=== PATIENT | female | born 1955 | race Caucasian/White ===

== ENCOUNTER → 2018-01-25 10:12 | Outpatient (CLI) | payer OTHER, SELFPAY ==
[2018-01-25 12:33] LABS: Add Manual Diff / Slide Review NO; Basophils Percent Auto 0.6 % (0-2); Eosinophils Percent Auto 2.3 % (2-4); Hematocrit 40.5 % (36-46); Hemoglobin 13.8 g/dL (12.0-16.0); Lymphocytes Percent Auto 34.7 % (25-40); Mean Corpuscular HGB Conc 34.1 % (30-36); Mean Corpuscular Hemoglobin 29.2 PG (26-34); Mean Corpuscular Volume 85.4 fL (80-100); Monocytes Percent Auto 8.2 % (3-14); Neutrophils Absolute Auto 2600 /uL (3000-5900); Neutrophils Percent Auto 54.2 % (50-75); Platelet Count 238 X10^3/uL (150-400); Red Blood Cell Count 4.74 X10^6/uL (4.0-5.2); Red Cell Distribution Width 13.7 % (11.6-14.8); White Blood Cell Count 4.8 X10^3/uL (4.5-11.0)
[2018-01-25 13:28] LABS: Alanine Aminotransferase 81 IU/L (9-52); Albumin 4.5 g/dL (3.5-5.0); Albumin Globulin Ratio 1.5 (1.0-2.8); Alkaline Phosphatase 72 U/L (38-126); Aspartate Aminotransferase 52 IU/L (14-36); BUN Creatinine Ratio 17.1 (6-22); Bilirubin Total 0.7 mg/dL (0.2-1.3); Blood Urea Nitrogen 12 mg/dL (7-17); Calcium 10.6 mg/dL (8.4-10.2); Carbon Dioxide 28 mmol/L (22-32); Chloride 101 mmol/L (98-107); Estimated Glomerular Filt Rate > 60.0 mL/min (>60); Globulin 3.1 g/dL (1.7-4.1); Glucose 135 mg/dL (80-110); HEMOLYSIS < 15 (0-50); Sodium 142 mmol/L (137-145); Total Protein 7.6 g/dL (6.3-8.2)
[2018-01-27 16:44] LABS: 1 25 Dihydroxy Vitamin D 52 pg/mL (18-72)
== END ==
PROVIDERS: PCP Family Medicine; Visit Provider Nurse Practitioner Gerontology
DX: Z78.0 Asymptomatic menopausal state (principal)
CPT/HCPCS: 36415; 77080; 80053; 82652; 85025

== ENCOUNTER → 2018-03-19 17:37 | Outpatient (CLI) | payer OTHER, SELFPAY ==
[2018-03-19 17:57] LABS: Add Manual Diff / Slide Review NO; Basophils Percent Auto 0.8 % (0-2); Eosinophils Percent Auto 3.1 % (2-4); Hematocrit 40.9 % (36-46); Hemoglobin 13.9 g/dL (12.0-16.0); Lymphocytes Percent Auto 25.9 % (25-40); Mean Corpuscular Hemoglobin 29.2 PG (26-34); Mean Corpuscular Volume 85.8 fL (80-100); Monocytes Percent Auto 10.9 % (3-14); Neutrophils Absolute Auto 3900 /uL (3000-5900); Neutrophils Percent Auto 59.3 % (50-75); Platelet Count 264 X10^3/uL (150-400); Red Blood Cell Count 4.77 X10^6/uL (4.0-5.2); Red Cell Distribution Width 13.9 % (11.6-14.8); White Blood Cell Count 6.6 X10^3/uL (4.5-11.0)
[2018-03-19 18:06] LABS: Alanine Aminotransferase 71 IU/L (9-52); Albumin 4.7 g/dL (3.5-5.0); Albumin Globulin Ratio 1.6 (1.0-2.8); Alkaline Phosphatase 73 U/L (38-126); Aspartate Aminotransferase 37 IU/L (14-36); BUN Creatinine Ratio 21.4 (6-22); Bilirubin Total 0.7 mg/dL (0.2-1.3); Blood Urea Nitrogen 15 mg/dL (7-17); Calcium 10.6 mg/dL (8.4-10.2); Carbon Dioxide 31 mmol/L (22-32); Chloride 100 mmol/L (98-107); Estimated Glomerular Filt Rate > 60.0 mL/min (>60); Glucose 98 mg/dL (80-110); HEMOLYSIS < 15 (0-50); Sodium 142 mmol/L (137-145); Total Protein 7.7 g/dL (6.3-8.2)
== END ==
PROVIDERS: PCP Family Medicine; Visit Provider Physician Assistant
DX: N23 Unspecified renal colic (principal)
CPT/HCPCS: 36415; 80053; 85025

== ENCOUNTER → 2018-04-23 10:07 | Outpatient (CLI) | payer OTHER, SELFPAY ==
[2018-04-23 11:22] LABS: Alanine Aminotransferase 72 IU/L (9-52); Albumin 4.7 g/dL (3.5-5.0); Albumin Globulin Ratio 1.6 (1.0-2.8); Alkaline Phosphatase 66 U/L (38-126); Aspartate Aminotransferase 45 IU/L (14-36); BUN Creatinine Ratio 18.6 (6-22); Bilirubin Total 0.7 mg/dL (0.2-1.3); Blood Urea Nitrogen 13 mg/dL (7-17); Calcium 10.4 mg/dL (8.4-10.2); Carbon Dioxide 30 mmol/L (22-32); Chloride 103 mmol/L (98-107); Cholesterol 265 mg/dL (140-199); Estimated Glomerular Filt Rate > 60.0 mL/min (>60); Globulin 2.9 g/dL (1.7-4.1); Glucose 109 mg/dL (80-110); HDL Cholesterol 56 mg/dL (40-60); HEMOLYSIS < 15 (0-50); LDL Cholesterol Calculated 175 mg/dL (<100); Potassium 4.2 mmol/L (3.4-5.1); Sodium 142 mmol/L (137-145); Total Protein 7.6 g/dL (6.3-8.2); Triglycerides 169 mg/dL (35-150)
[2018-04-23 11:23] LABS: Hematocrit 41.4 % (36-46); Hemoglobin 14.3 g/dL (12.0-16.0); Mean Corpuscular HGB Conc 34.5 % (30-36); Mean Corpuscular Hemoglobin 29.2 PG (26-34); Mean Corpuscular Volume 84.7 fL (80-100); Platelet Count 250 X10^3/uL (150-400); Red Blood Cell Count 4.89 X10^6/uL (4.0-5.2); Red Cell Distribution Width 13.9 % (11.6-14.8); White Blood Cell Count 4.6 X10^3/uL (4.5-11.0)
[2018-04-23 12:09] LABS: Free T4, Direct Thyroxine 1.83 ng/dL (0.78-2.19)
[2018-04-23 12:16] LABS: Creatinine Urine Random 80.9 mg/dL
[2018-04-23 12:21] LABS: Microalbumi Creatinin Ratio Ur 18.5 ug/mg CR (<30); Microalbumin Urine Random 1.5 mg/dL (0-1.6)
[2018-04-23 12:24] LABS: Thyroid Stimulating Hormone 0.25 uIU/mL (0.47-4.68)
== END ==
PROVIDERS: PCP Family Medicine
DX: E03.8 Other specified hypothyroidism (principal); E06.3 Autoimmune thyroiditis; E11.9 Type 2 diabetes mellitus without complications
CPT/HCPCS: 36415; 80053; 80061; 82043; 82570; 84439; 84443; 85027

== ENCOUNTER 2018-06-01 08:45 | Emergency (ER) | payer OTHER, SELFPAY ==
[2018-06-01 08:56] VITALS: BP 188/77; PULSE 90; RESP 13; TEMP 36.9; O2SAT 96
[2018-06-01 09:16] VITALS: BP 156/77; PULSE 72
[2018-06-01 09:20] LABS: Add Manual Diff / Slide Review NO; Basophils Percent Auto 0.8 % (0-2); Eosinophils Percent Auto 3.1 % (2-4); Hematocrit 40.2 % (36-46); Hemoglobin 13.9 g/dL (12.0-16.0); Lymphocytes Percent Auto 35.2 % (25-40); Mean Corpuscular HGB Conc 34.5 % (30-36); Mean Corpuscular Hemoglobin 29.4 PG (26-34); Mean Corpuscular Volume 85.3 fL (80-100); Neutrophils Absolute Auto 2500 /uL (3000-5900); Neutrophils Percent Auto 50.9 % (50-75); Platelet Count 245 X10^3/uL (150-400); Red Blood Cell Count 4.71 X10^6/uL (4.0-5.2); Red Cell Distribution Width 13.6 % (11.6-14.8); White Blood Cell Count 4.9 X10^3/uL (4.5-11.0)
[2018-06-01 09:28] LABS: Alanine Aminotransferase 74 IU/L (9-52); Albumin 4.6 g/dL (3.5-5.0); Albumin Globulin Ratio 1.7 (1.0-2.8); Alkaline Phosphatase 121 U/L (38-126); Aspartate Aminotransferase 38 IU/L (14-36); BUN Creatinine Ratio 28.3 (6-22); Bilirubin Total 0.6 mg/dL (0.2-1.3); Blood Urea Nitrogen 17 mg/dL (7-17); Calcium 9.8 mg/dL (8.4-10.2); Carbon Dioxide 24 mmol/L (22-32); Chloride 103 mmol/L (98-107); Estimated Glomerular Filt Rate > 60.0 mL/min (>60); Globulin 2.7 g/dL (1.7-4.1); Glucose 226 mg/dL (80-110); HEMOLYSIS 16 (0-50); Potassium 4.3 mmol/L (3.4-5.1); Sodium 142 mmol/L (137-145); Total Protein 7.3 g/dL (6.3-8.2)
--- NOTE | 2018-06-01 09:40 | ED.GENADULT ---
HPI - General Adult General Chief complaint: Hypertension Stated complaint: BLOOD PRESSURE HIGH Time Seen by Provider: 06/01/18 09:28 Source: patient and family (daughter) Mode of arrival: ambulatory Limitations: no limitations History of Present Illness HPI narrative: This 63-year-old female who comes in with complaint of feeling sort of dizzy and off balance occasionally. She thinks that her blood pressure is elevated this may be part of the issue. She states checked her blood pressure at home it was 190/115 with an arm cough. She states that she has also checked at several other times it has ranged from about 150 on the upper end to 90 range. Patient states she was told to start a it started in for blood pressure but she has not because she did have high blood pressure until recently although she is taking Gerardo inhibitor and hydrochlorothiazide. Patient also recently changed her medication to insulin glargine you 300 from Lantus. Patient states her physician told her that it was not controlling her sugars well. She was 240 this morning during the most recent episode which she states it is a pretty good number for her. She has not had any fevers or chills. She denied having a headache, she is not having any chest pressure or shortness of breath. No nausea or vomiting. No GI or urinary symptoms that are new. Patient also thought that perhaps she had an ear infection as her ears have felt full that she thought this might be the cause. She had 1 episode when she was speaking on the phone and she states everything went black but sounds like she did not lose consciousness or stop talking during this episode. Related Data Home Medications Medication Instructions Recorded Confirmed cholecalciferol (vitamin D3) 2,000 unit PO QDAY #0 05/06/17 06/01/18 lorazepam 0.5 mg tablet 0.5 mg PO BEDTIME PRN 12/02/17 06/01/18 metformin 1,000 mg tablet 1,000 mg PO BID 12/02/17 06/01/18 insulin aspart U-100 [Novolog 1 dose SUBCUT DIRECTED 06/01/18 06/01/18 Flexpen U-100 Insulin] insulin glargine U-300 conc 120 units SUBCUT QAM 06/01/18 06/01/18 [Toujeo Max U-300 SoloStar] levothyroxine [Synthroid] 112 mcg PO DAILY 06/01/18 06/01/18 Allergies Allergy/AdvReac Type Severity Reaction Status Date / Time promethazine [From PHENERGAN] Allergy Unknown Unverified 03/19/18 17:18 scopolamine [SCOPOLAMINE] Allergy Unknown Unverified 03/19/18 17:18 NO USE OF LEFT ARM FOR IV/BP Allergy Unknown Uncoded 03/19/18 17:18 Review of Systems Review of Systems All systems reviewed & are unremarkable except as noted in HPI and below Constitutional Denies chills, Denies headache(s), Denies lethargy, Denies malaise and Denies weakness ENT Ears, Nose, Mouth, and Throat: Denies headache(s), Denies disequilibrium and Reports other (ears feel full) Cardiovascular Denies chest pain, Denies diaphoresis, Denies syncope, Denies pedal edema, Denies irregular heart rhythm, Denies lightheadedness, Denies palpitations, Denies dyspnea, Denies orthopnea and Reports other (dizzy, everything went black) Respiratory Denies chest congestion, Denies cough and Denies dyspnea Gastrointestinal Gastrointestinal: Denies abdominal pain, Denies change in bowel habits, Denies diarrhea, Denies nausea and Denies vomiting Musculoskeletal Denies numbness Neurologic Denies syncope, Denies headache(s), Denies focal weakness, Denies numbness, Denies disequilibrium and Denies weakness Endocrine Denies palpitations [facility] Medical History Diabetes (Acute) Surgical History History of lithotripsy History of tonsillectomy History of total mastectomy Family History Father Diabetes mellitus Hypertension Stroke Mother Hypertension Stroke Social History Smoking Status: Never smoker Exam Narrative Exam Narrative: GEN: well nourished, well appearing female, alert and oriented x 3, patient appears to be in mild distress. HEENT: Atraumatic, pupils are equal round reactive to light, extraocular movements are intact, nares are clear, TMs are clear with no fluid. Throat is clear without any exudates, erythema, tonsillar enlargement or uvular deviation HEART: Regular rate and rhythm without murmur, clicks, rubs. No carotid bruits, pulses are equal in upper and lower extremities LUNGS:Lungs clear to auscultation, no wheezes, rales, crackles, chest moves symmetrically ABD:bowel sounds normal, soft, non-tender, no guarding, rebound, rigidity, no masses noted, no hepatosplenomegaly MSCL: Non-tender, no muscle atrophy, muscles strength 5/5 upper and lower extremities, full range of motion, normal gait NEURO:CN 2-12 intact, sensation normal Initial Vital Signs Initial Vital Signs: Vital Signs Temperature 98.4 F 06/01/18 08:56 Pulse Rate 90 06/01/18 08:56 Respiratory Rate 13 06/01/18 08:56 Blood Pressure 188/77 H 06/01/18 08:56 Pulse Oximetry 96 06/01/18 08:56 Course Orders Ordered: ED Orders 06/01/18 08:56 EKG-12 Lead Stat 06/01/18 09:00 CBC [Complete Blood Count AUTO DIFF] Stat Comprehensive Metabolic Panel Stat 06/01/18 09:40 XR chest 1V Stat 06/01/18 09:43 Troponin & CK Cardiac Panel Stat Vital Signs - 8 hr 06/01/18 08:56 06/01/18 09:16 06/01/18 10:51 Temperature 98.4 F Pulse Rate 90 72 84 Respiratory Rate 13 16 Blood Pressure 188/77 H Blood Pressure [Right Arm] 156/77 H 149/60 H Pulse Oximetry 96 99 06/01/18 11:19 Temperature Pulse Rate 82 Respiratory Rate 13 Blood Pressure Blood Pressure [Right Arm] 151/70 H Pulse Oximetry 96 Medical Decision Making Lab Data Result diagrams: 06/01/18 09:00 06/01/18 09:00 Lab Results 06/01/18 06/01/18 06/01/18 Range/Units 09:00 09:00 09:43 WBC 4.9 (4.5-11.0) X10^3/uL RBC 4.71 (4.0-5.2) X10^6/uL Hgb 13.9 (12.0-16.0) g/dL Hct 40.2 (36-46) % MCV 85.3 (80-100) fL MCH 29.4 (26-34) PG MCHC 34.5 (30-36) % RDW 13.6 (11.6-14.8) % Plt Count 245 (150-400) X10^3/uL Neut % (Auto) 50.9 (50-75) % Lymph % (Auto) 35.2 (25-40) % [place] % (Auto) 10.0 (3-14) % Eos % (Auto) 3.1 (2-4) % Baso % (Auto) 0.8 (0-2) % Neut # (Auto) 2500 L (6936-8306) /uL Sodium 142 (137-145) mmol/L Potassium 4.3 (3.4-5.1) mmol/L Chloride 103 (98-107) mmol/L Carbon Dioxide 24 (22-32) mmol/L BUN 17 (7-17) mg/dL Creatinine 0.60 (0.52-1.04) mg/dL Estimated GFR > 60.0 (>60) mL/min BUN/Creatinine Ratio 28.3 H (6-22) Glucose 226 H (80-110) mg/dL Calcium 9.8 (8.4-10.2) mg/dL Total Bilirubin 0.6 (0.2-1.3) mg/dL AST 38 H (14-36) IU/L ALT 74 H (9-52) IU/L Alkaline Phosphatase 121 (38-126) U/L Total Creatine Kinase 64 (30-135) U/L CK-MB (CK-2) TNP CK-MB (CK-2) Rel Index TNP Troponin I < 0.012 (0.01-0.034) ng/mL Total Protein 7.3 (6.3-8.2) g/dL Albumin 4.6 (3.5-5.0) g/dL Globulin 2.7 (1.7-4.1) g/dL Albumin/Globulin Ratio 1.7 (1.0-2.8) Urine Dip Bedside Urine Glucose 250 mg/dl Bedside Urine Bilirubin - Negative Urine Specific [place] 1.015 Bedside Urine Occult Blood - Negative Bedside Urine pH 6.0 Bedside Urine Protein - Negative Bedside Urine Urobilinogen - Negative Bedside Urine Nitrite - Negative Bedside Urine Leukocytes - Negative Esterase Point of care testing: Urine Dip Bedside Urine Glucose 250 mg/dl Bedside Urine Bilirubin - Negative Urine Specific [place] 1.015 Bedside Urine Occult Blood - Negative Bedside Urine pH 6.0 Bedside Urine Protein - Negative Bedside Urine Urobilinogen - Negative Bedside Urine Nitrite - Negative Bedside Urine Leukocytes - Negative Esterase Imaging Data Chest x-ray: Radiologist's impression: [address] [address] XRay Report Signed Patient: Lesa Hitchcock PMR#: [id number] : 4Acct:[id number] Age/Sex: 63 / FDate of Service: 06/01/18 Loc: ED Accession Number: [id number] Procedure: XR chest 1V Ordering Provider: Lexis Segura D.O. PROCEDURE: XR CHEST 1V INDICATIONS: dizzy, high blood pressure TECHNIQUE: One view of the chest was acquired. COMPARISON: None. FINDINGS: Surgical changes and devices: Clips are present on the chest wall. Lungs and pleura: No pleural effusions or pneumothorax. Lungs are clear. Mediastinum: Mediastinal contours appear normal. Heart size is normal. Bones and chest wall: No suspicious bony lesions. Overlying soft tissues appear unremarkable. IMPRESSION: No acute pulmonary process. Dictated by: Lakesha Buckley M.D. on 06/01/2018 at 10:17 Approved by: Lakesha Buckley M.D. on 06/01/2018 at 10:18 ECG Data Attestation: I personally reviewed and interpreted this ECG as follows: Prior ECG tracings: not available for review Interpretation: Sinus rhythm with a rate of 80, P are 175 QRS of 102 and QTC of 397. Q-wave in 2 3 but not noted in AVF. No ST elevation. Possible depression in 2 and 3 but also not noted in AVF. Discharge Plan Departure Patient Disposition: Home Clinical Impression: Dizziness, Hypertension Discharge Date/Time: 06/01/18 11:42 Interventions: ED Discharge Assessment Last Done: 06/01/18 11:40 Instructions: DI for High Blood Pressure Activity Restrictions/Additional Instructions: Follow-up with your primary care physician in the next 2-3 days for recheck call for an appointment. Return to the emergency department for passing out, chest pain, shortness of breath, persistent vomiting, black or bloody stools or other new or concerning symptoms. I do recommend you continue to use your insulin as recommended. I also recommend that you start your blood pressure medication as prescribed by your physician. Prescriptions: No Action cholecalciferol (vitamin D3) 400 UNIT/1 ML drops 2,000 unit PO QDAY Qty: 0 RF: 0 metformin 1,000 mg tablet 1,000 mg PO BID RF: 0 lorazepam 0.5 mg tablet 0.5 mg PO BEDTIME PRN (Reason: Anxiety) RF: 0 levothyroxine [Synthroid] 112 mcg tablet 112 mcg PO DAILY RF: 0 insulin aspart U-100 [Novolog Flexpen U-100 Insulin] 100 unit/mL insulin pen 1 dose subcut DIRECTED RF: 0 insulin glargine U-300 conc [Toujeo Max U-300 SoloStar] 300 unit/mL (3 mL) insulin pen 120 units subcut QAM RF: 0
--- NOTE | 2018-06-01 09:44 | ED_ITS ---
HPI - General Adult General Chief complaint: Hypertension Stated complaint: BLOOD PRESSURE HIGH Time Seen by Provider: 06/01/18 09:28 Source: patient and family (daughter) Mode of arrival: ambulatory Limitations: no limitations History of Present Illness HPI narrative: This 63-year-old female who comes in with complaint of feeling sort of dizzy and off balance occasionally. She thinks that her blood pressure is elevated this may be part of the issue. She states checked her blood pressure at home it was 190/115 with an arm cough. She states that she has also checked at several other times it has ranged from about 150 on the upper end to 90 range. Patient states she was told to start a it started in for blood pressure but she has not because she did have high blood pressure until recently although she is taking Gerardo inhibitor and hydrochlorothiazide. Patient also recently changed her medication to insulin glargine you 300 from Lantus. Patient states her physician told her that it was not controlling her sugars well. She was 240 this morning during the most recent episode which she states it is a pretty good number for her. She has not had any fevers or chills. She denied having a headache, she is not having any chest pressure or shortness of breath. No nausea or vomiting. No GI or urinary symptoms that are new. Patient also thought that perhaps she had an ear infection as her ears have felt full that she thought this might be the cause. She had 1 episode when she was speaking on the phone and she states everything went black but sounds like she did not lose consciousness or stop talking during this episode. Related Data Home Medications Medication Instructions Recorded Confirmed cholecalciferol (vitamin D3) 2,000 unit PO QDAY #0 05/06/17 06/01/18 lorazepam 0.5 mg tablet 0.5 mg PO BEDTIME PRN 12/02/17 06/01/18 metformin 1,000 mg tablet 1,000 mg PO BID 12/02/17 06/01/18 insulin aspart U-100 [Novolog 1 dose SUBCUT DIRECTED 06/01/18 06/01/18 Flexpen U-100 Insulin] insulin glargine U-300 conc 120 units SUBCUT QAM 06/01/18 06/01/18 [Toujeo Max U-300 SoloStar] levothyroxine [Synthroid] 112 mcg PO DAILY 06/01/18 06/01/18 Allergies Allergy/AdvReac Type Severity Reaction Status Date / Time promethazine [From PHENERGAN] Allergy Unknown Unverified 03/19/18 17:18 scopolamine [SCOPOLAMINE] Allergy Unknown Unverified 03/19/18 17:18 NO USE OF LEFT ARM FOR IV/BP Allergy Unknown Uncoded 03/19/18 17:18 Review of Systems Review of Systems All systems reviewed & are unremarkable except as noted in HPI and below Constitutional Denies chills, Denies headache(s), Denies lethargy, Denies malaise and Denies weakness ENT Ears, Nose, Mouth, and Throat: Denies headache(s), Denies disequilibrium and Reports other (ears feel full) Cardiovascular Denies chest pain, Denies diaphoresis, Denies syncope, Denies pedal edema, Denies irregular heart rhythm, Denies lightheadedness, Denies palpitations, Denies dyspnea, Denies orthopnea and Reports other (dizzy, everything went black ) Respiratory Denies chest congestion, Denies cough and Denies dyspnea Gastrointestinal Gastrointestinal: Denies abdominal pain, Denies change in bowel habits, Denies diarrhea, Denies nausea and Denies vomiting Musculoskeletal Denies numbness Neurologic Denies syncope, Denies headache(s), Denies focal weakness, Denies numbness, Denies disequilibrium and Denies weakness Endocrine Denies palpitations [facility] Medical History Diabetes (Acute) Surgical History History of lithotripsy History of tonsillectomy History of total mastectomy Family History Father Diabetes mellitus Hypertension Stroke Mother Hypertension Stroke Social History Smoking Status: Never smoker Exam Narrative Exam Narrative: GEN: well nourished, well appearing female, alert and oriented x 3, patient appears to be in mild distress. HEENT: Atraumatic, pupils are equal round reactive to light, extraocular movements are intact, nares are clear, TMs are clear with no fluid. Throat is clear without any exudates, erythema, tonsillar enlargement or uvular deviation HEART: Regular rate and rhythm without murmur, clicks, rubs. No carotid bruits , pulses are equal in upper and lower extremities LUNGS:Lungs clear to auscultation, no wheezes, rales, crackles, chest moves symmetrically ABD:bowel sounds normal, soft, non-tender, no guarding, rebound, rigidity, no masses noted, no hepatosplenomegaly MSCL: Non-tender, no muscle atrophy, muscles strength 5/5 upper and lower extremities, full range of motion, normal gait NEURO:CN 2-12 intact, sensation normal Initial Vital Signs Initial Vital Signs: Vital Signs Temperature 98.4 F 06/01/18 08:56 Pulse Rate 90 06/01/18 08:56 Respiratory Rate 13 06/01/18 08:56 Blood Pressure 188/77 H 06/01/18 08:56 Pulse Oximetry 96 06/01/18 08:56 Course Orders Ordered: ED Orders 06/01/18 08:56 EKG-12 Lead Stat 06/01/18 09:00 CBC [Complete Blood Count AUTO DIFF] Stat Comprehensive Metabolic Panel Stat 06/01/18 09:40 XR chest 1V Stat 06/01/18 09:43 Troponin & CK Cardiac Panel Stat Vital Signs - 8 hr 06/01/18 08:56 06/01/18 09:16 06/01/18 10:51 Temperature 98.4 F Pulse Rate 90 72 84 Respiratory Rate 13 16 Blood Pressure 188/77 H Blood Pressure [Right Arm] 156/77 H 149/60 H Pulse Oximetry 96 99 06/01/18 11:19 Temperature Pulse Rate 82 Respiratory Rate 13 Blood Pressure Blood Pressure [Right Arm] 151/70 H Pulse Oximetry 96 Medical Decision Making Lab Data Result diagrams: 06/01/18 09:00 06/01/18 09:00 Lab Results 06/01/18 06/01/18 06/01/18 Range/Units 09:00 09:00 09:43 WBC 4.9 (4.5-11.0) X10^3/uL RBC 4.71 (4.0-5.2) X10^6/uL Hgb 13.9 (12.0-16.0) g/dL Hct 40.2 (36-46) % MCV 85.3 (80-100) fL MCH 29.4 (26-34) PG MCHC 34.5 (30-36) % RDW 13.6 (11.6-14.8) % Plt Count 245 (150-400) X10^3/uL Neut % (Auto) 50.9 (50-75) % Lymph % (Auto) 35.2 (25-40) % [place] % (Auto) 10.0 (3-14) % Eos % (Auto) 3.1 (2-4) % Baso % (Auto) 0.8 (0-2) % Neut # (Auto) 2500 L (3007-3906) /uL Sodium 142 (137-145) mmol/L Potassium 4.3 (3.4-5.1) mmol/L Chloride 103 (98-107) mmol/L Carbon Dioxide 24 (22-32) mmol/L BUN 17 (7-17) mg/dL Creatinine 0.60 (0.52-1.04) mg/dL Estimated GFR > 60.0 (>60) mL/min BUN/Creatinine Ratio 28.3 H (6-22) Glucose 226 H (80-110) mg/dL Calcium 9.8 (8.4-10.2) mg/dL Total Bilirubin 0.6 (0.2-1.3) mg/dL AST 38 H (14-36) IU/L ALT 74 H (9-52) IU/L Alkaline Phosphatase 121 (38-126) U/L Total Creatine Kinase 64 (30-135) U/L CK-MB (CK-2) TNP CK-MB (CK-2) Rel Index TNP Troponin I < 0.012 (0.01-0.034) ng/mL Total Protein 7.3 (6.3-8.2) g/dL Albumin 4.6 (3.5-5.0) g/dL Globulin 2.7 (1.7-4.1) g/dL Albumin/Globulin Ratio 1.7 (1.0-2.8) Urine Dip Bedside Urine Glucose 250 mg/dl Bedside Urine Bilirubin - Negative Urine Specific [place] 1.015 Bedside Urine Occult Blood - Negative Bedside Urine pH 6.0 Bedside Urine Protein - Negative Bedside Urine Urobilinogen - Negative Bedside Urine Nitrite - Negative Bedside Urine Leukocytes - Negative Esterase Point of care testing: Urine Dip Bedside Urine Glucose 250 mg/dl Bedside Urine Bilirubin - Negative Urine Specific [place] 1.015 Bedside Urine Occult Blood - Negative Bedside Urine pH 6.0 Bedside Urine Protein - Negative Bedside Urine Urobilinogen - Negative Bedside Urine Nitrite - Negative Bedside Urine Leukocytes - Negative Esterase Imaging Data Chest x-ray: Radiologist's impression: [address] [address] XRay Report Signed Patient: Lesa Hitchcock PMR#: [id number] : 4Acct:[id number] Age/Sex: 63 / FDate of Service: 06/01/18 Loc: ED Accession Number: [id number] Procedure: XR chest 1V Ordering Provider: Lexis Segura D.O. PROCEDURE: XR CHEST 1V INDICATIONS: dizzy, high blood pressure TECHNIQUE: One view of the chest was acquired. COMPARISON: None. FINDINGS: Surgical changes and devices: Clips are present on the chest wall. Lungs and pleura: No pleural effusions or pneumothorax. Lungs are clear. Mediastinum: Mediastinal contours appear normal. Heart size is normal. Bones and chest wall: No suspicious bony lesions. Overlying soft tissues appear unremarkable. IMPRESSION: No acute pulmonary process. Dictated by: Lakesha Buckley M.D. on 06/01/2018 at 10:17 Approved by: Lakesha Buckley M.D. on 06/01/2018 at 10:18 ECG Data Attestation: I personally reviewed and interpreted this ECG as follows: Prior ECG tracings: not available for review Interpretation: Sinus rhythm with a rate of 80, P are 175 QRS of 102 and QTC of 397. Q-wave in 2 3 but not noted in AVF. No ST elevation. Possible depression in 2 and 3 but also not noted in AVF. Discharge Plan Departure Patient Disposition: Home Clinical Impression: Dizziness, Hypertension Discharge Date/Time: 06/01/18 11:42 Interventions: ED Discharge Assessment Last Done: 06/01/18 11:40 Instructions: DI for High Blood Pressure Activity Restrictions/Additional Instructions: Follow-up with your primary care physician in the next 2-3 days for recheck call for an appointment. Return to the emergency department for passing out, chest pain, shortness of breath, persistent vomiting, black or bloody stools or other new or concerning symptoms. I do recommend you continue to use your insulin as recommended. I also recommend that you start your blood pressure medication as prescribed by your physician. Prescriptions: No Action cholecalciferol (vitamin D3) 400 UNIT/1 ML drops 2,000 unit PO QDAY Qty: 0 RF: 0 metformin 1,000 mg tablet 1,000 mg PO BID RF: 0 lorazepam 0.5 mg tablet 0.5 mg PO BEDTIME PRN (Reason: Anxiety) RF: 0 levothyroxine [Synthroid] 112 mcg tablet 112 mcg PO DAILY RF: 0 insulin aspart U-100 [Novolog Flexpen U-100 Insulin] 100 unit/mL insulin pen 1 dose subcut DIRECTED RF: 0 insulin glargine U-300 conc [Toujeo Max U-300 SoloStar] 300 unit/mL (3 mL) insulin pen 120 units subcut QAM RF: 0
--- NOTE | 2018-06-01 09:48 | PC.NURSE ---
Daughter Kat Olivier at [phone]
[2018-06-01 09:51] LABS: Creatine Kinase 64 U/L (30-135)
[2018-06-01 10:05] LABS: Troponin I < 0.012 ng/mL (0.01-0.034)
[2018-06-01 10:51] VITALS: BP 149/60; PULSE 84; RESP 16; O2SAT 99
[2018-06-01 11:19] VITALS: BP 151/70; PULSE 82; RESP 13; O2SAT 96
== END 2018-06-01 11:42 | disposition home or self-care (01) ==
PROVIDERS: Emergency Provider Emergency Medicine; PCP Family Medicine
DX: I10 Essential (primary) hypertension (principal); R42 Dizziness and giddiness
CPT/HCPCS: 36591; 71045; 80053; 81003; 82550; 84484; 85025; 93005; 93041; 99283; 99285

== ENCOUNTER 2018-06-11 11:40 | Emergency (ER) | payer OTHER, SELFPAY ==
[2018-06-11] VITALS (7 sets, daily range): BP systolic 108–137; BP diastolic 50–71; PULSE 79–95; RESP 14–23; TEMP 36.9; O2SAT 91–100
--- NOTE | 2018-06-11 12:09 | ED.AMS ---
HPI - Altered Mental Status <CITLALI Ogden - Last Filed: 06/11/18 22:03> General Chief Complaint: Hypertension Stated Complaint: High BP and HR Time Seen by Provider: 06/11/18 12:04 Source: patient Mode of arrival: ambulatory Limitations: no limitations History of Present Illness HPI narrative: 63-year-old female with history of hypertension and is a nonsmoker here for complaint of having periods of having increased blood pressure and also feelings of increased heart rate over the past couple of weeks. She was seen for this 1 week ago with similar symptoms and had negative workup. She is currently awaiting further studies such as possible cardiac studies and also carotid Doppler. She is concerned about her thyroid levels as she has hypo thyroidism and is taking levothyroxine. She denies having any chest pain. She denies having any headache. She states she did have an episode last night where she saw darkness closing although she denies any loss of consciousness. She does state that she felt lightheaded during this. And lasted he less than a minute. She is not having any symptoms as of today. She denies any shortness of breath. No fevers no chills. Related Data Home Medications Medication Instructions Recorded Confirmed metformin 1,000 mg tablet 1,000 mg PO BID 12/02/17 06/11/18 insulin aspart U-100 [Novolog 1 dose SUBCUT DIRECTED 06/01/18 06/11/18 Flexpen U-100 Insulin] insulin glargine U-300 conc 120 units SUBCUT QAM 06/01/18 06/11/18 [Toujeo Max U-300 SoloStar] levothyroxine [Synthroid] 112 mcg PO DAILY 06/01/18 06/11/18 Allergies Allergy/AdvReac Type Severity Reaction Status Date / Time promethazine [From PHENERGAN] Allergy Unknown Unverified 03/19/18 17:18 scopolamine [SCOPOLAMINE] Allergy Unknown Unverified 03/19/18 17:18 NO USE OF LEFT ARM FOR IV/BP Allergy Unknown Uncoded 03/19/18 17:18 Review of Systems <CITLALI Ogden - Last Filed: 06/11/18 22:03> Review of Systems Elevated blood pressure and elevated heart rate. Pre syncopal episode last night and week prior Constitutional Denies chills, Denies fever(s), Denies lethargy and Denies weakness Eyes Denies change in vision, Denies eye discharge, Denies irritation and Denies loss of vision ENT Ears, Nose, Mouth, and Throat: Denies change in voice, Denies neck pain and Denies sore throat Cardiovascular Denies chest pain, Denies irregular heart rhythm, Denies lightheadedness, Denies palpitations, Denies dyspnea, Denies dyspnea on exertion and Denies orthopnea Respiratory Denies cough, Denies dyspnea, Denies dyspnea on exertion and Denies wheezing Gastrointestinal Gastrointestinal: Denies abdominal pain, Denies change in bowel habits, Denies diarrhea, Denies nausea and Denies vomiting Genitourinary Denies hematuria, Denies flank pain, Denies urinary incontinence and Denies urinary urgency Musculoskeletal Denies neck pain Integumentary/Breasts Denies pruritus, Denies erythema, Denies rash and Denies wounds Neurologic Denies confusion, Denies loss of vision and Denies weakness Psychiatric Denies anxiety, Denies confusion, Denies depression, Denies homicidal ideation and Denies suicidal ideation Endocrine Denies palpitations Hematologic/Lymphatic Denies easy bruising Allergic/Immunologic Denies wheezing Exam <CITLALI Ogden - Last Filed: 06/11/18 22:03> Initial Vital Signs Initial Vital Signs: Vital Signs Temperature 98.5 F 06/11/18 12:16 Pulse Rate 95 H 06/11/18 12:16 Respiratory Rate 14 06/11/18 12:16 Blood Pressure 137/68 06/11/18 12:16 Pulse Oximetry 100 06/11/18 12:16 Const General: cooperative and well developed Nutritional Appearance: well nourished Orientation: alert, awake, oriented x3 and not confused [facility] Mouth: oral mucosae normal and mucous membranes abnormal Eyes Conjunctivae: conjunctivae normal Sclera: sclerae normal Pupils: PERRL EOM: EOM intact bilaterally Neck Neck: normal visual inspection, trachea midline, No lymphadenopathy, No midline deformity and No JVD Lymphatic: No lymphedema Resp Effort & Inspection: normal respiratory effort, able to speak in complete sentences, no respiratory distress and no use of accessory muscles Auscultation: clear to auscultation bilaterally, no rales, no rhonchi and no wheezes Cardio Rate: regular rate Rhythm: regular rhythm Heart Sounds: no click, no gallops, no murmurs and no rubs Pulses: normal peripheral pulses GI Inspection: non-distended Palpation: soft, no hepatosplenomegaly, No guarding, No pulsatile mass and No tender Auscultation: normal bowel sounds General: No CVA tenderness Skin General: no rashes or lesions noted, No jaundice and No petechiae Neuro General: alert, oriented x3, gait normal and no focal motor deficits Speech: speech normal <Samreen Kuhn DO - Last Filed: 06/12/18 07:26> Initial Vital Signs Initial Vital Signs: Vital Signs Temperature 98.5 F 06/11/18 12:16 Pulse Rate 95 H 06/11/18 12:16 Respiratory Rate 14 06/11/18 12:16 Blood Pressure 137/68 06/11/18 12:16 Pulse Oximetry 100 06/11/18 12:16 Course <CITLALI Ogden - Last Filed: 06/11/18 22:03> Orders Ordered: ED Orders 06/11/18 12:29 CT head/brain wo con Stat XR chest 1V Stat EKG-12 Lead Stat 06/11/18 13:00 Complete Blood Count AUTO DIFF Stat Comprehensive Metabolic Panel Stat Free T4 Free Thyroxine Stat T4 Thyroxine Stat Thyroid Stimulating Hormone Stat Triiodothryronine T3 Uptake Stat Triiodothyronine T3 Free Stat Troponin & CK Cardiac Panel Stat Vital Signs - 8 hr 06/11/18 14:15 06/11/18 14:45 06/11/18 15:05 Pulse Rate 79 83 85 Respiratory Rate 15 14 23 Blood Pressure [Left Arm] 122/60 128/50 L 131/52 L Pulse Oximetry 97 98 94 <Samreen Kuhn DO - Last Filed: 06/12/18 07:26> Orders Ordered: ED Orders 06/11/18 12:29 CT head/brain wo con Stat XR chest 1V Stat EKG-12 Lead Stat 06/11/18 13:00 Complete Blood Count AUTO DIFF Stat Comprehensive Metabolic Panel Stat Free T4 Free Thyroxine Stat T4 Thyroxine Stat Thyroid Stimulating Hormone Stat Triiodothryronine T3 Uptake Stat Triiodothyronine T3 Free Stat Troponin & CK Cardiac Panel Stat Vital Signs - 8 hr 06/11/18 14:15 06/11/18 14:45 06/11/18 15:05 Pulse Rate 79 83 85 Respiratory Rate 15 14 23 Blood Pressure [Left Arm] 122/60 128/50 L 131/52 L Pulse Oximetry 97 98 94 MDM - Altered Mental Status <CITLALI Ogden - Last Filed: 06/11/18 22:03> Lab Data Result diagrams: 06/11/18 13:00 06/11/18 13:00 Lab Results 06/11/18 06/11/18 06/11/18 Range/Units 13:00 13:00 13:00 WBC 5.7 (4.5-11.0) X10^3/uL RBC 5.16 (4.0-5.2) X10^6/uL Hgb 15.1 (12.0-16.0) g/dL Hct 43.8 (36-46) % MCV 84.9 (80-100) fL MCH 29.2 (26-34) PG MCHC 34.4 (30-36) % RDW 13.5 (11.6-14.8) % Plt Count 271 (150-400) X10^3/uL Neut % (Auto) 55.0 (50-75) % Lymph % (Auto) 34.0 (25-40) % [place] % (Auto) 8.2 (3-14) % Eos % (Auto) 2.0 (2-4) % Baso % (Auto) 0.8 (0-2) % Neut # (Auto) 3100 (7722-8889) /uL Sodium 143 (137-145) mmol/L Potassium 3.9 (3.4-5.1) mmol/L Chloride 101 (98-107) mmol/L Carbon Dioxide 27 (22-32) mmol/L BUN 17 (7-17) mg/dL Creatinine 0.80 (0.52-1.04) mg/dL Estimated GFR > 60.0 (>60) mL/min BUN/Creatinine Ratio 21.3 (6-22) Glucose 117 H (80-110) mg/dL Calcium 10.7 H (8.4-10.2) mg/dL Total Bilirubin 0.6 (0.2-1.3) mg/dL AST 50 H (14-36) IU/L ALT 77 H (9-52) IU/L Alkaline Phosphatase 82 (38-126) U/L Total Creatine Kinase 52 (30-135) U/L CK-MB (CK-2) TNP CK-MB (CK-2) Rel Index TNP Troponin I < 0.012 (0.01-0.034) ng/mL Total Protein 8.3 H (6.3-8.2) g/dL Albumin 5.1 H (3.5-5.0) g/dL Globulin 3.2 (1.7-4.1) g/dL Albumin/Globulin Ratio 1.6 (1.0-2.8) TSH 0.32 L (0.47-4.68) uIU/mL Free T4 1.56 (0.78-2.19) ng/dL Thyroxine (T4) 13.40 H (5.5-11.0) ug/dL Free T3 2.80 (2.77-5.27) pg/mL T3 Uptake 31.3 (23.5-40.5) % Urine Dip Bedside Urine Glucose Negative Bedside Urine Bilirubin - Negative Bedside Urine Ketone - Negative Urine Specific Carr 1.005 Bedside Urine Occult Blood - Negative Bedside Urine pH 6.0 Bedside Urine Protein - Negative Bedside Urine Urobilinogen - Negative Bedside Urine Nitrite - Negative Bedside Urine Leukocytes - Negative Esterase Imaging Data CT scan - head: Radiologist's impression: [place] [address] CT Scan Report Signed Patient: Lesa Hitchcock PMR#: [id number] : 4Acct:[id number] Age/Sex: 63 / FDate of Service: 06/11/18 Loc: ED Accession Number: [id number] Procedure: CT head/brain wo con Ordering Provider: Zaire Lowery PROCEDURE: CT HEAD/BRAIN WO CON INDICATIONS: Elevated heart rate, elevated blood pressure, presyncope TECHNIQUE: Noncontrast 4.5 mm thick angled axial sections acquired from the foramen magnum to the vertex, with coronal and sagittal reformats. For radiation dose reduction, the following was used: automated exposure control, adjustment of mA and/or kV according to patient size. COMPARISON: None. FINDINGS: Image quality: Diagnostic. CSF spaces: Basal cisterns are patent. No extra-axial fluid collections. Ventricles are normal in size and shape. Brain: No midline shift. No intracranial masses or hemorrhage. Dang-white matter interface is normal. Skull and face: Calvarium and visualized facial bones are intact, without suspicious lesions. Sinuses: Visualized sinuses and mastoids are clear. IMPRESSION: Unremarkable head CT. No acute intracranial hemorrhage. Dictated by: Juan Antonio Muñoz M.D. on 06/11/2018 at 12:14 Approved by: Juan Antonio Muñoz M.D. on 06/11/2018 at 12:15 Chest x-ray: Radiologist's impression: [address] [address] XRay Report Signed Patient: Lesa Hitchcock PMR#: [id number] : 4Acct:[id number] Age/Sex: 63 / FDate of Service: 06/11/18 Loc: ED Accession Number: [id number] Procedure: XR chest 1V Ordering Provider: Zaire Lowery PROCEDURE: XR CHEST 1V INDICATIONS: Elevated blood pressure and heart rate TECHNIQUE: One view of the chest was acquired. COMPARISON: [facility], , XR CHEST 1V, 06/01/2018, 9:43. FINDINGS: Surgical changes and devices: Clips overlying the left axillary region are similar to the prior study. Lungs and pleura: No pleural effusions or pneumothorax. Lungs are clear. There is mild elevation of the right diaphragm, unchanged. Mediastinum: Mediastinal contours appear normal. Heart size is normal. Bones and chest wall: No suspicious bony lesions. Overlying soft tissues appear unremarkable. IMPRESSION: Stable chest. No acute cardiopulmonary process is evident. Dictated by: Juan Antonio Muñoz M.D. on 06/11/2018 at 12:41 Approved by: Juan Antonio Muñoz M.D. on 06/11/2018 at 12:42 ECG Data Interpretation: EKG shows normal sinus rhythm with no ST elevation or depression. No ectopy. Ventricular rate of 95. Pr interval 157. QRS duration of 101. QTC of 329. MDM Narrative Medical decision making narrative: Due to presyncopal episodes over the past couple of weeks head CT was obtained was negative for any acute findings. EKG shows sinus rhythm with no ST elevation or depression. No ectopy. CBC and Chem panel were obtained and shows elevated calcium of 10.7 and slightly elevated AST and ALT otherwise is unremarkable. thyroid studies show low TSH of 0.32 and elevated T4 of 13.4. Patient instructed to discuss this with her primary care provider for discussion of adjustment of her levothyroxine treatment. She is also encouraged to monitor her her blood pressure levels to ensure are not dipping to low or not spiking to high and follow up with primary care provider for evaluation of her hypertension treatment. Cardiac enzymes were obtained and were negative. Differential between blood pressure dips and spikes causing her symptoms or if over compensated hypo thyroidism may be causing her symptoms. Due to elevated calcium further thyroid/parathyroid studies may be warranted. Follow up with primary care for the next few days for re-evaluation for any worsening symptoms return to the emergency room. <Samreen Kuhn, DO - Last Filed: 06/12/18 07:26> Lab Data Attestation: I reviewed the patient's lab results. Lab Results 06/11/18 06/11/18 06/11/18 Range/Units 13:00 13:00 13:00 WBC 5.7 (4.5-11.0) X10^3/uL RBC 5.16 (4.0-5.2) X10^6/uL Hgb 15.1 (12.0-16.0) g/dL Hct 43.8 (36-46) % MCV 84.9 (80-100) fL MCH 29.2 (26-34) PG MCHC 34.4 (30-36) % RDW 13.5 (11.6-14.8) % Plt Count 271 (150-400) X10^3/uL Neut % (Auto) 55.0 (50-75) % Lymph % (Auto) 34.0 (25-40) % [place] % (Auto) 8.2 (3-14) % Eos % (Auto) 2.0 (2-4) % Baso % (Auto) 0.8 (0-2) % Neut # (Auto) 3100 (5090-7954) /uL Sodium 143 (137-145) mmol/L Potassium 3.9 (3.4-5.1) mmol/L Chloride 101 (98-107) mmol/L Carbon Dioxide 27 (22-32) mmol/L BUN 17 (7-17) mg/dL Creatinine 0.80 (0.52-1.04) mg/dL Estimated GFR > 60.0 (>60) mL/min BUN/Creatinine Ratio 21.3 (6-22) Glucose 117 H (80-110) mg/dL Calcium 10.7 H (8.4-10.2) mg/dL Total Bilirubin 0.6 (0.2-1.3) mg/dL AST 50 H (14-36) IU/L ALT 77 H (9-52) IU/L Alkaline Phosphatase 82 (38-126) U/L Total Creatine Kinase 52 (30-135) U/L CK-MB (CK-2) TNP CK-MB (CK-2) Rel Index TNP Troponin I < 0.012 (0.01-0.034) ng/mL Total Protein 8.3 H (6.3-8.2) g/dL Albumin 5.1 H (3.5-5.0) g/dL Globulin 3.2 (1.7-4.1) g/dL Albumin/Globulin Ratio 1.6 (1.0-2.8) TSH 0.32 L (0.47-4.68) uIU/mL Free T4 1.56 (0.78-2.19) ng/dL Thyroxine (T4) 13.40 H (5.5-11.0) ug/dL Free T3 2.80 (2.77-5.27) pg/mL T3 Uptake 31.3 (23.5-40.5) % Urine Dip Bedside Urine Glucose Negative Bedside Urine Bilirubin - Negative Bedside Urine Ketone - Negative Urine Specific Carr 1.005 Bedside Urine Occult Blood - Negative Bedside Urine pH 6.0 Bedside Urine Protein - Negative Bedside Urine Urobilinogen - Negative Bedside Urine Nitrite - Negative Bedside Urine Leukocytes - Negative Esterase ECG Data Attestation: I personally reviewed and interpreted this ECG as follows: Interpretation: Sinus rhythm rate [address] changes similar to previous EKG Discharge Plan Departure Patient Disposition: Home Clinical Impression: Dizziness, Hypertension Discharge Date/Time: 06/11/18 15:33 Interventions: ED Discharge Assessment Last Done: 06/11/18 15:33 Activity Restrictions/Additional Instructions: Imaging today that was head CT and chest x-ray were negative. Cardiac enzymes today were unremarkable. Laboratory results show mildly elevated calcium along with decreased TSH and elevated T4 levels indicating that an adjustment of your levothyroxine may be needed. Discussed this with her primary care provider. Elevated calcium may warrant further look at your parathyroid function and studies. Monitor your blood pressure a few times a day and record blood pressures to follow up with her primary care provider to ensure that you are not dipping into low and her blood pressure or spiking to high to help with blood pressure medication regimen. For any worsening symptoms return to the emergency room. Prescriptions: No Action metformin 1,000 mg tablet 1,000 mg PO BID RF: 0 levothyroxine [Synthroid] 112 mcg tablet 112 mcg PO DAILY RF: 0 insulin aspart U-100 [Novolog Flexpen U-100 Insulin] 100 unit/mL insulin pen 1 dose subcut DIRECTED RF: 0 insulin glargine U-300 conc [Toujeo Max U-300 SoloStar] 300 unit/mL (3 mL) insulin pen 120 units subcut QAM RF: 0 Referrals: Ricardo Dc MD [Primary Care Provider] - <Samreen uKhn DO - Last Filed: 06/12/18 07:26> Cosign ED Attending Andrea Attestation: I was immediately available in the department for consultation. Documentation has been reviewed. I agree with assessment and plan.
--- NOTE | 2018-06-11 12:29 | DI.RAD.S_ITS ---
PROCEDURE: XR CHEST 1V INDICATIONS: Elevated blood pressure and heart rate TECHNIQUE: One view of the chest was acquired. COMPARISON: [facility], , XR CHEST 1V, 06/01/2018, 9:43. FINDINGS: Surgical changes and devices: Clips overlying the left axillary region are similar to the prior study. Lungs and pleura: No pleural effusions or pneumothorax. Lungs are clear. There is mild elevation of the right diaphragm, unchanged. Mediastinum: Mediastinal contours appear normal. Heart size is normal. Bones and chest wall: No suspicious bony lesions. Overlying soft tissues appear unremarkable. IMPRESSION: Stable chest. No acute cardiopulmonary process is evident. Dictated by: Juan Antonio Muñoz M.D. on 06/11/2018 at 12:41 Approved by: Juan Antonio Muñoz M.D. on 06/11/2018 at 12:42
--- NOTE | 2018-06-11 12:29 | DI.CT.S_ITS ---
PROCEDURE: CT HEAD/BRAIN WO CON INDICATIONS: Elevated heart rate, elevated blood pressure, presyncope TECHNIQUE: Noncontrast 4.5 mm thick angled axial sections acquired from the foramen magnum to the vertex, with coronal and sagittal reformats. For radiation dose reduction, the following was used: automated exposure control, adjustment of mA and/or kV according to patient size. COMPARISON: None. FINDINGS: Image quality: Diagnostic. CSF spaces: Basal cisterns are patent. No extra-axial fluid collections. Ventricles are normal in size and shape. Brain: No midline shift. No intracranial masses or hemorrhage. Dang-white matter interface is normal. Skull and face: Calvarium and visualized facial bones are intact, without suspicious lesions. Sinuses: Visualized sinuses and mastoids are clear. IMPRESSION: Unremarkable head CT. No acute intracranial hemorrhage. Dictated by: Juan Antonio Muñoz M.D. on 06/11/2018 at 12:14 Approved by: Juan Antonio Muñoz M.D. on 06/11/2018 at 12:15
[2018-06-11 13:03] LABS: Add Manual Diff / Slide Review NO; Basophils Percent Auto 0.8 % (0-2); Hematocrit 43.8 % (36-46); Hemoglobin 15.1 g/dL (12.0-16.0); Mean Corpuscular HGB Conc 34.4 % (30-36); Mean Corpuscular Hemoglobin 29.2 PG (26-34); Mean Corpuscular Volume 84.9 fL (80-100); Monocytes Percent Auto 8.2 % (3-14); Neutrophils Absolute Auto 3100 /uL (3000-5900); Platelet Count 271 X10^3/uL (150-400); Red Blood Cell Count 5.16 X10^6/uL (4.0-5.2); Red Cell Distribution Width 13.5 % (11.6-14.8); White Blood Cell Count 5.7 X10^3/uL (4.5-11.0)
[2018-06-11 13:16] LABS: Alanine Aminotransferase 77 IU/L (9-52); Albumin 5.1 g/dL (3.5-5.0); Albumin Globulin Ratio 1.6 (1.0-2.8); Alkaline Phosphatase 82 U/L (38-126); Aspartate Aminotransferase 50 IU/L (14-36); BUN Creatinine Ratio 21.3 (6-22); Bilirubin Total 0.6 mg/dL (0.2-1.3); Blood Urea Nitrogen 17 mg/dL (7-17); Calcium 10.7 mg/dL (8.4-10.2); Carbon Dioxide 27 mmol/L (22-32); Chloride 101 mmol/L (98-107); Creatine Kinase 52 U/L (30-135); Estimated Glomerular Filt Rate > 60.0 mL/min (>60); Globulin 3.2 g/dL (1.7-4.1); Glucose 117 mg/dL (80-110); HEMOLYSIS < 15 (0-50); Potassium 3.9 mmol/L (3.4-5.1); Sodium 143 mmol/L (137-145); Total Protein 8.3 g/dL (6.3-8.2)
[2018-06-11 13:41] LABS: Free T4, Direct Thyroxine 1.56 ng/dL (0.78-2.19); Triiodothryronine T3 Uptake 31.3 % (23.5-40.5)
[2018-06-11 13:51] LABS: Troponin I < 0.012 ng/mL (0.01-0.034)
[2018-06-11 13:54] LABS: Thyroid Stimulating Hormone 0.32 uIU/mL (0.47-4.68)
--- NOTE | 2018-06-12 16:23 | PC.NURSE ---
call back, no answer
== END 2018-06-11 15:33 | disposition home or self-care (01) ==
PROVIDERS: Emergency Provider Nurse Practitioner Family; PCP Family Medicine
DX: I10 Essential (primary) hypertension (principal); R42 Dizziness and giddiness
CPT/HCPCS: 36591; 70450; 71045; 80053; 81003; 82550; 84436; 84439; 84443; 84479; 84481; 84484; 85025; 93005; 99283; 99285

== ENCOUNTER → 2018-06-18 07:03 | Outpatient (CLI) | payer OTHER, SELFPAY ==
--- NOTE | 2018-06-18 | DI.US.S_ITS ---
PROCEDURE: US CAROTID DOPPLER BI INDICATIONS: DIZZINESS TECHNIQUE: Color and pulse Doppler interrogation was performed of both carotid systems, with image documentation and velocity measurements. COMPARISON: None. FINDINGS: Stenosis calculations are based on SRU (Society of Radiologists in Ultrasound) criteria. Right side: Brachial blood pressure: 126/74 mm Hg. Common carotid artery peak systolic velocity: 100 cm/sec. Internal carotid artery peak systolic velocity: 85 cm/sec. Internal carotid artery end diastolic velocity: 22 cm/sec. External carotid artery peak systolic velocity: 83 cm/sec. ICA/CCA peak systolic ratio: 0.9. Dang scale imaging description: Minimal plaque. Percent internal carotid artery stenosis: Less than 50%. Vertebral artery: Flow direction is antegrade. Left side: Brachial blood pressure: Not obtained. Common carotid artery peak systolic velocity: 117 cm/sec. Internal carotid artery peak systolic velocity: 66 cm/sec. Internal carotid artery end diastolic velocity: 18 cm/sec. External carotid artery peak systolic velocity: 90 cm/sec. ICA/CCA peak systolic ratio: 0.6. Dang scale imaging description: Moderate scattered plaque. Percent internal carotid artery stenosis: Less than 50%. Vertebral artery: Flow direction is antegrade. IMPRESSION: Less than 50% bilateral internal carotid artery stenosis. Dictated by: Emmett Fine [facility] Interpreted: Emiliano David MD on 06/18/2018 at 7:59 Approved by: Emiliano David M.D. on 06/18/2018 at 14:24
== END ==
PROVIDERS: PCP Family Medicine
DX: I65.23 Occlusion and stenosis of bilateral carotid arteries (principal); R42 Dizziness and giddiness
CPT/HCPCS: 93880

== ENCOUNTER → 2018-07-15 10:47 | Outpatient (CLI) | payer OTHER, SELFPAY ==
--- NOTE | 2018-07-15 | DI.US.S_ITS ---
PROCEDURE: US ABDOMEN COMPLETE INDICATIONS: ELEVATED LFTS TECHNIQUE: Real-time scanning was performed of the abdominal and retroperitoneal organs, with image documentation. COMPARISON: None. FINDINGS: Liver: Liver is normal in size and homogeneous in echotexture. Gallbladder: Within normal limits. No sonographic Roche sign. Biliary ducts: Intrahepatic bile ducts are non-dilated. Extrahepatic bile duct caliber measures 7-8 mm. Normal is 6-7 mm or less in diameter, or 10 mm or less post-cholecystectomy. Pancreas: Visualized portions of the pancreas are sonographically normal. Spleen: Spleen is normal in size and homogeneous in echotexture. Kidneys: Kidneys are normal in size and echotexture. Right kidney measures 12.4 cm long; left kidney measures 12.4 cm long. No hydronephrosis or nephrolithiasis. No solid masses. 2.2 x 1.8 x 2.0 cm simple appearing right renal cyst at the upper pole Aorta: Visualized aorta is normal in caliber at less than 3 cm. Iliacs: Proximal common iliac arteries are normal in caliber at less than 2.5 cm. IVC: Intrahepatic inferior vena cava is patent. Miscellaneous: No free abdominal fluid. IMPRESSION: Right renal cyst. Normal appearance of the gallbladder. Dictated by: Emiliano David M.D. on 07/15/2018 at 14:25 Approved by: Emiliano David M.D. on 07/15/2018 at 14:34
== END ==
PROVIDERS: PCP Family Medicine; Visit Provider Family Medicine
DX: R79.89 Other specified abnormal findings of blood chemistry (principal); N28.1 Cyst of kidney, acquired
CPT/HCPCS: 76700

== ENCOUNTER → 2019-02-14 10:01 | Outpatient (CLI) | payer MEDICARE, OTHER, SELFPAY ==
--- NOTE | 2019-02-14 10:07 | DI.RAD.S_ITS ---
This blank DEXA report has been sent in error by the PACS system. The correct and complete report will be forthcoming in 1-2 days. Thank you for your patience and understanding. Dictated by: Hernandez Leblanc M.D. on 02/14/2019 at 10:53 Approved by: Hernandez Leblanc M.D. on 02/14/2019 at 10:54
== END ==
PROVIDERS: PCP Student in an Organized Health Care Education/Training Program; Visit Provider Internal Medicine Hematology & Oncology
DX: M85.852 Other specified disorders of bone density and structure, left thigh (principal); Z78.0 Asymptomatic menopausal state; E11.9 Type 2 diabetes mellitus without complications; E07.9 Disorder of thyroid, unspecified; Z85.3 Personal history of malignant neoplasm of breast
CPT/HCPCS: 77080

== ENCOUNTER → 2019-03-23 09:37 | Outpatient (CLI) | payer MEDICARE, OTHER, SELFPAY ==
--- NOTE | 2019-03-23 09:41 | DI.US.S_ITS ---
PROCEDURE: US PERIPH VENOUS LOW EXTREM RT INDICATIONS: breast CA, recent long car ride, pain and cramping, r/o dvt TECHNIQUE: Real-time imaging, as well as color and pulse Doppler interrogation, were performed of the lower extremity deep veins from the inguinal ligament to the popliteal fossa. COMPARISON: None. FINDINGS: The common femoral, femoral and popliteal veins are normally compressible, and free of intraluminal thrombus. Color and pulse Doppler demonstrate normal phasic intraluminal flow. There is normal augmentation response to distal compression maneuver. IMPRESSION: Negative for deep venous thrombosis. Dictated by: Marcelo Collins M.D. on 03/23/2019 at 9:39 Approved by: Marcelo Collins M.D. on 03/23/2019 at 9:40
== END ==
PROVIDERS: Visit Provider Physician Assistant
DX: M79.604 Pain in right leg (principal)
CPT/HCPCS: 93971

== ENCOUNTER 2019-03-23 15:29 | Emergency (ER) | payer MEDICARE, OTHER, SELFPAY ==
[2019-03-23 15:32] VITALS: BP 154/76; PULSE 91; RESP 22; TEMP 36.2; O2SAT 99
--- NOTE | 2019-03-23 16:21 | ED_ITS ---
HPI - Extremity Problem <Taryn Jones PA-C - Last Filed: 03/23/19 21:18> General Chief complaint: Extremity Problem,Nontraumatic Stated complaint: cramp in her right leg x 2 days Time Seen by Provider: 03/23/19 17:03 Source: patient Mode of arrival: ambulatory Limitations: no limitations History of Present Illness HPI Narrative: This 64-year-old female comes in due to right lower extremity pain which developed 2 days ago. She states that there was no specific trauma. She had been traveling prior but had been back for about a week. She states that she noted the back of her thigh was tender earlier in the evening, but at about 3 in the morning awoke with severe pain. This seemed to be a leg cramp initially so she tried walking but did not resolve. She has tried Aleve and ibu profen without significant relief. She states that the pain radiates all the way down her leg into the ankle. She does not feel pain in the foot however her foot feels somewhat numb and tingly at times in her toes (all of the toes). She states that pain is worse with sitting or pressure on the back, somewhat better at times with walking. Today she feels like she is having muscle spasms at time s in addition to the crampy type pain. She denies any weakness in the leg and is able to walk. She denies any changes in bowel or bladder function. She has not had any fever. She denies any rash. She has had an occasional history of intermittent back pain but not associated with leg pain. She saw primary care provider was normal. She denies any recent medication changes. She denies any other extremity or muscular type pain elsewhere. She has not had new swelling in the extremities, no other new symptoms such as chest pain or dyspnea Related Data Home Medications Medication Instructions Recorded Confirmed metformin 1,000 mg tablet 1,000 mg PO BID 12/02/17 03/25/19 insulin aspart U-100 [Novolog 1 dose SUBCUT DIRECTED 06/01/18 03/23/19 Flexpen U-100 Insulin] cholecalciferol (vitamin D3) 3,000 unit PO DAILY 01/24/19 03/23/19 [Vitamin D3] cyanocobalamin (vitamin B-12) 1,000 mcg DAILY 01/24/19 03/23/19 [Vitamin B-12] insulin glargine [Lantus U-100 40 units BID 01/24/19 03/23/19 Insulin] lisinopril-hydrochlorothiazide PO 03/04/19 03/23/19 irbesartan-hydrochlorothiazide 1 tab PO DAILY 03/23/19 03/25/19 levothyroxine [Synthroid] 100 mcg PO DAILY 03/23/19 03/25/19 Previous Rx's Medication Instructions Recorded gabapentin 600 mg PO TID #30 cap 03/23/19 ondansetron 4 mg PO Q8H #7 tab 03/23/19 oxycodone 5 mg PO Q4-6H PRN #10 tab 03/23/19 ondansetron 4 mg PO Q8H #10 tab 03/25/19 oxycodone 5 mg PO Q4-6H PRN #10 tab 03/25/19 prednisone 20 mg PO DAILY #5 tab 03/25/19 Allergies Allergy/AdvReac Type Severity Reaction Status Date / Time promethazine [From PHENERGAN] Allergy Unknown Verified 03/25/19 15:52 scopolamine [SCOPOLAMINE] Allergy Unknown Verified 03/25/19 15:52 NO USE OF LEFT ARM FOR IV/BP Allergy Unknown Uncoded 03/25/19 15:52 Review of Systems <Taryn Jones PA-C - Last Filed: 03/23/19 21:18> Review of Systems ROS Unobtainable: All systems reviewed & are unremarkable except as noted in HPI and below PFSH <Taryn Jones PA-C - Last Filed: 03/23/19 21:18> Social History Smoking Status: Never smoker Exam <GUILLE French Last Filed: 03/23/19 21:18> Narrative Exam Narrative: GENERAL APPEARANCE: Patient appears uncomfortable, pacing intermittently, in NAD PULMONARY: Lungs clear to auscultation bilaterally CV: Regular rhythm regular without murmur, normal S1 and S2, no S3 or S4 MUSCULOSKELETAL: No point tenderness over the lumbar spine or sacral spine, no SI tenderness. Full AROM of trunk aside from trunk flexion secondary to tenderness. She ambulates bearing full weight with slightly shortened gait. Lower extremity strength 5/5 bilateral hip flexors, knee extensors, foot plantar flexion. Negative modified straight leg raise NEUROLOGIC: Bilateral patellar and Achilles DTRs 2+ DERMATOLOGIC: No exanthem Initial Vital Signs Initial Vital Signs: Vital Signs Temperature 97.1 F L 03/23/19 15:32 Pulse Rate 91 H 03/23/19 15:32 Respiratory Rate 22 03/23/19 15:32 Blood Pressure 154/76 H 03/23/19 15:32 Pulse Oximetry 99 03/23/19 15:32 <Lexis Segura DO - Last Filed: 03/26/19 05:54> Initial Vital Signs Initial Vital Signs: Vital Signs Temperature 97.1 F L 03/23/19 15:32 Pulse Rate 91 H 03/23/19 15:32 Respiratory Rate 22 03/23/19 15:32 Blood Pressure 154/76 H 03/23/19 15:32 Pulse Oximetry 99 03/23/19 15:32 Course <Taryn Jones PA-C - Last Filed: 03/23/19 21:18> Course Additional Information: Patient is still having some discomfort but able to rest with improvement in pain prior to discharge. She will increase gabapentin, taken extra dose tonight to see if this helps with pain and sleep. She has taken oxycodone in the past and can take this if needed. She was given a prescription for Zofran as she can get nauseated with pain medicines. Advised she does seem to be having some muscle spasm as well. She does not have any new rash, fever, no concerning neurologic findings. She will follow up with her PCP on Thursday as planned, discussed she may need further workup and referral depending upon progress. She is agreeable with this plan and agreed to return if any acute changes or worsening symptoms in the interim Orders Ordered: Discontinued Medications Gabapentin (Neurontin) 300 mg PO NOW ONE Stop: 03/23/19 17:26 Last Admin: 03/23/19 17:31 Dose: 300 mg Documented by: ALEJA Ketorolac Tromethamine (Toradol) 30 mg IM NOW ONE Stop: 03/23/19 17:26 Last Admin: 03/23/19 17:31 Dose: 30 mg Documented by: ALEJA Ondansetron HCl (Zofran Odt) 4 mg SL NOW ONE Stop: 03/23/19 18:50 Last Admin: 03/23/19 18:59 Dose: 4 mg Documented by: ALEJA Oxycodone HCl (Percolone) 5 mg PO NOW ONE Stop: 03/23/19 18:50 Last Admin: 03/23/19 19:25 Dose: 5 mg Documented by: ALEJA Vital Signs Vital signs: Vital Signs - 8 hr 03/23/19 15:32 03/23/19 19:10 03/23/19 21:06 Temperature 97.1 F L 98.0 F Pulse Rate 91 H 75 65 Respiratory Rate 22 16 Blood Pressure 154/76 H 136/56 L Blood Pressure [Right Arm] 155/75 H Pulse Oximetry 99 98 97 <Lexis Segura DO - Last Filed: 03/26/19 05:54> Orders Ordered: Discontinued Medications Gabapentin (Neurontin) 300 mg PO NOW ONE Stop: 03/23/19 17:26 Last Admin: 03/23/19 17:31 Dose: 300 mg Documented by: ALEJA Ketorolac Tromethamine (Toradol) 30 mg IM NOW ONE Stop: 03/23/19 17:26 Last Admin: 03/23/19 17:31 Dose: 30 mg Documented by: ALEJA Ondansetron HCl (Zofran Odt) 4 mg SL NOW ONE Stop: 03/23/19 18:50 Last Admin: 03/23/19 18:59 Dose: 4 mg Documented by: ALEJA Oxycodone HCl (Percolone) 5 mg PO NOW ONE Stop: 03/23/19 18:50 Last Admin: 03/23/19 19:25 Dose: 5 mg Documented by: ALEJA Vital Signs Vital signs: Vital Signs - 8 hr 03/23/19 15:32 03/23/19 19:10 03/23/19 21:06 Temperature 97.1 F L 98.0 F Pulse Rate 91 H 75 65 Respiratory Rate 22 16 Blood Pressure 154/76 H 136/56 L Blood Pressure [Right Arm] 155/75 H Pulse Oximetry 99 98 97 MDM - Extremity (Nontraumatic) <Taryn Jones PA-C - Last Filed: 03/23/19 21:18> Imaging Data lumbar: Radiologist's impression: [address] [address] XRay Report Signed Patient: Lesa Hitchcock PMR#: [id number] : 4Acct:[id number] Age/Sex: 64 / FDate of Service: 03/23/19 Loc: ED Accession Number: [id number] Procedure: XR lumbar spine 2-3V Ordering Provider: Taryn Jones P.A-C PROCEDURE: XR LUMBAR SPINE 2-3V INDICATIONS: pain TECHNIQUE: 3 views of the lumbar spine were acquired. COMPARISON: None. FINDINGS: Bones: 5 [id number] vertebrae are present. There is grade 1 anterolisthesis of L4 on L5. Degenerative endplate changes and bilateral facet arthrosis at L4-5 and L5-S1 levels are seen. No gross acute vertebral body compression fractures. No suspicious bony lesions. Soft tissues: Overlying bowel gas pattern is normal. No suspicious soft tissue calcifications. IMPRESSION: Grade 1 anterolisthesis of L4 and L5. Degenerative disc disease and bilateral facet arthrosis at L4-5 and L5-S1 levels. No acute compression fracture. Dictated by: Luis Antonio Perkins M.D. on 03/23/2019 at 18:32 Approved by: Luis Antonio Perkins M.D. on 03/23/2019 at 18:36 Discharge Plan Departure Patient Disposition: Home Clinical Impression: Neuropathic pain of right lower extremity Discharge Date/Time: 03/23/19 21:07 Instructions: Neuropathic Pain Activity Restrictions/Additional Instructions: I agree with you that the pain in your leg is most typical of nerve pain, but I suspect you are having muscle spasms as well. It may be generated from your lower back. You do have some arthritis and likely chronic type changes on your x-ray, no acute problem such as a fracture was seen, however you may need further testing such as an MRI, if you are not improving. Since you are feeling a little bit better, please rest at home tonight. You can take the nausea medicine if needed. Use the oxycodone every 4-6 hours as needed. Take 1-2 of the gabapentin every 8 hours (you may want to take another 1 when you get home tonight to see if it helps you sleep). Continue ice and you can use any topical medicines that you would like along with anti-inflammatories such as Aleve. Please see your PCP as you have planned on Thursday. It may help to try medicine for muscle spasm if the gabapentin does not continue to help. As we talked about, you should return here if you have any acutely worsening symptoms in the interim, or new symptoms such as weakness in your leg or inability to urinate. Prescriptions: New gabapentin 300 mg capsule 600 mg PO TID Qty: 30 RF: 0 oxycodone 5 mg tablet 5 mg PO Q4-6H PRN (Reason: acute back/nerve pain) Qty: 10 RF: 0 ondansetron 4 mg tablet,disintegrating 4 mg PO Q8H Qty: 7 RF: 0 No Action metformin 1,000 mg tablet 1,000 mg PO BID RF: 0 lisinopril-hydrochlorothiazide PO RF: 0 Novolog Flexpen U-100 Insulin 100 unit/mL insulin pen 1 dose subcut DIRECTED RF: 0 Lantus U-100 Insulin 100 unit/mL Solution 40 units BID RF: 0 cyanocobalamin (vitamin B-12) [Vitamin B-12] 1,000 mcg Tablet 1,000 mcg DAILY RF: 0 cholecalciferol (vitamin D3) [Vitamin D3] 1,000 unit Tablet 3,000 unit PO DAILY RF: 0 irbesartan-hydrochlorothiazide 150-12.5 mg tablet 1 tab PO DAILY RF: 0 levothyroxine [Synthroid] 100 mcg tablet 100 mcg PO DAILY RF: 0 oxycodone 5 mg tablet 5 mg PO Q4-6H PRN (Reason: pain) Qty: 10 RF: 0 ondansetron 4 mg tablet,disintegrating 4 mg PO Q8H Qty: 10 RF: 0 prednisone 20 mg tablet 20 mg PO DAILY Qty: 5 RF: 0 Referrals: Macy Arellano PA-C [[facility]] -
--- NOTE | 2019-03-23 17:10 | DI.RAD.S_ITS ---
PROCEDURE: XR LUMBAR SPINE 2-3V INDICATIONS: pain TECHNIQUE: 3 views of the lumbar spine were acquired. COMPARISON: None. FINDINGS: Bones: 5 [id number] vertebrae are present. There is grade 1 anterolisthesis of L4 on L5. Degenerative endplate changes and bilateral facet arthrosis at L4-5 and L5-S1 levels are seen. No gross acute vertebral body compression fractures. No suspicious bony lesions. Soft tissues: Overlying bowel gas pattern is normal. No suspicious soft tissue calcifications. IMPRESSION: Grade 1 anterolisthesis of L4 and L5. Degenerative disc disease and bilateral facet arthrosis at L4-5 and L5-S1 levels. No acute compression fracture. Dictated by: Luis Antonio Perkins M.D. on 03/23/2019 at 18:32 Approved by: Luis Antonio Perkins M.D. on 03/23/2019 at 18:36
[2019-03-23] MEDS: KETOROLAC 60 MG/2 ML VIAL 30 MG IM (17:31)
[2019-03-23] MEDS: GABAPENTIN 300 MG CAPSULE PO (17:31)
[2019-03-23] MEDS: ONDANSETRON 4 MG ODT SL (18:59)
--- NOTE | 2019-03-23 19:00 | PC.NURSE ---
pt c/o right back of thigh pain. states thursday she went to bed at 0300 woke up and pain was there. denies injury. had US of extremity today that was negative for DVT.
[2019-03-23 19:10] VITALS: BP 155/75; PULSE 75; RESP 16; TEMP 36.7; O2SAT 98
[2019-03-23] MEDS: OXYCODONE IR 5 MG TABLET PO (19:25)
--- NOTE | 2019-03-23 20:15 | PC.NURSE ---
Patient with ice pack to back of right leg/thigh and low back. to Pharmacy to rock picker prescriptions. Pt to be discharged home upon his return.
[2019-03-23 21:06] VITALS: BP 136/56; PULSE 65; O2SAT 97
== END 2019-03-23 21:07 | disposition home or self-care (01) ==
PROVIDERS: Emergency Provider Internal Medicine
DX: M79.2 Neuralgia and neuritis, unspecified (principal); M79.604 Pain in right leg
CPT/HCPCS: 72100; 93971; 96372; 99283; J1885

== ENCOUNTER 2019-03-25 15:48 | Emergency (ER) | payer MEDICARE, OTHER, SELFPAY ==
[2019-03-25 15:50] VITALS: BP 137/73; PULSE 70; RESP 16; TEMP 37.1; O2SAT 98; BMI 33.6
[2019-03-25 18:52] VITALS: BP 138/59; PULSE 72; RESP 17; O2SAT 98
--- NOTE | 2019-03-25 19:38 | ED_ITS ---
HPI - Extremity Injury (Lower) <Macy LageurreCITLALI - Last Filed: 03/25/19 22:21> General Chief Complaint: Extremity Injury, Lower Stated Complaint: BACK ISSUES LEG ISSUES Time Seen by Provider: 03/25/19 18:54 Source: patient Mode of arrival: wheelchair Limitations: no limitations History of Present Illness HPI Narrative: 64-year-old female who history of diabetes, presents emergency department today complaining of right leg pain and spasms since last Thursday. She states that she was seen in the walk-in clinic on Thursday which she received an ultrasound to rule out a blood clot, and was seen in the emergency department which she received an x-ray showing degenerative changes. Patient returns as she states the pain has not gotten any better and they would like an MRI. Her states she has been taking oxycodone which has helped the pain but she has the pain and spasms continue, she often wakes during the night complaining of a 10/10 stabbing pain radiating from the back of her leg down to her calf. Pain is worse with movement and slightly better with rest. She reports associated decreased sensation in her right foot. She denies any headaches, abdominal pain, nausea, fevers, chills, chest pain, shortness of breath, saddle paresthesias, loss of bowel or bladder control. Related Data Home Medications Medication Instructions Recorded Confirmed metformin 1,000 mg tablet 1,000 mg PO BID 12/02/17 03/25/19 insulin aspart U-100 [Novolog 1 dose SUBCUT DIRECTED 06/01/18 03/23/19 Flexpen U-100 Insulin] cholecalciferol (vitamin D3) 3,000 unit PO DAILY 01/24/19 03/23/19 [Vitamin D3] cyanocobalamin (vitamin B-12) 1,000 mcg DAILY 01/24/19 03/23/19 [Vitamin B-12] insulin glargine [Lantus U-100 40 units BID 01/24/19 03/23/19 Insulin] lisinopril-hydrochlorothiazide PO 03/04/19 03/23/19 irbesartan-hydrochlorothiazide 1 tab PO DAILY 03/23/19 03/25/19 levothyroxine [Synthroid] 100 mcg PO DAILY 03/23/19 03/25/19 Previous Rx's Medication Instructions Recorded gabapentin 600 mg PO TID #30 cap 03/23/19 ondansetron 4 mg PO Q8H #7 tab 03/23/19 oxycodone 5 mg PO Q4-6H PRN #10 tab 03/23/19 ondansetron 4 mg PO Q8H #10 tab 03/25/19 oxycodone 5 mg PO Q4-6H PRN #10 tab 03/25/19 prednisone 20 mg PO DAILY #5 tab 03/25/19 Allergies Allergy/AdvReac Type Severity Reaction Status Date / Time promethazine [From PHENERGAN] Allergy Unknown Verified 03/25/19 15:52 scopolamine [SCOPOLAMINE] Allergy Unknown Verified 03/25/19 15:52 NO USE OF LEFT ARM FOR IV/BP Allergy Unknown Uncoded 03/25/19 15:52 Review of Systems <CITLALI Mcmahan - Last Filed: 03/25/19 22:21> Review of Systems Narrative: REVIEW OF SYSTEMS: GENERAL: Denies fever or chills. HENT: No head trauma. EYES: No double vision or vision loss. CARDIOVASCULAR: No chest pain or syncope. RESPIRATORY: No shortness of breath or cough. GASTROINTESTINAL: No nausea, vomiting, diarrhea, or constipation. GENITOURINARY: No flank pain or dysuria. MUSCULOSKELETAL: Complains of Right leg and back pain, see HPI. INTEGUMENTARY: No rash, lesions, or pruritus. NEURO: Reports decreased sensation on the top of her foot, see HPI. PSYCH: No behavior or mood changes. PFSH <CITLALI Mcmahan - Last Filed: 03/25/19 22:21> Medical History Diabetes (Acute) HTN (hypertension) (Acute) Hypothyroidism (Acute) Renal colic on left side (Acute) Ureterolithiasis (Acute) Surgical History History of lithotripsy History of tonsillectomy History of total mastectomy Family History Father Diabetes mellitus Hypertension Stroke Mother Hypertension Stroke Social History Smoking Status: Never smoker Family History Father Diabetes mellitus Hypertension Stroke Mother Hypertension Stroke Social History Smoking Status: Never smoker Exam <CITLALI Mcmahan - Last Filed: 03/25/19 22:21> Initial Vital Signs Initial Vital Signs: Vital Signs Temperature 98.8 F 03/25/19 15:50 Pulse Rate 70 03/25/19 15:50 Respiratory Rate 16 03/25/19 15:50 Blood Pressure 137/73 03/25/19 15:50 Pulse Oximetry 98 03/25/19 15:50 PHYSICAL EXAMINATION: GENERAL: Well groomed, alert, and cooperative. Answers questions promptly and appropriately. Vital signs noted. HENT: Normocephalic, atraumatic. EYES: Symmetrical, sclera white, no periorbital swelling. CARDIOVASCULAR: S1 and S2 sounds normal. Regular rate and rhythm, no murmurs, clicks, or bruits. No pedal edema. RESPIRATORY: Normal respiratory rate, trachea midline, airway patent. No stridor, nasal flaring, or accessory muscle use. Lungs are clear in all garibay. MUSCULOSKELETAL: Straight leg test her right leg produced pain in her back. No swelling or ecchymosis to her right leg, no pain with palpation of the calf, no red indurated areas, no ecchymosis. 5/5 strength to lower extremities bilaterally. Decreased light touch sensation noted to top of right foot (patient states this has started when the pain has started but has not worsened). Pain was replicated by patient rolling onto her side. Equal tone and mass bilaterally. No spinal tenderness with deep palpation, no redness or ecchymosis on her spine. Patient refused to ambulate on her leg due to pain. EXTREMITIES: CMS intact. No pedal edema. SKIN: Warm, dry, soft, appropriate color for ethnicity. No lesions, rashes, or wounds. NEURO: Alert and Oriented X 3. PSYCH: Appropriate affect and mood. <Lexis Segura DO - Last Filed: 03/26/19 05:57> Initial Vital Signs Initial Vital Signs: Vital Signs Temperature 98.8 F 03/25/19 15:50 Pulse Rate 70 03/25/19 15:50 Respiratory Rate 16 03/25/19 15:50 Blood Pressure 137/73 03/25/19 15:50 Pulse Oximetry 98 03/25/19 15:50 Course <CITLALI Mcmahan - Last Filed: 03/25/19 22:21> Course Course Narrative: I had an extensive conversation with patient and her that MRIs cannot be ordered from the emergency department. The was frustrated as he was under the impression that this could be ordered here. Patient and has been wearing cream it then additional x-ray or CT would not be of use in the diagnosis. We discussed alternative options and she wished to give Valium and prednisone a try. Patient verbalized that she will call her doctor's office on Thursday for an immediate appointment. Orders Ordered: Discontinued Medications Diazepam (Valium) 5 mg IM NOW ONE Stop: 03/25/19 19:53 Last Admin: 03/25/19 20:14 Dose: 5 mg Documented by: KIT Prednisone (Deltasone) 20 mg PO NOW ONE Stop: 03/25/19 19:53 Last Admin: 03/25/19 20:14 Dose: 20 mg Documented by: KIT Reevaluation(s) Reevaluation #1: Patient states she was feeling little better after the administration of Valium. Consultations Consultation #1: Patient was staffed with Dr. Segura. Vital Signs Vital signs: Vital Signs - 8 hr 03/25/19 15:50 03/25/19 18:52 03/25/19 20:43 Temperature 98.8 F Pulse Rate 70 72 64 Respiratory Rate 16 17 18 Blood Pressure 137/73 128/68 Blood Pressure [Right Arm] 138/59 L Pulse Oximetry 98 98 95 <Lexis Segura DO - Last Filed: 03/26/19 05:57> Orders Ordered: Discontinued Medications Diazepam (Valium) 5 mg IM NOW ONE Stop: 03/25/19 19:53 Last Admin: 03/25/19 20:14 Dose: 5 mg Documented by: KIT Prednisone (Deltasone) 20 mg PO NOW ONE Stop: 03/25/19 19:53 Last Admin: 03/25/19 20:14 Dose: 20 mg Documented by: KIT Vital Signs Vital signs: Vital Signs - 8 hr 03/25/19 15:50 03/25/19 18:52 03/25/19 20:43 Temperature 98.8 F Pulse Rate 70 72 64 Respiratory Rate 16 17 18 Blood Pressure 137/73 128/68 Blood Pressure [Right Arm] 138/59 L Pulse Oximetry 98 98 95 [facility] - Extremity Injury (Lower) <CITLALI Mcmahan - Last Filed: 03/25/19 22:21> Medical Records Attestation: I reviewed the patient's medical records. Lab Data Attestation: I reviewed the patient's lab results. MDM Narrative Medical decision making narrative: Differential includes most likely sciatica (degenerative changes found on lumbar x-ray from 03/23/19, positive straight leg test, description of nerve pain, and replication of pain with movement). Less likely to DVT (negative ultrasound report on 03/24/19, no redness or induration and calf area, no tenderness with palpation of calf), less likely cauda equina (no saddle paresthesias, loss of bowel or bladder control, no weakness in her lower extremities), less likely spinal abscess or other infection (does not use IV drugs, no recent spinal injections, afebrile, no confusion or altered mental status, no recent illness). Patient was encouraged to follow up with her primary care provider for further testing if needed, she was instructed that MRI testing was not done in the emergency department. Strict return precautions discussed and follow-up instructions given. Discharge Plan Departure Patient Disposition: Home Clinical Impression: Acute leg pain Qualifiers: Laterality: right Qualified Code(s): M79.604 - Pain in right leg Back pain Qualifiers: Back pain location: low back pain Chronicity: acute Back pain laterality: right Sciatica presence: with sciatica Sciatica laterality: sciatica of right side Qualified Code(s): M54.41 - Lumbago with sciatica, right side Discharge Date/Time: 03/25/19 20:45 Instructions: DI for Sciatica, DI for Leg Pain Activity Restrictions/Additional Instructions: Thank you for entrusting me with your care today. As discussed, an MRI needs to be ordered from an outpatient provider and cannot be ordered from the emergency department, I recommend calling your clinic to see when the next available appointment is with the next available provider. I have prescribed you a course of prednisone to help decrease inflammation that may be causing your symptoms, please monitor blood sugars closely as this can elevate them. Additionally, I have refilled your pain and nausea medication. Please follow up with her primary care provider as soon as possible. Return to the emergency department if he develop loss of bowel or bladder control, numbness or tingling in her pelvic area, chest pain, shortness of breath, or syncope. Prescriptions: New oxycodone 5 mg tablet 5 mg PO Q4-6H PRN (Reason: pain) Qty: 10 RF: 0 ondansetron 4 mg tablet,disintegrating 4 mg PO Q8H Qty: 10 RF: 0 prednisone 20 mg tablet 20 mg PO DAILY Qty: 5 RF: 0 No Action metformin 1,000 mg tablet 1,000 mg PO BID RF: 0 lisinopril-hydrochlorothiazide PO RF: 0 Novolog Flexpen U-100 Insulin 100 unit/mL insulin pen 1 dose subcut DIRECTED RF: 0 Lantus U-100 Insulin 100 unit/mL Solution 40 units BID RF: 0 cyanocobalamin (vitamin B-12) [Vitamin B-12] 1,000 mcg Tablet 1,000 mcg DAILY RF: 0 cholecalciferol (vitamin D3) [Vitamin D3] 1,000 unit Tablet 3,000 unit PO DAILY RF: 0 irbesartan-hydrochlorothiazide 150-12.5 mg tablet 1 tab PO DAILY RF: 0 levothyroxine [Synthroid] 100 mcg tablet 100 mcg PO DAILY RF: 0 gabapentin 300 mg capsule 600 mg PO TID Qty: 30 RF: 0 oxycodone 5 mg tablet 5 mg PO Q4-6H PRN (Reason: acute back/nerve pain) Qty: 10 RF: 0 ondansetron 4 mg tablet,disintegrating 4 mg PO Q8H Qty: 7 RF: 0
[2019-03-25] MEDS: predniSONE 20 MG TABLET PO (20:14)
[2019-03-25] MEDS: diazePAM 10 MG/2 ML SYRINGE 5 MG IM (20:14)
[2019-03-25 20:43] VITALS: BP 128/68; PULSE 64; RESP 18; O2SAT 95
== END 2019-03-25 20:45 | disposition home or self-care (01) ==
PROVIDERS: Emergency Provider Nurse Practitioner
DX: M79.604 Pain in right leg (principal); M54.41 Lumbago with sciatica, right side
CPT/HCPCS: 96372; 99282; 99283; J3360

== ENCOUNTER → 2019-04-01 06:23 | Outpatient (CLI) | payer MEDICARE, OTHER, SELFPAY ==
--- NOTE | 2019-04-01 | DI.MRI.S_ITS ---
PROCEDURE: MR LUMBAR SPINE WO CON INDICATIONS: Leg/back pain TECHNIQUE: Noncontrast sagittal T1 spin echo and T2 fast echo, sagittal STIR, axial T1 and T2 fast spin echo through the lumbar spine. In cases with scoliosis, additional coronal T2 fast spin echo may be performed. COMPARISON: [facility], CR, XR LUMBAR SPINE 2-3V, 03/23/2019, 17:59. FINDINGS: Image quality: Excellent. Alignment and Curvature: There is trace retrolisthesis of L3 on L4, grade 1 anterolisthesis of L4 on L5. Bone Marrow: Marrow is of normal overall signal. No acute vertebral body compression fractures. Spinal Cord: Conus medullaris terminates at the L1-L2 level. Visualized cord demonstrates normal signal and size. Paraspinous Soft Tissues: No paravertebral masses. Increased T2 signal is present within the right kidney consistent with cyst. Discs: Moderate desiccation is present L4-5, L5-S1, minimal throughout the remainder of the lumbar spine. L1-L2: No disc bulge, spinal stenosis or foraminal narrowing. L2-L3: Normal disc bulge without spinal stenosis or foraminal narrowing. Mild facet and ligamentum flavum hypertrophy are present. There is a 2 mm left facet joints is noted along the posterior aspect of the facet. L3-L4: Mild disc bulge with minimal canal narrowing. Minimal bilateral foraminal narrowing with facet and ligamentum flavum hypertrophy. L4-L5: Mild disc bulge with moderate spinal stenosis. Minimal bilateral foraminal narrowing with facet and ligamentum flavum hypertrophy. L5-S1: Mild disc bulge including a right foraminal component. There is compromise of the right lateral recess. There is appearance of punctate protrusion/extrusion in this region. Minimal to mild bilateral foraminal narrowing with facet and ligamentum flavum hypertrophy. IMPRESSION: 1. Early multilevel degenerative changes. 2. Stenosis is most prominent at L4-5 secondary to disc bulge as well as anterolisthesis and facet/ligamenta flavum arthropathy. 3. Disc bulge with right foraminal component and likely superimposed small protrusion/extrusion causing compromise of right lateral recess is present at L5-S1. Dictated by: Lakesha Buckley M.D. on 04/01/2019 at 8:38 Approved by: Lakesah Buckley M.D. on 04/01/2019 at 8:47
== END ==
PROVIDERS: Visit Provider Family Medicine
DX: M47.26 Other spondylosis with radiculopathy, lumbar region (principal); M51.17 Intervertebral disc disorders with radiculopathy, lumbosacral region; M48.061 Spinal stenosis, lumbar region without neurogenic claudication
CPT/HCPCS: 72148

== ENCOUNTER 2019-05-11 15:43 | Observation (INO) | payer MEDICARE, OTHER, SELFPAY ==
[2019-05-11] VITALS (8 sets, daily range): BP systolic 122–150; BP diastolic 60–77; PULSE 67–81; RESP 12–21; TEMP 36.3; O2SAT 97–100; BMI 31.1
--- NOTE | 2019-05-11 15:54 | PC.NURSE ---
Patient has been on her back for about 8 weeks secondary to bulging discs Has been on a pain regimen of oxycodone, zofran and gabapentin for pain. Suppose to have a consult with back specialist. Received two steroid shots last week. Patient states she skipped her noon dose secondary to feeling ok and was on the phone laying on a heating pad. Patient reports it was feeling rather hot so she went to remove the heating pad when she started to experience a sudden sent of spinning. Friend coached patient through symptoms . States she stared at one spot on ceiling and didn't move eyes or head and it seemed to ease up. Worse with movement.
[2019-05-11 16:22] LABS: Add Manual Diff / Slide Review NO; Basophils Absolute Auto 0 /uL (0-100); Basophils Percent Auto 0.5 % (0-2); Eosinophils Absolute Auto 100 /uL (0-450); Eosinophils Percent Auto 1.9 % (2-4); Hematocrit 37.7 % (36-46); Hemoglobin 12.7 g/dL (12.0-16.0); Lymphocytes Absolute Auto 2500 /uL (1100-4500); Lymphocytes Percent Auto 36.8 % (25-40); Mean Corpuscular HGB Conc 33.7 % (30-36); Mean Corpuscular Hemoglobin 29.3 PG (26-34); Monocytes Absolute Auto 400 /uL (0-900); Monocytes Percent Auto 5.7 % (3-14); Neutrophils Absolute Auto 3700 /uL (1500-7000); Neutrophils Percent Auto 55.1 % (50-75); Platelet Count 335 X10^3/uL (150-400); Red Blood Cell Count 4.33 X10^6/uL (4.0-5.2); Red Cell Distribution Width 13.9 % (11.6-14.8); White Blood Cell Count 6.8 X10^3/uL (4.5-11.0)
[2019-05-11 16:28] LABS: Alanine Aminotransferase 30 IU/L (9-52); Albumin 4.7 g/dL (3.5-5.0); Albumin Globulin Ratio 1.6 (1.0-2.8); Alkaline Phosphatase 67 U/L (38-126); Aspartate Aminotransferase 42 IU/L (14-36); BUN Creatinine Ratio 22.2 (6-22); Bilirubin Total 0.6 mg/dL (0.2-1.3); Blood Urea Nitrogen 20 mg/dL (7-17); Calcium 10.6 mg/dL (8.4-10.2); Carbon Dioxide 27 mmol/L (22-32); Chloride 102 mmol/L (98-107); Estimated Glomerular Filt Rate > 60.0 mL/min (>60); Globulin 2.9 g/dL (1.7-4.1); Glucose 126 mg/dL (80-110); HEMOLYSIS 18 (0-50); Sodium 139 mmol/L (137-145); Total Protein 7.6 g/dL (6.3-8.2)
[2019-05-11 16:40] LABS: Troponin I < 0.012 ng/mL (0.01-0.034)
[2019-05-11] MEDS: OXYCODONE/ACETAMINOPHEN 5/325 TABLET 1 TAB PO ×2 (17:03→21:21)
[2019-05-11] MEDS: GABAPENTIN 300 MG CAPSULE 900 MG PO (17:03)
[2019-05-11] MEDS: SODIUM CHLORIDE 0.9% 500 ML 1000 ML IV (17:03)
[2019-05-11] MEDS: MECLIZINE HCL 12.5 MG TABLET 25 MG PO ×2 (18:52→20:07)
[2019-05-11 19:37] LABS: Bacteria Urine Many (>30); Culture Indicated Urine Specimen Cultured; RBC Urine 0-1/HPF (0-5/HPF); Squamous Epithelial Cell Urine 0-1 /HPF (0-5/HPF); WBC Urine 5-10/HPF (0-5/HPF)
--- NOTE | 2019-05-11 20:03 | DI.CT.S_ITS ---
PROCEDURE: CT HEAD/BRAIN WO CON INDICATIONS: dizziness w/o history of vertigo TECHNIQUE: Noncontrast 4.5 mm thick angled axial sections acquired from the foramen magnum to the vertex, with coronal and sagittal reformats. For radiation dose reduction, the following was used: automated exposure control, adjustment of mA and/or kV according to patient size. COMPARISON: [facility], CT, CT HEAD/BRAIN WO CON, 06/11/2018, 12:50. FINDINGS: Image quality: Excellent. CSF spaces: Basal cisterns are patent. No extra-axial fluid collections. The ventricles are symmetric in size and shape. Brain: No intracranial bleeds or masses. There is cerebral volume loss for age, with resultant ventricular and sulcal prominence. There are periventricular and deep white matter chronic small vessel ischemic changes. There is intracranial internal carotid artery atherosclerosis. Skull and face: Calvarium and visualized facial bones appear intact, without suspicious lesions. Sinuses: Visualized sinuses and mastoids are clear. IMPRESSION: No CT evidence of acute intracranial pathology. No significant changes from previous study. Dictated by: Luis Antonio Perkins M.D. on 05/11/2019 at 20:44 Approved by: Luis Antonio Perkins M.D. on 05/11/2019 at 20:45
--- NOTE | 2019-05-11 20:19 | ED_ITS ---
HPI - Dizziness <CITLALI Sauceda - Last Filed: 05/11/19 22:47> General Chief Complaint: Dizziness Stated Complaint: Dizziness Time Seen by Provider: 05/11/19 15:48 Source: EMS Mode of arrival: EMS Limitations: no limitations History of Present Illness HPI Narrative: This is a 64-year-old female, nonsmoker, who presents with EMS and with chief complain of dizziness and spinning sensation. Patient reports she was talking on the phone and glancing out the window and suddenly having severe spinning sensation with nausea prior coming into ED. Patient does not have history of vertigo, ear pain, URI symptoms or congestion. Patient takes several medications including oxycodone, gabapentin, Zofran for acute back pain. According to her , the back pain has been improving after two injection of steroids. She denies headache, vision change, weakness to extremities, sensation problems, speech difficulty, dysphagia. Patient reports dizziness worsens with movements of her head and eyes. Related Data Home Medications Medication Instructions Recorded Confirmed metformin 1,000 mg tablet 1,000 mg PO BID 12/02/17 05/11/19 insulin aspart U-100 [Novolog 2 - 10 unit SUBCUT TID 06/01/18 05/11/19 Flexpen U-100 Insulin] cyanocobalamin (vitamin B-12) 1,000 mcg PO DAILY 01/24/19 05/11/19 [Vitamin B-12] insulin glargine [Lantus U-100 40 units SUBCUT BID 01/24/19 05/11/19 Insulin] irbesartan-hydrochlorothiazide 1 tab PO DAILY 03/23/19 05/11/19 levothyroxine [Synthroid] 100 mcg PO DAILY 03/23/19 05/11/19 cholecalciferol (vitamin D3) 4,000 unit PO DAILY 05/11/19 05/11/19 [Vitamin D3] cyclobenzaprine 5 mg PO TID PRN 05/11/19 05/11/19 gabapentin 900 mg PO TID 05/11/19 05/11/19 hydrocodone-acetaminophen 1 tab PO DIRECTED 05/11/19 05/11/19 ondansetron 4 mg PO Q4H PRN 05/11/19 05/11/19 oxycodone-acetaminophen 1 tab PO Q4-6H PRN 05/11/19 05/11/19 vitamin B complex 1 tab PO DAILY 05/11/19 05/11/19 Allergies Allergy/AdvReac Type Severity Reaction Status Date / Time fluoxetine Allergy Severe UNKNOWN Verified 05/11/19 17:21 lovastatin Allergy Severe UNKNOWN Verified 05/11/19 17:21 pravastatin Allergy Severe UNKNOWN Verified 05/11/19 17:21 empagliflozin Allergy Intermediate UNKNOWN Verified 05/11/19 17:21 [From Jardiance] insulin glargine Allergy Intermediate UNKNOWN Verified 05/11/19 17:21 [From Soliqua 100/33] lixisenatide Allergy Intermediate UNKNOWN Verified 05/11/19 17:21 [From Soliqua 100/33] morphine Allergy Unknown Verified 05/11/19 17:18 promethazine [From PHENERGAN] Allergy Unknown Verified 05/11/19 15:54 scopolamine [SCOPOLAMINE] Allergy Unknown Verified 05/11/19 15:54 TUJEO Allergy Severe UNKNOWN Uncoded 05/11/19 17:21 NO USE OF LEFT ARM FOR IV/BP Allergy Unknown Uncoded 05/11/19 15:54 Review of Systems <CITLALI Sauceda - Last Filed: 05/11/19 22:47> Review of Systems Narrative: General: Denies fever, chills, fatigue, malaise, sweats. HEENT: Denies sinus pain, ear pain, sore throat, difficulty swallowing. Respiratory: Denies dyspnea, cough, wheezing, hemoptysis, sputum. Cardiovascular: Denies chest pain, palpitations, orthopnea, edema. Gastrointestinal: Reports nausea. Denies vomiting, abdominal pain, diarrhea, constipation, melena. : Denies dysuria, frequency, incontinence, hematuria, urinary retention. Musculoskeletal: Denies weakness, joint pain or bony pain. Reports back pain. Skin: Denies rash, skin lesions, or other. Neurologic: Reports dizziness and spinning sensation. Denies weakness, headache, numbness, change in speech, confusion, seizures, incoordination. Psychiatric: No concerning psychosocial issues. 12-point review of systems is negative except for those stated above. Patient History <CITLALI Sauceda - Last Filed: 05/11/19 22:47> Medical History (Updated 05/11/19 @ 23:50 by CITLALI Thurman) Diabetes (Acute) History of chemotherapy (Acute) History of malignant neoplasm of breast (Inactive 12/13/15) HTN (hypertension) (Acute) Hypothyroidism (Acute) Lumbar back pain with radiculopathy affecting right lower extremity (Acute) Renal colic on left side (Acute) Ureterolithiasis (Acute) Surgical History History of lithotripsy History of tonsillectomy History of total mastectomy Family History (Updated 05/11/19 @ 23:52 by CITLALI Thurman) Father Diabetes mellitus Hypertension Stroke Mother Hypertension Stroke Brother No problems noted. Sister Stroke Myocardial infarction Daughter Cancer Social History household members: spouse Smoking Status: Never smoker Family History (Updated 05/11/19 @ 23:52 by CITLALI Thurman) Father Diabetes mellitus Hypertension Stroke Mother Hypertension Stroke Brother No problems noted. Sister Stroke Myocardial infarction Daughter Cancer Social History household members: spouse Smoking Status: Never smoker Substance Use Type: does not use Exam <CITLALI Sauceda - Last Filed: 05/11/19 22:47> Narrative Exam Narrative: GEN: Alert, oriented x 3, well appearing and nourished, and in no acute distress. Head: Normal cephalic, atraumatic. No scalp or temporal tenderness, palpable mass or rash. EYES: Pupils are equal, round, and reactive to light and accommodation. Extraocular muscles are intact bilaterally with nystagmus. There is no subconjunctival hemorrhage, exudate and sclera non-icteric. ENT: Bilateral auditory canals and tympanic membranes clear. Hearing grossly intact. Nose without bleeding, purulent discharge, septal hematoma or deviation. Turbinate without erythema or swelling. Facial sinuses nontender to palpate. Mucous membrane moist, no mucosal lesion. Throat without erythema, tonsillar hypertrophy or exudate. Uvula in midline, airway patent. Neck: Trachea in midline. No JVD, non-tender without lymphadenopathy. No masses or thyroid megaly. Supple, non-tender and no meningeal signs. CARDIAC: Normal regular rate and rhythm without murmurs, gallops, or rubs. No chest wall tenderness. No peripheral edema, cyanosis or pallor. Capillary refill is less than 2 seconds. No carotid bruits. RESPIRATORY: Lungs are cleat to auscultate bilaterally. No cough, wheezes, rales, or rhonchi. No stridor, respiratory distress, increase work of breathing, or accessary muscle used. ABD: Abdomen soft, nontender and non-distended. No guarding or rebound tenderness to palpate. Bowel sounds are normal in all 4 quadrants. There is no palpable masses or organomegaly. EXT: Full painless ROM of upper extremities with no loss of sensation, strength, effusion or edema. SKIN: Warm, dry, normal color for patient. No erythema, lesions or rash. NEUROLOGICAL: Alert and oriented to place, time and person. No facial droops, dysphasia. CN II-XII intact. Strength and sensation symmetric and intact throughout. PSYCHIATRIC: Good judgement and reason, without hallucinations, abnormal affect or abnormal behaviors during the examination. Initial Vital Signs Initial Vital Signs: Vital Signs Temperature 97.4 F L 05/11/19 15:29 Pulse Rate 74 05/11/19 15:29 Respiratory Rate 16 05/11/19 15:29 Blood Pressure 149/62 H 05/11/19 15:29 Pulse Oximetry 100 05/11/19 15:29 Back/Spine/Pelvis Thoracic/Lumbar Spine: thoraco-lumbar ROM limited (due to pain) and straight leg raise positive (on L leg which caused pain in R leg crossing back) <Elsa Jaime MD - Last Filed: 05/12/19 07:54> Initial Vital Signs Initial Vital Signs: Vital Signs Temperature 97.4 F L 05/11/19 15:29 Pulse Rate 74 05/11/19 15:29 Respiratory Rate 16 05/11/19 15:29 Blood Pressure 149/62 H 05/11/19 15:29 Pulse Oximetry 100 05/11/19 15:29 Scores <CITLALI Sauceda - Last Filed: 05/11/19 22:47> GCS Mary coma scale eye opening: Spontaneous Mary coma scale verbal response: Orientated Mary coma scale motor response: Obey commands Mary coma scale total score: 15 NIH Stroke Scale Level of Conciousness: Alert, keenly responsive Ask month/age: Answers both questions correctly. Open/close eyes, close hand: Performs both tasks correctly Best gaze horizontal: Normal Visual garibay: No visual loss Facial palsy: Normal symetrical movement Left arm drift: No drift for full 10 sec Right arm drift: No drift for full 10 sec Left leg drift: Some effort against gravity, cannot maintain, drifts down to bed (due to pain in R leg but not due to weaknkess) Right leg drift: No drift for full 10 sec Limb ataxia: Absent Sensory on face/arms/legs: Normal, no sensory loss Best language: No aphasia, normal Dysarthria: Normal Extinction or inattention: No abnormality Course <Eloy ShipleyCITLALI Hutchinson - Last Filed: 05/11/19 22:47> Orders Ordered: Acetaminophen (Tylenol) 650 mg PO Q6HR PRN PRN Reason: As Needed for Fever/Mild Pain Al Hydrox/Mg Hydrox/Simethicone (Maalox Plus) 30 ml PO Q6HR PRN PRN Reason: Dyspepsia Bisacodyl (Dulcolax) 10 mg UT DAILY PRN PRN Reason: Constipation Calcium Carbonate (Tums) 1,000 mg PO Q4HR PRN PRN Reason: Dyspepsia Dextrose (D50w) 25 gm IV PRN PRN; Protocol PRN Reason: Hypoglycemia Enoxaparin Sodium (Lovenox) 40 mg SUBCUT DAILY [facility] Gabapentin (Neurontin) 900 mg PO Q8H [facility] Last Admin: 05/12/19 01:07 Dose: 900 mg Documented by: PADMA Hydrochlorothiazide (Hydrochlorothiazide) 12.5 mg PO DAILY [facility] Sodium Chloride (Normal Saline 0.9%) 1,000 mls @ 75 mls/hr IV CONT [facility] Last Admin: 05/12/19 00:30 Dose: 75 mls/hr Documented by: JOSH Insulin Aspart (Novolog Flexpen) 0 unit SUBCUT ACHS [facility]; Protocol Insulin Glargine (Lantus Solostar (Pen)) 40 unit SUBCUT BID [facility] Irbesartan (Avapro) 150 mg PO DAILY [facility] Levothyroxine Sodium (Synthroid) 100 mcg PO QACBREAK [facility] Last Admin: 05/12/19 05:34 Dose: 100 mcg Documented by: PADMA Lorazepam (Ativan) 1 mg PO PREOP PRN PRN Reason: Anxiety Meclizine HCl (Antivert) 25 mg PO TID PRN PRN Reason: Vertigo Last Admin: 05/12/19 05:17 Dose: 25 mg Documented by: PADMA Ondansetron HCl (Zofran) 4 mg IV Q4HR [facility] Last Admin: 05/12/19 05:07 Dose: 4 mg Documented by: Admin: 05/12/19 00:23 Dose: 4 mg Documented by: JOSH Oxycodone HCl (Percolone) 5 mg PO Q4HR [facility] Last Admin: 05/12/19 05:07 Dose: 5 mg Documented by: Admin: 05/12/19 00:23 Dose: 5 mg Documented by: JOSH Sennosides (Senna) 17.2 mg PO BEDTIME [facility] Discontinued Medications Gabapentin (Neurontin) 900 mg PO NOW ONE Stop: 05/11/19 16:50 Last Admin: 05/11/19 17:03 Dose: 900 mg Documented by: ESPERANZA Gabapentin (Neurontin) 900 mg PO TID [facility] Sodium Chloride (Normal Saline 0.9%) 500 mls @ 1,000 mls/hr IV BOLUS ONE Stop: 05/11/19 17:20 Last Infusion: 05/11/19 18:14 Dose: 0 mls/hr Documented by: Admin: 05/11/19 17:03 Dose: 1,000 mls/hr Documented by: ESPERANZA Meclizine HCl (Antivert) 25 mg PO NOW ONE Stop: 05/11/19 18:29 Last Admin: 05/11/19 18:52 Dose: 25 mg Documented by: ESPERANZA Meclizine HCl (Antivert) 25 mg PO NOW ONE Stop: 05/11/19 20:04 Last Admin: 05/11/19 20:07 Dose: 25 mg Documented by: SUSANA Ondansetron HCl (Zofran) 4 mg IV NOW ONE Stop: 05/11/19 21:17 Last Admin: 05/11/19 21:21 Dose: 4 mg Documented by: SUSANA Oxycodone/Acetaminophen (Percocet 5/325) 1 tab PO NOW ONE Stop: 05/11/19 16:50 Last Admin: 05/11/19 17:03 Dose: 1 tab Documented by: ESPERANZA Oxycodone/Acetaminophen (Percocet 5/325) 1 tab PO NOW ONE Stop: 05/11/19 21:17 Last Admin: 05/11/19 21:21 Dose: 1 tab Documented by: SUSANA Vital Signs Vital signs: Vital Signs - 8 hr 05/11/19 15:29 05/11/19 16:34 05/11/19 18:00 Temperature 97.4 F L Pulse Rate 74 81 77 Respiratory Rate 16 21 12 Blood Pressure 149/62 H Blood Pressure [Right Arm] 140/60 132/66 Pulse Oximetry 100 99 97 05/11/19 19:00 05/11/19 20:05 05/11/19 21:07 Temperature Pulse Rate 70 70 68 Respiratory Rate 17 14 16 Blood Pressure Blood Pressure [Right Arm] 139/77 136/61 122/61 Pulse Oximetry 100 98 97 <Elsa Jaime MD - Last Filed: 05/12/19 07:54> Orders Ordered: Acetaminophen (Tylenol) 650 mg PO Q6HR PRN PRN Reason: As Needed for Fever/Mild Pain Al Hydrox/Mg Hydrox/Simethicone (Maalox Plus) 30 ml PO Q6HR PRN PRN Reason: Dyspepsia Bisacodyl (Dulcolax) 10 mg UT DAILY PRN PRN Reason: Constipation Calcium Carbonate (Tums) 1,000 mg PO Q4HR PRN PRN Reason: Dyspepsia Dextrose (D50w) 25 gm IV PRN PRN; Protocol PRN Reason: Hypoglycemia Enoxaparin Sodium (Lovenox) 40 mg SUBCUT DAILY [facility] Gabapentin (Neurontin) 900 mg PO Q8H [facility] Last Admin: 05/12/19 01:07 Dose: 900 mg Documented by: PADMA Hydrochlorothiazide (Hydrochlorothiazide) 12.5 mg PO DAILY [facility] Sodium Chloride (Normal Saline 0.9%) 1,000 mls @ 75 mls/hr IV CONT [facility] Last Admin: 05/12/19 00:30 Dose: 75 mls/hr Documented by: JOSH Insulin Aspart (Novolog Flexpen) 0 unit SUBCUT ACHS [facility]; Protocol Insulin Glargine (Lantus Solostar (Pen)) 40 unit SUBCUT BID [facility] Irbesartan (Avapro) 150 mg PO DAILY [facility] Levothyroxine Sodium (Synthroid) 100 mcg PO QACBREAK [facility] Last Admin: 05/12/19 05:34 Dose: 100 mcg Documented by: PADMA Lorazepam (Ativan) 1 mg PO PREOP PRN PRN Reason: Anxiety Meclizine HCl (Antivert) 25 mg PO TID PRN PRN Reason: Vertigo Last Admin: 05/12/19 05:17 Dose: 25 mg Documented by: PADMA Ondansetron HCl (Zofran) 4 mg IV Q4HR [facility] Last Admin: 05/12/19 05:07 Dose: 4 mg Documented by: Admin: 05/12/19 00:23 Dose: 4 mg Documented by: JOSH Oxycodone HCl (Percolone) 5 mg PO Q4HR [facility] Last Admin: 05/12/19 05:07 Dose: 5 mg Documented by: Admin: 05/12/19 00:23 Dose: 5 mg Documented by: JOSH Sennosides (Senna) 17.2 mg PO BEDTIME [facility] Discontinued Medications Gabapentin (Neurontin) 900 mg PO NOW ONE Stop: 05/11/19 16:50 Last Admin: 05/11/19 17:03 Dose: 900 mg Documented by: ESPERANZA Gabapentin (Neurontin) 900 mg PO TID [facility] Sodium Chloride (Normal Saline 0.9%) 500 mls @ 1,000 mls/hr IV BOLUS ONE Stop: 05/11/19 17:20 Last Infusion: 05/11/19 18:14 Dose: 0 mls/hr Documented by: Admin: 05/11/19 17:03 Dose: 1,000 mls/hr Documented by: ESPERANZA Meclizine HCl (Antivert) 25 mg PO NOW ONE Stop: 05/11/19 18:29 Last Admin: 05/11/19 18:52 Dose: 25 mg Documented by: ESPERANZA Meclizine HCl (Antivert) 25 mg PO NOW ONE Stop: 05/11/19 20:04 Last Admin: 05/11/19 20:07 Dose: 25 mg Documented by: SUSANA Ondansetron HCl (Zofran) 4 mg IV NOW ONE Stop: 05/11/19 21:17 Last Admin: 05/11/19 21:21 Dose: 4 mg Documented by: SUSANA Oxycodone/Acetaminophen (Percocet 5/325) 1 tab PO NOW ONE Stop: 05/11/19 16:50 Last Admin: 05/11/19 17:03 Dose: 1 tab Documented by: ESPERANZA Oxycodone/Acetaminophen (Percocet 5/325) 1 tab PO NOW ONE Stop: 05/11/19 21:17 Last Admin: 05/11/19 21:21 Dose: 1 tab Documented by: SUSANA Vital Signs Vital signs: Vital Signs - 8 hr 05/11/19 15:29 05/11/19 16:34 05/11/19 18:00 Temperature 97.4 F L Pulse Rate 74 81 77 Respiratory Rate 16 21 12 Blood Pressure 149/62 H Blood Pressure [Right Arm] 140/60 132/66 Pulse Oximetry 100 99 97 05/11/19 19:00 05/11/19 20:05 05/11/19 21:07 Temperature Pulse Rate 70 70 68 Respiratory Rate 17 14 16 Blood Pressure Blood Pressure [Right Arm] 139/77 136/61 122/61 Pulse Oximetry 100 98 97 MDM - Dizziness <CITLALI Sauceda - Last Filed: 05/11/19 22:47> Differential Diagnosis Differential diagnosis: Likely adverse reaction to drug, benign paroxysmal positional vertigo, orthostatic hypotension, cerebrovascular accident and other (cerebellum vascular accident) Medical Records Attestation: I reviewed the patient's medical records. Lab Data Attestation: I reviewed the patient's lab results. Result diagrams: 05/11/19 15:45 05/12/19 06:00 Labs: Lab Results 05/11/19 05/11/19 05/11/19 Range/Units 15:45 15:45 19:00 WBC 6.8 (4.5-11.0) X10^3/uL RBC 4.33 (4.0-5.2) X10^6/uL Hgb 12.7 (12.0-16.0) g/dL Hct 37.7 (36-46) % MCV 87.0 (80-100) fL MCH 29.3 (26-34) PG MCHC 33.7 (30-36) % RDW 13.9 (11.6-14.8) % Plt Count 335 (150-400) X10^3/uL Neut % (Auto) 55.1 (50-75) % Lymph % (Auto) 36.8 (25-40) % [place] % (Auto) 5.7 (3-14) % Eos % (Auto) 1.9 L (2-4) % Baso % (Auto) 0.5 (0-2) % Neut # (Auto) 3700 (7318-7489) /uL Lymph # (Auto) 2500 (4281-1951) /uL [place] # (Auto) 400 (0-900) /uL Eos # (Auto) 100 (0-450) /uL Baso # (Auto) 0 (0-100) /uL Sodium 139 (137-145) mmol/L Potassium 4.0 (3.4-5.1) mmol/L Chloride 102 (98-107) mmol/L Carbon Dioxide 27 (22-32) mmol/L BUN 20 H (7-17) mg/dL Creatinine 0.90 (0.52-1.04) mg/dL Estimated GFR > 60.0 (>60) mL/min BUN/Creatinine Ratio 22.2 H (6-22) Glucose 126 H (80-110) mg/dL Calcium 10.6 H (8.4-10.2) mg/dL Total Bilirubin 0.6 (0.2-1.3) mg/dL AST 42 H (14-36) IU/L ALT 30 (9-52) IU/L Alkaline Phosphatase 67 (38-126) U/L Troponin I < 0.012 (0.01-0.034) ng/mL Total Protein 7.6 (6.3-8.2) g/dL Albumin 4.7 (3.5-5.0) g/dL Globulin 2.9 (1.7-4.1) g/dL Albumin/Globulin Ratio 1.6 (1.0-2.8) Urine RBC 0-1/hpf (0-5/HPF) Urine WBC 5-10/hpf H (0-5/HPF) Ur Squamous Epith Cells 0-1 /hpf (0-5/HPF) Urine Bacteria Many (>30) H (None) Ur Culture Indicated? Specimen cultured Urine Dip Bedside Urine Glucose Negative Bedside Urine Bilirubin - Negative Bedside Urine Ketone - Negative Urine Specific Palm 1.010 Bedside Urine Occult Blood - Negative Bedside Urine pH 6.0 Bedside Urine Protein - Negative Bedside Urine Urobilinogen - Negative Bedside Urine Nitrite - Negative Bedside Urine Leukocytes ++ [address] scan - head: Radiologist's impression: [address] [address] [address] Scan Report Signed Patient: Lesa Hitchcock PMR#: [id number] : 4Acct:[id number] Age/Sex: 64 / FDate of Service: 05/11/19 Loc: ED Accession Number: [id number] Procedure: CT head/brain wo con Ordering Provider: Eloy Amaya PROCEDURE: CT HEAD/BRAIN WO CON INDICATIONS: dizziness w/o history of vertigo TECHNIQUE: Noncontrast 4.5 mm thick angled axial sections acquired from the foramen magnum to the vertex, with coronal and sagittal reformats. For radiation dose reduction, the following was used: automated exposure control, adjustment of mA and/or kV according to patient size. COMPARISON: [facility], CT, CT HEAD/BRAIN WO CON, 06/11/2018, 12:50. FINDINGS: Image quality: Excellent. CSF spaces: Basal cisterns are patent. No extra-axial fluid collections. The ventricles are symmetric in size and shape. Brain: No intracranial bleeds or masses. There is cerebral volume loss for age, with resultant ventricular and sulcal prominence. There are periventricular and deep white matter chronic small vessel ischemic changes. There is intracranial internal carotid artery atherosclerosis. Skull and face: Calvarium and visualized facial bones appear intact, without suspicious lesions. Sinuses: Visualized sinuses and mastoids are clear. IMPRESSION: No CT evidence of acute intracranial pathology. No significant changes from previous study. Dictated by: Luis Antonio Perkins M.D. on 05/11/2019 at 20:44 Approved by: Luis Antonio Perkins M.D. on 05/11/2019 at 20:45 ECG Data Attestation: I personally reviewed and interpreted this ECG as follows: Prior ECG tracings: available for review Interpretation: SR rate at 73. Nonspecific T wave abnormalty as seen in previous EKG last year. QT/QTc 357/[address] elevation MDM Narrative Medical decision making narrative: This is a 64-year-old female who was brought in by EMS from home with acute onset of dizziness and spinning sensation which is worse with movements of her head or eyes and nausea before arriving to ED. Patient is current knee being treated for severe back pain due to spinal stenosis, disc bulges in L4 through S1. Patient currently takes oxycodone q.4 hours and gabapentin 900 mg 3 times a day. Patient was prescribed with a new muscle relaxant yesterday which she had not started at this time. Patient does not exhibit any other neurological deficit per exam. EKG was normal sinus rhythm with nonspecific T-wave abnormal T which was seen in previous EKGs. Patient reports has been hydrating well due to her kidney stone history. Patient is concerned of her liver and kidney functions due to she takes multiple medications for pain. Patient was offered Valium or meclizine but declined due to patient does not Wanna be groggy and bad motion sickness even after taking Dramamine in the past. Due to patient's back pain, patient had difficult time sitting up on her own or turn to her sides or lifting her legs during exam. CBC, CMP were unremarkable and troponin was negative. UA was obtained showed leukocytes without nitrites and this is being cultured at this time. Patient was re-evaluated several times and patient decided to take meclizine for her symptoms. When patient was re-evaluated, the dizziness has not completely resolved. Patient agrees to take another dose of meclizine and head CT was ordered. Head CT did not show acute findings such as bleeds or masses but chronic small-vessel ischemic changes and intracranial internal carotid artery arthrosclerosis and there was no significant changes from previous study in May 2018. Carotid Doppler study was done in May 2018 any showed last than 50% bilateral internal carotid artery stenosis. Patient did not tolerated getting up and out of bed with 2 person's assistants with increasing dizziness and nystagmus. The patient may need further imaging test such as MRI/MRA. Hospitalist IONA Ng was consulted and he kindly accepted the patient care. <Elsa Jaime MD - Last Filed: 05/12/19 07:54> Lab Data Labs: Lab Results 05/11/19 05/11/19 05/11/19 Range/Units 15:45 15:45 19:00 WBC 6.8 (4.5-11.0) X10^3/uL RBC 4.33 (4.0-5.2) X10^6/uL Hgb 12.7 (12.0-16.0) g/dL Hct 37.7 (36-46) % MCV 87.0 (80-100) fL MCH 29.3 (26-34) PG MCHC 33.7 (30-36) % RDW 13.9 (11.6-14.8) % Plt Count 335 (150-400) X10^3/uL Neut % (Auto) 55.1 (50-75) % Lymph % (Auto) 36.8 (25-40) % [place] % (Auto) 5.7 (3-14) % Eos % (Auto) 1.9 L (2-4) % Baso % (Auto) 0.5 (0-2) % Neut # (Auto) 3700 (3243-4440) /uL Lymph # (Auto) 2500 (9242-0590) /uL [place] # (Auto) 400 (0-900) /uL Eos # (Auto) 100 (0-450) /uL Baso # (Auto) 0 (0-100) /uL Sodium 139 (137-145) mmol/L Potassium 4.0 (3.4-5.1) mmol/L Chloride 102 (98-107) mmol/L Carbon Dioxide 27 (22-32) mmol/L BUN 20 H (7-17) mg/dL Creatinine 0.90 (0.52-1.04) mg/dL Estimated GFR > 60.0 (>60) mL/min BUN/Creatinine Ratio 22.2 H (6-22) Glucose 126 H (80-110) mg/dL Calcium 10.6 H (8.4-10.2) mg/dL Total Bilirubin 0.6 (0.2-1.3) mg/dL AST 42 H (14-36) IU/L ALT 30 (9-52) IU/L Alkaline Phosphatase 67 (38-126) U/L Troponin I < 0.012 (0.01-0.034) ng/mL Total Protein 7.6 (6.3-8.2) g/dL Albumin 4.7 (3.5-5.0) g/dL Globulin 2.9 (1.7-4.1) g/dL Albumin/Globulin Ratio 1.6 (1.0-2.8) Urine RBC 0-1/hpf (0-5/HPF) Urine WBC 5-10/hpf H (0-5/HPF) Ur Squamous Epith Cells 0-1 /hpf (0-5/HPF) Urine Bacteria Many (>30) H (None) Ur Culture Indicated? Specimen cultured Urine Dip Bedside Urine Glucose Negative Bedside Urine Bilirubin - Negative Bedside Urine Ketone - Negative Urine Specific Palm 1.010 Bedside Urine Occult Blood - Negative Bedside Urine pH 6.0 Bedside Urine Protein - Negative Bedside Urine Urobilinogen - Negative Bedside Urine Nitrite - Negative Bedside Urine Leukocytes ++ 125 Esterase Discharge Plan Departure Patient Disposition: Admitted As Inpatient Clinical Impression: Dizziness Discharge Date/Time: 05/12/19 00:08 Admit Date/Time: 05/11/19 22:31 Admit Provider: Damir Ng
[2019-05-11] MEDS: ONDANSETRON 4 MG/2 ML INJ IV (21:21)
--- NOTE | 2019-05-11 22:10 | PC.NURSE ---
PT failed attempted to transfer out of bed with RN at side, stating she felt dizzy and unsteady. Provider aware.
--- NOTE | 2019-05-11 22:44 | P.HP_ITS ---
History of Present Illness History of Present Illness Date Patient Seen: 05/11/19 Time Patient Seen: 23:11 Chief complaint: Dizziness Narrative: Ms. Lesa Hitchcock is a 64-year-old female patient with a history significant for hypertension, diabetes, hypothyroidism, breast cancer having undergone chemotherapy and chronic back pain with right leg radiculopathy who presents today for sudden onset of vertigo. The patient states her symptoms began acutely approximately 3:00 this afternoon while she was on the phone to a friend. She reports complaints of the room spinning which is exacerbated with either turning her head or moving her eyes. She complains of an associated headache and nausea with the vertigo but has not had vomiting. She has a strong family history 3 immediate family members having had strokes. She reports no visual changes or diplopia. She denies complaints of fevers or chills and has no complaints neck pain, nasal congestion or sore throat. She denies complaints of chest pain or palpitations, shortness of breath cough or wheezing. She has no abdominal pain. She is on chronic oxycodone for her back pain and manages constipation with Senokot and stool softeners as needed. Upon arrival in the ER the patient is afebrile with a temperature 97.4?, heart rate of 74, blood pressure 149/62, respirations 16 saturating 100% on room air. The patient underwent CT of the head which found no acute intracranial processes. On laboratory analysis the patient has a white count of 6.8, hemoglobin of 12.7, hematocrit of 37.7 and platelets 335. Her electrolytes are within normal range she has a BUN of 20 and the creatinine of 0.9. Her nonfasting glucose is 126. She has a calcium slightly elevated at 10.6 with normal bilirubin 0.6 elevated AST of 42 normal ALT at 30 and alkaline phosphatase 67. Her troponin is negative at less than 0.012. In the ER the patient is given 2 doses of meclizine with slight improvement in symptoms however the patient is unable to sit up or ambulate without profound vertigo. Patient History Medical History (Updated 05/11/19 @ 23:50 by CITLALI Thurman) Diabetes (Acute) History of chemotherapy (Acute) History of malignant neoplasm of breast (Inactive 12/13/15) HTN (hypertension) (Acute) Hypothyroidism (Acute) Lumbar back pain with radiculopathy affecting right lower extremity (Acute) Renal colic on left side (Acute) Ureterolithiasis (Acute) Surgical History History of lithotripsy History of tonsillectomy History of total mastectomy Family History (Updated 05/11/19 @ 23:52 by CITLALI Thurman) Father Diabetes mellitus Hypertension Stroke Mother Hypertension Stroke Brother No problems noted. Sister Stroke Myocardial infarction Daughter Cancer Social History Smoking Status: Never smoker Family & Social History Family History (Updated 05/11/19 @ 23:52 by CITLALI Thurman) Father Diabetes mellitus Hypertension Stroke Mother Hypertension Stroke Brother No problems noted. Sister Stroke Myocardial infarction Daughter Cancer Safety & Behavioral: Feels Safe in Current Yes Environment Been Physically Hurt or No Threatened By a Person Tobacco & Substance use: Smoking Status Never smoker Substance Use Type does not use Comment: The patient is and lives in a single family home with her . She has a very strong history of stroke within her family as well as hypertension and diabetes. Her sister and daughter both have breast cancer. Smoking: Patient denies use of tobacco products. Alcohol: Occasional alcohol varying between once per week and once per month. Substance use: The patient tried CBD 3 weeks ago but has not continued. Advanced directives: The patient has a living dressed but unknown if she has advanced directives. The the patient states her wish to be FULL CODE. She designates her to be surrogate decision maker. Meds Home Medications and Allergies Home Medications Medication Instructions Recorded Confirmed Type metformin 1,000 mg tablet 1,000 mg PO BID 12/02/17 05/11/19 History insulin aspart U-100 [Novolog 2 - 10 unit SUBCUT TID 06/01/18 05/11/19 History Flexpen U-100 Insulin] cyanocobalamin (vitamin B-12) 1,000 mcg PO DAILY 01/24/19 05/11/19 History [Vitamin B-12] insulin glargine [Lantus U-100 40 units SUBCUT BID 01/24/19 05/11/19 History Insulin] irbesartan-hydrochlorothiazide 1 tab PO DAILY 03/23/19 05/11/19 History levothyroxine [Synthroid] 100 mcg PO DAILY 03/23/19 05/11/19 History cholecalciferol (vitamin D3) 4,000 unit PO DAILY 05/11/19 05/11/19 History [Vitamin D3] cyclobenzaprine 5 mg PO TID PRN 05/11/19 05/11/19 History gabapentin 900 mg PO TID 05/11/19 05/11/19 History hydrocodone-acetaminophen 1 tab PO DIRECTED 05/11/19 05/11/19 History ondansetron 4 mg PO Q4H PRN 05/11/19 05/11/19 History oxycodone-acetaminophen 1 tab PO Q4-6H PRN 05/11/19 05/11/19 History vitamin B complex 1 tab PO DAILY 05/11/19 05/11/19 History Allergies Allergy/AdvReac Type Severity Reaction Status Date / Time fluoxetine Allergy Severe UNKNOWN Verified 05/11/19 17:21 lovastatin Allergy Severe UNKNOWN Verified 05/11/19 17:21 pravastatin Allergy Severe UNKNOWN Verified 05/11/19 17:21 empagliflozin Allergy Intermediate UNKNOWN Verified 05/11/19 17:21 [From Jardiance] insulin glargine Allergy Intermediate UNKNOWN Verified 05/11/19 17:21 [From Soliqua 100/33] lixisenatide Allergy Intermediate UNKNOWN Verified 05/11/19 17:21 [From Soliqua 100/33] morphine Allergy Unknown Verified 05/11/19 17:18 promethazine [From PHENERGAN] Allergy Unknown Verified 05/11/19 15:54 scopolamine [SCOPOLAMINE] Allergy Unknown Verified 05/11/19 15:54 TUJEO Allergy Severe UNKNOWN Uncoded 05/11/19 17:21 NO USE OF LEFT ARM FOR IV/BP Allergy Unknown Uncoded 05/11/19 15:54 Review of Systems Review of Systems ROS Unobtainable: All systems reviewed & are unremarkable except as noted in HPI and below Exam Vital Signs (past 8 hours): - 05/11/19 15:29 05/11/19 16:34 05/11/19 18:00 Temperature 97.4 F L Pulse Rate 74 81 77 Respiratory Rate 16 21 12 Blood Pressure 149/62 H Blood Pressure [Right Arm] 140/60 132/66 Pulse Oximetry 100 99 97 05/11/19 19:00 05/11/19 20:05 05/11/19 21:07 Temperature Pulse Rate 70 70 68 Respiratory Rate 17 14 16 Blood Pressure Blood Pressure [Right Arm] 139/77 136/61 122/61 Pulse Oximetry 100 98 97 05/11/19 22:30 Temperature Pulse Rate 67 Respiratory Rate 16 Blood Pressure Blood Pressure [Right Arm] 131/73 Pulse Oximetry 98 Oxygen Delivery Method Room Air Narrative Exam Narrative: GENERAL APPEARANCE: well developed, overweight, mildly ill- appearing in no acute distress. HEENT: Normocephalic, PERRLA, conjunctiva clear, EOMs intact without nystagmus, exam elicits vertigo, no sinus tenderness to percussion, no rhinorrhea, mucous membranes are moist and pink without lesions or exudate. NECK/THYROID: neck supple, no JVD, no carotid bruit, no thyromegaly, trachea midline. LYMPH NODES: no cervical or supraclavicular lymphadenopathy. SKIN: warm and dry, no suspicious lesions, no rashes. HEART: regular rate and rhythm, S1-S2, 1/6 systolic murmur left midsternal border, no rubs or gallops, brisk capillary refill, no edema LUNGS: clear to auscultation bilaterally, no coarseness crackles or wheezing, no cough present CHEST: Symmetrical movement, no accessory muscle use, no pain to AP and lateral compression. ABDOMEN: Soft, round, no distention, no abdominal tenderness, no organomegaly, no flank tenderness, active bowel tones. BACK: Lumbar spine pain on palpation, back pain with straight leg raise EXTREMITIES: moves all extremities, strength is 5/5 and symmetrical, limited by back pain and right leg radiculopathy, no deformities or joint effusions. NEUROLOGIC: AAO x4, cranial nerves II-XII grossly intact, paresthesias right lower leg to the level of the knee, hearing grossly normal to speech. PSYCH: alert, labile mood, tearful at times, cognitive function intact Objective Labs Result Diagrams: 05/11/19 15:45 05/11/19 15:45 Labs: Laboratory Results - last 24 hr 05/11/19 05/11/19 05/11/19 15:45 15:45 19:00 WBC 6.8 RBC 4.33 Hgb 12.7 Hct 37.7 MCV 87.0 MCH 29.3 MCHC 33.7 RDW 13.9 Plt Count 335 Neut % (Auto) 55.1 Lymph % (Auto) 36.8 [place] % (Auto) 5.7 Eos % (Auto) 1.9 L Baso % (Auto) 0.5 Neut # (Auto) 3700 Lymph # (Auto) 2500 [place] # (Auto) 400 Eos # (Auto) 100 Baso # (Auto) 0 Sodium 139 Potassium 4.0 Chloride 102 Carbon Dioxide 27 BUN 20 H Creatinine 0.90 Estimated GFR > 60.0 BUN/Creatinine Ratio 22.2 H Glucose 126 H Calcium 10.6 H Total Bilirubin 0.6 AST 42 H ALT 30 Alkaline Phosphatase 67 Troponin I < 0.012 Total Protein 7.6 Albumin 4.7 Globulin 2.9 Albumin/Globulin Ratio 1.6 Urine RBC 0-1/hpf Urine WBC 5-10/hpf H Ur Squamous Epith Cells 0-1 /hpf Urine Bacteria Many (>30) H Ur Culture Indicated? Specimen cultured Assessment & Plan Assessment & Plan narrative: This 64-year-old female who presents the ER with complaints of sudden onset of vertigo that persists. The patient has a history of hypertension diabetes and hyperlipidemia and has a strong family history of hypertension stroke and diabetes. She also has a history of breast cancer having undergone chemotherapy. 1. Acute vertigo, present on admission, active -vertigo exacerbated by head and eye movement, no prior history of similar symptoms. -differential diagnosis includes: -benign positional vertigo- no prior history of PSYCHIATRIC CLINICAL NURSE SPECIALIST disease or ear pathology -physical therapy to consult evaluate, consideration for Lovely maneuver. -labyrinthitis-no recent history of URI or ear pain -no indications of infection, viral or bacterial. -patient has received 2 doses of meclizine with modest improvement in symptoms. -cerebellar CVA-strong family history of stroke, symptoms sudden in onset. -will obtain MR stroke. -new murmur on exam, will obtain echocardiogram 2. Diabetes type 2, insulin-dependent, present on admission, active -blood sugar on arrival is 126. No evidence of retinopathy or nephropathy. -will continue patient's home regimen of Lantus 40 units twice daily -fingerstick blood sugars AC and HS. -correctional insulin medium dose range. -will check a hemoglobin A1c. 3. Lumbar back pain, chronic, present on admission, active -CT 04/01/2019: Stenosis is most prominent at L4-5 secondary to disc bulge as well as anterolisthesis and facet/ligamenta flavum arthropathy; Disc bulge with right foraminal component and likely superimposed small protrusion/extrusion causing compromise of right lateral recess is present at L5-S1. -physical therapy to consult, evaluate treat. 4. Chronic pain, chronic opiate use, present on admission, active -patient takes gabapentin 900 mg 3 times daily -takes oxycodone 11/26/2024 every 4 hours in conjunction with Zofran 4 mg due to nausea from the medication. -patient appears adequately controlled on current dosing will continue present regimen. 5. Essential hypertension, chronic, present on admission, active -patient with elevated blood pressure 150/71 at time of exam the patient is in the ER in moderate discomfort from back pain. -continue patient's home regimen of irbesartan/hydrochlorothiazide 150/12.5 daily -will track blood pressures. 6. Acquired hypothyroidism, chronic, stable -will continue current home regimen of levothyroxine 100 mcg daily. -will check TSH. 7. Breast cancer, resolved. -patient with recent follow-up appointment with Oncology with notation of no recurrence. DVT prophylaxis: Bilateral lower extremity SCDs, Lovenox 40 mg subcutaneously daily The patient is admitted to the hospital due to the severity of her symptoms and risk for adverse events and complications. Patient is admitted as observation with expected length of stay to be less than 2 midnights. Scores GCS [place] coma scale eye opening: Spontaneous [place] coma scale verbal response: Orientated Mary coma scale motor response: Obey commands Mary coma scale total score: 15 NIHSS Level of Conciousness: Alert, keenly responsive Ask month/age: Answers both questions correctly. Open/close eyes, close hand: Performs both tasks correctly Best gaze horizontal: Normal Visual garibay: No visual loss Facial palsy: Normal symetrical movement Left arm drift: No drift for full 10 sec Right arm drift: No drift for full 10 sec Left leg drift: No drift for full 5 sec Right leg drift: Drifts down, not to bed (Limited due to back pain) Limb ataxia: Absent Sensory on face/arms/legs: Normal, no sensory loss (No new sensory loss, right lower leg paresthesia pre-existing) Best language: No aphasia, normal Dysarthria: Normal Extinction or inattention: No abnormality Total NIH Stroke scale score: 1
--- NOTE | 2019-05-11 23:36 | DI.MRI.S_ITS ---
PROCEDURE: MR STROKE Pre- and post-contrast brain MRI, non-contrast brain MR angiogram, pre- and postcontrast neck MR angiogram INDICATIONS: SCHAFER with acute vertigo TECHNIQUE: Brain: Noncontrast axial T1 spin echo, axial T2 fast spin echo, sagittal and axial FLAIR, coronal T2 fast spin echo, axial gradient echo, axial diffusion and ADC through the brain. After the administration of contrast, axial 3D VIBE of the cranial vasculature and brain. Brain MRA: Non-contrast 3-D time of flight MR angiogram, with multiple skhzrst-hshodvydq-dncsejghdo (MIP) reformats performed. Neck MRA: Axial and sagittal TruFISP through the neck. Coronal dynamic MR angiogram during administration of contrast in the arterial and venous phases, with 3-dimenstional tsmcleq-dciybfwhx-wntcahlsgg (MIP) reformats constructed from subtraction images. COMPARISON: [facility], CT, CT HEAD/BRAIN WO CON, 05/11/2019, 20:26. FINDINGS: Image quality: Excellent. BRAIN: CSF spaces: Ventricles are normal in size and shape. Basal cisterns are patent. No extra-axial fluid collections. Brain: No intracranial bleeds or mass effects. Dang-white matter interface is normal. Diffusion weighted images show no acute ischemic insults. Brainstem appears normal. Normal intravascular flow voids are present. No abnormal intracranial enhancement. Skull and face: Calvarial marrow signal is normal. Orbits appear normal. Sinuses: Sinuses and mastoids are clear. BRAIN MR ANGIOGRAM: Anterior circulation: Intracranial internal carotid arteries are normal in size and enhancement. The flow within the paired anterior cerebral arteries is normal and symmetric. The flow within the middle cerebral arteries is normal and symmetric. The anterior communicating artery is seen. No stenoses, occlusions, or aneurysms. Posterior circulation: The visualized portions of the vertebral arteries demonstrate normal caliber, and join to form a normal appearing basilar artery. The flow within the posterior cerebral arteries is normal and symmetric. No stenoses, occlusions, or aneurysms. NECK MR ANGIOGRAM: Carotids: Great vessels demonstrate a conventional anatomy as they arise from the aortic arch. The origins of the common carotid arteries appear patent. The calibers and courses of both common carotid arteries are normal. There is roughly 50% origin stenosis of the left internal carotid artery, which is otherwise patent. Right internal carotid artery is patent. Posterior circulation: The origins of the vertebral arteries appear patent. More superior portions of both vertebral arteries demonstrate normal course and caliber, and join to form a normal appearing basilar artery. Miscellaneous: Subclavian arteries appear patent. Pre-contrast images through the neck show no soft tissue abnormalities. IMPRESSION: BRAIN MRI: 1. No acute process. No recent infarct. BRAIN MR ANGIOGRAM: Negative cerebral MR angiography. NECK MR ANGIOGRAM: 1. No right internal carotid artery stenosis. 2. Roughly 50% origin stenosis of the left internal carotid artery. 3. Patent bilateral vertebral arteries. Dictated by: Marek Rm M.D. on 05/12/2019 at 11:40 Approved by: Marek Rm M.D. on 05/12/2019 at 11:44
--- NOTE | 2019-05-11 23:37 | DI.ECHO.S_ITS ---
[facility]---------+ [facility] +---------+ : : [address] : : : : [id number] : : : : Phone: [phone] Echocardiogram Report + + :Name: OLIVER BURTON Study Date: 05/12/2019 Height: 62 in : :[facility] Weight: 191 lb : : Gender: Female BSA: 1.9 m2 : :: 1955 Age: 64 yrs BP: 131/67 mmHg: :Reason For Study: TIA : : Performed By: Madison Sapp : :Referring: AMADA PETIT : + + Interpretation Summary The patient was in normal sinus rhythm during the exam. The left ventricle is normal in size. There is no thrombus. The ejection fraction is estimated to be 60-65%. The right ventricle is grossly normal size. The right ventricular systolic function is normal. No significant valvular pathology seen. Injection of contrast with valsalva documented an interatrial shunt. Consider SARIKA to rule out PFO/ASD. Procedure: A two-dimensional transthoracic echocardiogram with color flow and Doppler was performed. The study quality was technically adequate. There is no prior echocardiogram noted for this patient. The patient was in normal sinus rhythm during the exam. Left Ventricle: The left ventricle is normal in size. There is normal left ventricular wall thickness. There is no thrombus. The ejection fraction is estimated to be 60-65%. There are no focal wall motion abnormalities. MV E/A: 0.78 Med Peak E' Abdirizak: 5.3 cm/sec E/E' med: 16.8. Right Ventricle: The right ventricle is grossly normal size. The right ventricular systolic function is normal. Atria: The left atrial size is normal. Right atrial size is normal. Injection of contrast with valsalva documented an interatrial shunt. Mitral Valve: The mitral valve is normal in structure and function. There is trace mitral regurgitation. Aortic Valve: The aortic valve opens well. The aortic valve is trileaflet. No aortic regurgitation is present. Tricuspid Valve: The tricuspid valve is normal in structure and function. There is trace tricuspid regurgitation. The right ventricular systolic pressure is estimated to be at least 30 mmHg based on an estimated right atrial pressure of 3 mm Hg. Pulmonic Valve: The pulmonic valve is not well seen, but is grossly normal. There is no pulmonic valvular regurgitation. Great Vessels: The aortic root is normal size. The dimensions of the ascending aorta are normal. The aortic arch is normal in size. The IVC is of normal diameter and collapses greater than 50% with a sniff. This suggests a low right atrial pressure of 3 mm Hg. Pericardium/ Pleura There is no pericardial effusion. There is no pleural effusion. MMode/2D Measurements & Calculations LVIDd: 4.3 cm Ao root diam: 3.1 cm LVIDs: 2.5 cm Aortic Jxn: 2.5 cm FS: 40.9 % asc Aorta Diam: 3.1 cm IVSd: 1.0 cm Ao Arch Diam (Prox Trans): 3.2 cm LVPWd: 1.0 cm LV zee. diameter/BSA (cm/m^2): 2.3 LV sys. diameter/BSA (cm/m^2): 1.3 LA dimension: 3.3 cm RA long axis: 4.4 cm LA A2 area: 18.8 cm2 RA area: 12.1 cm2 LA A4 area: 17.4 cm2 RA vol: 28.3 ml LA length (vol): 5.1 cm RA : 15.1 ml/m2 LA vol: 55.1 ml IVC diam: 1.6 cm LA vol index: 29.4 ml/m2 Doppler Measurements & Calculations Ao V2 max: 178.0 cm/sec MV E max abdirizak: 88.3 cm/sec Ao V2 mean: 106.9 cm/sec MV A max abdirizak: 112.9 cm/sec Ao max P.7 mmHg MV E/A: 0.78 Ao mean P.5 mmHg Med Peak E' Abdirizak: 5.3 cm/sec Ao V2 VTI: 36.2 cm E/E' med: 16.8 Lat Peak E' Abdirizak: 6.3 cm/sec E/E' lat: 14.0 E/e' average: 15.4 MV dec time: 0.29 sec MV P1/2t: 88.4 msec TR max abdirizak: 260.4 cm/sec MV P1/2t max abdirizak: 89.5 cm/sec TR max P.1 mmHg MVA(P1/2t): 2.5 cm2 PA V2 max: 111.2 cm/sec PA V2 mean: 63.5 cm/sec PA mean P.1 mmHg PA Accel Time: 0.08 sec Reading Physician:04:04 PM
[2019-05-12] VITALS (12 sets, daily range): BP systolic 126–139; BP diastolic 58–67; PULSE 60–73; RESP 14–18; TEMP 36.2–36.7; O2SAT 95–99; BMI 31.1
[2019-05-12] MEDS: ONDANSETRON 4 MG/2 ML INJ IV ×6 (00:23→20:43)
[2019-05-12] MEDS: OXYCODONE IR 5 MG TABLET PO ×6 (00:23→20:51)
[2019-05-12] MEDS: SODIUM CHLORIDE 0.9% 1,000 ML 75 ML IV ×2 (00:30→16:25)
[2019-05-12] MEDS: GABAPENTIN 300 MG CAPSULE 900 MG PO ×3 (01:07→17:11)
--- NOTE | 2019-05-12 02:45 | PC.NURSE ---
Addendum entered by Gladys Arthur R.N. 05/12/19 05:37: Awakened for scheduled meds and patient states pain in right leg currently 5/10. When initially moving head denied dizziness but then shortly after rescinded that stating she is still dizzy so medicated with Meclizine. Placed on bedpan and able to void 375cc cloudy yellow urine. Can move self in bed but not wanting to lie on sides because of dizziness. Original Note: Patient admitted to room 202 per stretcher from ER. Is alert and oriented. Breath sounds CTA with RA sat of 99%. HRR with telemetry reading of SR w/1st degree AVB. Complains of dizziness with any head movement but denies nausea. BT present and abdomen is soft. States she has been unable to tolerate getting up so has been using bedpan to void while in ER; denies dysuria, frequency or urgency. Back pain x 11 weeks and reports she has a bulged disk with radiation of pain down right leg and numbness in right foot which has been progressively getting worse. Medicated for chronic pain with scheduled Oxycodone + Gabapentin as well as Zofran which she takes at home with pain meds. SCD's applied. Fall risk score is high and bed alarm activated.
[2019-05-12] MEDS: MECLIZINE HCL 12.5 MG TABLET 25 MG PO ×2 (05:17→18:15)
[2019-05-12] MEDS: LEVOTHYROXINE 100 MCG TABLET PO (05:34)
[2019-05-12 06:26] LABS: BUN Creatinine Ratio 24.3 (6-22); Blood Urea Nitrogen 17 mg/dL (7-17); Calcium 10.1 mg/dL (8.4-10.2); Carbon Dioxide 27 mmol/L (22-32); Chloride 107 mmol/L (98-107); Estimated Glomerular Filt Rate > 60.0 mL/min (>60); Glucose 139 mg/dL (80-110); HEMOLYSIS < 15 (0-50); Potassium 3.7 mmol/L (3.4-5.1); Sodium 140 mmol/L (137-145)
[2019-05-12 06:37] LABS: Cholesterol 213 mg/dL (140-199); HDL Cholesterol 48 mg/dL (40-60); LDL Cholesterol Calculated 129 mg/dL (<100); Triglycerides 179 mg/dL (35-150)
[2019-05-12] MEDS: ENOXAPARIN 40 MG/0.4 ML SYRINGE SUBCUT (09:04)
[2019-05-12] MEDS: hydroCHLOROthiazide 12.5 MG CAPSULE PO (09:04)
[2019-05-12] MEDS: IRBESARTAN 150 MG TABLET PO (09:04)
[2019-05-12] MEDS: INSULIN GLARGINE 100 UNIT/ML 3ML PEN 40 UNIT SUBCUT ×2 (09:05→20:48)
[2019-05-12] MEDS: LORazepam 1 MG TABLET PO (09:47)
--- NOTE | 2019-05-12 11:27 | PT.IIE ---
Surgical History (Last Reviewed 05/11/19 @ 20:23 by CITLALI Sauceda) History of lithotripsy History of tonsillectomy History of total mastectomy Medical History (Last Updated 05/11/19 @ 23:50 by CITLALI Thurman) Diabetes (Acute) History of chemotherapy (Acute) History of malignant neoplasm of breast (Inactive 12/13/15) HTN (hypertension) (Acute) Hypothyroidism (Acute) Lumbar back pain with radiculopathy affecting right lower extremity (Acute) Renal colic on left side (Acute) Ureterolithiasis (Acute) Physical Therapy Inpatient Evaluation/Re-Eval M1 PT/OT-IP Prior Functional Status Start: 05/12/19 08:10 Freq: NEEDED Status: Active Protocol: Document 05/12/19 09:40 HH (Rec: 05/12/19 11:27 [email or web address]) Medical Review Prior Functional Status Medical History Reviewed Yes Communication Able to make needs. no deficits noted Mobility and Gait Pt has chronic back pain and has difficulty bending down, twisting and transfers but able to do them by herself. Her back pain has gotten worse for the past 3 months who has worsening R leg pain and foot numbness. Pt uses [facility] for home and community mobility. Activities of Daily Living and IADL's independent for ADLs, assistance for IADLs from who does house cleaning, laundry and cooking. Social History Household Members spouse Living Arrangements House Number of Stairs To Enter/Railing? 2 EMILY with L rail Home Environment Standard Height Toilet,Walk in Shower Home Equipment Straight Cane,Shower Seat with Backrest Employment Status Retired Additional Social History Comment Pt lives with her in [place]. All children live in [place]. M2 PT-IP Current Condition Start: 05/12/19 08:10 Freq: NEEDED Status: Active Protocol: Document 05/12/19 09:40 HH (Rec: 05/12/19 11:27 [email or web address]) Physical Therapy Current Condition Current Condition Evaluation Date 05/12/19 Treatment Diagnosis Dizziness, possible BPPV, chronic LBP Onset Date 05/11/19 Weight Bearing Status Weight Bearing Status Full Weight Bearing M3 PT-IP Subjective Start: 05/12/19 08:10 Freq: NEEDED Status: Active Protocol: Document 05/12/19 09:40 HH (Rec: 05/12/19 11:27 [id number] Subjective Physical Therapy Visit Type Type Initial Evaluation Visit Start Time 09:40 Visit Stop Time 10:20 Total Visit Minutes 40 Notes Per RN, pt is going to have MRI later this am. She also stated pt cannot tolerate any positional changes due to severe dizziness with head turns. Co-tx with SPT Satya Number of NITROCELLULOSE OPERATOR Visits 0 Physical Therapy Visit Comments Patient Comments I dont think i could get up cause any movements make my dizziness worse but i am willing to try. Patient Goals To find out what is causing her dizziness. Therapy Pain Assessment Pain When Pain Assessed At Rest Pain Present Pain Present Pain Reported Location LBP Intensity 6 Scale Used Numeric (1 - 10) Description Aching,Sharp right leg Intensity 6 Scale Used Numeric (1 - 10) Description Aching,Chronic,Sharp M4 PT-IP Mobility and Gait Start: 05/12/19 08:10 Freq: NEEDED Status: Active Protocol: Document 05/12/19 09:40 (Rec: 05/12/19 11:27 [id number]) PT-Bed Mobility Assessment Rolling Type of Rolling Bilateral Supine to Sit Supine to Sit Head of Bed Elevated Sit to Supine Sit to Supine Head of Bed Elevated PT-Transfer Assessment Comments Mobility Comments Pt in bed upon assessment and stated attempted to sit up at EOB last nigth but it was unsuccessful due to severe dizziness, but agreed to attempt again with PT since she wanted to void. Attempted to place pt into reclined seated position but pt cont to complain spinning sensation even though with the use of gaze stabilization on fixated object. Pt did not want to attempt any head turns or supine to sit activities. Pt then requested to use bed wang to void and she was able to perform mini bridge. Pt stated she felt better after voiding and willing to attempt bed mobility again. However, it was still unsuccessful due to increased dizziness. Pt overall appears very anxious for any movements and discussed with RN to use slider for transfers at this point. Gait Assessment Comments Gait Comments unable to assess Stair Climbing Assessment Comments Stair Climbing Comments unable to assess PT-Balance Assessment Comments Other Balance Tests/Deviations/Treatment unable to assess : M5 PT-IP Objective Assessments Start: 05/12/19 08:10 Freq: NEEDED Status: Active Protocol: Document 05/12/19 09:40 (Rec: 05/12/19 11:27 [id number]) Orientation Orientation/Cognition Level of Alertness Alert Orientation Name,Age,Birthday,Month,Date, Year,Day of Week,Place, Situation Language Function Ability No Deficits Noted Safety Awareness Understands Safety Issues Memory Description No Deficits Noted Gross Range of Motion Upper Extremity ROM Assessment Within Functional Limits Lower Extremity ROM Assessment Within Functional Limits Strength Upper Extremity Strength Assessment Within Functional Limits Lower Extremity Strength Assessment Within Functional Limits M6 PT-IP Treatment Start: 05/12/19 08:10 Freq: NEEDED Status: Active Protocol: Document 05/12/19 09:40 HH (Rec: 05/12/19 11:27 [id number]) Physical Therapy Treatment Education Education Provided Safety Other Treatments Other Treatment Performed unable to attempt elbetr hallpike assessment M7 PT-IP Assessment and Plan Start: 05/12/19 08:10 Freq: NEEDED Status: Active Protocol: Document 05/12/19 09:40 HH (Rec: 05/12/19 11:27 [id number]) PT Summary Assessment and Plan Potential Rehabilitation Potential Good Status of Condition at Evaluation Evolving Summary Impairments Pain,ROM,Strength,Balance, Sensation,Bed Mobility, Transfers,Gait,Activity Tolerance Assessment Summary Pt is mod complexity due to her severe dizziness with any positional changes, along with her worsening LBP. It was unsuccessful to perform any bed mobility upon assessment. Attempted to place her into reclined seated position but pt is still unable to tolerate . Pt is extremely sensitive to any trunk/ head movements at this point and recommended to use slider for any transfers/ imaging. Will cont to monitor pt's symptoms and tolerance and possibly attempt elbert hallpike assessment for possible BPPV treatment. Will cont to update pt's DC planning depends on pt's progress. Goals Bed Mobility Goal Contact Guard Assistance Transfer Goal Contact Guard Assistance,Cane, Front Wheeled Walker Gait Goal Contact Guard Assistance,Cane, Front Wheel Walker Gait Distance 50 Other Goals 2 EMILY with L rail Frequency of Treatment Frequency Of Treatment Once a Day Treatment Plan Physical Therapy Treatment Plan Bed Mobility Training,Transfer Training,Gait Training, Therapeutic Exercise,Balance Retraining,Post Op Education, Discharge Planning,Hot or Cold Pack,Neuromuscular Re-ed Other Recommendations and Next Treatment assess pt's symptoms Focus elbert hallpike assessment if possible Recommendations To Nursing Amount of Assist Needed Total Assistance Discharge Recommendations PT Discharge Recommendations SNF Rehab Other Discharge Recommendations Pt might need vestibular therapy Will cont to update pt's DC planning depends on pt's progress.
[2019-05-12] MEDS: INSULIN ASPART 100 UNIT/ML INSULN PEN SUBCUT ×2 (12:32→17:13)
[2019-05-12 15:51] LABS: Hemoglobin A1C% w Est Avg Glu 8.2 % (4.0-6.0)
--- NOTE | 2019-05-12 15:54 | CM.DPNOTE ---
Brief Assessment Note Patient is a 64 year old female who was admitted on 05/11/19 for Dizziness. Pt has MCR and PRE DIM for insurance and her PCP is not listed. EMR was reviewed. Per MD, pt with vertigo symptoms, hx of cancer, and rule out CVA vs vertigo. MRI scheduled for today. Per PT, due to pt's inability to ambulate safely with vertigo symptoms recommending SNF pending pt's progress. SW attempted to meet bedside with pt but she was sleeping so soundly in bed that SW could not wake her up to complete bedside assessment. Due to triage needs, SW will attempt again in the morning. ARSEN Bridges
--- NOTE | 2019-05-12 16:39 | PT.IPTN ---
Physical Therapy Treatment Note M2 PT-IP Current Condition Start: 05/12/19 08:10 Freq: NEEDED Status: Active Protocol: Document 05/12/19 09:40 HH (Rec: 05/12/19 11:27 HH [id number]) Physical Therapy Current Condition Current Condition Evaluation Date 05/12/19 Treatment Diagnosis Dizziness, possible BPPV, chronic LBP Onset Date 05/11/19 Weight Bearing Status Weight Bearing Status Full Weight Bearing M3 PT-IP Subjective Start: 05/12/19 08:10 Freq: NEEDED Status: Active Protocol: Document 05/12/19 15:30 MB (Rec: 05/12/19 16:39 MB [id number]) Subjective Physical Therapy Visit Type Type Treatment Note Visit Start Time 15:30 Visit Stop Time 16:15 Total Visit Minutes 45 Notes PT arrives to further assess mobility and try to assess for BPPV. Pt can only tolerate B log rolling to check for horizontal BPPV. No dizziness or nystagmus. Once EOB, she feels she is going side to side and feels weak. She cannot tolerate further testing, she has negative orthostatics. BP in right proximal UE above IV (d/t pt cannot have BP taken in left UE): supine 127/76; sitting 147/124; supine 138/68. Her HR stays in the 70s. She has right LE pain when PT lifts foot to don IVC booties. Not rated and stops when PT lowers leg. Number of BOAT CAPTAIN Visits 0 Physical Therapy Visit Comments Patient Comments Pt states she is afraid of moving and that she feels weak Therapy Pain Assessment Pain When Pain Assessed After Treatment Pain Present Pain Present Pain Reported M4 PT-IP Mobility and Gait Start: 05/12/19 08:10 Freq: NEEDED Status: Active Protocol: Document 05/12/19 15:30 MB (Rec: 05/12/19 16:39 MB [id number]) PT-Bed Mobility Assessment Rolling Type of Rolling Log Rolling Level of Assist Minimal Assistance,1 Person Assistance Supine to Sit Supine to Sit Standby Assistance,1 Person Assistance Sit to Supine Sit to Supine Standby Assistance,1 Person Assistance Scooting Scooting to Edge of Bed Standby Assistance Scooting Up and Down in Bed Standby Assistance PT-Transfer Assessment Comments Mobility Comments Sitting EOB, pt can scoot up to HOB to the right with encouragement and use of right hand. Increased time PT-Balance Assessment Sitting Balance and Reactions Static Sitting Balance Ability Fair Dynamic Sitting Balance Ability Fair Comments Other Balance Tests/Deviations/Treatment Pt reports dizziness and : weakness EOB and so superv to CGA. She does not lose balance and does remain upright sitting. M5 PT-IP Objective Assessments Start: 05/12/19 08:10 Freq: NEEDED Status: Active Protocol: Document 05/12/19 09:40 HH (Rec: 05/12/19 11:27 [id number]) Orientation Orientation/Cognition Level of Alertness Alert Orientation Name,Age,Birthday,Month,Date, Year,Day of Week,Place, Situation Language Function Ability No Deficits Noted Safety Awareness Understands Safety Issues Memory Description No Deficits Noted Gross Range of Motion Upper Extremity ROM Assessment Within Functional Limits Lower Extremity ROM Assessment Within Functional Limits Strength Upper Extremity Strength Assessment Within Functional Limits Lower Extremity Strength Assessment Within Functional Limits M6 PT-IP Treatment Start: 05/12/19 08:10 Freq: NEEDED Status: Active Protocol: Document 05/12/19 15:30 MB (Rec: 05/12/19 16:22 MB [id number]) Physical Therapy Treatment Education Brace Education Patient Other Treatments Other Treatment Performed Educated pt on log roll, benefits of getting up to help BM, strength, role of vestibular PT, BPPV assessment , pt is agreeable to try M7 PT-IP Assessment and Plan Start: 05/12/19 08:10 Freq: NEEDED Status: Active Protocol: Document 05/12/19 15:30 MB (Rec: 05/12/19 16:39 MB [id number]) PT Summary Assessment and Plan Potential Rehabilitation Potential Fair Summary Impairments Pain,Strength,Balance,Bed Mobility,Transfers,Gait, Activity Tolerance Assessment Summary Once EOB, she feels she is going side to side and feels weak. She cannot tolerate further testing, she has negative orthostatics. BP in right proximal UE above IV (d/ t pt cannot have BP taken in left UE): supine 127/76; sitting 147/124; supine 138/68 . Her HR stays in the 70s. She has right LE pain when PT lifts foot to don IVC booties. Not rated and stops when PT lowers leg. Recommend further mobility with PT before more vestibular attempts d/t she will need to be able to stand and lie back into Jaxon-Hallpike for BPPV testing. Frequency of Treatment Frequency Of Treatment Once a Day Treatment Plan Physical Therapy Treatment Plan Bed Mobility Training,Transfer Training,Gait Training, Therapeutic Exercise,Balance Retraining,Post Op Education, Discharge Planning,Hot or Cold Pack,Neuromuscular Re-ed Other Recommendations and Next Treatment assess pt's symptoms Focus jaxon hallpike assessment if possible Discharge Recommendations PT Discharge Recommendations SNF Rehab Other Discharge Recommendations Pt might need vestibular therapy Will cont to update pt's DC planning depends on pt's progress.
--- NOTE | 2019-05-12 17:06 | PM.PN.1 ---
Subjective Subjective Date Patient Seen: 05/12/19 Interval history: The patient is a 64-year-old female who was admitted to the hospital for abrupt onset of vertigo. Patient does have a history of type 2 diabetes hypertension and hypothyroidism. She reports sudden onset of dizziness. Since admission she notes that with turning her head or rolling over in bed she continues to be vertiginous. She has had some associated nausea with it but no vomiting. In addition the patient complains of pain in her back as she has herniated disc in the lumbar spine area. She is not sure whether the meclizine has been helpful. Exam Vital Signs (past 8 hours): - 05/12/19 11:48 05/12/19 15:30 Temperature 97.8 F 97.1 F L Pulse Rate 66 73 Respiratory Rate 14 18 Blood Pressure 131/67 139/67 Pulse Oximetry 95 97 Oxygen Delivery Method Room Air Oxygen Flow Rate 0 Narrative Exam Narrative: Ill-appearing female lying in bed Lungs: Clear to auscultation Cardiac exam: Regular rate and rhythm normal S1-S2 with a 2/6 systolic ejection murmur Abdomen: Soft nontender nondistended Extremities: No edema Neuro exam: Minimal nystagmus horizontally with extraocular movement, no facial asymmetry cranial nerves are intact strength is symmetric and equal bilateral sensation is grossly intact Objective Labs Result Diagrams: 05/11/19 15:45 05/12/19 06:00 Labs: Laboratory Results - last 24 hr 05/11/19 05/11/19 05/12/19 15:45 19:00 06:00 Sodium Potassium Chloride Carbon Dioxide BUN Creatinine Estimated GFR BUN/Creatinine Ratio Glucose Hemoglobin A1c 8.2 H Calcium Triglycerides 179 H Cholesterol 213 H LDL Cholesterol, Calc 129 H HDL Cholesterol 48 Urine RBC 0-1/hpf Urine WBC 5-10/hpf H Ur Squamous Epith Cells 0-1 /hpf Urine Bacteria Many (>30) H Ur Culture Indicated? Specimen cultured 05/12/19 06:00 Sodium 140 Potassium 3.7 Chloride 107 Carbon Dioxide 27 BUN 17 Creatinine 0.70 Estimated GFR > 60.0 BUN/Creatinine Ratio 24.3 H Glucose 139 H Hemoglobin A1c Calcium 10.1 Triglycerides Cholesterol LDL Cholesterol, Calc HDL Cholesterol Urine RBC Urine WBC Ur Squamous Epith Cells Urine Bacteria Ur Culture Indicated? Assessment & Plan Assessment & Plan narrative: Impression 1. Vertigo, suspect benign positional vertigo. Patient had an MRI today which showed no evidence of acute CVA. She continues to report vertigo which is positional. She has been using the meclizine intermittently with minimal effect. Physical therapy consultation is pending. Patient will have Lovely maneuver tomorrow. Will schedule meclizine 4 times daily. Will also write for as needed Ativan to help with dizziness. 2. Back pain, chronic will continue her usual home medication 3. Type 2 diabetes, continue her current regimen of basal bolus insulin 3. Hypothyroidism, continue thyroxine Patient to continue IVF and discharge home when vertigo improved. Quality VTE Deep Vein Thrombosis/Pulmonary Embolism Present on Admission: No
[2019-05-12] MEDS: SENNOSIDES 8.6 MG TABLET 17.2 MG PO (20:51)
--- NOTE | 2019-05-12 22:41 | PC.NURSE ---
pt denied any dizziness when laying down in bed. pt ambulated to the [facility], she denied dizziness at that time. pt reports that she feels very weak but not dizzy. pt voiding without difficulty. pt ate 50% of her dinner. call light in reach. bed alarm active.
[2019-05-13 01:00] VITALS: BP 120/65; PULSE 68; RESP 18; TEMP 36.6; O2SAT 96; O2SAT 97
[2019-05-13] MEDS: ONDANSETRON 4 MG/2 ML INJ IV ×4 (01:00→12:30)
[2019-05-13] MEDS: GABAPENTIN 300 MG CAPSULE 900 MG PO ×2 (01:00→09:24)
[2019-05-13] MEDS: MECLIZINE HCL 12.5 MG TABLET 25 MG PO ×3 (01:00→12:32)
[2019-05-13] MEDS: OXYCODONE IR 5 MG TABLET PO ×4 (01:00→12:32)
--- NOTE | 2019-05-13 01:38 | PC.NURSE ---
Addendum entered by Gladys Arthur R.N. 05/13/19 06:49: When up to bathroom earlier experienced some dizziness upon getting back into bed but currently denies any further dizziness. Addendum entered by Gladys Arthur R.N. 05/13/19 05:40: Slept at intervals. Up to bathroom earlier with walker and 2 assist but did well and now able to get out of bed with walker and 1 assist. Denies any further dizziness. Pain this morning is 4/10; medicated with scheduled Oxycodone. Original Note: 0050 Alert and oriented. Denies any sx of vertigo tonight. Breath sounds diminished but CTA with RA sat of 96%. HRR. Denies nausea. BT present and abdomen is soft. Urinating in BSC and denies dysuria, frequency or urgency; urine specimen is growing gm - bacilli. Able to turn self in bed and is up to BSC with walker and 1 assist; reports lower extremity weakness. Does have back problems which causes pain in right leg with progressive numbness in right foot; medicated with scheduled Oxycodone + Gabapentin and being medicated with Zofran. States pain is 6/10 and describes as cramping and sharp; able to tolerate 5/10 pain per patient. SCD's applied for DVT prevention. Fall risk score is high and bed alarm is activated.
[2019-05-13 05:00] VITALS: BP 128/68; PULSE 61; RESP 18; TEMP 36.6; O2SAT 97
[2019-05-13] MEDS: LEVOTHYROXINE 100 MCG TABLET PO (05:34)
[2019-05-13] MEDS: SODIUM CHLORIDE 0.9% 1,000 ML 75 ML IV (05:38)
[2019-05-13 08:15] VITALS: O2SAT 98
[2019-05-13 08:20] VITALS: BP 131/74; PULSE 57; RESP 16; TEMP 36.1; O2SAT 100
--- NOTE | 2019-05-13 08:48 | CM.DANOTE ---
Patient is a 64 year old female who was admitted on 05/11/19 for Dizziness. Per MD, pt making some progress but currently OBS Status and PT recommending SNF due to pt's vertigo type symptoms and inability to stand or mobilize independently. SW met bedside with pt and explained role and updated whiteboard and she confirms she lives at home with spouse and is independent with ADL's at baseline. Spouse works but is able to assist at d/c and they have local supportive friends. Pt states she feels somewhat better and does not feel SNF is needed but agreeable to HH. SW discussed HH services and frequency and pt agreeable and verbally given HH Choice List due to her dizziness and inability to read right now. Pt has no HH preference and SW requested CC Kelly to fax new referral to [facility] based on Vendor Calendar. Plan: SW to follow for likely pt d/c home with supportive spouse and follow for [facility] review of pt to confirm they can accept. ARSEN Bridges Discharge Planning/Care Management Advanced directive, confirm from FAMILY Start: 05/12/19 00:43 Freq: 1300 Status: Active Protocol: Document 05/12/19 00:35 [facility] (Rec: 05/12/19 01:00 [facility] [id number]) Advance Directive, confirm on record Time 00:35 Person contacted spouse, Juan Daniel Santo received No CM Discharge Assessment Start: 05/13/19 08:37 Freq: Status: Active Protocol: Document 05/13/19 08:38 BF (Rec: 05/13/19 08:48 BF [id number]) Discharge Planning Assessment Assigned Repack Room Worker ARSEN Ramirez DPOA/Assigned Designee Name jamaica Barahona Advance Directives? Yes History Provided By Patient,Medical Record Has Patient been admitted in last 30 No days? Prior Living Arrangements House Household Members spouse Type of transporation used prior to Drives own vehicle admit Independent with ADL's Yes Is patient alert and oriented? Yes Caregiver for Another No Discharge Plan Home with Home Health Community Services Physical Therapy Transportation Arrangement Spouse can likely provide transport home Referrals Initiated Home Health If patient plan is home with home health Yes : Has signed face to face form been completed? Medicare Choice List Provided Yes SNF/HH Preference none, reviewed Vendor Calendar Whiteboard Updated in Patient Room with Yes name and ext. # of Repack Room Worker Review Status In Process Please Provide Date Initial DC 05/13/19 Assessment Was Performed Next Review Type Continued Stay Review
[2019-05-13] MEDS: INSULIN GLARGINE 100 UNIT/ML 3ML PEN 40 UNIT SUBCUT (09:20)
[2019-05-13] MEDS: IRBESARTAN 150 MG TABLET PO (09:21)
[2019-05-13] MEDS: INSULIN ASPART 100 UNIT/ML INSULN PEN SUBCUT ×2 (09:21→12:30)
[2019-05-13] MEDS: ENOXAPARIN 40 MG/0.4 ML SYRINGE SUBCUT (09:24)
[2019-05-13] MEDS: FOSFOMYCIN 3 GM PACKET PO (10:29)
--- NOTE | 2019-05-13 11:30 | PT.IPTN ---
Physical Therapy Treatment Note M2 PT-IP Current Condition Start: 05/12/19 08:10 Freq: NEEDED Status: Active Protocol: Document 05/12/19 09:40 HH (Rec: 05/12/19 11:27 HH [id number]) Physical Therapy Current Condition Current Condition Evaluation Date 05/12/19 Treatment Diagnosis Dizziness, possible BPPV, chronic LBP Onset Date 05/11/19 Weight Bearing Status Weight Bearing Status Full Weight Bearing M3 PT-IP Subjective Start: 05/12/19 08:10 Freq: NEEDED Status: Active Protocol: Document 05/13/19 11:30 GGD (Rec: 05/13/19 14:55 GGD [email or web address]) Subjective Physical Therapy Visit Type Type Treatment Note Visit Start Time 11:00 Visit Stop Time 11:30 Total Visit Minutes 30 Physical Therapy Visit Comments Patient Comments Pt states she needs to use the bathroom. Therapy Pain Assessment Pain When Pain Assessed During Mobility Pain Present Pain Present Pain Reported M4 PT-IP Mobility and Gait Start: 05/12/19 08:10 Freq: NEEDED Status: Active Protocol: Document 05/13/19 11:30 GGD (Rec: 05/13/19 14:55 GGD [id number]) PT-Bed Mobility Assessment Rolling Type of Rolling Log Rolling Level of Assist Standby Assistance Sit to Supine Sit to Supine Standby Assistance PT-Transfer Assessment Sit to and From Stand Sit to and from Stand Standby Assistance,Contact Guard Assistance,Use of Upper Extremities Equipment Transfer Assistive Device Gait Belt,Front Wheeled Walker Orthotic/Prosthetic Devices or Brace: No Transfers Transfer Destination Bed,Toilet Transfer Ability Level of Assist Standby Assistance,Use of Upper Extremities Gait Assessment Gait Gait Assistance Required: Standby Assistance,1 Person Assist Distance (Feet) 50 Able to Maintain Weight Bearing Status Yes During Gait Assistive Devices Assistive Device Gait Belt,Front Wheeled Walker Orthotic/Prosthetic Devices or Brace: No Gait Deviations General Gait Pattern Decreased Stride Length, Decreased Feet Clearance Factors Limiting Gait Function Factors Limiting Gait Function Pain,Poor Balance M5 PT-IP Objective Assessments Start: 05/12/19 08:10 Freq: NEEDED Status: Active Protocol: Document 05/12/19 09:40 HH (Rec: 05/12/19 11:27 HH [id number]) Orientation Orientation/Cognition Level of Alertness Alert Orientation Name,Age,Birthday,Month,Date, Year,Day of Week,Place, Situation Language Function Ability No Deficits Noted Safety Awareness Understands Safety Issues Memory Description No Deficits Noted Gross Range of Motion Upper Extremity ROM Assessment Within Functional Limits Lower Extremity ROM Assessment Within Functional Limits Strength Upper Extremity Strength Assessment Within Functional Limits Lower Extremity Strength Assessment Within Functional Limits M6 PT-IP Treatment Start: 05/12/19 08:10 Freq: NEEDED Status: Active Protocol: Document 05/12/19 15:30 MB (Rec: 05/12/19 16:22 MB [id number]) Physical Therapy Treatment Education Brace Education Patient Other Treatments Other Treatment Performed Educated pt on log roll, benefits of getting up to help BM, strength, role of vestibular PT, BPPV assessment , pt is agreeable to try M7 PT-IP Assessment and Plan Start: 05/12/19 08:10 Freq: NEEDED Status: Active Protocol: Document 05/13/19 11:30 GGD (Rec: 05/13/19 14:55 GGD [id number]) PT Summary Assessment and Plan Summary Assessment Summary Pt able to progress gait distance and bed mobility. She was safe with gait with FWW. Pt had no dizziness with bed mobility. She did have dizziness in sitting with looking down and to the left. Frequency of Treatment Frequency Of Treatment Twice a Day Treatment Plan Physical Therapy Treatment Plan Bed Mobility Training,Transfer Training,Gait Training, Therapeutic Exercise,Balance Retraining,Post Op Education, Discharge Planning,Hot or Cold Pack,Neuromuscular Re-ed Other Recommendations and Next Treatment assess pt's symptoms Focus elbert hallpike assessment if possible Discharge Recommendations PT Discharge Recommendations Home with / Assist, Outpatient PT
--- NOTE | 2019-05-13 11:39 | PM.PN.1 ---
Subjective Subjective Date Patient Seen: 05/13/19 Time Patient Seen: 11:39 Exam Vital Signs (past 8 hours): - 05/13/19 05:00 05/13/19 08:20 Temperature 97.8 F 97.0 F L Pulse Rate 61 57 L Respiratory Rate 18 16 Blood Pressure 128/68 131/74 Pulse Oximetry 97 100 Oxygen Delivery Method Room Air Oxygen Flow Rate 0 Objective Labs Result Diagrams: 05/11/19 15:45 05/12/19 06:00 Labs: Laboratory Results - last 24 hr 05/11/19 15:45 Hemoglobin A1c 8.2 H Quality VTE Deep Vein Thrombosis/Pulmonary Embolism Present on Admission: No
[2019-05-13 11:45] VITALS: BP 141/80; PULSE 70; RESP 16; TEMP 36.2; O2SAT 98
--- NOTE | 2019-05-13 12:48 | PM.DS.1 ---
History of Present Illness History of Present Illness Date Patient Seen: 05/13/19 Time Patient Seen: 12:51 Chief complaint: Dizziness Narrative: Ms. eLsa Hitchcock is a 64-year-old female patient with a history significant for hypertension, diabetes, hypothyroidism, breast cancer having undergone chemotherapy and chronic back pain with right leg radiculopathy who presents today for sudden onset of vertigo. The patient states her symptoms began acutely approximately 3:00 this afternoon while she was on the phone to a friend. She reports complaints of the room spinning which is exacerbated with either turning her head or moving her eyes. She complains of an associated headache and nausea with the vertigo but has not had vomiting. She has a strong family history 3 immediate family members having had strokes. She reports no visual changes or diplopia. She denies complaints of fevers or chills and has no complaints neck pain, nasal congestion or sore throat. She denies complaints of chest pain or palpitations, shortness of breath cough or wheezing. She has no abdominal pain. She is on chronic oxycodone for her back pain and manages constipation with Senokot and stool softeners as needed. Upon arrival in the ER the patient is afebrile with a temperature 97.4?, heart rate of 74, blood pressure 149/62, respirations 16 saturating 100% on room air. The patient underwent CT of the head which found no acute intracranial processes. On laboratory analysis the patient has a white count of 6.8, hemoglobin of 12.7, hematocrit of 37.7 and platelets 335. Her electrolytes are within normal range she has a BUN of 20 and the creatinine of 0.9. Her nonfasting glucose is 126. She has a calcium slightly elevated at 10.6 with normal bilirubin 0.6 elevated AST of 42 normal ALT at 30 and alkaline phosphatase 67. Her troponin is negative at less than 0.012. In the ER the patient is given 2 doses of meclizine with slight improvement in symptoms however the patient is unable to sit up or ambulate without profound vertigo. Discharge Providers Provider Date of admission: 05/11/19 22:31 Discharge Date: 05/13/19 Consults: 05/11/19 23:33 Consult to Discharge Planning Routine Comment: Consult to Physical Therapy Evaluate & Treat Comment: Vertigo, lumbar back pain w/rt leg radiulopathy Physician Instructions: Evaluate and Treat 05/12/19 14:35 Consult to Physical Therapy Evaluate & Treat Comment: norman maneuver Physician Instructions: Evaluate and Treat 05/13/19 12:45 Consult to Physical Therapy Evaluate & Treat Comment: FWW For home use. Physician Instructions: Evaluate and Treat Discharge provider: Fahad Murillo MD Summary Hospital Course Discharge Diagnosis: 1. Vertigo, suspect benign positional vertigo. 2. Back pain, chronic 3. Type 2 diabetes 3. Hypothyroidism 4. E.coli UTI/Bacteriuria Hospital Course: 1. Vertigo, suspect benign positional vertigo. Patient had an MRI which showed no evidence of acute CVA. With a combination of rest, routine meclizine and daily physical therapy her vertigo has now stabilized/resolved. She is able to walk with a walker and will be transitioning to outpatient physical therapy, continuing on meclizine and discharging home today. This morning she was vertiginous when sitting back in bed after going to the bathroom but this afternoon with PT she did very well. 2. Back pain, chronic will continue her usual home medication 3. Type 2 diabetes, continue her current regimen of basal bolus insulin 3. Hypothyroidism, continue thyroxine 4. E.coli UTI/Bacteriuria -she has had no direct UTI symptoms, making this most likely an asymptomatic bacteriuria but because of the coincidence of onset vertigo, to settle that connection issue for sure, we will dose her with 1 dose of fosfomycin. Status at Discharge Cognitive/behavioral status at discharge: at baseline, oriented Functional status at discharge: uses cane/walker Overall status at discharge: patient is progressing back to baseline Time Spent with Patient Time spent: Less than 30 minutes Exam Vital Signs (past 8 hours): - 05/13/19 05:00 05/13/19 08:20 05/13/19 11:45 Temperature 97.8 F 97.0 F L 97.2 F L Pulse Rate 61 57 L 70 Respiratory Rate 18 16 16 Blood Pressure 128/68 131/74 141/80 H Pulse Oximetry 97 100 98 Oxygen Delivery Method Room Air Oxygen Flow Rate 0 Narrative Exam Narrative: Alert and oriented x3. Quite anxious, about doing physical therapy today and possibly going home but reassurable. She says she feels fine while lying flat. Heart is regular rate and rhythm without murmur. Lungs are clear to auscultation bilaterally. Extremities have no ankle edema. Objective Labs Result Diagrams: 05/11/19 15:45 05/12/19 06:00 Labs: Laboratory Results - last 24 hr 05/11/19 15:45 Hemoglobin A1c 8.2 H Discharge Plan Discharge Plan Patient Disposition: Home Discharge comment: Follow up with Dr. Fuentes in one week. Referral to outpatient PT-[facility]. Order for walker to use at home. Discharge Med Rec/Prescriptions Prescriptions: New meclizine 12.5 mg Tablet 25 mg PO Q6HR Qty: 28 RF: 0 Continued metformin 1,000 mg tablet 1,000 mg PO BID RF: 0 insulin aspart U-100 100 unit/mL insulin pen 2 - 10 unit subcut TID RF: 0 Lantus U-100 Insulin 100 unit/mL Solution 40 units subcut BID RF: 0 cyanocobalamin (vitamin B-12) [Vitamin B-12] 1,000 mcg Tablet 1,000 mcg PO DAILY RF: 0 irbesartan-hydrochlorothiazide 150-12.5 mg tablet 1 tab PO DAILY RF: 0 levothyroxine [Synthroid] 100 mcg tablet 100 mcg PO DAILY RF: 0 oxycodone-acetaminophen 5-325 mg tablet 1 tab PO Q4-6H PRN (Reason: PAIN) RF: 0 cyclobenzaprine 5 mg Tablet 5 mg PO TID PRN (Reason: Muscle Spasm) RF: 0 ondansetron 4 mg tablet,disintegrating 4 mg PO Q4H PRN (Reason: Nausea) RF: 0 hydrocodone-acetaminophen 5-325 mg Tablet 1 tab PO DIRECTED RF: 0 vitamin B complex Tablet 1 tab PO DAILY RF: 0 cholecalciferol (vitamin D3) [Vitamin D3] 2,000 unit Capsule 4,000 unit PO DAILY RF: 0 gabapentin 300 mg capsule 900 mg PO TID RF: 0 Provider Discharge Instructions Other treatments: Referral to outpatient PT at [facility]. Discharge Data Attending Provider: Damir Ng Admit Date/Time: 05/11/19 22:31 Quality VTE Deep Vein Thrombosis/Pulmonary Embolism Present on Admission: No
--- NOTE | 2019-05-13 15:55 | PT.IPTN ---
Physical Therapy Treatment Note M2 PT-IP Current Condition Start: 05/12/19 08:10 Freq: NEEDED Status: Active Protocol: Document 05/12/19 09:40 HH (Rec: 05/12/19 11:27 HH [id number]) Physical Therapy Current Condition Current Condition Evaluation Date 05/12/19 Treatment Diagnosis Dizziness, possible BPPV, chronic LBP Onset Date 05/11/19 Weight Bearing Status Weight Bearing Status Full Weight Bearing M3 PT-IP Subjective Start: 05/12/19 08:10 Freq: NEEDED Status: Active Protocol: Document 05/13/19 11:50 MB (Rec: 05/13/19 15:55 MB [id number]) Subjective Physical Therapy Visit Type Type Treatment Note Visit Start Time 11:50 Visit Stop Time 12:35 Total Visit Minutes 45 Notes PT arrives to check and treat BPPV Number of LEVER MILLER Visits 1 Physical Therapy Visit Comments Patient Comments Pt is agreeable to assessment and treatment of dizziness. She states that she feels weak . Therapy Pain Assessment Pain When Pain Assessed During Mobility Pain Present Pain Present Pain Reported Location right leg Pain Behaviors Guarding Pain Management Techniques Distraction M4 PT-IP Mobility and Gait Start: 05/12/19 08:10 Freq: NEEDED Status: Active Protocol: Document 05/13/19 11:50 MB (Rec: 05/13/19 15:55 MB [id number]) PT-Bed Mobility Assessment Rolling Type of Rolling Log Rolling Level of Assist Standby Assistance Supine to Sit Supine to Sit Standby Assistance,1 Person Assistance Scooting Scooting to Edge of Bed Standby Assistance Scooting Up and Down in Bed Standby Assistance PT-Transfer Assessment Sit to and From Stand Sit to and from Stand Standby Assistance,Contact Guard Assistance,1 Person Assistance,Use of Upper Extremities Equipment Transfer Assistive Device Gait Belt,Front Wheeled Walker Transfers Transfer Destination Bed,Chair Transfer Ability Level of Assist Standby Assistance,Use of Upper Extremities Comments Mobility Comments Pt states that she is weak. Requires cues to push up from the bed and to reach back for it and the chair when moving stand to sit. Cues to look and turn head where she is going as she guards d/t fear of dizziness. Gait Assessment Gait Gait Assistance Required: Standby Assistance,1 Person Assist Distance (Feet) 10 Assistive Devices Assistive Device Gait Belt,Front Wheeled Walker Factors Limiting Gait Function Factors Limiting Gait Function Pain,Poor Balance Comments Gait Comments 10'x3 around bed after canalith repositioning treatment PT-Balance Assessment Sitting Balance and Reactions Static Sitting Balance Ability Fair Dynamic Sitting Balance Ability Fair Standing Balance and Reactions Static Standing Balance Ability Fair Dynamic Standing Balance Ability Fair Device Used RW M5 PT-IP Objective Assessments Start: 05/12/19 08:10 Freq: NEEDED Status: Active Protocol: Document 05/12/19 09:40 HH (Rec: 05/12/19 11:27 HH [id number]) Orientation Orientation/Cognition Level of Alertness Alert Orientation Name,Age,Birthday,Month,Date, Year,Day of Week,Place, Situation Language Function Ability No Deficits Noted Safety Awareness Understands Safety Issues Memory Description No Deficits Noted Gross Range of Motion Upper Extremity ROM Assessment Within Functional Limits Lower Extremity ROM Assessment Within Functional Limits Strength Upper Extremity Strength Assessment Within Functional Limits Lower Extremity Strength Assessment Within Functional Limits M6 PT-IP Treatment Start: 05/12/19 08:10 Freq: NEEDED Status: Active Protocol: Document 05/13/19 11:50 MB (Rec: 05/13/19 15:55 MB [id number]) Physical Therapy Treatment Other Treatments Other Treatment Performed Assessment of BPPV and found to have left posterior canalithiasis, treated and cleared after three treatments . M7 PT-IP Assessment and Plan Start: 05/12/19 08:10 Freq: NEEDED Status: Active Protocol: Document 05/13/19 11:50 MB (Rec: 05/13/19 15:55 MB [id number]) PT Summary Assessment and Plan Potential Rehabilitation Potential Good Summary Impairments Pain,Strength,Balance,Bed Mobility,Transfers,Gait, Activity Tolerance Assessment Summary Pt and PT with poor coordination of chin tuck to shoulder with roll when treating BPPV first two times. Good treatment third try when pt is able to remain passive. She is nauseated after treatment, nsg arrives to give medication. Nsg nearby and providing support and medication. Pt left in chair with nsg nearby, instructions to sit up as long as she can and only up with asst. Recommend 24 hour superv, RW, vestibular PT at d/c. Ed pt to perform eye movement and cervical rotation and easy nods yes and no. Frequency of Treatment Frequency Of Treatment Twice a Day Treatment Plan Physical Therapy Treatment Plan Bed Mobility Training,Transfer Training,Gait Training, Therapeutic Exercise,Balance Retraining,Post Op Education, Discharge Planning,Hot or Cold Pack,Neuromuscular Re-ed Discharge Recommendations PT Discharge Recommendations Home with 24/ Assist, Outpatient PT Equipment Needed for Home Before RW Discharge
--- NOTE | 2019-05-13 16:42 | PC.NURSE ---
discharge instruction provided to patient. Pt dc at 1608 and escorted by TELESCOPE OPERATOR. IV dc'd.
== END 2019-05-13 16:08 | disposition home or self-care (01) ==
LOC: ED 16:14 → AC 22:33
PROVIDERS: Admitting Provider Nurse Practitioner Adult Health; Emergency Provider Nurse Practitioner Family; Visit Provider Nurse Practitioner Adult Health
DX: R42 Dizziness and giddiness (principal); M54.9 Dorsalgia, unspecified; E11.9 Type 2 diabetes mellitus without complications; E03.9 Hypothyroidism, unspecified; R82.71 Bacteriuria; Z79.4 Long term (current) use of insulin
CPT/HCPCS: 36415; 70450; 70548; 70553; 80048; 80053; 80061; 81003; 81015; 82962; 83036; 84484; 85025; 87077; 87086; 87186; 93005; 93306; 96361; 96372; 96374; 96376; 97116; 97162; 97530; 99283; 99285; G0378; A9579; J1650; J2405

== ENCOUNTER 2019-05-18 09:45 | Outpatient (RCR) | payer MEDICARE, OTHER, SELFPAY ==
[2019-05-12 00:35] VITALS: BMI 31.1
--- NOTE | 2019-05-16 11:02 | PT.OIE ---
Current Diagnoses Benign paroxysmal vertigo, unspecified ear (05/16/19) Benign paroxysmal vertigo, left ear (05/16/19) Dizziness and giddiness (05/16/19) Past Medical History (Last Updated 05/11/19 @ 23:50 by CITLALI Thurman) Diabetes (Acute) History of chemotherapy (Acute) History of malignant neoplasm of breast (Inactive 12/13/15) HTN (hypertension) (Acute) Hypothyroidism (Acute) Lumbar back pain with radiculopathy affecting right lower extremity (Acute) Renal colic on left side (Acute) Ureterolithiasis (Acute) Past Surgical History (Last Reviewed 05/11/19 @ 20:23 by CITLALI Sauceda) History of lithotripsy History of tonsillectomy History of total mastectomy Visit Care Team Role Provider Type Josephine Montoya MD Primary Care Provider Physician Specialty: Family Practice Address: [address] [place] [address], [id number] Email: [email or web address] Lance Murillo MD Attending Provider Physician Specialty: Medical Address: [address] [place] [address], [id number] Email: [email or web address] Physical Therapy Initial Evaluation PT-OP-A Visit Information Start: 05/16/19 10:43 Freq: Status: Active Protocol: Document 05/16/19 09:45 DCW (Rec: 05/16/19 11:02 DCW [id number]) Out-Patient Physical Therapy Visit Information Visit Information Visit Type Initial Evaluation Visit Start Time 09:45 Visit Stop Time 10:40 Total Visit Minutes 55 Visit Number 1 Number of RN ADMISSIONS Visits 0 Evaluation Information Evaluation Date 05/16/19 PT-OP-B Current Condition Start: 05/16/19 10:43 Freq: Status: Active Protocol: Document 05/16/19 09:45 DCW (Rec: 05/16/19 11:02 DCW [id number]) Current Condition History of Current Condition Onset Date 05/11/19 Current Complaints Position-dependent vertigo History of Current Condition Pt is a 64 year old female complaining of a five day history of motion-induced vertigo. Pt reports episodes last 10-15 seconds. Symptoms are provoked by laying down, rolling to her left side, looking up, or looking down. Additionally, pt reports a generalized sensation of near- constant imbalance since her symptoms began five days ago. Pt denies recent hearing changes, tinnitus, diplopia, dysarthria, discoordination, or decreased mentation/ consciousness. Pt reports symptoms are not waxing/waning in nature. Pt denies hx of hyperlipidemia, arrhythmia, head trauma, seizure, migraines, CVA, anxiety/panic disorders, depression, or excessive smoking or drinking. Pt's history is complicated by HTN, DM II, multiple disc bulges in her neck and back, and a large amount of medications, including Gabapentin, Oxycodine, and Meclizine. Prior Treatments and Tests MRI and CT scans when pt was in the hospital 05/11/29-05/13, all negative Pt was also seen by PT who specializes in vestibular rehab as an inpatient, who noted pt had signs and symptoms consistent with left posterior canal BPPV Treatment Goals Patient/Caregiver Goals Eliminate positional vertigo Prior Functional Status Baseline Function- Other Pt walks with a SPC due to back and sciatic nerve issues Current Functional Impairments (Reported) Functional Limitations- Other Pt moves very cautiously and walks en bloc, with minimal head or neck movement to guard against dizziness Personal Factors Other Personal Factors That May Effect Pt's history is complicated by Therapy/Recovery HTN, DM II, multiple disc bulges in her neck and back, and a large amount of medications, including Gabapentin, Oxycodine, and Meclizine. PT-OP-C Subjective Start: 05/16/19 10:43 Freq: Status: Active Protocol: Document 05/16/19 09:45 DCW (Rec: 05/16/19 11:02 DCW [id number]) Patient Questionnaires ABC- Activity Specific Balance Confidence Scale ABC Score 45% ABC Functional Impairment 40 to <60% Impaired (Score 41- 60) Dizziness Handicap Inventory DHI Score 64% DHI Functional Impairment 60 to 79% Impaired (Score 60- 79) PT-OP-O Vestibular Start: 05/16/19 10:43 Freq: Status: Active Protocol: Document 05/16/19 09:45 DCW (Rec: 05/16/19 11:02 DCW [id number]) Vestibular Assessment Screening Tests Vestibular Artery Screen Negative Auditory Tests Laird Test Negative Rinne Test Negative Air Conduction Results Equal Visual Testing Smooth Pursuits Horizontal WNL Smooth Pursuits Vertical WNL Saccades Horizontal WNL Saccades Vertical WNL Gaze Evoked Nystagmus With Fixation Negative Gaze Evoked Nystagmus Without Fixation Negative Heave Test Positive Bilateral Thrust Head Positive Bilateral Positional Testing Clarion-Hallpike Positive Left,Upbeating,< 60 Seconds Comments Vestibular Comments During left Jaxon-Hallpike test, pt complained of vertigo and demonstrated up-beating, torsional nystagmus lasting approximately 10 seconds, consistent with diagnosis of left-sided posterior canal BPPV, canalithiasis-type. PT-OP-Q Treatments Start: 05/16/19 10:43 Freq: Status: Active Protocol: Document 05/16/19 09:45 DC (Rec: 05/16/19 11:02 [facility] [id number]) Canalithic Repositioning BPPV Treatment Lovely Affected Canal(s) Left posterior Reps x2 PT-OP-T Assessment and Plan Start: 05/16/19 10:43 Freq: Status: Active Protocol: Document 05/16/19 09:45 DCW (Rec: 05/16/19 11:02 [facility] [id number]) Physical Therapy Assessment Rehab Potential Rehabilitation Potential Good Evaluation Complexity Number of Personal Factors/Comorbidities 3 or More Number of Body Systems Impaired 3 Clinical Presentation at Evaluation Unstable Impairments Impairments Balance,Vestibular Other Concerns Barriers to Rehabilitation Pt's history is complicated by HTN, DM II, multiple disc bulges in her neck and back, and a large amount of medications, including Gabapentin, Oxycodine, and Meclizine. Goals Two Impairment Pt scores a 64% disability on the Dizziness Handicap Inventory Short Term Goal (STG) Pt to score <30% on the DHI One Impairment Pt reports vertigo with bed mobility Short Term Goal (STG) Pt to be able to enter and exit bed with no complaints of vertigo STG Duration 05/30/19 Assessment Summary Assessment During left Jaxon-Hallpike test, pt complained of vertigo and demonstrated up-beating, torsional nystagmus lasting approximately 10 seconds, consistent with diagnosis of left-sided posterior canal BPPV, canalithiasis-type. Pt was treated with a left-sided Lovely maneuver. Pt complained of symptoms in the first and third position, which is normally indicative of a successful treatment. Further positional testing was still positive, however substantially less severe. A second Lovely maneuver was then performed. Pt was educated on BPPV, expectations for treatment, possible recurrence (BPPV has a ~50% recurrence rate in the five years following treatment), and post -Lovely restrictions. Pt to return within one week for a follow-up appointment, and intermittently afterward as indicated for treatment of BPPV. Physical Therapy Plan Frequency and Duration Frequency of Treatment 2x/Week Duration of Treatment 6 weeks Plan of Care Start Date 05/16/19 Plan of Care End Date 06/27/19 Therapeutic Interventions Therapeutic Interventions Balance Training,Canalithic Repositioning,Vestibular Rehabilitation Next Visit Focus/Plan Next Note Type Treatment Note Next Visit Plan Positional testing, CRM as indicated
--- NOTE | 2019-05-18 10:26 | PT.OTN ---
Current Diagnoses Benign paroxysmal vertigo, unspecified ear (05/18/19) Benign paroxysmal vertigo, left ear (05/18/19) Dizziness and giddiness (05/18/19) Physical Therapy Treatment Note PT-OP-A Visit Information Start: 05/16/19 10:43 Freq: Status: Active Protocol: Document 05/18/19 09:50 DCW (Rec: 05/18/19 10:26 DCW [id number]) Out-Patient Physical Therapy Visit Information Visit Information Visit Type Treatment Note Visit Start Time 09:50 Visit Stop Time 10:15 Total Visit Minutes 25 Visit Number 2 Number of UTILITIES GROUND WORKER Visits 0 Evaluation Information Evaluation Date 05/16/19 PT-OP-B Current Condition Start: 05/16/19 10:43 Freq: Status: Active Protocol: Document 05/16/19 09:45 DCW (Rec: 05/16/19 11:02 DCW [id number]) Current Condition History of Current Condition Onset Date 05/11/19 Current Complaints Position-dependent vertigo History of Current Condition Pt is a 64 year old female complaining of a five day history of motion-induced vertigo. Pt reports episodes last 10-15 seconds. Symptoms are provoked by laying down, rolling to her left side, looking up, or looking down. Additionally, pt reports a generalized sensation of near- constant imbalance since her symptoms began five days ago. Pt denies recent hearing changes, tinnitus, diplopia, dysarthria, discoordination, or decreased mentation/ consciousness. Pt reports symptoms are not waxing/waning in nature. Pt denies hx of hyperlipidemia, arrhythmia, head trauma, seizure, migraines, CVA, anxiety/panic disorders, depression, or excessive smoking or drinking. Pt's history is complicated by HTN, DM II, multiple disc bulges in her neck and back, and a large amount of medications, including Gabapentin, Oxycodine, and Meclizine. Prior Treatments and Tests MRI and CT scans when pt was in the hospital 05/11/29-05/13, all negative Pt was also seen by PT who specializes in vestibular rehab as an inpatient, who noted pt had signs and symptoms consistent with left posterior canal BPPV Treatment Goals Patient/Caregiver Goals Eliminate positional vertigo Prior Functional Status Baseline Function- Other Pt walks with a SPC due to back and sciatic nerve issues Current Functional Impairments (Reported) Functional Limitations- Other Pt moves very cautiously and walks en bloc, with minimal head or neck movement to guard against dizziness Personal Factors Other Personal Factors That May Effect Pt's history is complicated by Therapy/Recovery HTN, DM II, multiple disc bulges in her neck and back, and a large amount of medications, including Gabapentin, Oxycodine, and Meclizine. PT-OP-C Subjective Start: 05/16/19 10:43 Freq: Status: Active Protocol: Document 05/18/19 09:50 DCW (Rec: 05/18/19 10:26 DCW [id number]) OP-PT Subjective Patient Comments Patient Comments Pt reports that she hasn't been as dizzy. She was even able to sleep on my side last night. PT-OP-O Vestibular Start: 05/16/19 10:43 Freq: Status: Active Protocol: Document 05/18/19 09:50 DCW (Rec: 05/18/19 10:26 DCW [id number]) Vestibular Assessment Positional Testing Jaxon-Hallpike Negative Left,Negative Right PT-OP-Q Treatments Start: 05/16/19 10:43 Freq: Status: Active Protocol: Document 05/18/19 09:50 DCW (Rec: 05/18/19 10:26 DCW [id number]) Canalithic Repositioning BPPV Treatment Lovely Affected Canal(s) Left posterior Reps x1 PT-OP-T Assessment and Plan Start: 05/16/19 10:43 Freq: Status: Active Protocol: Document 05/18/19 09:50 DCW (Rec: 05/18/19 10:26 DCW [id number]) Physical Therapy Assessment Impairments Impairments Balance,Vestibular Other Concerns Barriers to Rehabilitation Pt's history is complicated by HTN, DM II, multiple disc bulges in her neck and back, and a large amount of medications, including Gabapentin, Oxycodine, and Meclizine. Goals Two Impairment Pt scores a 64% disability on the Dizziness Handicap Inventory Short Term Goal (STG) Pt to score <30% on the DHI One Impairment Pt reports vertigo with bed mobility Short Term Goal (STG) Pt to be able to enter and exit bed with no complaints of vertigo STG Duration Met Assessment Summary Assessment Positional testing negative today. Pt had no further signs or symptoms of active BPPV. Pt remaining symptoms of imbalance and drowsiness are potentially side-effects of the large number of prescription medications she is on, but are unlikely caused by her inner ear. Pt would like her chart to be left open for one month, just in case something else comes up. If pt does not schedule a follow- up, her chart will be discharged at that time. Physical Therapy Plan Frequency and Duration Frequency of Treatment 2x/Week Duration of Treatment 6 weeks Plan of Care Start Date 05/16/19 Plan of Care End Date 06/27/19 Therapeutic Interventions Therapeutic Interventions Balance Training,Canalithic Repositioning,Vestibular Rehabilitation Next Visit Focus/Plan Next Note Type Treatment Note Next Visit Plan Positional testing, CRM as indicated
--- NOTE | 2019-06-08 14:20 | PT.OPDS ---
Current Diagnoses Benign paroxysmal vertigo, unspecified ear (05/18/19) Benign paroxysmal vertigo, left ear (05/18/19) Visit Care Team Role Provider Type Josephine Montoya MD Primary Care Provider Physician Specialty: Family Practice Address: [address] [place] [address], [address], [place], [address] Email: [email or web address] Lance Murillo MD Attending Provider Physician Specialty: Medical Address: [address] [place] [address], [phone] Email: [email or web address] Visit Number Visit Number 2 Discharge Summary PT-OP-B Current Condition Start: 05/16/19 10:43 Freq: Status: Active Protocol: Document 05/16/19 09:45 DCW (Rec: 05/16/19 11:02 DCW [id number]) Current Condition History of Current Condition Onset Date 05/11/19 Current Complaints Position-dependent vertigo History of Current Condition Pt is a 64 year old female complaining of a five day history of motion-induced vertigo. Pt reports episodes last 10-15 seconds. Symptoms are provoked by laying down, rolling to her left side, looking up, or looking down. Additionally, pt reports a generalized sensation of near- constant imbalance since her symptoms began five days ago. Pt denies recent hearing changes, tinnitus, diplopia, dysarthria, discoordination, or decreased mentation/ consciousness. Pt reports symptoms are not waxing/waning in nature. Pt denies hx of hyperlipidemia, arrhythmia, head trauma, seizure, migraines, CVA, anxiety/panic disorders, depression, or excessive smoking or drinking. Pt's history is complicated by HTN, DM II, multiple disc bulges in her neck and back, and a large amount of medications, including Gabapentin, Oxycodine, and Meclizine. Prior Treatments and Tests MRI and CT scans when pt was in the hospital 05/11/29-05/13, all negative Pt was also seen by PT who specializes in vestibular rehab as an inpatient, who noted pt had signs and symptoms consistent with left posterior canal BPPV Treatment Goals Patient/Caregiver Goals Eliminate positional vertigo Prior Functional Status Baseline Function- Other Pt walks with a SPC due to back and sciatic nerve issues Current Functional Impairments (Reported) Functional Limitations- Other Pt moves very cautiously and walks en bloc, with minimal head or neck movement to guard against dizziness Personal Factors Other Personal Factors That May Effect Pt's history is complicated by Therapy/Recovery HTN, DM II, multiple disc bulges in her neck and back, and a large amount of medications, including Gabapentin, Oxycodine, and Meclizine. PT-OP-C Subjective Start: 05/16/19 10:43 Freq: Status: Active Protocol: Document 05/18/19 09:50 DCW (Rec: 05/18/19 10:26 DCW [id number]) OP-PT Subjective Patient Comments Patient Comments Pt reports that she hasn't been as dizzy. She was even able to sleep on my side last night. PT-OP-O Vestibular Start: 05/16/19 10:43 Freq: Status: Active Protocol: Document 05/18/19 09:50 DCW (Rec: 05/18/19 10:26 DCW [id number]) Vestibular Assessment Positional Testing [place] Negative Left,Negative Right PT-OP-T Assessment and Plan Start: 05/16/19 10:43 Freq: Status: Active Protocol: Document 06/08/19 14:18 DCW (Rec: 06/08/19 14:19 DCW [id number]) Physical Therapy Assessment Goals One Impairment Pt reports vertigo with bed mobility Short Term Goal (STG) Pt to be able to enter and exit bed with no complaints of vertigo STG Duration Met Assessment Summary Assessment Vestibular testing previously negative. Pt being evaluated at this clinic for an unrelated issue. Vestibular chart will be discharged at this time. Physical Therapy Plan Discharge Physical Therapy Discharge Reasons Goals Met Next Visit Focus/Plan Next Note Type Discharge Summary
== END 2019-06-08 09:36 ==
LOC: PHYS 09:45
PROVIDERS: PCP Student in an Organized Health Care Education/Training Program; Visit Provider Family Medicine
DX: H81.10 Benign paroxysmal vertigo, unspecified ear (principal); H81.12 Benign paroxysmal vertigo, left ear
CPT/HCPCS: 95992; 97162; 97535

== ENCOUNTER 2019-07-23 22:48 | Emergency (ER) | payer MEDICARE, OTHER, SELFPAY ==
[2019-05-12 00:35] VITALS: BMI 31.1
--- NOTE | 2019-07-23 22:55 | DI.RAD.S_ITS ---
PROCEDURE: XR CHEST 1V INDICATIONS: chest pain TECHNIQUE: One view of the chest was acquired. COMPARISON: [facility], CR, XR CHEST 1V, 06/01/2018, 9:43. [facility], CR, XR CHEST 1V, 06/11/2018, 13:01. FINDINGS: Surgical changes and devices: Left axillary clips are seen. Lungs and pleura: On this semiupright portable chest examination, no large pneumothorax or large pleural effusions are seen. No focal infiltrates are seen. Mediastinum: Mediastinal contours appear normal. Heart size is normal. Bones and chest wall: No suspicious bony lesions. Age-appropriate bony degenerative changes are seen. Overlying soft tissues appear unremarkable. IMPRESSION: Portable chest within normal limits. Dictated by: Marcelo Collins M.D. on 07/24/2019 at 7:10 Approved by: Marcelo Collins M.D. on 07/24/2019 at 7:11
[2019-07-23 22:57] VITALS: BP 193/78; PULSE 93; RESP 18; TEMP 36.6; O2SAT 100; BMI 32.8
--- NOTE | 2019-07-23 23:00 | ED_ITS ---
HPI - Chest Pain General Chief Complaint: Chest Pain Stated Complaint: chest pain Time Seen by Provider: 07/23/19 22:50 Source: patient and family Mode of arrival: Ambulatory Limitations: no limitations History of Present Illness HPI narrative: 64-year-old female nonsmoker with history of hypothyroidism, hypertension (currently untreated) and history of breast cancer presents with her and a chief complaint of multiple episodes of chest pressure and various other symptoms over the course of the day. The patient went to bed last night in her normal state of health and woke up this morning feeling fine but with any exertion she developed anterior chest pressure which radiated to either right shoulder or her neck. Earlier in the day she found that resting seemed to help things out and additional exertion would bring her symptoms back. As the day has worn on she has had episodes of shortness of breath, dizziness as well as unexplained diaphoresis. She came to see us this evening because she started developing that chest pressure while at rest. She denies recent travel or injury. She denies any history of cardiac disease and has never had any provocative testing. MD complaint: chest pain Onset (ago): hour(s) Duration: progressively worsening Onset: during rest and during exertion Pain location: substernal, left chest and right chest Severity: moderate Severity scale (1-10): 8 Quality: tightness, aching and heaviness Pain radiation: RUE and neck Relieving factors: rest Exacerbating factors: exertion Associated symptoms: nausea and diaphoresis Treatments prior to arrival chest pain: none Related Data On Oral Contraceptives: No Home Medications Medication Instructions Recorded Confirmed metformin 1,000 mg tablet 1,000 mg PO BID 12/02/17 05/11/19 insulin aspart U-100 2 - 10 unit SUBCUT TID 06/01/18 05/11/19 Lantus U-100 Insulin 40 units SUBCUT BID 01/24/19 05/11/19 cyanocobalamin (vitamin B-12) 1,000 mcg PO DAILY 01/24/19 05/11/19 [Vitamin B-12] irbesartan-hydrochlorothiazide 1 tab PO DAILY 03/23/19 05/11/19 levothyroxine [Synthroid] 100 mcg PO DAILY 03/23/19 05/11/19 cholecalciferol (vitamin D3) 4,000 unit PO DAILY 05/11/19 05/11/19 [Vitamin D3] cyclobenzaprine 5 mg PO TID PRN 05/11/19 05/11/19 gabapentin 900 mg PO TID 05/11/19 05/11/19 hydrocodone-acetaminophen 1 tab PO DIRECTED 05/11/19 05/11/19 ondansetron 4 mg PO Q4H PRN 05/11/19 05/11/19 oxycodone-acetaminophen 1 tab PO Q4-6H PRN 05/11/19 05/11/19 vitamin B complex 1 tab PO DAILY 05/11/19 05/11/19 Previous Rx's Medication Instructions Recorded meclizine 25 mg PO Q6HR #28 tab 05/13/19 Allergies Allergy/AdvReac Type Severity Reaction Status Date / Time fluoxetine Allergy Severe UNKNOWN Verified 07/23/19 23:01 lovastatin Allergy Severe UNKNOWN Verified 07/23/19 23:01 pravastatin Allergy Severe UNKNOWN Verified 07/23/19 23:01 empagliflozin Allergy Intermediate UNKNOWN Verified 07/23/19 23:01 [From Jardiance] insulin glargine Allergy Intermediate UNKNOWN Verified 07/23/19 23:01 [From Soliqua 100/33] lixisenatide Allergy Intermediate UNKNOWN Verified 07/23/19 23:01 [From Soliqua 100/33] morphine Allergy Unknown Verified 07/23/19 23:01 promethazine [From PHENERGAN] Allergy Unknown Verified 07/23/19 23:01 scopolamine [SCOPOLAMINE] Allergy Unknown Verified 07/23/19 23:01 TUJEO Allergy Severe UNKNOWN Uncoded 07/23/19 23:01 NO USE OF LEFT ARM FOR IV/BP Allergy Unknown Uncoded 07/23/19 23:01 Review of Systems Constitutional Constitutional: Denies chills, Denies fatigue, Denies fever(s), Denies frequent falls, Denies lethargy and Denies weakness Eyes Eyes: Denies change in vision, Denies eye discharge, Denies irritation and Denies loss of vision ENT Ears, Nose, Mouth, and Throat: Denies change in voice, Denies dizziness, Denies neck pain, Denies sore throat and Denies throat swelling Cardiovascular Cardiovascular: Reports chest pain, Denies irregular heart rhythm, Reports lightheadedness, Denies palpitations, Denies dyspnea, Denies dyspnea on exertion and Denies orthopnea Respiratory Respiratory: Denies cough, Denies dyspnea, Denies dyspnea on exertion and Denies wheezing Gastrointestinal Gastrointestinal: Denies abdominal pain, Denies change in bowel habits, Denies diarrhea, Denies nausea and Denies vomiting Genitourinary Genitourinary: Denies hematuria, Denies flank pain, Denies urinary incontinence and Denies urinary urgency Musculoskeletal Musculoskeletal: Denies back pain, Denies muscle weakness, Denies neck pain, Denies numbness and Denies tingling Integumentary/Breasts Skin/Breast: Denies pruritus, Denies erythema, Denies rash and Denies wounds Neurologic Neurologic: Denies behavioral changes, Denies confusion, Denies dizziness, Denies frequent falls, Denies loss of vision, Denies numbness, Denies tingling and Denies weakness Psychiatric Psychiatric: Denies anxiety, Denies behavioral changes, Denies confusion, Denies depression, Denies homicidal ideation and Denies suicidal ideation Endocrine Endocrine: Denies fatigue, Denies flushing and Denies palpitations Hematologic/Lymphatic Hematologic/Lymphatic: Denies easy bruising Allergic/Immunologic Allergic/Immunologic: Denies urticaria, Denies throat swelling and Denies wheezing Patient History Medical History Diabetes (Acute) History of chemotherapy (Acute) History of malignant neoplasm of breast (Chronic 12/13/15) HTN (hypertension) (Acute) Hypothyroidism (Acute) Lumbar back pain with radiculopathy affecting right lower extremity (Acute) Renal colic on left side (Acute) Ureterolithiasis (Acute) Surgical History History of lithotripsy History of tonsillectomy History of total mastectomy Family History Father Diabetes mellitus Hypertension Stroke Mother Hypertension Stroke Brother No problems noted. Sister Stroke Myocardial infarction Daughter Cancer Social History household members: spouse Smoking Status: Never smoker Smoking Status: Never smoker alcohol intake frequency: holidays/special occasions only Substance Use Type: does not use Exam Narrative Exam Narrative: GENERAL: [64] year old patient appears stated age. Well- nourished, well-developed patient, in mild distress. HEAD: Atraumatic. Normocephalic. EYES: Pupils equal round and reactive. Extraocular motions intact. No scleral icterus. No injection or drainage. ENT: Nose without bleeding, purulent drainage. Throat without erythema, tonsillar hypertrophy or exudate. Airway patent. NECK: Trachea midline. Non tender CARDIOVASCULAR: Regular rate and rhythm without murmurs, gallops, or rubs. RESPIRATORY: Clear to auscultation. Breath sounds equal bilaterally. No wheezes, rales, or rhonchi. GASTROINTESTINAL: Abdomen soft, non-tender, nondistended. EXTREMITIES: No edema or joint tenderness. BACK: Nontender without deformity or crepitance. No flank tenderness. NEURO: AOx3. SKIN: No rash or erythema of visible areas Initial Vital Signs Initial Vital Signs: Vital Signs Temperature 97.9 F 07/23/19 22:57 Pulse Rate 93 H 07/23/19 22:57 Respiratory Rate 18 07/23/19 22:57 Blood Pressure 193/78 H 07/23/19 22:57 Pulse Oximetry 100 07/23/19 22:57 Course Orders Ordered: ED Orders 07/23/19 22:55 XR chest 1V Stat EKG-12 Lead Routine 07/23/19 23:00 B Type Natriuretic Peptide Stat Complete Blood Count AUTO DIFF Stat Comprehensive Metabolic Panel Stat D Dimer Stat Lipase Stat Troponin & CK Cardiac Panel Stat 07/23/19 23:23 EKG-12 Lead Stat Sodium Chloride (Normal Saline 0.9%) 1,000 mls @ 150 mls/hr IV CONT RENETTA Last Admin: 07/23/19 23:05 Dose: 150 mls/hr Documented by: ROSANNA Discontinued Medications Aspirin (Aspirin Chew) 324 mg PO NOW ONE Stop: 07/23/19 22:56 Last Admin: 07/23/19 23:05 Dose: 324 mg Documented by: ROSANNA Metoprolol Tartrate (Lopressor) 50 mg PO NOW ONE Stop: 07/23/19 23:59 Last Admin: 07/24/19 00:05 Dose: 50 mg Documented by: TIMOTHY Nitroglycerin (Nitrostat) 0.4 mg SL [id number] PRN PRN Reason: Chest Pain Last Admin: 07/23/19 23:41 Dose: 0.4 mg Documented by: Admin: 07/23/19 23:36 Dose: 0.4 mg Documented by: Admin: 07/23/19 23:31 Dose: 0.4 mg Documented by: TIMOTHY Reevaluation(s) Reevaluation #1: Patient essentially pain free once we got her checked in in labs drawn and then started developing chest pressure again while at rest, it elevated to about a 7 or 8/10. Repeat EKG obtained Reevaluation #2: Patient responds well to nitro and after 3rd nitro her pain is essentially gone. Consultations Consultation #1: [id number] call to hospitalist. given history, risk factors, and lack of access to stress test he must refuse admission. Family prefers [facility]'s [phone] call to [facility]'s [address] [place] hospitalist paged and happy to accept. Time: 23:56 Vital Signs Vital signs: Vital Signs - 8 hr 07/23/19 22:57 07/23/19 23:31 07/23/19 23:36 Temperature 97.9 F Pulse Rate 93 H 88 95 H Respiratory Rate 18 Blood Pressure 193/78 H 194/67 H 163/86 H Blood Pressure [Right Arm] Pulse Oximetry 100 07/23/19 23:41 07/23/19 23:44 Temperature Pulse Rate 98 H 89 Respiratory Rate Blood Pressure 154/61 H Blood Pressure [Right Arm] 158/50 H Pulse Oximetry MDM - Chest Pain Lab Data Result diagrams: 07/23/19 23:00 07/23/19 23:00 Labs: Lab Results 07/23/19 07/23/19 07/23/19 Range/Units 23:00 23:00 23:00 WBC 6.8 (4.5-11.0) X10^3/uL RBC 4.38 (4.0-5.2) X10^6/uL Hgb 12.9 (12.0-16.0) g/dL Hct 37.6 (36-46) % MCV 85.8 (80-100) fL MCH 29.6 (26-34) PG MCHC 34.5 (30-36) % RDW 14.1 (11.6-14.8) % Plt Count 299 (150-400) X10^3/uL Neut % (Auto) 45.1 L (50-75) % Lymph % (Auto) 44.0 H (25-40) % [place] % (Auto) 7.6 (3-14) % Eos % (Auto) 2.6 (2-4) % Baso % (Auto) 0.7 (0-2) % Neut # (Auto) 3100 (9450-2965) /uL Lymph # (Auto) 3000 (1407-3062) /uL [place] # (Auto) 500 (0-900) /uL Eos # (Auto) 200 (0-450) /uL Baso # (Auto) 0 (0-100) /uL D-Dimer < 200 (<230) ng/mL Sodium 139 (137-145) mmol/L Potassium 3.5 (3.4-5.1) mmol/L Chloride 102 (98-107) mmol/L Carbon Dioxide 26 (22-32) mmol/L BUN 16 (7-17) mg/dL Creatinine 0.70 (0.52-1.04) mg/dL Estimated GFR > 60.0 (>60) mL/min BUN/Creatinine Ratio 22.9 H (6-22) Glucose 128 H (80-110) mg/dL Calcium 10.4 H (8.4-10.2) mg/dL Total Bilirubin 0.5 (0.2-1.3) mg/dL AST 28 (14-36) IU/L ALT 31 (<35) IU/L Alkaline Phosphatase 87 (38-126) U/L Total Creatine Kinase 56 (30-135) U/L CK-MB (CK-2) TNP CK-MB (CK-2) Rel Index TNP Troponin I < 0.012 (0.01-0.034) ng/mL B-Natriuretic Peptide < 100 (<100) Total Protein 7.6 (6.3-8.2) g/dL Albumin 4.7 (3.5-5.0) g/dL Globulin 2.9 (1.7-4.1) g/dL Albumin/Globulin Ratio 1.6 (1.0-2.8) Lipase 157 (23-300) U/L ECG Data Attestation: I personally reviewed and interpreted this ECG as follows: Interpretation: Normal sinus rhythm with rate of 85. New Q-wave and lead 3 when compared to old EKGs. No ST segmental elevation or T-wave inversion. [address] depression in V4 and V5. NM 170, QRS 101, QT 340 EKG #2: EKG is normal sinus rhythm rate [83 ] and free of any signs of ischemia or ectopy. No ST segmental elevation or depression. No T wave inversions. Resolution of ST segmental depressions and Q-wave. MDM Narrative Medical decision making narrative: 64-year-old female with multiple risk factors and story concerning for ischemic heart disease. Subtle changes on initial EKG had normalized after metoprolol, aspirin and nitro. Patient initial troponin normal and pain free. Patient will likely require provocative testing and possibly heart catheterization and will therefore need transfer. Patient and family are aware of and in full agreement of the plan. They've had their questions answered to their apparent satisfaction Critical Care Time Critical Care Time Critical Care Time: Yes Total Critical Care Time: 30 Attestation: The high probability of a clinically significant, sudden or life threatening deterioration of the [CV] system(s) required my full and direct attention, intervention and personal management. The aggregate critical care time was [30] minutes. This time is in addition to time spent performing reported procedures but includes the following: [x] Data Review and interpretation [x] Patient assessment and monitoring of vital signs [x] Documentation [x] Medication orders and management Discharge Plan Departure Prescriptions: No Action metformin 1,000 mg tablet 1,000 mg PO BID RF: 0 insulin aspart U-100 100 unit/mL insulin pen 2 - 10 unit subcut TID RF: 0 Lantus U-100 Insulin 100 unit/mL Solution 40 units subcut BID RF: 0 cyanocobalamin (vitamin B-12) [Vitamin B-12] 1,000 mcg Tablet 1,000 mcg PO DAILY RF: 0 irbesartan-hydrochlorothiazide 150-12.5 mg tablet 1 tab PO DAILY RF: 0 levothyroxine [Synthroid] 100 mcg tablet 100 mcg PO DAILY RF: 0 oxycodone-acetaminophen 5-325 mg tablet 1 tab PO Q4-6H PRN (Reason: PAIN) RF: 0 cyclobenzaprine 5 mg Tablet 5 mg PO TID PRN (Reason: Muscle Spasm) RF: 0 ondansetron 4 mg tablet,disintegrating 4 mg PO Q4H PRN (Reason: Nausea) RF: 0 hydrocodone-acetaminophen 5-325 mg Tablet 1 tab PO DIRECTED RF: 0 vitamin B complex Tablet 1 tab PO DAILY RF: 0 cholecalciferol (vitamin D3) [Vitamin D3] 2,000 unit Capsule 4,000 unit PO DAILY RF: 0 gabapentin 300 mg capsule 900 mg PO TID RF: 0 meclizine 12.5 mg Tablet 25 mg PO Q6HR Qty: 28 RF: 0
[2019-07-23] MEDS: ASPIRIN 81 MG CHEW TAB 324 MG PO (23:05)
[2019-07-23] MEDS: SODIUM CHLORIDE 0.9% 1,000 ML 150 ML IV (23:05)
[2019-07-23 23:13] LABS: Add Manual Diff / Slide Review NO; Basophils Absolute Auto 0 /uL (0-100); Basophils Percent Auto 0.7 % (0-2); Eosinophils Absolute Auto 200 /uL (0-450); Eosinophils Percent Auto 2.6 % (2-4); Hematocrit 37.6 % (36-46); Hemoglobin 12.9 g/dL (12.0-16.0); Lymphocytes Absolute Auto 3000 /uL (1100-4500); Mean Corpuscular HGB Conc 34.5 % (30-36); Mean Corpuscular Hemoglobin 29.6 PG (26-34); Mean Corpuscular Volume 85.8 fL (80-100); Monocytes Absolute Auto 500 /uL (0-900); Monocytes Percent Auto 7.6 % (3-14); Neutrophils Absolute Auto 3100 /uL (1500-7000); Neutrophils Percent Auto 45.1 % (50-75); Platelet Count 299 X10^3/uL (150-400); Red Blood Cell Count 4.38 X10^6/uL (4.0-5.2); Red Cell Distribution Width 14.1 % (11.6-14.8); White Blood Cell Count 6.8 X10^3/uL (4.5-11.0)
[2019-07-23 23:16] LABS: Alanine Aminotransferase 31 IU/L (<35); Albumin 4.7 g/dL (3.5-5.0); Albumin Globulin Ratio 1.6 (1.0-2.8); Alkaline Phosphatase 87 U/L (38-126); Aspartate Aminotransferase 28 IU/L (14-36); BUN Creatinine Ratio 22.9 (6-22); Bilirubin Total 0.5 mg/dL (0.2-1.3); Blood Urea Nitrogen 16 mg/dL (7-17); Calcium 10.4 mg/dL (8.4-10.2); Carbon Dioxide 26 mmol/L (22-32); Chloride 102 mmol/L (98-107); Creatine Kinase 56 U/L (30-135); Estimated Glomerular Filt Rate > 60.0 mL/min (>60); Globulin 2.9 g/dL (1.7-4.1); Glucose 128 mg/dL (80-110); HEMOLYSIS < 15 (0-50); Lipase 157 U/L (23-300); Potassium 3.5 mmol/L (3.4-5.1); Sodium 139 mmol/L (137-145); Total Protein 7.6 g/dL (6.3-8.2)
[2019-07-23 23:17] LABS: D Dimer < 200 ng/mL (<230)
[2019-07-23 23:23] LABS: B Type Natriuretic Peptide < 100 (<100)
[2019-07-23 23:28] LABS: Troponin I < 0.012 ng/mL (0.01-0.034)
[2019-07-23 23:31] VITALS: BP 194/67; PULSE 88
[2019-07-23] MEDS: NITROGLYCERIN 0.4 MG SL TAB SL ×3 (23:31→23:41)
[2019-07-23 23:36] VITALS: BP 163/86; PULSE 95
[2019-07-23 23:41] VITALS: BP 154/61; PULSE 98
[2019-07-23 23:44] VITALS: BP 158/50; PULSE 89
--- NOTE | 2019-07-23 23:47 | PC.NURSE ---
post third nitro, pt reports 2/10 chest pain. Provider notified and at bedside.
[2019-07-24] MEDS: METOPROLOL IR 25 MG TABLET 50 MG PO (00:05)
[2019-07-24 01:05] VITALS: BP 138/65; PULSE 61; RESP 17; O2SAT 98
--- NOTE | 2019-07-24 01:05 | PC.NURSE ---
patient ambulated self to restroom. Upon return patient stated I can really feel that pressure is gone.
[2019-07-24 01:48] LABS: Troponin I < 0.012 ng/mL (0.01-0.034)
[2019-07-24 02:14] VITALS: BP 119/61; PULSE 66; RESP 16; O2SAT 99
--- NOTE | 2019-07-24 02:17 | PC.NURSE ---
Normal saline to continue in transport
== END 2019-07-24 02:16 | disposition short-term general hospital (02) ==
PROVIDERS: Emergency Provider Emergency Medicine; PCP Student in an Organized Health Care Education/Training Program
DX: I20.9 Angina pectoris, unspecified (principal); I10 Essential (primary) hypertension; R42 Dizziness and giddiness; R06.02 Shortness of breath; R61 Generalized hyperhidrosis
CPT/HCPCS: 36415; 71045; 80053; 82550; 83690; 83880; 84484; 85025; 85379; 93005; 96360; 96361; 99284; 99291

== ENCOUNTER → 2019-11-21 13:19 | Outpatient (CLI) | payer MEDICARE, OTHER, SELFPAY ==
[2019-05-12 00:35] VITALS: BMI 31.1
--- NOTE | 2019-11-21 | DI.CT.S_ITS ---
PROCEDURE: CT ABDOMEN PELVIS WO CON INDICATIONS: Urinary tract infection, site not specified TECHNIQUE: Noncontrast 5 mm thick sections acquired from the diaphragms to the symphysis. 5 mm coronal and sagittal reformats were then performed. For radiation dose reduction, the following was used: automated exposure control, adjustment of mA and/or kV according to patient size. COMPARISON: [facility], CT, KIDNEY/ URETER/BLADDER, 06/16/2015, 8:19. FINDINGS: Image quality: Excellent. ABDOMEN: Lung bases: Lung bases are clear. Heart size is normal. Solid organs: Liver is normal in size. Gallbladder contracted otherwise unremarkable. Pancreas is normal in contours. Spleen is normal in size. No adrenal nodules. Bilateral nephrolithiasis measuring up to 3 mm on the left and up to 5 mm on the right. No evidence of hydronephrosis. No perinephric stranding. Ureters appear nondilated. Presumed right renal cysts although indeterminate in the absence of IV contrast although this appears grossly unchanged since prior study. There is ill-defined focus of slightly increased attenuation involving the left renal cortex image 33/4 which is indeterminate. This could be further assessed with ultrasound as clinically warranted to exclude solid mass Peritoneum and bowel: Unenhanced bowel loops demonstrate normal wall thickness and caliber. Normal appendix. No free fluid or air. Nodes and vessels: No retroperitoneal or mesenteric adenopathy by size criteria. Aorta and inferior vena cava are normal in caliber. Tiny fat containing umbilical hernia. PELVIS: Genitourinary: Bladder wall thickness is normal. Miscellaneous: No inguinal hernias or adenopathy. Bones: No suspicious bony lesions. No vertebral body compression fractures. IMPRESSION: Bilateral nephrolithiasis measuring up to 5 mm on the right and up to 3 mm on left. No evidence of urinary obstruction Right renal cyst. Normal appendix Additional chronic and incidental findings as above. Dictated by: Emiliano David M.D. on 11/21/2019 at 15:18 Approved by: Emiliano David M.D. on 11/21/2019 at 15:25
== END ==
PROVIDERS: PCP Student in an Organized Health Care Education/Training Program; Referring Provider Family Medicine; Visit Provider Family Medicine
DX: N39.0 Urinary tract infection, site not specified (principal); R10.9 Unspecified abdominal pain; N20.0 Calculus of kidney; N28.1 Cyst of kidney, acquired
CPT/HCPCS: 74176

== ENCOUNTER → 2019-11-29 11:23 | Outpatient (CLI) | payer MEDICARE, OTHER, SELFPAY ==
[2019-05-12 00:35] VITALS: BMI 31.1
--- NOTE | 2019-11-29 | DI.US.S_ITS ---
PROCEDURE: US RENAL COMPLETE INDICATIONS: RIGHT FLANK PAIN, UTI TECHNIQUE: Real-time scanning was performed of the kidneys and bladder, with image documentation. COMPARISON: [facility], US, US ABDOMEN COMPLETE, 07/15/2018, 11:03. [facility], CT, CT ABDOMEN PELVIS WO CON, 11/21/2019, 13:41. FINDINGS: Kidneys: Kidneys are normal in size. Right kidney measures 11.6 cm long; left kidney measures 11.5 cm long. Right renal cortical thickness is 1.6 cm; left renal cortical thickness is 1.4 cm. Renal cortical echotexture is normal. There are bilateral renal calculi. A 3.8 mm calculus is noted in the right kidney. A 4.8 mm calculus is noted in the left kidney. No hydronephrosis. There is a 2.5 x 2.3 x 2.2 cm simple cyst in the superior pole the right kidney. No suspicious solid mass lesions. Bladder: Pre-void bladder volume is 97 mL. Post-void residual is 7 mL. Pre-void images demonstrate no intraluminal masses or stones. On pre-void images, both ureteral jets are noted with color Doppler interrogation. (Of note, ureteral jets may not be detectable in up to 25% of cases due to insufficient differences in specific gravity between ureteral and bladder urine). Miscellaneous: No free pelvic fluid. IMPRESSION: 1. Nephrolithiasis bilaterally. No hydronephrosis. 2. A 2.5 x 2.3 x 2.2 cm simple cyst in the superior pole of the right kidney. Dictated by: Michael Sifuentes M.D. on 11/29/2019 at 14:45 Approved by: Michael Sifuentes M.D. on 11/29/2019 at 14:55
--- NOTE | 2019-11-29 | DI.RAD.S_ITS ---
PROCEDURE: XR ABDOMEN 1V INDICATIONS: RIGHT FLANK PAIN, UTI TECHNIQUE: One view of the abdomen acquired. COMPARISON: [facility], CT, CT ABDOMEN PELVIS WO CON, 11/21/2019, 13:41. [facility], CR, ABDOMEN 1 VIEW, 04/30/2017, 15:00. FINDINGS: Surgical changes and devices: None. Bowel: Bowel gas pattern is nonobstructive. Mild gastric distention of stomach. The gastric wall appears thickened. There is a large amount of stool in colon. Soft tissues: Small renal calculi are present bilaterally. Visualized solid organ contours appear normal in size. Bones: No suspicious bony lesions. IMPRESSION: 1. Small bilateral renal calculi. 2. Mildly distended stomach with gastric wall thickening. If clinically indicated, upper GI series may be obtained. Dictated by: Michael Sifuentes M.D. on 11/29/2019 at 14:41 Approved by: Michael Sifuentes M.D. on 11/29/2019 at 14:45
== END ==
PROVIDERS: PCP Student in an Organized Health Care Education/Training Program; Referring Provider Urology; Visit Provider Urology
DX: N20.0 Calculus of kidney (principal); N28.1 Cyst of kidney, acquired; K31.89 Other diseases of stomach and duodenum; N39.0 Urinary tract infection, site not specified; R10.9 Unspecified abdominal pain
CPT/HCPCS: 74018; 76770

== ENCOUNTER → 2019-12-12 08:20 | Outpatient (CLI) | payer MEDICARE, OTHER, SELFPAY ==
[2019-05-12 00:35] VITALS: BMI 31.1
[2019-12-12 09:25] LABS: Add Manual Diff / Slide Review NO; Basophils Absolute Auto 100 /uL (0-100); Basophils Percent Auto 1.3 % (0-2); Eosinophils Absolute Auto 0 /uL (0-450); Eosinophils Percent Auto 0.4 % (2-4); Hemoglobin 12.1 g/dL (12.0-16.0); Lymphocytes Absolute Auto 2000 /uL (1100-4500); Lymphocytes Percent Auto 42.9 % (25-40); Mean Corpuscular HGB Conc 34.6 % (30-36); Mean Corpuscular Volume 86.8 fL (80-100); Monocytes Absolute Auto 500 /uL (0-900); Monocytes Percent Auto 9.8 % (3-14); Neutrophils Absolute Auto 2100 /uL (1500-7000); Neutrophils Percent Auto 45.6 % (50-75); Platelet Count 313 X10^3/uL (150-400); Red Blood Cell Count 4.03 X10^6/uL (4.0-5.2); Red Cell Distribution Width 14.2 % (11.6-14.8); White Blood Cell Count 4.7 X10^3/uL (4.5-11.0)
[2019-12-12 09:47] LABS: Alanine Aminotransferase 26 IU/L (<35); Albumin 4.5 g/dL (3.5-5.0); Albumin Globulin Ratio 1.4 (1.0-2.8); Alkaline Phosphatase 117 U/L (38-126); Aspartate Aminotransferase 23 IU/L (14-36); BUN Creatinine Ratio 21.1 (6-22); Bilirubin Total 0.5 mg/dL (0.2-1.3); Blood Urea Nitrogen 16 mg/dL (7-17); Carbon Dioxide 26 mmol/L (22-32); Chloride 102 mmol/L (98-107); Estimated Glomerular Filt Rate > 60.0 mL/min (>60); Globulin 3.3 g/dL (1.7-4.1); Glucose 246 mg/dL (80-110); HEMOLYSIS < 15 (0-50); Potassium 4.5 mmol/L (3.4-5.1); Sodium 138 mmol/L (137-145); Total Protein 7.8 g/dL (6.3-8.2)
== END ==
PROVIDERS: PCP Student in an Organized Health Care Education/Training Program; Referring Provider Internal Medicine Hematology & Oncology; Visit Provider Internal Medicine Hematology & Oncology
DX: Z85.3 Personal history of malignant neoplasm of breast (principal)
CPT/HCPCS: 36415; 80053; 85025

== ENCOUNTER 2020-03-05 13:45 | Outpatient (RCR) | payer MEDICARE, OTHER, SELFPAY ==
[2019-05-12 00:35] VITALS: BMI 31.1
--- NOTE | 2019-06-08 17:30 | PT.OIE ---
Current Diagnoses Radiculopathy, lumbar region (06/08/19) Lumbago with sciatica, right side (06/08/19) Muscle weakness (generalized) (06/08/19) Pain in right leg (06/08/19) Past Medical History (Last Updated 05/11/19 @ 23:50 by CITLALI Thurman) Diabetes (Acute) History of chemotherapy (Acute) History of malignant neoplasm of breast (Inactive 12/13/15) HTN (hypertension) (Acute) Hypothyroidism (Acute) Lumbar back pain with radiculopathy affecting right lower extremity (Acute) Renal colic on left side (Acute) Ureterolithiasis (Acute) Past Surgical History (Last Reviewed 05/11/19 @ 20:23 by CITLALI Sauceda) History of lithotripsy History of tonsillectomy History of total mastectomy Visit Care Team Role Provider Type Josephine Montoya MD Attending Provider Physician Primary Care Provider Specialty: [facility] Address: [address] [place] [address], [facility] Email: [email or web address] Physical Therapy Initial Evaluation PT-OP-A Visit Information Start: 06/08/19 17:47 Freq: Status: Active Protocol: Document 06/08/19 16:45 DCW (Rec: 06/08/19 17:58 DCW [id number]) Out-Patient Physical Therapy Visit Information Visit Information Visit Type Initial Evaluation Visit Start Time 16:45 Visit Stop Time 17:35 Total Visit Minutes 50 Visit Number 1 Number of MACHINIST INSTRUCTOR Visits 0 Evaluation Information Evaluation Date 06/08/19 PT-OP-B Current Condition Start: 06/08/19 17:47 Freq: Status: Active Protocol: Document 06/08/19 16:45 DCW (Rec: 06/08/19 17:58 DCW [id number]) Current Condition History of Current Condition Onset Date Three months Current Complaints Lumbar pain with right radicular symptoms History of Current Condition Pt is a 64 year old female presenting to skilled therapy with a three month history of low back pain with associated right leg pain and numbness. Pt reports that she woke up at 3 am in extreme pain three months ago, with no instigating event. Pt notes she spent the next two days just walking around my house, because I couldn't sit. Pt reports she eventually had an MRI, which noted two disc bulges. Pt experiences pain down her posterior right leg, around her lateral malleoli, and into her lateral dorsal foot. Pt has attempted acupuncture, massage, and a chiropractor with minimal relief, and has also had three cortisone injections, which have helped some. Pt also takes Gabapentin and Advil, which seem to help control the pain some. Pt struggles walking more than half a block , and has increased pain with sitting for any length of time , or bending over to pick something up or put shoes on. Prior Treatments and Tests Lumbar MRI: IMPRESSION: 1. Early multilevel degenerative changes. 2. Stenosis is most prominent at L4-5 secondary to disc bulge as well as anterolisthesis and facet/ ligamenta flavum arthropathy. 3. Disc bulge with right foraminal component and likely superimposed small protrusion/extrusion causing compromise of right lateral recess is present at L5-S1. Per: Lakesha Buckley M.D. on 12/2018 Treatment Goals Patient/Caregiver Goals Decrease pain, avoid surgery, and obtain a good guide for aquatic activities. Prior Functional Status Baseline Function- Gait Walked independently community distances Current Functional Impairments (Reported) Functional Limitations- ADL's Pain with picking anything up off the floor or bending over to don shoes. Functional Limitations- Mobility/Gait Limited to ambulating less than 1/2 block due to pain PT-OP-C Subjective Start: 06/08/19 17:47 Freq: Status: Active Protocol: Document 06/08/19 16:45 DCW (Rec: 06/09/19 15:46 DCW [id number]) OP-PT Subjective Patient Comments Patient Comments Pt notes some improvement with her recent use of Gabapentin and Advil, as well as her injections. Patient Reported Progress Improving Patient Questionnaires Oswestry Low Back Index Oswestry Score 36% Oswestry Impairment 20 to 39% Impaired (Score 20- 39) PT-OP-F Manual Assessment Start: 06/08/19 17:47 Freq: Status: Active Protocol: Document 06/08/19 16:45 DCW (Rec: 06/09/19 15:46 DCW [id number]) Manual Assessments Soft Tissue Assessment Soft Tissue Mobility Assessment Lumbar paraspinals: Moderate tone and tenderness to palpation 2/4 - pain with wincing Right Piriformis: Severe tone and tenderness to palpation 3/ 4 - wincing and withdraw PT-OP-K Range of Motion Start: 06/08/19 17:47 Freq: Status: Active Protocol: Document 06/08/19 16:45 DCW (Rec: 06/09/19 15:46 DCW [id number]) Lumbar Spine Range of Motion Lumbar Spine Active Degrees Testing Position Standing Flexion 23 Extension 18 Lateral Flexion Left 52 Lateral Flexion Right 53 ROM Limitations Bony Restriction,Muscle Tone, Pain Comments Lateral flexion measured in cm , distance from finger tips to floor PT-OP-L Special Tests Start: 06/08/19 17:47 Freq: Status: Active Protocol: Document 06/08/19 16:45 DCW (Rec: 06/09/19 15:46 DCW [id number]) Special Tests Lumbar Spine Special Tests Prone Knee Flexion Test Results Hip flexor tightness HARRIETT Test Results Negative Straight Leg Raise Test Results HS tightness Comments 35? R, 50? L Standing Flexion Test Results R LE pain Slump Test Results B HS tightness Compression Test Results Positive R radicular PT-OP-M Strength Start: 06/08/19 17:47 Freq: Status: Active Protocol: Document 06/08/19 16:45 DCW (Rec: 06/09/19 15:46 DCW [id number]) Trunk Strength Trunk Manual Muscle Testing Core Stabilization Pt demonstrates difficulty with TrA contraction, -3/5 Hip Strength Hip Manual Muscle Testing Right Flexion (L2) 5 Normal Abduction 4 Good Adduction 4- Good- External Rotation 4- Good- Internal Rotation 4 Good Left Flexion (L2) 5 Normal Abduction 4 Good Adduction 4- Good- External Rotation 4+ Good+ Internal Rotation 4+ Good+ Knee Strength Knee Manual Muscle Testing Right Flexion (S2) 4+ Good+ Extension (L3) 4 Good Left Flexion (S2) 4+ Good+ Extension (L3) 4+ Good+ PT-OP-Q Treatments Start: 06/08/19 17:47 Freq: Status: Active Protocol: Document 06/08/19 16:45 DCW (Rec: 06/09/19 15:46 DCW [id number]) Therapeutic Exercises Supine Exercises 1 Supine Exercise Name Piriformis stretch Side right PT-OP-T Assessment and Plan Start: 11/13/19 17:47 Freq: Status: Active Protocol: Document 06/08/19 16:45 DCW (Rec: 06/09/19 15:46 DCW [id number]) Physical Therapy Assessment Rehab Potential Rehabilitation Potential Good Evaluation Complexity Number of Personal Factors/Comorbidities 3 or More Number of Body Systems Impaired 3 Clinical Presentation at Evaluation Evolving Impairments Impairments Functional Activities, Functional Mobility,Pain, Posture,ROM,Strength,Tone Goals Four Impairment Pt unable to bend forward without radicular symptoms Manager Underwriting Goal (LTG) Pt to improve her lumbar flexion in order for her to bend over and don her sneakers without increased pain. LTG Duration 08/09/19 Three Impairment Pt unable to sit for more than 5 minutes without increased pain Short Term Goal (STG) Pt to tolerate sitting for 30 minutes without an increase in back pain STG Duration 07/09/19 [facility] Goal (LTG) Pt to tolerate sitting 60 minutes without increase back pain, to enable her to drive to [place]. LTG Duration 08/09/19 Two Impairment Pt's walking is limited to 1/2 block Manager Underwriting Goal (LTG) Pt to return to walking 1+ miles in the community to return to her hobby of walking down to and around [place]. LTG Duration 08/09/19 One Impairment Pt does not have an appropriate home aquatic exercise program Short Term Goal (STG) Pt to be independent and compliant with an appropriate aquatic HEP STG Duration 07/09/19 Assessment Summary Assessment Pt presents with sings and symptoms consistent with her referring diagnosis. Pt is experiencing low back, posterior hip, and right LE radiculapothy, likely secondary to her multiple bulging discs. Pt's pain pattern is consistent with a L5/S1 nerve root impingement. Additionally, pt presents with secondary effects of hypertonic lumbar paraspinals and right piriformis, likely due to protective spasming. Pt will likely benefit from skilled therapy, mainly pool- focused. Pt should improve with decreased tone, improved mobility, lumbar traction, and strengthening. Physical Therapy Plan Frequency and Duration Frequency of Treatment 2x/Week Duration of Treatment 10 weeks Plan of Care Start Date 06/08/19 Plan of Care End Date 08/17/19 Therapeutic Interventions Therapeutic Interventions Aquatic Therapy,Home Exercise Program,Joint Mobilizations, Manual Therapy,Patient/ Caregiver Education,Self-Care/ Home Management,Soft Tissue Mobilization,Therapeutic Activities,Therapeutic Exercises Modalities Cold Pack/Ice Massage,Electric Stimulation,Hot Packs, Traction- Mechanical, Ultrasound Next Visit Focus/Plan Next Note Type Treatment Note Next Visit Plan Aquatic therapy to decrease lumbar tone, decompress spine, and improve pt strength and mobility.
--- NOTE | 2019-06-09 15:46 | PT.OIE ---
Current Diagnoses Radiculopathy, lumbar region (06/08/19) Lumbago with sciatica, right side (06/08/19) Muscle weakness (generalized) (06/08/19) Pain in right leg (06/08/19) Past Medical History (Last Updated 05/11/19 @ 23:50 by CITLALI Thurman) Diabetes (Acute) History of chemotherapy (Acute) History of malignant neoplasm of breast (Inactive 12/13/15) HTN (hypertension) (Acute) Hypothyroidism (Acute) Lumbar back pain with radiculopathy affecting right lower extremity (Acute) Renal colic on left side (Acute) Ureterolithiasis (Acute) Past Surgical History (Last Reviewed 05/11/19 @ 20:23 by CITLALI Sauceda) History of lithotripsy History of tonsillectomy History of total mastectomy Visit Care Team Role Provider Type Josephine Montoya MD Attending Provider Physician Primary Care Provider Specialty: [facility] Address: [address] [place] [address], [facility] Email: [email or web address] Physical Therapy Initial Evaluation PT-OP-A Visit Information Start: 06/08/19 17:47 Freq: Status: Active Protocol: Document 06/08/19 16:45 DCW (Rec: 06/08/19 17:58 DCW [id number]) Out-Patient Physical Therapy Visit Information Visit Information Visit Type Initial Evaluation Visit Start Time 16:45 Visit Stop Time 17:35 Total Visit Minutes 50 Visit Number 1 Number of AIR COMMODORE Visits 0 Evaluation Information Evaluation Date 06/08/19 PT-OP-B Current Condition Start: 06/08/19 17:47 Freq: Status: Active Protocol: Document 06/08/19 16:45 DCW (Rec: 06/08/19 17:58 DCW [id number]) Current Condition History of Current Condition Onset Date Three months Current Complaints Lumbar pain with right radicular symptoms History of Current Condition Pt is a 64 year old female presenting to skilled therapy with a three month history of low back pain with associated right leg pain and numbness. Pt reports that she woke up at 3 am in extreme pain three months ago, with no instigating event. Pt notes she spent the next two days just walking around my house, because I couldn't sit. Pt reports she eventually had an MRI, which noted two disc bulges. Pt experiences pain down her posterior right leg, around her lateral malleoli, and into her lateral dorsal foot. Pt has attempted acupuncture, massage, and a chiropractor with minimal relief, and has also had three cortisone injections, which have helped some. Pt also takes Gabapentin and Advil, which seem to help control the pain some. Pt struggles walking more than half a block , and has increased pain with sitting for any length of time , or bending over to pick something up or put shoes on. Prior Treatments and Tests Lumbar MRI: IMPRESSION: 1. Early multilevel degenerative changes. 2. Stenosis is most prominent at L4-5 secondary to disc bulge as well as anterolisthesis and facet/ ligamenta flavum arthropathy. 3. Disc bulge with right foraminal component and likely superimposed small protrusion/extrusion causing compromise of right lateral recess is present at L5-S1. Per: Lakesha Buckley M.D. on 12/2018 Treatment Goals Patient/Caregiver Goals Decrease pain, avoid surgery, and obtain a good guide for aquatic activities. Prior Functional Status Baseline Function- Gait Walked independently community distances Current Functional Impairments (Reported) Functional Limitations- ADL's Pain with picking anything up off the floor or bending over to don shoes. Functional Limitations- Mobility/Gait Limited to ambulating less than 1/2 block due to pain PT-OP-C Subjective Start: 06/08/19 17:47 Freq: Status: Active Protocol: Document 06/08/19 16:45 DCW (Rec: 06/09/19 15:46 DCW [id number]) OP-PT Subjective Patient Comments Patient Comments Pt notes some improvement with her recent use of Gabapentin and Advil, as well as her injections. Patient Reported Progress Improving Patient Questionnaires Oswestry Low Back Index Oswestry Score 36% Oswestry Impairment 20 to 39% Impaired (Score 20- 39) PT-OP-F Manual Assessment Start: 06/08/19 17:47 Freq: Status: Active Protocol: Document 06/08/19 16:45 DCW (Rec: 06/09/19 15:46 DCW [id number]) Manual Assessments Soft Tissue Assessment Soft Tissue Mobility Assessment Lumbar paraspinals: Moderate tone and tenderness to palpation 2/4 - pain with wincing Right Piriformis: Severe tone and tenderness to palpation 3/ 4 - wincing and withdraw PT-OP-K Range of Motion Start: 06/08/19 17:47 Freq: Status: Active Protocol: Document 06/08/19 16:45 DCW (Rec: 06/09/19 15:46 DCW [id number]) Lumbar Spine Range of Motion Lumbar Spine Active Degrees Testing Position Standing Flexion 23 Extension 18 Lateral Flexion Left 52 Lateral Flexion Right 53 ROM Limitations Bony Restriction,Muscle Tone, Pain Comments Lateral flexion measured in cm , distance from finger tips to floor PT-OP-L Special Tests Start: 06/08/19 17:47 Freq: Status: Active Protocol: Document 06/08/19 16:45 DCW (Rec: 06/09/19 15:46 DCW [id number]) Special Tests Lumbar Spine Special Tests Prone Knee Flexion Test Results Hip flexor tightness HARRIETT Test Results Negative Straight Leg Raise Test Results HS tightness Comments 35? R, 50? L Standing Flexion Test Results R LE pain Slump Test Results B HS tightness Compression Test Results Positive R radicular PT-OP-M Strength Start: 06/08/19 17:47 Freq: Status: Active Protocol: Document 06/08/19 16:45 DCW (Rec: 06/09/19 15:46 DCW [id number]) Trunk Strength Trunk Manual Muscle Testing Core Stabilization Pt demonstrates difficulty with TrA contraction, -3/5 Hip Strength Hip Manual Muscle Testing Right Flexion (L2) 5 Normal Abduction 4 Good Adduction 4- Good- External Rotation 4- Good- Internal Rotation 4 Good Left Flexion (L2) 5 Normal Abduction 4 Good Adduction 4- Good- External Rotation 4+ Good+ Internal Rotation 4+ Good+ Knee Strength Knee Manual Muscle Testing Right Flexion (S2) 4+ Good+ Extension (L3) 4 Good Left Flexion (S2) 4+ Good+ Extension (L3) 4+ Good+ PT-OP-Q Treatments Start: 06/08/19 17:47 Freq: Status: Active Protocol: Document 06/08/19 16:45 DCW (Rec: 06/09/19 15:46 DCW [id number]) Therapeutic Exercises Supine Exercises 1 Supine Exercise Name Piriformis stretch Side right PT-OP-T Assessment and Plan Start: 11/13/19 17:47 Freq: Status: Active Protocol: Document 06/08/19 16:45 DCW (Rec: 06/09/19 15:46 DCW [id number]) Physical Therapy Assessment Rehab Potential Rehabilitation Potential Good Evaluation Complexity Number of Personal Factors/Comorbidities 3 or More Number of Body Systems Impaired 3 Clinical Presentation at Evaluation Evolving Impairments Impairments Functional Activities, Functional Mobility,Pain, Posture,ROM,Strength,Tone Goals Four Impairment Pt unable to bend forward without radicular symptoms Nail Making Machine Setter Goal (LTG) Pt to improve her lumbar flexion in order for her to bend over and don her sneakers without increased pain. LTG Duration 08/09/19 Three Impairment Pt unable to sit for more than 5 minutes without increased pain Short Term Goal (STG) Pt to tolerate sitting for 30 minutes without an increase in back pain STG Duration 07/09/19 Alf Goal (LTG) Pt to tolerate sitting 60 minutes without increase back pain, to enable her to drive to [place]. LTG Duration 08/09/19 Two Impairment Pt's walking is limited to 1/2 block Nail Making Machine Setter Goal (LTG) Pt to return to walking 1+ miles in the community to return to her hobby of walking down to and around [employer]. LTG Duration 08/09/19 One Impairment Pt does not have an appropriate home aquatic exercise program Short Term Goal (STG) Pt to be independent and compliant with an appropriate aquatic HEP STG Duration 07/09/19 Assessment Summary Assessment Pt presents with sings and symptoms consistent with her referring diagnosis. Pt is experiencing low back, posterior hip, and right LE radiculapothy, likely secondary to her multiple bulging discs. Pt's pain pattern is consistent with a L5/S1 nerve root impingement. Additionally, pt presents with secondary effects of hypertonic lumbar paraspinals and right piriformis, likely due to protective spasming. Pt will likely benefit from skilled therapy, mainly pool- focused. Pt should improve with decreased tone, improved mobility, lumbar traction, and strengthening. Physical Therapy Plan Frequency and Duration Frequency of Treatment 2x/Week Duration of Treatment 10 weeks Plan of Care Start Date 06/08/19 Plan of Care End Date 08/17/19 Therapeutic Interventions Therapeutic Interventions Aquatic Therapy,Home Exercise Program,Joint Mobilizations, Manual Therapy,Patient/ Caregiver Education,Self-Care/ Home Management,Soft Tissue Mobilization,Therapeutic Activities,Therapeutic Exercises Modalities Cold Pack/Ice Massage,Electric Stimulation,Hot Packs, Traction- Mechanical, Ultrasound Next Visit Focus/Plan Next Note Type Treatment Note Next Visit Plan Aquatic therapy to decrease lumbar tone, decompress spine, and improve pt strength and mobility.
--- NOTE | 2019-06-09 15:49 | PT.OPPOC ---
Current Diagnoses Radiculopathy, lumbar region (06/08/19) Lumbago with sciatica, right side (06/08/19) Muscle weakness (generalized) (06/08/19) Pain in right leg (06/08/19) Visit Care Team Role Provider Type Josephine Montoya MD Attending Provider Physician Primary Care Provider Specialty: [facility] Practice Address: [address] [place] [address], [id number] Email: [email or web address] Plan Of Care PT-OP-T Assessment and Plan Start: 06/08/19 17:47 Freq: Status: Active Protocol: Document 06/08/19 16:45 DCW (Rec: 06/09/19 15:46 DCW [id number]) Physical Therapy Assessment Rehab Potential Rehabilitation Potential Good Evaluation Complexity Number of Personal Factors/Comorbidities 3 or More Number of Body Systems Impaired 3 Clinical Presentation at Evaluation Evolving Impairments Impairments Functional Activities, Functional Mobility,Pain, Posture,ROM,Strength,Tone Goals Four Impairment Pt unable to bend forward without radicular symptoms Jail Goal (LTG) Pt to improve her lumbar flexion in order for her to bend over and don her sneakers without increased pain. LTG Duration 08/09/19 Three Impairment Pt unable to sit for more than 5 minutes without increased pain Short Term Goal (STG) Pt to tolerate sitting for 30 minutes without an increase in back pain STG Duration 07/09/19 Jail Goal (LTG) Pt to tolerate sitting 60 minutes without increase back pain, to enable her to drive to [place]. LTG Duration 08/09/19 Two Impairment Pt's walking is limited to 1/2 block Jail Goal (LTG) Pt to return to walking 1+ miles in the community to return to her hobby of walking down to and around [employer]. LTG Duration 08/09/19 One Impairment Pt does not have an appropriate home aquatic exercise program Short Term Goal (STG) Pt to be independent and compliant with an appropriate aquatic HEP STG Duration 07/09/19 Assessment Summary Assessment Pt presents with sings and symptoms consistent with her referring diagnosis. Pt is experiencing low back, posterior hip, and right LE radiculapothy, likely secondary to her multiple bulging discs. Pt's pain pattern is consistent with a L5/S1 nerve root impingement. Additionally, pt presents with secondary effects of hypertonic lumbar paraspinals and right piriformis, likely due to protective spasming. Pt will likely benefit from skilled therapy, mainly pool- focused. Pt should improve with decreased tone, improved mobility, lumbar traction, and strengthening. Physical Therapy Plan Frequency and Duration Frequency of Treatment 2x/Week Duration of Treatment 10 weeks Plan of Care Start Date 06/08/19 Plan of Care End Date 08/17/19 Therapeutic Interventions Therapeutic Interventions Aquatic Therapy,Home Exercise Program,Joint Mobilizations, Manual Therapy,Patient/ Caregiver Education,Self-Care/ Home Management,Soft Tissue Mobilization,Therapeutic Activities,Therapeutic Exercises Modalities Cold Pack/Ice Massage,Electric Stimulation,Hot Packs, Traction- Mechanical, Ultrasound Next Visit Focus/Plan Next Note Type Treatment Note Next Visit Plan Aquatic therapy to decrease lumbar tone, decompress spine, and improve pt strength and mobility. Plan of Care Dates Plan of Care Start Date 06/08/19 Plan of Care End Date 08/17/19
--- NOTE | 2019-06-10 17:05 | PT.OTN ---
Current Diagnoses Radiculopathy, lumbar region (06/10/19) Lumbago with sciatica, right side (06/10/19) Muscle weakness (generalized) (06/10/19) Pain in right leg (06/10/19) Physical Therapy Treatment Note PT-OP-A Visit Information Start: 06/08/19 17:47 Freq: Status: Active Protocol: Document 06/10/19 12:30 LJ (Rec: 06/10/19 17:05 LJ [id number]) Out-Patient Physical Therapy Visit Information Visit Information Visit Type Aquatic Treatment Note Visit Start Time 12:30 Visit Stop Time 13:15 Total Visit Minutes 45 Visit Number 2 Number of HEEL SANDER RUBBER Visits 1 PT-OP-B Current Condition Start: 06/08/19 17:47 Freq: Status: Active Protocol: Document 06/08/19 16:45 DCW (Rec: 06/08/19 17:58 DCW [id number]) Current Condition History of Current Condition Onset Date Three months Current Complaints Lumbar pain with right radicular symptoms History of Current Condition Pt is a 64 year old female presenting to skilled therapy with a three month history of low back pain with associated right leg pain and numbness. Pt reports that she woke up at 3 am in extreme pain three months ago, with no instigating event. Pt notes she spent the next two days just walking around my house, because I couldn't sit. Pt reports she eventually had an MRI, which noted two disc bulges. Pt experiences pain down her posterior right leg, around her lateral malleoli, and into her lateral dorsal foot. Pt has attempted acupuncture, massage, and a chiropractor with minimal relief, and has also had three cortisone injections, which have helped some. Pt also takes Gabapentin and Advil, which seem to help control the pain some. Pt struggles walking more than half a block , and has increased pain with sitting for any length of time , or bending over to pick something up or put shoes on. Prior Treatments and Tests Lumbar MRI: IMPRESSION: 1. Early multilevel degenerative changes. 2. Stenosis is most prominent at L4-5 secondary to disc bulge as well as anterolisthesis and facet/ ligamenta flavum arthropathy. 3. Disc bulge with right foraminal component and likely superimposed small protrusion/extrusion causing compromise of right lateral recess is present at L5-S1. Per: Lakesha Buckley, M.D. on 12/2018 Treatment Goals Patient/Caregiver Goals Decrease pain, avoid surgery, and obtain a good guide for aquatic activities. Prior Functional Status Baseline Function- Gait Walked independently community distances Current Functional Impairments (Reported) Functional Limitations- ADL's Pain with picking anything up off the floor or bending over to don shoes. Functional Limitations- Mobility/Gait Limited to ambulating less than 1/2 block due to pain PT-OP-C Subjective Start: 06/08/19 17:47 Freq: Status: Active Protocol: Document 06/10/19 12:30 LJ (Rec: 06/10/19 17:05 LJ [id number]) OP-PT Subjective Patient Comments Patient Comments Pt loves the water and is very happy to be in aquatic therapy PT-OP-F Manual Assessment Start: 06/08/19 17:47 Freq: Status: Active Protocol: Document 06/08/19 16:45 DCW (Rec: 06/09/19 15:46 DCW [id number]) Manual Assessments Soft Tissue Assessment Soft Tissue Mobility Assessment Lumbar paraspinals: Moderate tone and tenderness to palpation 2/4 - pain with wincing Right Piriformis: Severe tone and tenderness to palpation 3/ 4 - wincing and withdraw PT-OP-K Range of Motion Start: 06/08/19 17:47 Freq: Status: Active Protocol: Document 06/08/19 16:45 DCW (Rec: 06/09/19 15:46 DCW [id number]) Lumbar Spine Range of Motion Lumbar Spine Active Degrees Testing Position Standing Flexion 23 Extension 18 Lateral Flexion Left 52 Lateral Flexion Right 53 ROM Limitations Bony Restriction,Muscle Tone, Pain Comments Lateral flexion measured in cm , distance from finger tips to floor PT-OP-L Special Tests Start: 06/08/19 17:47 Freq: Status: Active Protocol: Document 06/08/19 16:45 DCW (Rec: 06/09/19 15:46 DCW [id number]) Special Tests Lumbar Spine Special Tests Prone Knee Flexion Test Results Hip flexor tightness HARRIETT Test Results Negative Straight Leg Raise Test Results HS tightness Comments 35? R, 50? L Standing Flexion Test Results R LE pain Slump Test Results B HS tightness Compression Test Results Positive R radicular PT-OP-M Strength Start: 06/08/19 17:47 Freq: Status: Active Protocol: Document 06/08/19 16:45 DCW (Rec: 06/09/19 15:46 DCW [id number]) Trunk Strength Trunk Manual Muscle Testing Core Stabilization Pt demonstrates difficulty with TrA contraction, -3/5 Hip Strength Hip Manual Muscle Testing Right Flexion (L2) 5 Normal Abduction 4 Good Adduction 4- Good- External Rotation 4- Good- Internal Rotation 4 Good Left Flexion (L2) 5 Normal Abduction 4 Good Adduction 4- Good- External Rotation 4+ Good+ Internal Rotation 4+ Good+ Knee Strength Knee Manual Muscle Testing Right Flexion (S2) 4+ Good+ Extension (L3) 4 Good Left Flexion (S2) 4+ Good+ Extension (L3) 4+ Good+ PT-OP-Q Treatments Start: 06/08/19 17:47 Freq: Status: Active Protocol: Document 06/08/19 16:45 DCW (Rec: 06/09/19 15:46 DCW [id number]) Therapeutic Exercises Supine Exercises 1 Supine Exercise Name Piriformis stretch Side right PT-OP-S Aquatic Treatment Start: 06/08/19 17:48 Freq: Status: Active Protocol: Document 06/10/19 12:30 LJ (Rec: 06/10/19 17:05 LJ [id number]) Aquatics Treatment Pool Entry/Exit Pool Entry/Exit Method Stairs Assistance Standby Assistance,Verbal Cues Comments slow and guarded Water Walking Sideways Water Level Chest Level Level of Assistance Standby Assistance,Verbal Cues Comments right leading painful, left leading painfree Backwards Water Level Chest Level Level of Assistance Standby Assistance,Verbal Cues Comments small steps Forwards Water Level Chest Level Level of Assistance Standby Assistance,Verbal Cues Comments pt guarded Lower Extremity Exercises Hiip CCW, CW Details hh on wall Body Position Standing Water Level Chest Level Reps/Duration 10x Comments small ROM and gentle Lower Extremity Stretches piriformis Details back against wall Body Position Standing Water Level Neck Level Reps/Duration 2x45 Comments pressure on/pressure off Moro Activities Moro Activities Bicycle,[place] Equipment lg belt Duration 10 min Comments pt with guarded movements PT-OP-T Assessment and Plan Start: 06/08/19 17:47 Freq: Status: Active Protocol: Document 06/10/19 12:30 LJ (Rec: 06/10/19 17:05 LJ [id number]) Physical Therapy Assessment Rehab Potential Rehabilitation Potential Good Evaluation Complexity Number of Personal Factors/Comorbidities 3 or More Number of Body Systems Impaired 3 Clinical Presentation at Evaluation Evolving Impairments Impairments Functional Activities, Functional Mobility,Pain, Posture,ROM,Strength,Tone Goals Four Impairment Pt unable to bend forward without radicular symptoms Skilled Nursing Goal (LTG) Pt to improve her lumbar flexion in order for her to bend over and don her sneakers without increased pain. LTG Duration 08/09/19 Three Impairment Pt unable to sit for more than 5 minutes without increased pain Short Term Goal (STG) Pt to tolerate sitting for 30 minutes without an increase in back pain STG Duration 07/09/19 Skilled Nursing Goal (LTG) Pt to tolerate sitting 60 minutes without increase back pain, to enable her to drive to [place]. LTG Duration 08/09/19 Two Impairment Pt's walking is limited to 1/2 block Gas Stove Servicer Helper Goal (LTG) Pt to return to walking 1+ miles in the community to return to her hobby of walking down to and around [employer]. LTG Duration 08/09/19 One Impairment Pt does not have an appropriate home aquatic exercise program Short Term Goal (STG) Pt to be independent and compliant with an appropriate aquatic HEP STG Duration 07/09/19 Assessment Summary Assessment Pt entered pool with very guarded and slow gait. Step to gait pattern on stairs entering and exiting pool. She required many cues to relax her shoulders. Reported increease in pain with right LE leading side stepping so the exercise was abandoned. Slow and gentle movements and gait necessary to maintain painfree. Physical Therapy Plan Frequency and Duration Frequency of Treatment 2x/Week Duration of Treatment 10 weeks Plan of Care Start Date 06/08/19 Plan of Care End Date 08/17/19 Therapeutic Interventions Therapeutic Interventions Aquatic Therapy,Home Exercise Program,Joint Mobilizations, Manual Therapy,Patient/ Caregiver Education,Self-Care/ Home Management,Soft Tissue Mobilization,Therapeutic Activities,Therapeutic Exercises Modalities Cold Pack/Ice Massage,Electric Stimulation,Hot Packs, Traction- Mechanical, Ultrasound Next Visit Focus/Plan Next Note Type Treatment Note Next Visit Plan Continue walking in pool and trial traction and Bad Ragaz to decrease lumbar tone. Increase intensity very slowly as pt tolerates.
--- NOTE | 2019-06-15 16:10 | PT.OTN ---
Current Diagnoses Radiculopathy, lumbar region (06/15/19) Lumbago with sciatica, right side (06/15/19) Muscle weakness (generalized) (06/15/19) Pain in right leg (06/15/19) Physical Therapy Treatment Note PT-OP-A Visit Information Start: 06/08/19 17:47 Freq: Status: Active Protocol: Document 06/15/19 16:02 SAK (Rec: 06/15/19 16:10 SAK [id number]) Out-Patient Physical Therapy Visit Information Visit Information Visit Type Aquatic Treatment Note Visit Start Time 11:38 Visit Stop Time 12:30 Total Visit Minutes 4,552 Visit Number 3 Number of COMPUTING MACHINE OPERATOR Visits 0 PT-OP-B Current Condition Start: 06/08/19 17:47 Freq: Status: Active Protocol: Document 06/08/19 16:45 DCW (Rec: 06/08/19 17:58 DCW [id number]) Current Condition History of Current Condition Onset Date Three months Current Complaints Lumbar pain with right radicular symptoms History of Current Condition Pt is a 64 year old female presenting to skilled therapy with a three month history of low back pain with associated right leg pain and numbness. Pt reports that she woke up at 3 am in extreme pain three months ago, with no instigating event. Pt notes she spent the next two days just walking around my house, because I couldn't sit. Pt reports she eventually had an MRI, which noted two disc bulges. Pt experiences pain down her posterior right leg, around her lateral malleoli, and into her lateral dorsal foot. Pt has attempted acupuncture, massage, and a chiropractor with minimal relief, and has also had three cortisone injections, which have helped some. Pt also takes Gabapentin and Advil, which seem to help control the pain some. Pt struggles walking more than half a block , and has increased pain with sitting for any length of time , or bending over to pick something up or put shoes on. Prior Treatments and Tests Lumbar MRI: IMPRESSION: 1. Early multilevel degenerative changes. 2. Stenosis is most prominent at L4-5 secondary to disc bulge as well as anterolisthesis and facet/ ligamenta flavum arthropathy. 3. Disc bulge with right foraminal component and likely superimposed small protrusion/extrusion causing compromise of right lateral recess is present at L5-S1. Per: Lakesha Buckley M.D. on 12/2018 Treatment Goals Patient/Caregiver Goals Decrease pain, avoid surgery, and obtain a good guide for aquatic activities. Prior Functional Status Baseline Function- Gait Walked independently community distances Current Functional Impairments (Reported) Functional Limitations- ADL's Pain with picking anything up off the floor or bending over to don shoes. Functional Limitations- Mobility/Gait Limited to ambulating less than 1/2 block due to pain PT-OP-C Subjective Start: 06/08/19 17:47 Freq: Status: Active Protocol: Document 06/15/19 16:02 SAK (Rec: 06/15/19 16:10 SAK [id number]) OP-PT Subjective Patient Comments Patient Comments Reports she liked her aquatic therapy session. C/o increased LE pain today with no known reason, though is trying to decrease medication use. Pain 10 PT-OP-F Manual Assessment Start: 06/08/19 17:47 Freq: Status: Active Protocol: Document 06/08/19 16:45 DCW (Rec: 06/09/19 15:46 DCW [id number]) Manual Assessments Soft Tissue Assessment Soft Tissue Mobility Assessment Lumbar paraspinals: Moderate tone and tenderness to palpation 2/4 - pain with wincing Right Piriformis: Severe tone and tenderness to palpation 3/ 4 - wincing and withdraw PT-OP-K Range of Motion Start: 06/08/19 17:47 Freq: Status: Active Protocol: Document 06/08/19 16:45 DCW (Rec: 06/09/19 15:46 DCW [id number]) Lumbar Spine Range of Motion Lumbar Spine Active Degrees Testing Position Standing Flexion 23 Extension 18 Lateral Flexion Left 52 Lateral Flexion Right 53 ROM Limitations Bony Restriction,Muscle Tone, Pain Comments Lateral flexion measured in cm , distance from finger tips to floor PT-OP-L Special Tests Start: 06/08/19 17:47 Freq: Status: Active Protocol: Document 06/08/19 16:45 DCW (Rec: 06/09/19 15:46 DCW [id number]) Special Tests Lumbar Spine Special Tests Prone Knee Flexion Test Results Hip flexor tightness HARRIETT Test Results Negative Straight Leg Raise Test Results HS tightness Comments 35? R, 50? L Standing Flexion Test Results R LE pain Slump Test Results B HS tightness Compression Test Results Positive R radicular PT-OP-M Strength Start: 06/08/19 17:47 Freq: Status: Active Protocol: Document 06/08/19 16:45 DCW (Rec: 06/09/19 15:46 DCW [id number]) Trunk Strength Trunk Manual Muscle Testing Core Stabilization Pt demonstrates difficulty with TrA contraction, -3/5 Hip Strength Hip Manual Muscle Testing Right Flexion (L2) 5 Normal Abduction 4 Good Adduction 4- Good- External Rotation 4- Good- Internal Rotation 4 Good Left Flexion (L2) 5 Normal Abduction 4 Good Adduction 4- Good- External Rotation 4+ Good+ Internal Rotation 4+ Good+ Knee Strength Knee Manual Muscle Testing Right Flexion (S2) 4+ Good+ Extension (L3) 4 Good Left Flexion (S2) 4+ Good+ Extension (L3) 4+ Good+ PT-OP-Q Treatments Start: 06/08/19 17:47 Freq: Status: Active Protocol: Document 06/08/19 16:45 DCW (Rec: 06/09/19 15:46 DCW [id number]) Therapeutic Exercises Supine Exercises 1 Supine Exercise Name Piriformis stretch Side right PT-OP-S Aquatic Treatment Start: 06/08/19 17:48 Freq: Status: Active Protocol: Document 06/15/19 16:02 SAK (Rec: 06/15/19 16:10 SAK [id number]) Aquatics Treatment Pool Entry/Exit Pool Entry/Exit Method Stairs Assistance Standby Assistance,Verbal Cues Comments slow and guarded Water Walking Forwards Water Level Chest Level Level of Assistance Standby Assistance,Verbal Cues Comments chest level to waist level Lower Extremity Exercises Hiip CCW, CW Details hh on wall Body Position Standing Water Level Chest Level Reps/Duration 10x Comments small ROM and gentle Spinal Exercises Deep water DLS Body Position Standing Water Level [place] Equipment medium barbells, flotation belt L Reps/Duration 6 min deep water hang Details edge of pool Body Position Standing Water Level [place] Equipment flotation belt L Reps/Duration 2 min [place] Activities [place] Activities Bicycle Other Activities Deep water traction 3# jovana with [place] float x 10 min Equipment lg belt, tether for 2 min Duration 12 min Comments Trial running motion but patient c/o some discomfort PT-OP-T Assessment and Plan Start: 06/08/19 17:47 Freq: Status: Active Protocol: Document 06/15/19 16:02 NELSY (Rec: 06/15/19 16:10 [facility] [id number]) Physical Therapy Assessment Impairments Impairments Functional Activities, Functional Mobility,Pain, Posture,ROM,Strength,Tone Goals Four Impairment Pt unable to bend forward without radicular symptoms Skilled Nursing Goal (LTG) Pt to improve her lumbar flexion in order for her to bend over and don her sneakers without increased pain. LTG Duration 08/09/19 Three Impairment Pt unable to sit for more than 5 minutes without increased pain Short Term Goal (STG) Pt to tolerate sitting for 30 minutes without an increase in back pain STG Duration 07/09/19 Skilled Nursing Goal (LTG) Pt to tolerate sitting 60 minutes without increase back pain, to enable her to drive to [place]. LTG Duration 08/09/19 Two Impairment Pt's walking is limited to 1/2 block Quantitative Developer Goal (LTG) Pt to return to walking 1+ miles in the community to return to her hobby of walking down to and around [employer]. LTG Duration 08/09/19 One Impairment Pt does not have an appropriate home aquatic exercise program Short Term Goal (STG) Pt to be independent and compliant with an appropriate aquatic HEP STG Duration 07/09/19 Assessment Summary Assessment After deep water bicycle and DLS, patient reported return of pain when went to shallow end. Deep water traction performed at that time, and following the traction patient reported no pain after returning to shallow end or when exiting pool. Physical Therapy Plan Frequency and Duration Frequency of Treatment 2x/Week Duration of Treatment 10 weeks Plan of Care Start Date 06/08/19 Plan of Care End Date 08/17/19 Therapeutic Interventions Therapeutic Interventions Aquatic Therapy,Home Exercise Program,Joint Mobilizations, Manual Therapy,Patient/ Caregiver Education,Self-Care/ Home Management,Soft Tissue Mobilization,Therapeutic Activities,Therapeutic Exercises Modalities Cold Pack/Ice Massage,Electric Stimulation,Hot Packs, Traction- Mechanical, Ultrasound Next Visit Focus/Plan Next Note Type Treatment Note Next Visit Plan Evaluate response to today's treatment. Consider addition of manual treatments to include Bad Ragaz depending on status. Increase intensity of deep water bicycle as tolerated.
--- NOTE | 2019-06-17 16:11 | PT.OTN ---
Current Diagnoses Radiculopathy, lumbar region (06/17/19) Lumbago with sciatica, right side (06/17/19) Muscle weakness (generalized) (06/17/19) Pain in right leg (06/17/19) Physical Therapy Treatment Note PT-OP-A Visit Information Start: 06/08/19 17:47 Freq: Status: Active Protocol: Document 06/17/19 11:45 LJ (Rec: 06/17/19 16:10 LJ [id number]) Out-Patient Physical Therapy Visit Information Visit Information Visit Type Aquatic Treatment Note Visit Start Time 11:45 Visit Stop Time 12:30 Total Visit Minutes 45 Visit Number 4 Number of EXPENSE CLERK Visits 1 PT-OP-B Current Condition Start: 06/08/19 17:47 Freq: Status: Active Protocol: Document 06/08/19 16:45 DCW (Rec: 06/08/19 17:58 DCW [id number]) Current Condition History of Current Condition Onset Date Three months Current Complaints Lumbar pain with right radicular symptoms History of Current Condition Pt is a 64 year old female presenting to skilled therapy with a three month history of low back pain with associated right leg pain and numbness. Pt reports that she woke up at 3 am in extreme pain three months ago, with no instigating event. Pt notes she spent the next two days just walking around my house, because I couldn't sit. Pt reports she eventually had an MRI, which noted two disc bulges. Pt experiences pain down her posterior right leg, around her lateral malleoli, and into her lateral dorsal foot. Pt has attempted acupuncture, massage, and a chiropractor with minimal relief, and has also had three cortisone injections, which have helped some. Pt also takes Gabapentin and Advil, which seem to help control the pain some. Pt struggles walking more than half a block , and has increased pain with sitting for any length of time , or bending over to pick something up or put shoes on. Prior Treatments and Tests Lumbar MRI: IMPRESSION: 1. Early multilevel degenerative changes. 2. Stenosis is most prominent at L4-5 secondary to disc bulge as well as anterolisthesis and facet/ ligamenta flavum arthropathy. 3. Disc bulge with right foraminal component and likely superimposed small protrusion/extrusion causing compromise of right lateral recess is present at L5-S1. Per: Lakesha Bucklye M.D. on 12/2018 Treatment Goals Patient/Caregiver Goals Decrease pain, avoid surgery, and obtain a good guide for aquatic activities. Prior Functional Status Baseline Function- Gait Walked independently community distances Current Functional Impairments (Reported) Functional Limitations- ADL's Pain with picking anything up off the floor or bending over to don shoes. Functional Limitations- Mobility/Gait Limited to ambulating less than 1/2 block due to pain PT-OP-C Subjective Start: 06/08/19 17:47 Freq: Status: Active Protocol: Document 06/17/19 11:45 LJ (Rec: 06/17/19 16:10 LJ [id number]) OP-PT Subjective Patient Comments Patient Comments Pt reports she is glad to be in the water today. Has increased pain in LE for several days. PT-OP-F Manual Assessment Start: 06/08/19 17:47 Freq: Status: Active Protocol: Document 06/08/19 16:45 DCW (Rec: 06/09/19 15:46 DCW [id number]) Manual Assessments Soft Tissue Assessment Soft Tissue Mobility Assessment Lumbar paraspinals: Moderate tone and tenderness to palpation 2/4 - pain with wincing Right Piriformis: Severe tone and tenderness to palpation 3/ 4 - wincing and withdraw PT-OP-K Range of Motion Start: 06/08/19 17:47 Freq: Status: Active Protocol: Document 06/08/19 16:45 DCW (Rec: 06/09/19 15:46 DCW [id number]) Lumbar Spine Range of Motion Lumbar Spine Active Degrees Testing Position Standing Flexion 23 Extension 18 Lateral Flexion Left 52 Lateral Flexion Right 53 ROM Limitations Bony Restriction,Muscle Tone, Pain Comments Lateral flexion measured in cm , distance from finger tips to floor PT-OP-L Special Tests Start: 06/08/19 17:47 Freq: Status: Active Protocol: Document 06/08/19 16:45 DCW (Rec: 06/09/19 15:46 DCW [id number]) Special Tests Lumbar Spine Special Tests Prone Knee Flexion Test Results Hip flexor tightness HARRIETT Test Results Negative Straight Leg Raise Test Results HS tightness Comments 35? R, 50? L Standing Flexion Test Results R LE pain Slump Test Results B HS tightness Compression Test Results Positive R radicular PT-OP-M Strength Start: 06/08/19 17:47 Freq: Status: Active Protocol: Document 06/08/19 16:45 DCW (Rec: 06/09/19 15:46 DCW [id number]) Trunk Strength Trunk Manual Muscle Testing Core Stabilization Pt demonstrates difficulty with TrA contraction, -3/5 Hip Strength Hip Manual Muscle Testing Right Flexion (L2) 5 Normal Abduction 4 Good Adduction 4- Good- External Rotation 4- Good- Internal Rotation 4 Good Left Flexion (L2) 5 Normal Abduction 4 Good Adduction 4- Good- External Rotation 4+ Good+ Internal Rotation 4+ Good+ Knee Strength Knee Manual Muscle Testing Right Flexion (S2) 4+ Good+ Extension (L3) 4 Good Left Flexion (S2) 4+ Good+ Extension (L3) 4+ Good+ PT-OP-Q Treatments Start: 06/08/19 17:47 Freq: Status: Active Protocol: Document 06/08/19 16:45 DCW (Rec: 06/09/19 15:46 DCW [id number]) Therapeutic Exercises Supine Exercises 1 Supine Exercise Name Piriformis stretch Side right PT-OP-S Aquatic Treatment Start: 06/08/19 17:48 Freq: Status: Active Protocol: Document 06/17/19 11:45 MILLY (Rec: 06/17/19 16:10 MILLY [id number]) Aquatics Treatment Pool Entry/Exit Pool Entry/Exit Method Stairs Assistance Standby Assistance,Verbal Cues Comments slow and guarded Water Walking Sideways Water Level Chest Level Level of Assistance Standby Assistance,Verbal Cues Backwards Water Level Chest Level Level of Assistance Standby Assistance,Verbal Cues Comments small steps Forwards Water Level Chest Level Level of Assistance Standby Assistance,Verbal Cues Comments recriprocal UE/LE difficulty Lower Extremity Exercises Hiip CCW, CW Details hh on wall Body Position Standing Water Level Chest Level Reps/Duration 10x Comments small ROM and gentle [place] Activities [place] Activities Bicycle Other Activities Deep water traction 3# jovana with [place] float x 10 min Equipment lg belt, tether for 2 min Duration 16 min PT-OP-T Assessment and Plan Start: 06/08/19 17:47 Freq: Status: Active Protocol: Document 06/17/19 11:45 MILLY (Rec: 06/17/19 16:10 MILLY [id number]) Physical Therapy Assessment Rehab Potential Rehabilitation Potential Good Impairments Impairments Functional Activities, Functional Mobility,Pain, Posture,ROM,Strength,Tone Goals Four Impairment Pt unable to bend forward without radicular symptoms Retirement Goal (LTG) Pt to improve her lumbar flexion in order for her to bend over and don her sneakers without increased pain. LTG Duration 08/09/19 Three Impairment Pt unable to sit for more than 5 minutes without increased pain Short Term Goal (STG) Pt to tolerate sitting for 30 minutes without an increase in back pain STG Duration 07/09/19 Retirement Goal (LTG) Pt to tolerate sitting 60 minutes without increase back pain, to enable her to drive to [place]. LTG Duration 08/09/19 Two Impairment Pt's walking is limited to 1/2 block Retirement Goal (LTG) Pt to return to walking 1+ miles in the community to return to her hobby of walking down to and around [place]. LTG Duration 08/09/19 One Impairment Pt does not have an appropriate home aquatic exercise program Short Term Goal (STG) Pt to be independent and compliant with an appropriate aquatic HEP STG Duration 07/09/19 Assessment Summary Assessment Pt kept exercise to gentle motion this session. Shows improved coordination when cued. Pt had no report of pain in either shallow or deep water. Physical Therapy Plan Frequency and Duration Frequency of Treatment 2x/Week Duration of Treatment 10 weeks Plan of Care Start Date 06/08/19 Plan of Care End Date 08/17/19 Therapeutic Interventions Therapeutic Interventions Aquatic Therapy,Home Exercise Program,Joint Mobilizations, Manual Therapy,Patient/ Caregiver Education,Self-Care/ Home Management,Soft Tissue Mobilization,Therapeutic Activities,Therapeutic Exercises Modalities Cold Pack/Ice Massage,Electric Stimulation,Hot Packs, Traction- Mechanical, Ultrasound Next Visit Focus/Plan Next Note Type Treatment Note Next Visit Plan If pt without increased pain, increase intensity slowly and add core stabilization exercises as tolerated.
--- NOTE | 2019-06-20 14:02 | PT.OTN ---
Current Diagnoses Radiculopathy, lumbar region (06/17/19) Lumbago with sciatica, right side (06/17/19) Muscle weakness (generalized) (06/17/19) Pain in right leg (06/17/19) Physical Therapy Treatment Note PT-OP-A Visit Information Start: 06/08/19 17:47 Freq: Status: Active Protocol: Document 06/20/19 13:54 SAK (Rec: 06/20/19 14:02 SAK [id number]) Out-Patient Physical Therapy Visit Information Visit Information Visit Type Aquatic Treatment Note Visit Start Time 11:45 Visit Stop Time 12:32 Total Visit Minutes 45 Visit Number 5 Number of DEALER ACCOUNT MANAGER Visits 0 PT-OP-B Current Condition Start: 06/08/19 17:47 Freq: Status: Active Protocol: Document 06/08/19 16:45 DCW (Rec: 06/08/19 17:58 DCW [id number]) Current Condition History of Current Condition Onset Date Three months Current Complaints Lumbar pain with right radicular symptoms History of Current Condition Pt is a 64 year old female presenting to skilled therapy with a three month history of low back pain with associated right leg pain and numbness. Pt reports that she woke up at 3 am in extreme pain three months ago, with no instigating event. Pt notes she spent the next two days just walking around my house, because I couldn't sit. Pt reports she eventually had an MRI, which noted two disc bulges. Pt experiences pain down her posterior right leg, around her lateral malleoli, and into her lateral dorsal foot. Pt has attempted acupuncture, massage, and a chiropractor with minimal relief, and has also had three cortisone injections, which have helped some. Pt also takes Gabapentin and Advil, which seem to help control the pain some. Pt struggles walking more than half a block , and has increased pain with sitting for any length of time , or bending over to pick something up or put shoes on. Prior Treatments and Tests Lumbar MRI: IMPRESSION: 1. Early multilevel degenerative changes. 2. Stenosis is most prominent at L4-5 secondary to disc bulge as well as anterolisthesis and facet/ ligamenta flavum arthropathy. 3. Disc bulge with right foraminal component and likely superimposed small protrusion/extrusion causing compromise of right lateral recess is present at L5-S1. Per: Lakesha Buckley, M.D. on 12/2018 Treatment Goals Patient/Caregiver Goals Decrease pain, avoid surgery, and obtain a good guide for aquatic activities. Prior Functional Status Baseline Function- Gait Walked independently community distances Current Functional Impairments (Reported) Functional Limitations- ADL's Pain with picking anything up off the floor or bending over to don shoes. Functional Limitations- Mobility/Gait Limited to ambulating less than 1/2 block due to pain PT-OP-C Subjective Start: 06/08/19 17:47 Freq: Status: Active Protocol: Document 06/20/19 13:54 SAK (Rec: 06/20/19 14:02 SAK [id number]) OP-PT Subjective Patient Comments Patient Comments Patient reports worst pain when she lays down, better when standing, walking. No pain when in the water; after aquatic PT sessions pain is decreased, reports gradual increase back to baseline 4-5/ 10 by bedtime. PT-OP-F Manual Assessment Start: 06/08/19 17:47 Freq: Status: Active Protocol: Document 06/08/19 16:45 DCW (Rec: 06/09/19 15:46 DCW [id number]) Manual Assessments Soft Tissue Assessment Soft Tissue Mobility Assessment Lumbar paraspinals: Moderate tone and tenderness to palpation 2/4 - pain with wincing Right Piriformis: Severe tone and tenderness to palpation 3/ 4 - wincing and withdraw PT-OP-K Range of Motion Start: 06/08/19 17:47 Freq: Status: Active Protocol: Document 06/08/19 16:45 DCW (Rec: 06/09/19 15:46 DCW [id number]) Lumbar Spine Range of Motion Lumbar Spine Active Degrees Testing Position Standing Flexion 23 Extension 18 Lateral Flexion Left 52 Lateral Flexion Right 53 ROM Limitations Bony Restriction,Muscle Tone, Pain Comments Lateral flexion measured in cm , distance from finger tips to floor PT-OP-L Special Tests Start: 06/08/19 17:47 Freq: Status: Active Protocol: Document 06/08/19 16:45 DCW (Rec: 06/09/19 15:46 DCW [id number]) Special Tests Lumbar Spine Special Tests Prone Knee Flexion Test Results Hip flexor tightness HARRIETT Test Results Negative Straight Leg Raise Test Results HS tightness Comments 35? R, 50? L Standing Flexion Test Results R LE pain Slump Test Results B HS tightness Compression Test Results Positive R radicular PT-OP-M Strength Start: 06/08/19 17:47 Freq: Status: Active Protocol: Document 06/08/19 16:45 DCW (Rec: 06/09/19 15:46 DCW [id number]) Trunk Strength Trunk Manual Muscle Testing Core Stabilization Pt demonstrates difficulty with TrA contraction, -3/5 Hip Strength Hip Manual Muscle Testing Right Flexion (L2) 5 Normal Abduction 4 Good Adduction 4- Good- External Rotation 4- Good- Internal Rotation 4 Good Left Flexion (L2) 5 Normal Abduction 4 Good Adduction 4- Good- External Rotation 4+ Good+ Internal Rotation 4+ Good+ Knee Strength Knee Manual Muscle Testing Right Flexion (S2) 4+ Good+ Extension (L3) 4 Good Left Flexion (S2) 4+ Good+ Extension (L3) 4+ Good+ PT-OP-Q Treatments Start: 06/08/19 17:47 Freq: Status: Active Protocol: Document 06/08/19 16:45 DCW (Rec: 06/09/19 15:46 DCW [id number]) Therapeutic Exercises Supine Exercises 1 Supine Exercise Name Piriformis stretch Side right PT-OP-S Aquatic Treatment Start: 06/08/19 17:48 Freq: Status: Active Protocol: Document 06/20/19 13:54 SAK (Rec: 06/20/19 14:02 SAK [id number]) Aquatics Treatment Pool Entry/Exit Pool Entry/Exit Method Stairs Assistance Standby Assistance,Verbal Cues Comments slow and guarded Water Walking Lunge Walk Level of Assistance Standby Assistance,Verbal Cues Sideways Water Level Chest Level Level of Assistance Standby Assistance,Verbal Cues Backwards Water Level Chest Level Level of Assistance Standby Assistance,Verbal Cues Comments small steps Forwards Water Level Chest Level Level of Assistance Standby Assistance,Verbal Cues Comments recriprocal UE/LE difficulty Lower Extremity Exercises Hiip CCW, CW Details hh on wall Body Position Standing Water Level Chest Level Reps/Duration 10x Comments small ROM and gentle Lower Extremity Stretches HC Comments jovana at pool wall HS Equipment Small Noodle Spinal Exercises Deep water DLS Body Position Standing Water Level [place] Equipment medium barbells, flotation belt L Reps/Duration 6 min [place] Activities [place] Activities Bicycle,Bicycle Backwards Other Activities Deep water traction 5# jovana with [place] float x 10 min Equipment lg belt, Duration 15 min PT-OP-T Assessment and Plan Start: 06/08/19 17:47 Freq: Status: Active Protocol: Document 06/20/19 13:54 [facility] (Rec: 06/20/19 14:02 [facility] [id number]) Physical Therapy Assessment Rehab Potential Rehabilitation Potential Good Impairments Impairments Functional Activities, Functional Mobility,Pain, Posture,ROM,Strength,Tone Goals Four Impairment Pt unable to bend forward without radicular symptoms Gravity Prospecting Observer Goal (LTG) Pt to improve her lumbar flexion in order for her to bend over and don her sneakers without increased pain. LTG Duration 08/09/19 Three Impairment Pt unable to sit for more than 5 minutes without increased pain Short Term Goal (STG) Pt to tolerate sitting for 30 minutes without an increase in back pain STG Duration 07/09/19 Gravity Prospecting Observer Goal (LTG) Pt to tolerate sitting 60 minutes without increase back pain, to enable her to drive to [place]. LTG Duration 08/09/19 Two Impairment Pt's walking is limited to 1/2 block Gravity Prospecting Observer Goal (LTG) Pt to return to walking 1+ miles in the community to return to her hobby of walking down to and around [employer]. LTG Duration 08/09/19 One Impairment Pt does not have an appropriate home aquatic exercise program Short Term Goal (STG) Pt to be independent and compliant with an appropriate aquatic HEP STG Duration 07/09/19 Assessment Summary Assessment Able to increase pace mildly with deep water walking, good response to aquatic therapy with decrease in pain. Physical Therapy Plan Frequency and Duration Frequency of Treatment 2x/Week Duration of Treatment 10 weeks Plan of Care Start Date 06/08/19 Plan of Care End Date 08/17/19 Therapeutic Interventions Therapeutic Interventions Aquatic Therapy,Home Exercise Program,Joint Mobilizations, Manual Therapy,Patient/ Caregiver Education,Self-Care/ Home Management,Soft Tissue Mobilization,Therapeutic Activities,Therapeutic Exercises Modalities Cold Pack/Ice Massage,Electric Stimulation,Hot Packs, Traction- Mechanical, Ultrasound Next Visit Focus/Plan Next Note Type Treatment Note Next Visit Plan Continue to progress as tolerated with aquatic ex, add intervals.
--- NOTE | 2019-06-22 15:31 | PT.OTN ---
Current Diagnoses Radiculopathy, lumbar region (06/22/19) Lumbago with sciatica, right side (06/22/19) Muscle weakness (generalized) (06/22/19) Pain in right leg (06/22/19) Physical Therapy Treatment Note PT-OP-A Visit Information Start: 06/08/19 17:47 Freq: Status: Active Protocol: Document 06/22/19 15:24 SAK (Rec: 06/22/19 15:31 SAK [id number]) Out-Patient Physical Therapy Visit Information Visit Information Visit Type Aquatic Treatment Note Visit Start Time 11:00 Visit Stop Time 11:55 Total Visit Minutes 55 Visit Number 6 Number of SUPERVISOR TELEPHONE CLERKS Visits 0 PT-OP-B Current Condition Start: 06/08/19 17:47 Freq: Status: Active Protocol: Document 06/08/19 16:45 DCW (Rec: 06/08/19 17:58 DCW [id number]) Current Condition History of Current Condition Onset Date Three months Current Complaints Lumbar pain with right radicular symptoms History of Current Condition Pt is a 64 year old female presenting to skilled therapy with a three month history of low back pain with associated right leg pain and numbness. Pt reports that she woke up at 3 am in extreme pain three months ago, with no instigating event. Pt notes she spent the next two days just walking around my house, because I couldn't sit. Pt reports she eventually had an MRI, which noted two disc bulges. Pt experiences pain down her posterior right leg, around her lateral malleoli, and into her lateral dorsal foot. Pt has attempted acupuncture, massage, and a chiropractor with minimal relief, and has also had three cortisone injections, which have helped some. Pt also takes Gabapentin and Advil, which seem to help control the pain some. Pt struggles walking more than half a block , and has increased pain with sitting for any length of time , or bending over to pick something up or put shoes on. Prior Treatments and Tests Lumbar MRI: IMPRESSION: 1. Early multilevel degenerative changes. 2. Stenosis is most prominent at L4-5 secondary to disc bulge as well as anterolisthesis and facet/ ligamenta flavum arthropathy. 3. Disc bulge with right foraminal component and likely superimposed small protrusion/extrusion causing compromise of right lateral recess is present at L5-S1. Per: Lakesha Buckley, M.D. on 12/2018 Treatment Goals Patient/Caregiver Goals Decrease pain, avoid surgery, and obtain a good guide for aquatic activities. Prior Functional Status Baseline Function- Gait Walked independently community distances Current Functional Impairments (Reported) Functional Limitations- ADL's Pain with picking anything up off the floor or bending over to don shoes. Functional Limitations- Mobility/Gait Limited to ambulating less than 1/2 block due to pain PT-OP-C Subjective Start: 06/08/19 17:47 Freq: Status: Active Protocol: Document 06/22/19 15:24 SAK (Rec: 06/22/19 15:31 SAK [id number]) OP-PT Subjective Patient Comments Patient Comments No change after last session. Increased pain today due to not taking any Gabapentin. Is going to try taking Melatonin tonight for sleep due to continued difficulty PT-OP-F Manual Assessment Start: 06/08/19 17:47 Freq: Status: Active Protocol: Document 06/08/19 16:45 DCW (Rec: 06/09/19 15:46 DCW [id number]) Manual Assessments Soft Tissue Assessment Soft Tissue Mobility Assessment Lumbar paraspinals: Moderate tone and tenderness to palpation 2/4 - pain with wincing Right Piriformis: Severe tone and tenderness to palpation 3/ 4 - wincing and withdraw PT-OP-K Range of Motion Start: 06/08/19 17:47 Freq: Status: Active Protocol: Document 06/08/19 16:45 DCW (Rec: 06/09/19 15:46 DCW [id number]) Lumbar Spine Range of Motion Lumbar Spine Active Degrees Testing Position Standing Flexion 23 Extension 18 Lateral Flexion Left 52 Lateral Flexion Right 53 ROM Limitations Bony Restriction,Muscle Tone, Pain Comments Lateral flexion measured in cm , distance from finger tips to floor PT-OP-L Special Tests Start: 06/08/19 17:47 Freq: Status: Active Protocol: Document 06/08/19 16:45 DCW (Rec: 06/09/19 15:46 DCW [id number]) Special Tests Lumbar Spine Special Tests Prone Knee Flexion Test Results Hip flexor tightness HARRIETT Test Results Negative Straight Leg Raise Test Results HS tightness Comments 35? R, 50? L Standing Flexion Test Results R LE pain Slump Test Results B HS tightness Compression Test Results Positive R radicular PT-OP-M Strength Start: 06/08/19 17:47 Freq: Status: Active Protocol: Document 06/08/19 16:45 DCW (Rec: 06/09/19 15:46 DCW [id number]) Trunk Strength Trunk Manual Muscle Testing Core Stabilization Pt demonstrates difficulty with TrA contraction, -3/5 Hip Strength Hip Manual Muscle Testing Right Flexion (L2) 5 Normal Abduction 4 Good Adduction 4- Good- External Rotation 4- Good- Internal Rotation 4 Good Left Flexion (L2) 5 Normal Abduction 4 Good Adduction 4- Good- External Rotation 4+ Good+ Internal Rotation 4+ Good+ Knee Strength Knee Manual Muscle Testing Right Flexion (S2) 4+ Good+ Extension (L3) 4 Good Left Flexion (S2) 4+ Good+ Extension (L3) 4+ Good+ PT-OP-Q Treatments Start: 06/08/19 17:47 Freq: Status: Active Protocol: Document 06/08/19 16:45 DCW (Rec: 06/09/19 15:46 DCW [id number]) Therapeutic Exercises Supine Exercises 1 Supine Exercise Name Piriformis stretch Side right PT-OP-S Aquatic Treatment Start: 06/08/19 17:48 Freq: Status: Active Protocol: Document 06/22/19 15:24 SAK (Rec: 06/22/19 15:31 SAK [id number]) Aquatics Treatment Pool Entry/Exit Pool Entry/Exit Method Stairs Assistance Standby Assistance,Verbal Cues Comments slow and guarded Water Walking Lunge Walk Level of Assistance Standby Assistance,Verbal Cues Sideways Water Level Chest Level Level of Assistance Standby Assistance,Verbal Cues Backwards Water Level Chest Level Level of Assistance Standby Assistance,Verbal Cues Comments small steps Forwards Water Level Chest Level Level of Assistance Standby Assistance,Verbal Cues Comments recriprocal UE/LE difficulty Lower Extremity Exercises nerve flossing HS Body Position Standing Water Level Chest Level Reps/Duration 1 min Comments gentle Hiip CCW, CW Details hh on wall Body Position Standing Water Level Chest Level Reps/Duration 15x Comments small ROM and gentle Lower Extremity Stretches HC Comments jovana at pool wall HS Equipment small ankle floats Comments (pain with small noodle) Spinal Exercises Deep water DLS Body Position Standing Water Level [place] Equipment medium barbells, flotation belt L Reps/Duration 6 min [place] Activities [place] Activities Bicycle,Bicycle Backwards Other Activities Deep water traction 7# jovana with [place] float x 10 min Equipment lg belt, Duration 15 min Comments backwards bicycle painful into LE today PT-OP-T Assessment and Plan Start: 06/08/19 17:47 Freq: Status: Active Protocol: Document 06/22/19 15:24 [facility] (Rec: 06/22/19 15:31 [facility] [id number]) Physical Therapy Assessment Goals Four Impairment Pt unable to bend forward without radicular symptoms Pulverizer Goal (LTG) Pt to improve her lumbar flexion in order for her to bend over and don her sneakers without increased pain. LTG Duration 08/09/19 Three Impairment Pt unable to sit for more than 5 minutes without increased pain Short Term Goal (STG) Pt to tolerate sitting for 30 minutes without an increase in back pain STG Duration 07/09/19 [facility] Goal (LTG) Pt to tolerate sitting 60 minutes without increase back pain, to enable her to drive to [place]. LTG Duration 08/09/19 Two Impairment Pt's walking is limited to 1/2 block [facility] Goal (LTG) Pt to return to walking 1+ miles in the community to return to her hobby of walking down to and around [employer] LTG Duration 08/09/19 One Impairment Pt does not have an appropriate home aquatic exercise program Short Term Goal (STG) Pt to be independent and compliant with an appropriate aquatic HEP STG Duration 07/09/19 Physical Therapy Plan Frequency and Duration Frequency of Treatment 2x/Week Duration of Treatment 10 weeks Plan of Care Start Date 06/08/19 Plan of Care End Date 08/17/19 Therapeutic Interventions Therapeutic Interventions Aquatic Therapy,Home Exercise Program,Joint Mobilizations, Manual Therapy,Patient/ Caregiver Education,Self-Care/ Home Management,Soft Tissue Mobilization,Therapeutic Activities,Therapeutic Exercises Modalities Cold Pack/Ice Massage,Electric Stimulation,Hot Packs, Traction- Mechanical, Ultrasound Next Visit Focus/Plan Next Note Type Treatment Note Next Visit Plan Evaluate response to increase in weight for traction. Consisder manual aquatic therapy treatments. Also feel patient needs to schedule at least a couple land-based PT sessions to establish home program. She continues to see accupuncturist and chiropractor.
--- NOTE | 2019-06-27 15:43 | PT.OTN ---
Current Diagnoses Radiculopathy, lumbar region (06/27/19) Lumbago with sciatica, right side (06/27/19) Muscle weakness (generalized) (06/27/19) Pain in right leg (06/27/19) Physical Therapy Treatment Note PT-OP-A Visit Information Start: 06/08/19 17:47 Freq: Status: Active Protocol: Document 06/27/19 15:38 SAK (Rec: 06/27/19 15:43 SAK [id number]) Out-Patient Physical Therapy Visit Information Visit Information Visit Type Aquatic Treatment Note Visit Start Time 11:00 Visit Stop Time 11:55 Total Visit Minutes 45 Visit Number 7 Number of SCHOOL RESOURCE OFFICER Visits 0 PT-OP-B Current Condition Start: 06/08/19 17:47 Freq: Status: Active Protocol: Document 06/08/19 16:45 DCW (Rec: 06/08/19 17:58 DCW [id number]) Current Condition History of Current Condition Onset Date Three months Current Complaints Lumbar pain with right radicular symptoms History of Current Condition Pt is a 64 year old female presenting to skilled therapy with a three month history of low back pain with associated right leg pain and numbness. Pt reports that she woke up at 3 am in extreme pain three months ago, with no instigating event. Pt notes she spent the next two days just walking around my house, because I couldn't sit. Pt reports she eventually had an MRI, which noted two disc bulges. Pt experiences pain down her posterior right leg, around her lateral malleoli, and into her lateral dorsal foot. Pt has attempted acupuncture, massage, and a chiropractor with minimal relief, and has also had three cortisone injections, which have helped some. Pt also takes Gabapentin and Advil, which seem to help control the pain some. Pt struggles walking more than half a block , and has increased pain with sitting for any length of time , or bending over to pick something up or put shoes on. Prior Treatments and Tests Lumbar MRI: IMPRESSION: 1. Early multilevel degenerative changes. 2. Stenosis is most prominent at L4-5 secondary to disc bulge as well as anterolisthesis and facet/ ligamenta flavum arthropathy. 3. Disc bulge with right foraminal component and likely superimposed small protrusion/extrusion causing compromise of right lateral recess is present at L5-S1. Per: Lakesha Buckley, M.D. on 12/2018 Treatment Goals Patient/Caregiver Goals Decrease pain, avoid surgery, and obtain a good guide for aquatic activities. Prior Functional Status Baseline Function- Gait Walked independently community distances Current Functional Impairments (Reported) Functional Limitations- ADL's Pain with picking anything up off the floor or bending over to don shoes. Functional Limitations- Mobility/Gait Limited to ambulating less than 1/2 block due to pain PT-OP-C Subjective Start: 06/08/19 17:47 Freq: Status: Active Protocol: Document 06/27/19 15:38 SAK (Rec: 06/27/19 15:43 SAK [id number]) OP-PT Subjective Patient Comments Patient Comments Reports she feels she has been better the past few days, feels therapy helpful with less pain including less radicular symptoms. Also reports her blood sugars and blood pressure are decreasing. PT-OP-F Manual Assessment Start: 06/08/19 17:47 Freq: Status: Active Protocol: Document 06/08/19 16:45 DCW (Rec: 06/09/19 15:46 DCW [id number]) Manual Assessments Soft Tissue Assessment Soft Tissue Mobility Assessment Lumbar paraspinals: Moderate tone and tenderness to palpation 2/4 - pain with wincing Right Piriformis: Severe tone and tenderness to palpation 3/ 4 - wincing and withdraw PT-OP-K Range of Motion Start: 06/08/19 17:47 Freq: Status: Active Protocol: Document 06/08/19 16:45 DCW (Rec: 06/09/19 15:46 DCW [id number]) Lumbar Spine Range of Motion Lumbar Spine Active Degrees Testing Position Standing Flexion 23 Extension 18 Lateral Flexion Left 52 Lateral Flexion Right 53 ROM Limitations Bony Restriction,Muscle Tone, Pain Comments Lateral flexion measured in cm , distance from finger tips to floor PT-OP-L Special Tests Start: 06/08/19 17:47 Freq: Status: Active Protocol: Document 06/08/19 16:45 DCW (Rec: 06/09/19 15:46 DCW [id number]) Special Tests Lumbar Spine Special Tests Prone Knee Flexion Test Results Hip flexor tightness HARRIETT Test Results Negative Straight Leg Raise Test Results HS tightness Comments 35? R, 50? L Standing Flexion Test Results R LE pain Slump Test Results B HS tightness Compression Test Results Positive R radicular PT-OP-M Strength Start: 06/08/19 17:47 Freq: Status: Active Protocol: Document 06/08/19 16:45 DCW (Rec: 06/09/19 15:46 DCW [id number]) Trunk Strength Trunk Manual Muscle Testing Core Stabilization Pt demonstrates difficulty with TrA contraction, -3/5 Hip Strength Hip Manual Muscle Testing Right Flexion (L2) 5 Normal Abduction 4 Good Adduction 4- Good- External Rotation 4- Good- Internal Rotation 4 Good Left Flexion (L2) 5 Normal Abduction 4 Good Adduction 4- Good- External Rotation 4+ Good+ Internal Rotation 4+ Good+ Knee Strength Knee Manual Muscle Testing Right Flexion (S2) 4+ Good+ Extension (L3) 4 Good Left Flexion (S2) 4+ Good+ Extension (L3) 4+ Good+ PT-OP-Q Treatments Start: 06/08/19 17:47 Freq: Status: Active Protocol: Document 06/08/19 16:45 DCW (Rec: 06/09/19 15:46 DCW [id number]) Therapeutic Exercises Supine Exercises 1 Supine Exercise Name Piriformis stretch Side right PT-OP-S Aquatic Treatment Start: 06/08/19 17:48 Freq: Status: Active Protocol: Document 06/27/19 15:38 SAK (Rec: 06/27/19 15:43 SAK [id number]) Aquatics Treatment Pool Entry/Exit Pool Entry/Exit Method Stairs Assistance Standby Assistance,Verbal Cues Comments slow and guarded Water Walking Lunge Walk Level of Assistance Standby Assistance,Verbal Cues Sideways Water Level Chest Level Level of Assistance Standby Assistance,Verbal Cues Backwards Water Level Chest Level Level of Assistance Standby Assistance,Verbal Cues Comments small steps Forwards Water Level Chest Level Level of Assistance Standby Assistance,Verbal Cues Lower Extremity Exercises nerve flossing HS Body Position Standing Water Level Chest Level Reps/Duration 1 min Comments gentle Hiip CCW, CW Details hh on wall Body Position Standing Water Level Chest Level Reps/Duration 15x Comments small ROM and gentle Lower Extremity Stretches HC Comments jovana at pool wall HS Equipment small ankle floats Upper Extremity Stretches UE pull downs Details forward jovana, side jovana and unil Equipment med barbells Reps/Duration 10x2 [place] Activities [place] Activities Bicycle Other Activities Deep water traction 7# jovana with [place] float x 10 min Equipment lg belt, Duration 15 min PT-OP-T Assessment and Plan Start: 06/08/19 17:47 Freq: Status: Active Protocol: Document 06/27/19 15:38 [facility] (Rec: 06/27/19 15:43 [facility] [id number]) Physical Therapy Assessment Goals Four Impairment Pt unable to bend forward without radicular symptoms Community Chest Officer Goal (LTG) Pt to improve her lumbar flexion in order for her to bend over and don her sneakers without increased pain. LTG Duration 08/09/19 Three Impairment Pt unable to sit for more than 5 minutes without increased pain Short Term Goal (STG) Pt to tolerate sitting for 30 minutes without an increase in back pain STG Duration 07/09/19 Nursing Home Goal (LTG) Pt to tolerate sitting 60 minutes without increase back pain, to enable her to drive to [place]. LTG Duration 08/09/19 Two Impairment Pt's walking is limited to 1/2 block Community Chest Officer Goal (LTG) Pt to return to walking 1+ miles in the community to return to her hobby of walking down to and around [employer]. LTG Duration 08/09/19 One Impairment Pt does not have an appropriate home aquatic exercise program Short Term Goal (STG) Pt to be independent and compliant with an appropriate aquatic HEP STG Duration 07/09/19 Progress Towards Goals Progress Towards Goals Progressing Toward Goals Assessment Summary Assessment Patient reported decrease in pain, pleased with therapy. Open to land-based PT. Physical Therapy Plan Frequency and Duration Frequency of Treatment 2x/Week Duration of Treatment 10 weeks Plan of Care Start Date 06/08/19 Plan of Care End Date 08/17/19 Therapeutic Interventions Therapeutic Interventions Aquatic Therapy,Home Exercise Program,Joint Mobilizations, Manual Therapy,Patient/ Caregiver Education,Self-Care/ Home Management,Soft Tissue Mobilization,Therapeutic Activities,Therapeutic Exercises Modalities Cold Pack/Ice Massage,Electric Stimulation,Hot Packs, Traction- Mechanical, Ultrasound Next Visit Focus/Plan Next Note Type Treatment Note Next Visit Plan Continue to progress as tolerated with aquatic therapy , transition to land-based PT as tolerated . Trial use of bands for core strengthening.
--- NOTE | 2019-07-01 15:30 | PT.OTN ---
Current Diagnoses Radiculopathy, lumbar region (07/01/19) Lumbago with sciatica, right side (07/01/19) Muscle weakness (generalized) (07/01/19) Pain in right leg (07/01/19) Physical Therapy Treatment Note PT-OP-A Visit Information Start: 06/08/19 17:47 Freq: Status: Active Protocol: Document 07/01/19 11:45 LJ (Rec: 07/01/19 15:29 LJ [id number]) Out-Patient Physical Therapy Visit Information Visit Information Visit Type Aquatic Treatment Note Visit Start Time 11:45 Visit Stop Time 12:30 Total Visit Minutes 45 Visit Number 8 Number of TIRE CENTER SUPERVISOR Visits 1 PT-OP-B Current Condition Start: 06/08/19 17:47 Freq: Status: Active Protocol: Document 06/08/19 16:45 DCW (Rec: 06/08/19 17:58 DCW [id number]) Current Condition History of Current Condition Onset Date Three months Current Complaints Lumbar pain with right radicular symptoms History of Current Condition Pt is a 64 year old female presenting to skilled therapy with a three month history of low back pain with associated right leg pain and numbness. Pt reports that she woke up at 3 am in extreme pain three months ago, with no instigating event. Pt notes she spent the next two days just walking around my house, because I couldn't sit. Pt reports she eventually had an MRI, which noted two disc bulges. Pt experiences pain down her posterior right leg, around her lateral malleoli, and into her lateral dorsal foot. Pt has attempted acupuncture, massage, and a chiropractor with minimal relief, and has also had three cortisone injections, which have helped some. Pt also takes Gabapentin and Advil, which seem to help control the pain some. Pt struggles walking more than half a block , and has increased pain with sitting for any length of time , or bending over to pick something up or put shoes on. Prior Treatments and Tests Lumbar MRI: IMPRESSION: 1. Early multilevel degenerative changes. 2. Stenosis is most prominent at L4-5 secondary to disc bulge as well as anterolisthesis and facet/ ligamenta flavum arthropathy. 3. Disc bulge with right foraminal component and likely superimposed small protrusion/extrusion causing compromise of right lateral recess is present at L5-S1. Per: Lakesha Buckley, M.D. on 12/2018 Treatment Goals Patient/Caregiver Goals Decrease pain, avoid surgery, and obtain a good guide for aquatic activities. Prior Functional Status Baseline Function- Gait Walked independently community distances Current Functional Impairments (Reported) Functional Limitations- ADL's Pain with picking anything up off the floor or bending over to don shoes. Functional Limitations- Mobility/Gait Limited to ambulating less than 1/2 block due to pain PT-OP-C Subjective Start: 06/08/19 17:47 Freq: Status: Active Protocol: Document 07/01/19 11:45 LJ (Rec: 07/01/19 15:29 LJ [id number]) OP-PT Subjective Patient Comments Patient Comments Pt states she is feeling stronger and has greater tolerance for activity. PT-OP-F Manual Assessment Start: 06/08/19 17:47 Freq: Status: Active Protocol: Document 06/08/19 16:45 DCW (Rec: 06/09/19 15:46 DCW [id number]) Manual Assessments Soft Tissue Assessment Soft Tissue Mobility Assessment Lumbar paraspinals: Moderate tone and tenderness to palpation 2/4 - pain with wincing Right Piriformis: Severe tone and tenderness to palpation 3/ 4 - wincing and withdraw PT-OP-K Range of Motion Start: 06/08/19 17:47 Freq: Status: Active Protocol: Document 06/08/19 16:45 DCW (Rec: 06/09/19 15:46 DCW [id number]) Lumbar Spine Range of Motion Lumbar Spine Active Degrees Testing Position Standing Flexion 23 Extension 18 Lateral Flexion Left 52 Lateral Flexion Right 53 ROM Limitations Bony Restriction,Muscle Tone, Pain Comments Lateral flexion measured in cm , distance from finger tips to floor PT-OP-L Special Tests Start: 06/08/19 17:47 Freq: Status: Active Protocol: Document 06/08/19 16:45 DCW (Rec: 06/09/19 15:46 DCW [id number]) Special Tests Lumbar Spine Special Tests Prone Knee Flexion Test Results Hip flexor tightness HARRIETT Test Results Negative Straight Leg Raise Test Results HS tightness Comments 35? R, 50? L Standing Flexion Test Results R LE pain Slump Test Results B HS tightness Compression Test Results Positive R radicular PT-OP-M Strength Start: 06/08/19 17:47 Freq: Status: Active Protocol: Document 06/08/19 16:45 DCW (Rec: 06/09/19 15:46 DCW [id number]) Trunk Strength Trunk Manual Muscle Testing Core Stabilization Pt demonstrates difficulty with TrA contraction, -3/5 Hip Strength Hip Manual Muscle Testing Right Flexion (L2) 5 Normal Abduction 4 Good Adduction 4- Good- External Rotation 4- Good- Internal Rotation 4 Good Left Flexion (L2) 5 Normal Abduction 4 Good Adduction 4- Good- External Rotation 4+ Good+ Internal Rotation 4+ Good+ Knee Strength Knee Manual Muscle Testing Right Flexion (S2) 4+ Good+ Extension (L3) 4 Good Left Flexion (S2) 4+ Good+ Extension (L3) 4+ Good+ PT-OP-Q Treatments Start: 06/08/19 17:47 Freq: Status: Active Protocol: Document 06/08/19 16:45 DCW (Rec: 06/09/19 15:46 DCW [id number]) Therapeutic Exercises Supine Exercises 1 Supine Exercise Name Piriformis stretch Side right PT-OP-S Aquatic Treatment Start: 06/08/19 17:48 Freq: Status: Active Protocol: Document 07/01/19 11:45 LJ (Rec: 07/01/19 15:29 LJ [id number]) Aquatics Treatment Pool Entry/Exit Pool Entry/Exit Method Stairs Assistance Standby Assistance,Verbal Cues Water Walking Sideways Water Level Chest Level Level of Assistance Standby Assistance,Verbal Cues Backwards Water Level Chest Level Level of Assistance Standby Assistance,Verbal Cues Comments small steps Forwards Water Level Chest Level Level of Assistance Standby Assistance,Verbal Cues Comments tactile cueing Lower Extremity Exercises nerve flossing HS Body Position Standing Water Level Chest Level Reps/Duration 1 min Comments gentle Hiip CCW, CW Details hh on wall Body Position Standing Water Level Chest Level Reps/Duration 15x Comments small ROM and gentle Lower Extremity Stretches HC Comments jovana at pool wall HS Equipment small ankle floats Spinal Exercises Deep water DLS Body Position Standing Water Level [place] Equipment medium barbells, flotation belt L Reps/Duration 6 min [place] Activities [place] Activities Bicycle,Cross [place],Running Other Activities pendulums lateral pull downs sm BBs Deep water traction 7# jovana with [place] float x 10 min Equipment lg belt, sm BBs Duration 15 min PT-OP-T Assessment and Plan Start: 06/08/19 17:47 Freq: Status: Active Protocol: Document 07/01/19 11:45 LJ (Rec: 07/01/19 15:29 LJ [id number]) Physical Therapy Assessment Goals Four Impairment Pt unable to bend forward without radicular symptoms Fdc Goal (LTG) Pt to improve her lumbar flexion in order for her to bend over and don her sneakers without increased pain. LTG Duration 08/09/19 Three Impairment Pt unable to sit for more than 5 minutes without increased pain Short Term Goal (STG) Pt to tolerate sitting for 30 minutes without an increase in back pain STG Duration 07/09/19 Fdc Goal (LTG) Pt to tolerate sitting 60 minutes without increase back pain, to enable her to drive to [place]. LTG Duration 08/09/19 Two Impairment Pt's walking is limited to 1/2 block Activities Director Goal (LTG) Pt to return to walking 1+ miles in the community to return to her hobby of walking down to and around [place]. LTG Duration 08/09/19 One Impairment Pt does not have an appropriate home aquatic exercise program Short Term Goal (STG) Pt to be independent and compliant with an appropriate aquatic HEP STG Duration 07/09/19 Progress Towards Goals Progress Towards Goals Progressing Toward Goals Assessment Summary Assessment Pt responded well to postural corection with gait in pool. Increased intensity in deep water w/o increase in pain or symptoms Physical Therapy Plan Frequency and Duration Frequency of Treatment 2x/Week Duration of Treatment 10 weeks Plan of Care Start Date 06/08/19 Plan of Care End Date 08/17/19 Therapeutic Interventions Therapeutic Interventions Aquatic Therapy,Home Exercise Program,Joint Mobilizations, Manual Therapy,Patient/ Caregiver Education,Self-Care/ Home Management,Soft Tissue Mobilization,Therapeutic Activities,Therapeutic Exercises Modalities Cold Pack/Ice Massage,Electric Stimulation,Hot Packs, Traction- Mechanical, Ultrasound Next Visit Focus/Plan Next Note Type Treatment Note Next Visit Plan Continue to progress as tolerated with aquatic therapy , transition to land-based PT as tolerated . Trial use of bands for core strengthening.
--- NOTE | 2019-07-06 16:28 | PT.OTN ---
Current Diagnoses Radiculopathy, lumbar region (07/06/19) Lumbago with sciatica, right side (07/06/19) Muscle weakness (generalized) (07/06/19) Pain in right leg (07/06/19) Physical Therapy Treatment Note PT-OP-A Visit Information Start: 06/08/19 17:47 Freq: Status: Active Protocol: Document 07/06/19 16:21 SAK (Rec: 07/06/19 16:28 SAK [id number]) Out-Patient Physical Therapy Visit Information Visit Information Visit Type Aquatic Treatment Note Visit Start Time 11:45 Visit Stop Time 12:30 Total Visit Minutes 45 Visit Number 9 Number of WHOLESALE ACCOUNT MANAGER Visits 0 PT-OP-B Current Condition Start: 06/08/19 17:47 Freq: Status: Active Protocol: Document 06/08/19 16:45 DCW (Rec: 06/08/19 17:58 DCW [id number]) Current Condition History of Current Condition Onset Date Three months Current Complaints Lumbar pain with right radicular symptoms History of Current Condition Pt is a 64 year old female presenting to skilled therapy with a three month history of low back pain with associated right leg pain and numbness. Pt reports that she woke up at 3 am in extreme pain three months ago, with no instigating event. Pt notes she spent the next two days just walking around my house, because I couldn't sit. Pt reports she eventually had an MRI, which noted two disc bulges. Pt experiences pain down her posterior right leg, around her lateral malleoli, and into her lateral dorsal foot. Pt has attempted acupuncture, massage, and a chiropractor with minimal relief, and has also had three cortisone injections, which have helped some. Pt also takes Gabapentin and Advil, which seem to help control the pain some. Pt struggles walking more than half a block , and has increased pain with sitting for any length of time , or bending over to pick something up or put shoes on. Prior Treatments and Tests Lumbar MRI: IMPRESSION: 1. Early multilevel degenerative changes. 2. Stenosis is most prominent at L4-5 secondary to disc bulge as well as anterolisthesis and facet/ ligamenta flavum arthropathy. 3. Disc bulge with right foraminal component and likely superimposed small protrusion/extrusion causing compromise of right lateral recess is present at L5-S1. Per: Lakesha Buckley, M.D. on 12/2018 Treatment Goals Patient/Caregiver Goals Decrease pain, avoid surgery, and obtain a good guide for aquatic activities. Prior Functional Status Baseline Function- Gait Walked independently community distances Current Functional Impairments (Reported) Functional Limitations- ADL's Pain with picking anything up off the floor or bending over to don shoes. Functional Limitations- Mobility/Gait Limited to ambulating less than 1/2 block due to pain PT-OP-C Subjective Start: 06/08/19 17:47 Freq: Status: Active Protocol: Document 07/06/19 16:21 SAK (Rec: 07/06/19 16:28 SAK [id number]) OP-PT Subjective Patient Comments Patient Comments Reports only using Ibuprofen now, less burning of LE's at night. Still not tolerating sitting very much. PT-OP-F Manual Assessment Start: 06/08/19 17:47 Freq: Status: Active Protocol: Document 06/08/19 16:45 DCW (Rec: 06/09/19 15:46 DCW [id number]) Manual Assessments Soft Tissue Assessment Soft Tissue Mobility Assessment Lumbar paraspinals: Moderate tone and tenderness to palpation 2/4 - pain with wincing Right Piriformis: Severe tone and tenderness to palpation 3/ 4 - wincing and withdraw PT-OP-K Range of Motion Start: 06/08/19 17:47 Freq: Status: Active Protocol: Document 06/08/19 16:45 DCW (Rec: 06/09/19 15:46 DCW [id number]) Lumbar Spine Range of Motion Lumbar Spine Active Degrees Testing Position Standing Flexion 23 Extension 18 Lateral Flexion Left 52 Lateral Flexion Right 53 ROM Limitations Bony Restriction,Muscle Tone, Pain Comments Lateral flexion measured in cm , distance from finger tips to floor PT-OP-L Special Tests Start: 06/08/19 17:47 Freq: Status: Active Protocol: Document 06/08/19 16:45 DCW (Rec: 06/09/19 15:46 DCW [id number]) Special Tests Lumbar Spine Special Tests Prone Knee Flexion Test Results Hip flexor tightness HARRIETT Test Results Negative Straight Leg Raise Test Results HS tightness Comments 35? R, 50? L Standing Flexion Test Results R LE pain Slump Test Results B HS tightness Compression Test Results Positive R radicular PT-OP-M Strength Start: 06/08/19 17:47 Freq: Status: Active Protocol: Document 06/08/19 16:45 DCW (Rec: 06/09/19 15:46 DCW [id number]) Trunk Strength Trunk Manual Muscle Testing Core Stabilization Pt demonstrates difficulty with TrA contraction, -3/5 Hip Strength Hip Manual Muscle Testing Right Flexion (L2) 5 Normal Abduction 4 Good Adduction 4- Good- External Rotation 4- Good- Internal Rotation 4 Good Left Flexion (L2) 5 Normal Abduction 4 Good Adduction 4- Good- External Rotation 4+ Good+ Internal Rotation 4+ Good+ Knee Strength Knee Manual Muscle Testing Right Flexion (S2) 4+ Good+ Extension (L3) 4 Good Left Flexion (S2) 4+ Good+ Extension (L3) 4+ Good+ PT-OP-Q Treatments Start: 06/08/19 17:47 Freq: Status: Active Protocol: Document 06/08/19 16:45 DCW (Rec: 06/09/19 15:46 DCW [id number]) Therapeutic Exercises Supine Exercises 1 Supine Exercise Name Piriformis stretch Side right PT-OP-S Aquatic Treatment Start: 06/08/19 17:48 Freq: Status: Active Protocol: Document 07/06/19 16:21 SAK (Rec: 07/06/19 16:28 SAK [id number]) Aquatics Treatment Pool Entry/Exit Pool Entry/Exit Method Stairs Assistance Standby Assistance,Verbal Cues Water Walking Forwards Water Level Chest Level Level of Assistance Standby Assistance,Verbal Cues Comments tactile cueing Lower Extremity Stretches HC Comments jovana at pool wall HS Equipment small ankle floats Spinal Exercises Deep water DLS Body Position Standing Water Level [place] Equipment medium barbells, flotation belt L Reps/Duration 6 min [place] Activities [place] Activities Bicycle,Cross [place],Running Other Activities pendulums lateral pull downs sm BBs Deep water traction 7# jovana with [place] float x 10 min Equipment lg belt, sm BBs Duration 30 min PT-OP-T Assessment and Plan Start: 06/08/19 17:47 Freq: Status: Active Protocol: Document 07/06/19 16:21 SAK (Rec: 07/06/19 16:28 SAK [id number]) Physical Therapy Assessment Goals Four Impairment Pt unable to bend forward without radicular symptoms [place] [employer] Goal (LTG) Pt to improve her lumbar flexion in order for her to bend over and don her sneakers without increased pain. LTG Duration 08/09/19 Three Impairment Pt unable to sit for more than 5 minutes without increased pain Short Term Goal (STG) Pt to tolerate sitting for 30 minutes without an increase in back pain STG Duration 07/09/19 Half-Way Goal (LTG) Pt to tolerate sitting 60 minutes without increase back pain, to enable her to drive to [place]. LTG Duration 08/09/19 Two Impairment Pt's walking is limited to 1/2 block Half-Way Goal (LTG) Pt to return to walking 1+ miles in the community to return to her hobby of walking down to and around [place]. LTG Duration 08/09/19 One Impairment Pt does not have an appropriate home aquatic exercise program Short Term Goal (STG) Pt to be independent and compliant with an appropriate aquatic HEP STG Duration 07/09/19 Progress Towards Goals Progress Towards Goals Progressing Toward Goals Assessment Summary Assessment Pt responded well to postural corection with gait in pool. Increased intensity in deep water w/o increase in pain or symptoms Physical Therapy Plan Frequency and Duration Frequency of Treatment 2x/Week Duration of Treatment 10 weeks Plan of Care Start Date 06/08/19 Plan of Care End Date 08/17/19 Therapeutic Interventions Therapeutic Interventions Aquatic Therapy,Home Exercise Program,Joint Mobilizations, Manual Therapy,Patient/ Caregiver Education,Self-Care/ Home Management,Soft Tissue Mobilization,Therapeutic Activities,Therapeutic Exercises Modalities Cold Pack/Ice Massage,Electric Stimulation,Hot Packs, Traction- Mechanical, Ultrasound Next Visit Focus/Plan Next Note Type Treatment Note Next Visit Plan Discussed POC for 1x/wk aquatic, 1x/wk land-based PT; will schedule.
--- NOTE | 2019-07-13 15:13 | PT.OTN ---
Current Diagnoses Radiculopathy, lumbar region (07/13/19) Lumbago with sciatica, right side (07/13/19) Muscle weakness (generalized) (07/13/19) Pain in right leg (07/13/19) Physical Therapy Treatment Note PT-OP-A Visit Information Start: 06/08/19 17:47 Freq: Status: Active Protocol: Document 07/13/19 11:45 LJ (Rec: 07/13/19 15:12 LJ [email or web address]) Out-Patient Physical Therapy Visit Information Visit Information Visit Type Aquatic Treatment Note Visit Start Time 11:45 Visit Stop Time 12:30 Total Visit Minutes 45 Visit Number 11 Number of TACK PICKER Visits 1 PT-OP-B Current Condition Start: 06/08/19 17:47 Freq: Status: Active Protocol: Document 06/08/19 16:45 DCW (Rec: 06/08/19 17:58 DCW [id number]) Current Condition History of Current Condition Onset Date Three months Current Complaints Lumbar pain with right radicular symptoms History of Current Condition Pt is a 64 year old female presenting to skilled therapy with a three month history of low back pain with associated right leg pain and numbness. Pt reports that she woke up at 3 am in extreme pain three months ago, with no instigating event. Pt notes she spent the next two days just walking around my house, because I couldn't sit. Pt reports she eventually had an MRI, which noted two disc bulges. Pt experiences pain down her posterior right leg, around her lateral malleoli, and into her lateral dorsal foot. Pt has attempted acupuncture, massage, and a chiropractor with minimal relief, and has also had three cortisone injections, which have helped some. Pt also takes Gabapentin and Advil, which seem to help control the pain some. Pt struggles walking more than half a block , and has increased pain with sitting for any length of time , or bending over to pick something up or put shoes on. Prior Treatments and Tests Lumbar MRI: IMPRESSION: 1. Early multilevel degenerative changes. 2. Stenosis is most prominent at L4-5 secondary to disc bulge as well as anterolisthesis and facet/ ligamenta flavum arthropathy. 3. Disc bulge with right foraminal component and likely superimposed small protrusion/extrusion causing compromise of right lateral recess is present at L5-S1. Per: Lakesha Buckley M.D. on 12/2018 Treatment Goals Patient/Caregiver Goals Decrease pain, avoid surgery, and obtain a good guide for aquatic activities. Prior Functional Status Baseline Function- Gait Walked independently community distances Current Functional Impairments (Reported) Functional Limitations- ADL's Pain with picking anything up off the floor or bending over to don shoes. Functional Limitations- Mobility/Gait Limited to ambulating less than 1/2 block due to pain PT-OP-C Subjective Start: 06/08/19 17:47 Freq: Status: Active Protocol: Document 07/13/19 11:45 LJ (Rec: 07/13/19 15:12 LJ [email or web address]) OP-PT Subjective Patient Comments Patient Comments Pt reports still having pain but she modifies her activity and is able to tolerate it. States she is feeling better than before therapy PT-OP-F Manual Assessment Start: 06/08/19 17:47 Freq: Status: Active Protocol: Document 06/08/19 16:45 DCW (Rec: 06/09/19 15:46 DCW [id number]) Manual Assessments Soft Tissue Assessment Soft Tissue Mobility Assessment Lumbar paraspinals: Moderate tone and tenderness to palpation 2/4 - pain with wincing Right Piriformis: Severe tone and tenderness to palpation 3/ 4 - wincing and withdraw PT-OP-K Range of Motion Start: 06/08/19 17:47 Freq: Status: Active Protocol: Document 06/08/19 16:45 DCW (Rec: 06/09/19 15:46 DCW [id number]) Lumbar Spine Range of Motion Lumbar Spine Active Degrees Testing Position Standing Flexion 23 Extension 18 Lateral Flexion Left 52 Lateral Flexion Right 53 ROM Limitations Bony Restriction,Muscle Tone, Pain Comments Lateral flexion measured in cm , distance from finger tips to floor PT-OP-L Special Tests Start: 06/08/19 17:47 Freq: Status: Active Protocol: Document 06/08/19 16:45 DCW (Rec: 06/09/19 15:46 DCW [id number]) Special Tests Lumbar Spine Special Tests Prone Knee Flexion Test Results Hip flexor tightness HARRIETT Test Results Negative Straight Leg Raise Test Results HS tightness Comments 35? R, 50? L Standing Flexion Test Results R LE pain Slump Test Results B HS tightness Compression Test Results Positive R radicular PT-OP-M Strength Start: 06/08/19 17:47 Freq: Status: Active Protocol: Document 06/08/19 16:45 DCW (Rec: 06/09/19 15:46 DCW [id number]) Trunk Strength Trunk Manual Muscle Testing Core Stabilization Pt demonstrates difficulty with TrA contraction, -3/5 Hip Strength Hip Manual Muscle Testing Right Flexion (L2) 5 Normal Abduction 4 Good Adduction 4- Good- External Rotation 4- Good- Internal Rotation 4 Good Left Flexion (L2) 5 Normal Abduction 4 Good Adduction 4- Good- External Rotation 4+ Good+ Internal Rotation 4+ Good+ Knee Strength Knee Manual Muscle Testing Right Flexion (S2) 4+ Good+ Extension (L3) 4 Good Left Flexion (S2) 4+ Good+ Extension (L3) 4+ Good+ PT-OP-Q Treatments Start: 06/08/19 17:47 Freq: Status: Active Protocol: Document 06/08/19 16:45 DCW (Rec: 06/09/19 15:46 DCW [id number]) Therapeutic Exercises Supine Exercises 1 Supine Exercise Name Piriformis stretch Side right PT-OP-S Aquatic Treatment Start: 06/08/19 17:48 Freq: Status: Active Protocol: Document 07/13/19 11:45 MILLY (Rec: 07/13/19 15:12 [email or web address] [email or web address]) Aquatics Treatment Pool Entry/Exit Pool Entry/Exit Method Stairs Assistance Independent Water Walking Forwards Water Level Chest Level Level of Assistance Standby Assistance,Verbal Cues Comments tactile cueing Spinal Exercises Deep water DLS Body Position Standing Water Level Pablo Equipment medium barbells, flotation belt L Comments throughout session in deep Pablo Activities Pablo Activities Bicycle,Cross Country,Running Other Activities pendulums lateral pull downs sm BBs plank with sm BBs Deep water traction 7# jovana with takotna float x 10 min Equipment lg belt, sm BBs Duration 36 min PT-OP-T Assessment and Plan Start: 06/08/19 17:47 Freq: Status: Active Protocol: Document 07/13/19 11:45 MILLY (Rec: 07/13/19 15:12 LJ [email or web address]) Physical Therapy Assessment Goals Four Impairment Pt unable to bend forward without radicular symptoms [facility] Goal (LTG) Pt to improve her lumbar flexion in order for her to bend over and don her sneakers without increased pain. LTG Duration 08/09/19 Three Impairment Pt unable to sit for more than 5 minutes without increased pain Short Term Goal (STG) Pt to tolerate sitting for 30 minutes without an increase in back pain STG Duration 07/09/19 [facility] Goal (LTG) Pt to tolerate sitting 60 minutes without increase back pain, to enable her to drive to [place]. LTG Duration 08/09/19 Two Impairment Pt's walking is limited to 1/2 block [facility] Goal (LTG) Pt to return to walking 1+ miles in the community to return to her hobby of walking down to and around [employer]. LTG Duration 08/09/19 One Impairment Pt does not have an appropriate home aquatic exercise program Short Term Goal (STG) Pt to be independent and compliant with an appropriate aquatic HEP STG Duration 07/09/19 Progress Towards Goals Progress Towards Goals Progressing Toward Goals Assessment Summary Assessment Good tolerance to deep water exercises. Spinal stabilization exercise in plank position was challenging for pt. Cueing for muscle activation Physical Therapy Plan Frequency and Duration Frequency of Treatment 2x/Week Duration of Treatment 10 weeks Plan of Care Start Date 06/08/19 Plan of Care End Date 08/17/19 Therapeutic Interventions Therapeutic Interventions Aquatic Therapy,Home Exercise Program,Joint Mobilizations, Manual Therapy,Patient/ Caregiver Education,Self-Care/ Home Management,Soft Tissue Mobilization,Therapeutic Activities,Therapeutic Exercises Modalities Cold Pack/Ice Massage,Electric Stimulation,Hot Packs, Traction- Mechanical, Ultrasound Next Visit Focus/Plan Next Note Type Treatment Note Next Visit Plan Continue PT per POC with combination land and aquatic- based PT.
--- NOTE | 2019-08-16 16:24 | PT.OTN ---
Current Diagnoses Radiculopathy, lumbar region (08/16/19) Lumbago with sciatica, right side (08/16/19) Muscle weakness (generalized) (08/16/19) Pain in right leg (08/16/19) Physical Therapy Treatment Note PT-OP-A Visit Information Start: 06/08/19 17:47 Freq: Status: Active Protocol: Document 08/16/19 09:14 SAK (Rec: 08/16/19 09:44 SAK [id number]) Out-Patient Physical Therapy Visit Information Visit Information Visit Type Treatment Note Visit Start Time 09:05 Visit Stop Time 09:45 Total Visit Minutes 40 Visit Number 12 Number of POLICE CADET Visits 0 PT-OP-B Current Condition Start: 06/08/19 17:47 Freq: Status: Active Protocol: Document 06/08/19 16:45 DCW (Rec: 06/08/19 17:58 DCW [id number]) Current Condition History of Current Condition Onset Date Three months Current Complaints Lumbar pain with right radicular symptoms History of Current Condition Pt is a 64 year old female presenting to skilled therapy with a three month history of low back pain with associated right leg pain and numbness. Pt reports that she woke up at 3 am in extreme pain three months ago, with no instigating event. Pt notes she spent the next two days just walking around my house, because I couldn't sit. Pt reports she eventually had an MRI, which noted two disc bulges. Pt experiences pain down her posterior right leg, around her lateral malleoli, and into her lateral dorsal foot. Pt has attempted acupuncture, massage, and a chiropractor with minimal relief, and has also had three cortisone injections, which have helped some. Pt also takes Gabapentin and Advil, which seem to help control the pain some. Pt struggles walking more than half a block , and has increased pain with sitting for any length of time , or bending over to pick something up or put shoes on. Prior Treatments and Tests Lumbar MRI: IMPRESSION: 1. Early multilevel degenerative changes. 2. Stenosis is most prominent at L4-5 secondary to disc bulge as well as anterolisthesis and facet/ ligamenta flavum arthropathy. 3. Disc bulge with right foraminal component and likely superimposed small protrusion/extrusion causing compromise of right lateral recess is present at L5-S1. Per: Lakesha Buckley M.D. on 12/2018 Treatment Goals Patient/Caregiver Goals Decrease pain, avoid surgery, and obtain a good guide for aquatic activities. Prior Functional Status Baseline Function- Gait Walked independently community distances Current Functional Impairments (Reported) Functional Limitations- ADL's Pain with picking anything up off the floor or bending over to don shoes. Functional Limitations- Mobility/Gait Limited to ambulating less than 1/2 block due to pain PT-OP-C Subjective Start: 06/08/19 17:47 Freq: Status: Active Protocol: Document 08/16/19 09:14 [facility] (Rec: 08/16/19 09:44 [facility] [id number]) OP-PT Subjective Patient Comments Patient Comments Reports she had been doing better, but recent increase in pain possibily due to wearing different shoes and not exercising as much. States she stayed at a place with a pool while on vacation and was in it most every day plus did a lot of walking. Has been home a couple weeks, but hasn' t been as compliant. Pain mostly central low back today. PT-OP-F Manual Assessment Start: 06/08/19 17:47 Freq: Status: Active Protocol: Document 06/08/19 16:45 DCW (Rec: 06/09/19 15:46 DCW [id number]) Manual Assessments Soft Tissue Assessment Soft Tissue Mobility Assessment Lumbar paraspinals: Moderate tone and tenderness to palpation 2/4 - pain with wincing Right Piriformis: Severe tone and tenderness to palpation 3/ 4 - wincing and withdraw PT-OP-K Range of Motion Start: 06/08/19 17:47 Freq: Status: Active Protocol: Document 08/16/19 09:14 [facility] (Rec: 08/16/19 09:44 [facility] [id number]) Lumbar Spine Range of Motion Lumbar Spine Active Degrees Testing Position Standing Flexion 35 Extension 15 Lateral Flexion Left 50 Lateral Flexion Right 50 ROM Limitations Bony Restriction,Muscle Tone, Pain Comments Lateral flexion measured in cm , distance from finger tips to floor PT-OP-L Special Tests Start: 06/08/19 17:47 Freq: Status: Active Protocol: Document 06/08/19 16:45 DCW (Rec: 06/09/19 15:46 DCW [id number]) Special Tests Lumbar Spine Special Tests Prone Knee Flexion Test Results Hip flexor tightness HARRIETT Test Results Negative Straight Leg Raise Test Results HS tightness Comments 35? R, 50? L Standing Flexion Test Results R LE pain Slump Test Results B HS tightness Compression Test Results Positive R radicular PT-OP-M Strength Start: 06/08/19 17:47 Freq: Status: Active Protocol: Document 06/08/19 16:45 DCW (Rec: 06/09/19 15:46 DCW [id number]) Trunk Strength Trunk Manual Muscle Testing Core Stabilization Pt demonstrates difficulty with TrA contraction, -3/5 Hip Strength Hip Manual Muscle Testing Right Flexion (L2) 5 Normal Abduction 4 Good Adduction 4- Good- External Rotation 4- Good- Internal Rotation 4 Good Left Flexion (L2) 5 Normal Abduction 4 Good Adduction 4- Good- External Rotation 4+ Good+ Internal Rotation 4+ Good+ Knee Strength Knee Manual Muscle Testing Right Flexion (S2) 4+ Good+ Extension (L3) 4 Good Left Flexion (S2) 4+ Good+ Extension (L3) 4+ Good+ PT-OP-Q Treatments Start: 06/08/19 17:47 Freq: Status: Active Protocol: Document 08/16/19 09:14 SAK (Rec: 08/16/19 09:44 SAK [id number]) Cardio Equipment Recumbent Stepper (Sci-Fit) Duration (Minutes) 5 Resistance 1 Seat Position 10 Therapeutic Exercises Supine Exercises TrA with hip ab/ER Resistance L2 TB Reps/Minutes 10x TrA with ball squeeze Reps/Minutes 10x SKTC Reps/Minutes 2x 30 hamstring stretch Reps/Minutes 2x 30 1 Supine Exercise Name Piriformis stretch Reps/Minutes 2x 30 Standing Exercises HC stretch Reps/Minutes 2x Manual Therapy Treatment Manual Traction Lumbar Details strap Body Position Hooklying Reps/Duration 10 min Comments 30 hold, 10 sec release PT-OP-S Aquatic Treatment Start: 06/08/19 17:48 Freq: Status: Active Protocol: Document 07/13/19 11:45 MILLY (Rec: 07/13/19 15:12 LJ [id number]) Aquatics Treatment Pool Entry/Exit Pool Entry/Exit Method Stairs Assistance Independent Water Walking Forwards Water Level Chest Level Level of Assistance Standby Assistance,Verbal Cues Comments tactile cueing Spinal Exercises Deep water DLS Body Position Standing Water Level [place] Equipment medium barbells, flotation belt L Comments throughout session in deep [place] Activities [place] Activities Bicycle,Cross Country,Running Other Activities pendulums lateral pull downs sm BBs plank with sm BBs Deep water traction 7# jovana with [place] float x 10 min Equipment lg belt, sm BBs Duration 36 min PT-OP-T Assessment and Plan Start: 06/08/19 17:47 Freq: Status: Active Protocol: Document 08/16/19 09:14 [facility] (Rec: 08/16/19 09:44 [facility] [id number]) Physical Therapy Assessment Goals Four Impairment Pt unable to bend forward without radicular symptoms Heating Worker Goal (LTG) Pt to improve her lumbar flexion in order for her to bend over and don her sneakers without increased pain. 08/16/19: goal progress LTG Duration 09/27/19 Three Impairment Pt unable to sit for more than 5 minutes without increased pain Short Term Goal (STG) Pt to tolerate sitting for 30 minutes without an increase in back pain STG Duration goal met Heating Worker Goal (LTG) Pt to tolerate sitting 60 minutes without increase back pain, to enable her to drive to [place] 08/16/19: goal progress LTG Duration 09/27/19 Two Impairment Pt's walking is limited to 1/2 block Mcc Goal (LTG) Pt to return to walking 1+ miles in the community to return to her hobby of walking down to and around [place]. 08/16/19: goal progress LTG Duration 09/27/19 One Impairment Pt does not have an appropriate home aquatic exercise program Short Term Goal (STG) Pt to be independent and compliant with an appropriate aquatic HEP 08/16/19: good goal progress Mcc Goal (LTG) Independent and compliant with land-based HEP 08/15/19: some goal progress LTG Duration 09/27/19 Progress Towards Goals Progress Towards Goals Progressing Toward Goals Assessment Summary Assessment Patient had been making good progress toward goals especially with recent ability to be in a pool daily, she noted an increased ability to walk. Increase in pain the past couple days likely due to footwear as well as decreased activity level and no aquatic exercise. She has the potential to progress with both her therapeutic aquatic exercises and land-based exercise program for long-term fitness and pain management. Recommend further PT. Physical Therapy Plan Frequency and Duration Frequency of Treatment 2x/Week Duration of Treatment 6 wks Plan of Care Start Date 08/16/19 Plan of Care End Date 09/27/19 Therapeutic Interventions Therapeutic Interventions Aquatic Therapy,Home Exercise Program,Joint Mobilizations, Manual Therapy,Patient/ Caregiver Education,Self-Care/ Home Management,Soft Tissue Mobilization,Therapeutic Activities,Therapeutic Exercises Modalities Cold Pack/Ice Massage,Electric Stimulation,Hot Packs, Traction- Mechanical, Ultrasound Next Visit Focus/Plan Next Note Type Treatment Note Next Visit Plan Continue PT per POC with combination land and aquatic- based PT.
--- NOTE | 2019-08-16 16:24 | PT.OPPOC ---
Physical, Occupational & Speech Therapy At [facility] Current Diagnoses Radiculopathy, lumbar region (08/16/19) Lumbago with sciatica, right side (08/16/19) Muscle weakness (generalized) (08/16/19) Pain in right leg (08/16/19) Visit Care Team Role Provider Type Josephine Montoya MD Attending Provider Physician Primary Care Provider Specialty: Family Practice Address: [address] [place] [address] [place], [facility] Email: [email or web address] Plan Of Care PT-OP-T Assessment and Plan Start: 06/08/19 17:47 Freq: Status: Active Protocol: Document 08/16/19 09:14 [facility] (Rec: 08/16/19 09:44 [facility] [id number]) Physical Therapy Assessment Goals Four Impairment Pt unable to bend forward without radicular symptoms Penitentiary Goal (LTG) Pt to improve her lumbar flexion in order for her to bend over and don her sneakers without increased pain. 08/16/19: goal progress LTG Duration 09/27/19 Three Impairment Pt unable to sit for more than 5 minutes without increased pain Short Term Goal (STG) Pt to tolerate sitting for 30 minutes without an increase in back pain STG Duration goal met Cable Operator Goal (LTG) Pt to tolerate sitting 60 minutes without increase back pain, to enable her to drive to [place] 08/16/19: goal progress LTG Duration 09/27/19 Two Impairment Pt's walking is limited to 1/2 block Cable Operator Goal (LTG) Pt to return to walking 1+ miles in the community to return to her hobby of walking down to and around [place]. 08/16/19: goal progress LTG Duration 09/27/19 One Impairment Pt does not have an appropriate home aquatic exercise program Short Term Goal (STG) Pt to be independent and compliant with an appropriate aquatic HEP 08/16/19: good goal progress Cable Operator Goal (LTG) Independent and compliant with land-based HEP 08/15/19: some goal progress LTG Duration 09/27/19 Progress Towards Goals Progress Towards Goals Progressing Toward Goals Assessment Summary Assessment Patient had been making good progress toward goals especially with recent ability to be in a pool daily, she noted an increased ability to walk. Increase in pain the past couple days likely due to footwear as well as decreased activity level and no aquatic exercise. She has the potential to progress with both her therapeutic aquatic exercises and land-based exercise program for long-term fitness and pain management. Recommend further PT. Physical Therapy Plan Frequency and Duration Frequency of Treatment 2x/Week Duration of Treatment 6 wks Plan of Care Start Date 08/16/19 Plan of Care End Date 09/27/19 Therapeutic Interventions Therapeutic Interventions Aquatic Therapy,Home Exercise Program,Joint Mobilizations, Manual Therapy,Patient/ Caregiver Education,Self-Care/ Home Management,Soft Tissue Mobilization,Therapeutic Activities,Therapeutic Exercises Modalities Cold Pack/Ice Massage,Electric Stimulation,Hot Packs, Traction- Mechanical, Ultrasound Next Visit Focus/Plan Next Note Type Treatment Note Next Visit Plan Continue PT per POC with combination land and aquatic- based PT. Plan of Care Dates Plan of Care Start Date 08/16/19 Plan of Care End Date 09/27/19 Electronically Signed by: Tiffany Manley, PT 08/16/19 [id number] Please Sign and Return: I have reviewed this Plan of Care and certify that the skilled therapy services above are required to meet the patient?s needs. Physician Signature Date Printed Name and Credentials Clinical Instructor Signature Printed Name and Credentials
--- NOTE | 2019-08-16 16:51 | PT.OTRE ---
Current Diagnoses Radiculopathy, lumbar region (08/24/19) Lumbago with sciatica, right side (08/24/19) Muscle weakness (generalized) (08/24/19) Pain in right leg (08/24/19) Past Medical History (Last Reviewed 07/23/19 @ 23:54 by Jerson Heredia DO) Diabetes (Acute) History of chemotherapy (Acute) History of malignant neoplasm of breast (Chronic 12/13/15) HTN (hypertension) (Acute) Hypothyroidism (Acute) Lumbar back pain with radiculopathy affecting right lower extremity (Acute) Renal colic on left side (Acute) Ureterolithiasis (Acute) Surgical History (Last Reviewed 07/23/19 @ 23:54 by Jerson Heredia DO) History of lithotripsy History of tonsillectomy History of total mastectomy Visit Care Team Role Provider Type Josephine Montoya MD Attending Provider Physician Primary Care Provider Specialty: [facility] Address: [address] [place] [address], [facility] Email: [email or web address] Physical Therapy Re-Evaluation PT-OP-A Visit Information Start: 06/08/19 17:47 Freq: Status: Active Protocol: Document 08/24/19 12:30 SAK (Rec: 08/24/19 16:47 SAK [id number]) Out-Patient Physical Therapy Visit Information Visit Information Visit Type Aquatic Treatment Note Visit Start Time 12:30 Visit Stop Time 13:15 Total Visit Minutes 45 Visit Number 15 Number of CUTTING MACHINE TENDER HELPER Visits 0 PT-OP-B Current Condition Start: 06/08/19 17:47 Freq: Status: Active Protocol: Document 06/08/19 16:45 DCW (Rec: 06/08/19 17:58 DCW [id number]) Current Condition History of Current Condition Onset Date Three months Current Complaints Lumbar pain with right radicular symptoms History of Current Condition Pt is a 64 year old female presenting to skilled therapy with a three month history of low back pain with associated right leg pain and numbness. Pt reports that she woke up at 3 am in extreme pain three months ago, with no instigating event. Pt notes she spent the next two days just walking around my house, because I couldn't sit. Pt reports she eventually had an MRI, which noted two disc bulges. Pt experiences pain down her posterior right leg, around her lateral malleoli, and into her lateral dorsal foot. Pt has attempted acupuncture, massage, and a chiropractor with minimal relief, and has also had three cortisone injections, which have helped some. Pt also takes Gabapentin and Advil, which seem to help control the pain some. Pt struggles walking more than half a block , and has increased pain with sitting for any length of time , or bending over to pick something up or put shoes on. Prior Treatments and Tests Lumbar MRI: IMPRESSION: 1. Early multilevel degenerative changes. 2. Stenosis is most prominent at L4-5 secondary to disc bulge as well as anterolisthesis and facet/ ligamenta flavum arthropathy. 3. Disc bulge with right foraminal component and likely superimposed small protrusion/extrusion causing compromise of right lateral recess is present at L5-S1. Per: Lakesha Buckley M.D. on 12/2018 Treatment Goals Patient/Caregiver Goals Decrease pain, avoid surgery, and obtain a good guide for aquatic activities. Prior Functional Status Baseline Function- Gait Walked independently community distances Current Functional Impairments (Reported) Functional Limitations- ADL's Pain with picking anything up off the floor or bending over to don shoes. Functional Limitations- Mobility/Gait Limited to ambulating less than 1/2 block due to pain PT-OP-C Subjective Start: 06/08/19 17:47 Freq: Status: Active Protocol: Document 08/24/19 12:30 SAK (Rec: 08/24/19 16:47 [facility] [id number]) OP-PT Subjective Patient Comments Patient Comments Feels much better when able to do her exercises especially aquatic exercises. PT-OP-F Manual Assessment Start: 06/08/19 17:47 Freq: Status: Active Protocol: Document 06/08/19 16:45 DCW (Rec: 06/09/19 15:46 DCW [id number]) Manual Assessments Soft Tissue Assessment Soft Tissue Mobility Assessment Lumbar paraspinals: Moderate tone and tenderness to palpation 2/4 - pain with wincing Right Piriformis: Severe tone and tenderness to palpation 3/ 4 - wincing and withdraw PT-OP-K Range of Motion Start: 06/08/19 17:47 Freq: Status: Active Protocol: Document 08/16/19 09:14 SAK (Rec: 08/16/19 09:44 SAK [id number]) Lumbar Spine Range of Motion Lumbar Spine Active Degrees Testing Position Standing Flexion 35 Extension 15 Lateral Flexion Left 50 Lateral Flexion Right 50 ROM Limitations Bony Restriction,Muscle Tone, Pain Comments Lateral flexion measured in cm , distance from finger tips to floor PT-OP-L Special Tests Start: 06/08/19 17:47 Freq: Status: Active Protocol: Document 06/08/19 16:45 DCW (Rec: 06/09/19 15:46 DCW [id number]) Special Tests Lumbar Spine Special Tests Prone Knee Flexion Test Results Hip flexor tightness HARRIETT Test Results Negative Straight Leg Raise Test Results HS tightness Comments 35? R, 50? L Standing Flexion Test Results R LE pain Slump Test Results B HS tightness Compression Test Results Positive R radicular PT-OP-M Strength Start: 06/08/19 17:47 Freq: Status: Active Protocol: Document 06/08/19 16:45 DCW (Rec: 06/09/19 15:46 DCW [id number]) Trunk Strength Trunk Manual Muscle Testing Core Stabilization Pt demonstrates difficulty with TrA contraction, -3/5 Hip Strength Hip Manual Muscle Testing Right Flexion (L2) 5 Normal Abduction 4 Good Adduction 4- Good- External Rotation 4- Good- Internal Rotation 4 Good Left Flexion (L2) 5 Normal Abduction 4 Good Adduction 4- Good- External Rotation 4+ Good+ Internal Rotation 4+ Good+ Knee Strength Knee Manual Muscle Testing Right Flexion (S2) 4+ Good+ Extension (L3) 4 Good Left Flexion (S2) 4+ Good+ Extension (L3) 4+ Good+ PT-OP-Q Treatments Start: 06/08/19 17:47 Freq: Status: Active Protocol: Document 08/22/19 10:37 SP (Rec: 08/22/19 11:31 SP [id number]) Cardio Equipment Recumbent Stepper (Sci-Fit) Duration (Minutes) 5 Resistance 1 Seat Position 10 Therapeutic Exercises Supine Exercises TrA with hip ab/ER Resistance L2 TB Reps/Minutes 10x SKTC Supine Exercise Name SKTC, DKTC Reps/Minutes 2x 30 1 Supine Exercise Name Piriformis stretch Reps/Minutes 2x 30 Standing Exercises heel/toe raises Equipment Used rail contact Reps/Minutes x10 calf stretch Equipment Used ELMA Reps/Minutes 30 x3 Comments discussed of step too an option PT-OP-T Assessment and Plan Start: 06/08/19 17:47 Freq: Status: Active Protocol: Document 08/24/19 16:47 [facility] (Rec: 08/24/19 16:50 [facility] [id number]) Physical Therapy Assessment Goals Four Impairment Pt unable to bend forward without radicular symptoms Shelter Goal (LTG) Pt to improve her lumbar flexion in order for her to bend over and don her sneakers without increased pain. 08/16/19: goal progress LTG Duration 09/27/19 Three Impairment Pt unable to sit for more than 5 minutes without increased pain Short Term Goal (STG) Pt to tolerate sitting for 30 minutes without an increase in back pain STG Duration goal met Portuguese Tutor Goal (LTG) Pt to tolerate sitting 60 minutes without increase back pain, to enable her to drive to [place] 08/16/19: goal progress LTG Duration 09/27/19 Two Impairment Pt's walking is limited to 1/2 block Portuguese Tutor Goal (LTG) Pt to return to walking 1+ miles in the community to return to her hobby of walking down to and around [place]. 08/16/19: goal progress LTG Duration 09/27/19 One Impairment Pt does not have an appropriate home aquatic exercise program Short Term Goal (STG) Pt to be independent and compliant with an appropriate aquatic HEP 08/16/19: good goal progress Portuguese Tutor Goal (LTG) Independent and compliant with land-based HEP 08/15/19: some goal progress LTG Duration 09/27/19 Progress Towards Goals Progress Towards Goals Progressing Toward Goals Assessment Summary Assessment Patient continues to progress well with HEP and aquatic therapy program. Good potential for further improvement with further therapy. Physical Therapy Plan Frequency and Duration Frequency of Treatment 2x/Week Duration of Treatment 6 wks Plan of Care Start Date 08/16/19 Plan of Care End Date 09/27/19 Therapeutic Interventions Therapeutic Interventions Aquatic Therapy,Home Exercise Program,Joint Mobilizations, Manual Therapy,Patient/ Caregiver Education,Self-Care/ Home Management,Soft Tissue Mobilization,Therapeutic Activities,Therapeutic Exercises Modalities Cold Pack/Ice Massage,Electric Stimulation,Hot Packs, Traction- Mechanical, Ultrasound Next Visit Focus/Plan Next Note Type Treatment Note Next Visit Plan Continue PT per POC to decrease pain, improve strength and core stabilization to allow her to be more active in the home and community.
--- NOTE | 2019-08-19 15:21 | PT.OTN ---
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 Pt reports that she woke up at 3 am in extreme pain three months ago, with no instigating event. Pt notes she spent the next two days just walking around my house, because I couldn't sit. Pt reports she eventually had an MRI, which noted two disc bulges. Pt experiences pain down her posterior right leg, around her lateral malleoli, and into her lateral dorsal foot. Pt has attempted acupuncture, massage, and a chiropractor with minimal relief, and has also had three cortisone injections, which have helped some. Pt also takes Gabapentin and Advil, which seem to help control the pain some. Pt struggles walking more than half a block , and has increased pain with sitting for any length of time , or bending over to pick something up or put shoes on. Prior Treatments and Tests Lumbar MRI: IMPRESSION: 1. Early multilevel degenerative changes. 2. Stenosis is most prominent at L4-5 secondary to disc bulge as well as anterolisthesis and facet/ ligamenta flavum arthropathy. 3. Disc bulge with right foraminal component and likely superimposed small protrusion/extrusion causing compromise of right lateral recess is present at L5-S1. Per: Lakesha Buckley M.D. on 12/2018 Treatment Goals Patient/Caregiver Goals Decrease pain, avoid surgery, and obtain a good guide for aquatic activities. Prior Functional Status Baseline Function- Gait Walked independently community distances Current Functional Impairments (Reported) Functional Limitations- ADL's Pain with picking anything up off the floor or bending over to don shoes. Functional Limitations- Mobility/Gait Limited to ambulating less than 1/2 block due to pain PT-OP-C Subjective Start: 06/08/19 17:47 Freq: Status: Active Protocol: Document 08/19/19 11:45 LJ (Rec: 08/19/19 15:21 LJ [email or web address]) OP-PT Subjective Patient Comments Patient Comments Pt states she feeling the effects when she hasn't been able to get to the pool to exercise. She said that she felt very good during the stay at her [employer] with the pool PT-OP-F Manual Assessment Start: 06/08/19 17:47 Freq: Status: Active Protocol: Document 06/08/19 16:45 DCW (Rec: 06/09/19 15:46 DCW [id number]) Manual Assessments Soft Tissue Assessment Soft Tissue Mobility Assessment Lumbar paraspinals: Moderate tone and tenderness to palpation 2/4 - pain with wincing Right Piriformis: Severe tone and tenderness to palpation 3/ 4 - wincing and withdraw PT-OP-K Range of Motion Start: 06/08/19 17:47 Freq: Status: Active Protocol: Document 08/16/19 09:14 SAK (Rec: 08/16/19 09:44 SAK [id number]) Lumbar Spine Range of Motion Lumbar Spine Active Degrees Testing Position Standing Flexion 35 Extension 15 Lateral Flexion Left 50 Lateral Flexion Right 50 ROM Limitations Bony Restriction,Muscle Tone, Pain Comments Lateral flexion measured in cm , distance from finger tips to floor PT-OP-L Special Tests Start: 06/08/19 17:47 Freq: Status: Active Protocol: Document 06/08/19 16:45 DCW (Rec: 06/09/19 15:46 DCW [id number]) Special Tests Lumbar Spine Special Tests Prone Knee Flexion Test Results Hip flexor tightness HARRIETT Test Results Negative Straight Leg Raise Test Results HS tightness Comments 35? R, 50? L Standing Flexion Test Results R LE pain Slump Test Results B HS tightness Compression Test Results Positive R radicular PT-OP-M Strength Start: 06/08/19 17:47 Freq: Status: Active Protocol: Document 06/08/19 16:45 DCW (Rec: 06/09/19 15:46 DCW [id number]) Trunk Strength Trunk Manual Muscle Testing Core Stabilization Pt demonstrates difficulty with TrA contraction, -3/5 Hip Strength Hip Manual Muscle Testing Right Flexion (L2) 5 Normal Abduction 4 Good Adduction 4- Good- External Rotation 4- Good- Internal Rotation 4 Good Left Flexion (L2) 5 Normal Abduction 4 Good Adduction 4- Good- External Rotation 4+ Good+ Internal Rotation 4+ Good+ Knee Strength Knee Manual Muscle Testing Right Flexion (S2) 4+ Good+ Extension (L3) 4 Good Left Flexion (S2) 4+ Good+ Extension (L3) 4+ Good+ PT-OP-Q Treatments Start: 06/08/19 17:47 Freq: Status: Active Protocol: Document 08/16/19 09:14 SAK (Rec: 08/16/19 09:44 SAK [id number]) Cardio Equipment Recumbent Stepper (Sci-Fit) Duration (Minutes) 5 Resistance 1 Seat Position 10 Therapeutic Exercises Supine Exercises TrA with hip ab/ER Resistance L2 TB Reps/Minutes 10x TrA with ball squeeze Reps/Minutes 10x SKTC Reps/Minutes 2x 30 hamstring stretch Reps/Minutes 2x 30 1 Supine Exercise Name Piriformis stretch Reps/Minutes 2x 30 Standing Exercises HC stretch Reps/Minutes 2x Manual Therapy Treatment Manual Traction Lumbar Details strap Body Position Hooklying Reps/Duration 10 min Comments 30 hold, 10 sec release PT-OP-S Aquatic Treatment Start: 06/08/19 17:48 Freq: Status: Active Protocol: Document 08/19/19 11:45 LJ (Rec: 08/19/19 15:21 LJ [email or web address]) Aquatics Treatment Pool Entry/Exit Pool Entry/Exit Method Stairs Assistance Independent Water Walking forward with large noodle submerged Water Level Chest Level Walking Equipment Large Noodle Level of Assistance Standby Assistance,Verbal Cues Sideways Water Level Chest Level Level of Assistance Standby Assistance Backwards Water Level Chest Level Level of Assistance Standby Assistance,Verbal Cues Forwards Water Level Chest Level Level of Assistance Standby Assistance,Verbal Cues Comments tactile cueing Lower Extremity Stretches HC Comments jovana at pool wall HS Equipment small ankle floats piriformis Details back against wall Body Position Standing Water Level Neck Level Reps/Duration 2x45 Comments pressure on/pressure off Upper Extremity Stretches UE pull downs Details forward jovana, side jovana and unil Equipment med barbells Reps/Duration 10x2 Spinal Exercises deep water hang Details edge of pool Body Position Standing Water Level [place] Equipment sm blue float, #5 Reps/Duration 15 min Balance wonder board Body Position Sitting Water Level Chest Level Reps/Duration 8 min Comments static and dynamic [place] Activities Other Activities Deep water traction 5# jovana with [place] float x 15 min PT-OP-T Assessment and Plan Start: 06/08/19 17:47 Freq: Status: Active Protocol: Document 08/19/19 11:45 LJ (Rec: 08/19/19 15:21 LJ [email or web address]) Physical Therapy Assessment Goals Four Impairment Pt unable to bend forward without radicular symptoms Vehicle Leasing And Rental Manager Goal (LTG) Pt to improve her lumbar flexion in order for her to bend over and don her sneakers without increased pain. 08/16/19: goal progress LTG Duration 09/27/19 Three Impairment Pt unable to sit for more than 5 minutes without increased pain Short Term Goal (STG) Pt to tolerate sitting for 30 minutes without an increase in back pain STG Duration goal met Vehicle Leasing And Rental Manager Goal (LTG) Pt to tolerate sitting 60 minutes without increase back pain, to enable her to drive to [place] 08/16/19: goal progress LTG Duration 09/27/19 Two Impairment Pt's walking is limited to 1/2 block Vehicle Leasing And Rental Manager Goal (LTG) Pt to return to walking 1+ miles in the community to return to her hobby of walking down to and around [email or web address]. 08/16/19: goal progress LTG Duration 09/27/19 One Impairment Pt does not have an appropriate home aquatic exercise program Short Term Goal (STG) Pt to be independent and compliant with an appropriate aquatic HEP 08/16/19: good goal progress Vehicle Leasing And Rental Manager Goal (LTG) Independent and compliant with land-based HEP 08/15/19: some goal progress LTG Duration 09/27/19 Progress Towards Goals Progress Towards Goals Progressing Toward Goals Assessment Summary Assessment Pt was without pain during treatment. She was challenged on the wonder board but was able to remain seated with significant amount of UE assist. Physical Therapy Plan Frequency and Duration Frequency of Treatment 2x/Week Duration of Treatment 6 wks Plan of Care Start Date 08/16/19 Plan of Care End Date 09/27/19 Therapeutic Interventions Therapeutic Interventions Aquatic Therapy,Home Exercise Program,Joint Mobilizations, Manual Therapy,Patient/ Caregiver Education,Self-Care/ Home Management,Soft Tissue Mobilization,Therapeutic Activities,Therapeutic Exercises Modalities Cold Pack/Ice Massage,Electric Stimulation,Hot Packs, Traction- Mechanical, Ultrasound Next Visit Focus/Plan Next Note Type Treatment Note Next Visit Plan Continue PT per POC with combination land and aquatic- based PT.
--- NOTE | 2019-08-22 11:20 | PT.OTN ---
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 Pt reports that she woke up at 3 am in extreme pain three months ago, with no instigating event. Pt notes she spent the next two days just walking around my house, because I couldn't sit. Pt reports she eventually had an MRI, which noted two disc bulges. Pt experiences pain down her posterior right leg, around her lateral malleoli, and into her lateral dorsal foot. Pt has attempted acupuncture, massage, and a chiropractor with minimal relief, and has also had three cortisone injections, which have helped some. Pt also takes Gabapentin and Advil, which seem to help control the pain some. Pt struggles walking more than half a block , and has increased pain with sitting for any length of time , or bending over to pick something up or put shoes on. Prior Treatments and Tests Lumbar MRI: IMPRESSION: 1. Early multilevel degenerative changes. 2. Stenosis is most prominent at L4-5 secondary to disc bulge as well as anterolisthesis and facet/ ligamenta flavum arthropathy. 3. Disc bulge with right foraminal component and likely superimposed small protrusion/extrusion causing compromise of right lateral recess is present at L5-S1. Per: Lakesha Buckley M.D. on 12/2018 Treatment Goals Patient/Caregiver Goals Decrease pain, avoid surgery, and obtain a good guide for aquatic activities. Prior Functional Status Baseline Function- Gait Walked independently community distances Current Functional Impairments (Reported) Functional Limitations- ADL's Pain with picking anything up off the floor or bending over to don shoes. Functional Limitations- Mobility/Gait Limited to ambulating less than 1/2 block due to pain PT-OP-C Subjective Start: 06/08/19 17:47 Freq: Status: Active Protocol: Document 08/22/19 10:37 SP (Rec: 08/22/19 11:31 SP [id number]) OP-PT Subjective Patient Comments Patient Comments Pt reported as long as is doing her exercises, they help alot getting through the day. PT-OP-F Manual Assessment Start: 06/08/19 17:47 Freq: Status: Active Protocol: Document 06/08/19 16:45 DCW (Rec: 06/09/19 15:46 DCW [id number]) Manual Assessments Soft Tissue Assessment Soft Tissue Mobility Assessment Lumbar paraspinals: Moderate tone and tenderness to palpation 2/4 - pain with wincing Right Piriformis: Severe tone and tenderness to palpation 3/ 4 - wincing and withdraw PT-OP-K Range of Motion Start: 06/08/19 17:47 Freq: Status: Active Protocol: Document 08/16/19 09:14 SAK (Rec: 08/16/19 09:44 SAK [id number]) Lumbar Spine Range of Motion Lumbar Spine Active Degrees Testing Position Standing Flexion 35 Extension 15 Lateral Flexion Left 50 Lateral Flexion Right 50 ROM Limitations Bony Restriction,Muscle Tone, Pain Comments Lateral flexion measured in cm , distance from finger tips to floor PT-OP-L Special Tests Start: 06/08/19 17:47 Freq: Status: Active Protocol: Document 06/08/19 16:45 DCW (Rec: 06/09/19 15:46 DCW [id number]) Special Tests Lumbar Spine Special Tests Prone Knee Flexion Test Results Hip flexor tightness HARRIETT Test Results Negative Straight Leg Raise Test Results HS tightness Comments 35? R, 50? L Standing Flexion Test Results R LE pain Slump Test Results B HS tightness Compression Test Results Positive R radicular PT-OP-M Strength Start: 06/08/19 17:47 Freq: Status: Active Protocol: Document 06/08/19 16:45 DCW (Rec: 06/09/19 15:46 DCW [id number]) Trunk Strength Trunk Manual Muscle Testing Core Stabilization Pt demonstrates difficulty with TrA contraction, -3/5 Hip Strength Hip Manual Muscle Testing Right Flexion (L2) 5 Normal Abduction 4 Good Adduction 4- Good- External Rotation 4- Good- Internal Rotation 4 Good Left Flexion (L2) 5 Normal Abduction 4 Good Adduction 4- Good- External Rotation 4+ Good+ Internal Rotation 4+ Good+ Knee Strength Knee Manual Muscle Testing Right Flexion (S2) 4+ Good+ Extension (L3) 4 Good Left Flexion (S2) 4+ Good+ Extension (L3) 4+ Good+ PT-OP-Q Treatments Start: 06/08/19 17:47 Freq: Status: Active Protocol: Document 08/22/19 10:37 SP (Rec: 08/22/19 11:31 SP [id number]) Cardio Equipment Recumbent Stepper (Sci-Fit) Duration (Minutes) 5 Resistance 1 Seat Position 10 Therapeutic Exercises Supine Exercises TrA with hip ab/ER Resistance L2 TB Reps/Minutes 10x SKTC Supine Exercise Name SKTC, DKTC Reps/Minutes 2x 30 1 Supine Exercise Name Piriformis stretch Reps/Minutes 2x 30 Standing Exercises heel/toe raises Equipment Used rail contact Reps/Minutes x10 calf stretch Equipment Used ELMA Reps/Minutes 30 x3 Comments discussed of step too an option PT-OP-S Aquatic Treatment Start: 06/08/19 17:48 Freq: Status: Active Protocol: Document 08/19/19 11:45 LJ (Rec: 08/19/19 15:21 LJ [id number]) Aquatics Treatment Pool Entry/Exit Pool Entry/Exit Method Stairs Assistance Independent Water Walking forward with large noodle submerged Water Level Chest Level Walking Equipment Large Noodle Level of Assistance Standby Assistance,Verbal Cues Sideways Water Level Chest Level Level of Assistance Standby Assistance Backwards Water Level Chest Level Level of Assistance Standby Assistance,Verbal Cues Forwards Water Level Chest Level Level of Assistance Standby Assistance,Verbal Cues Comments tactile cueing Lower Extremity Stretches HC Comments jovana at pool wall HS Equipment small ankle floats piriformis Details back against wall Body Position Standing Water Level Neck Level Reps/Duration 2x45 Comments pressure on/pressure off Upper Extremity Stretches UE pull downs Details forward jovana, side jovana and unil Equipment med barbells Reps/Duration 10x2 Spinal Exercises deep water hang Details edge of pool Body Position Standing Water Level [place] Equipment sm blue float, #5 Reps/Duration 15 min Balance wonder board Body Position Sitting Water Level Chest Level Reps/Duration 8 min Comments static and dynamic [place] Activities Other Activities Deep water traction 5# jovana with [place] float x 15 min PT-OP-T Assessment and Plan Start: 06/08/19 17:47 Freq: Status: Active Protocol: Document 08/22/19 10:37 SP (Rec: 08/22/19 11:31 SP [id number]) Physical Therapy Assessment Goals Four Impairment Pt unable to bend forward without radicular symptoms Group Home Goal (LTG) Pt to improve her lumbar flexion in order for her to bend over and don her sneakers without increased pain. 08/16/19: goal progress LTG Duration 09/27/19 Three Impairment Pt unable to sit for more than 5 minutes without increased pain Short Term Goal (STG) Pt to tolerate sitting for 30 minutes without an increase in back pain STG Duration goal met Group Home Goal (LTG) Pt to tolerate sitting 60 minutes without increase back pain, to enable her to drive to [place] 08/16/19: goal progress LTG Duration 09/27/19 Two Impairment Pt's walking is limited to 1/2 block [employer] Principal Goal (LTG) Pt to return to walking 1+ miles in the community to return to her hobby of walking down to and around [employer] [place]. 08/16/19: goal progress LTG Duration 09/27/19 One Impairment Pt does not have an appropriate home aquatic exercise program Short Term Goal (STG) Pt to be independent and compliant with an appropriate aquatic HEP 08/16/19: good goal progress Group Home Goal (LTG) Independent and compliant with land-based HEP 08/15/19: some goal progress LTG Duration 09/27/19 Assessment Summary Assessment Tx focused on HEP review copy in chart, pt uses hand out for recall with cues for holding stretches longer, responded well to added calf g/s stretch in standing to assist tight calf stretch for reported challenged toe curls. Pt stated felt looser when leaving. Physical Therapy Plan Frequency and Duration Frequency of Treatment 2x/Week Duration of Treatment 6 wks Plan of Care Start Date 08/16/19 Plan of Care End Date 09/27/19 Therapeutic Interventions Therapeutic Interventions Aquatic Therapy,Home Exercise Program,Joint Mobilizations, Manual Therapy,Patient/ Caregiver Education,Self-Care/ Home Management,Soft Tissue Mobilization,Therapeutic Activities,Therapeutic Exercises Modalities Cold Pack/Ice Massage,Electric Stimulation,Hot Packs, Traction- Mechanical, Ultrasound Next Visit Focus/Plan Next Note Type Treatment Note Next Visit Plan assess added calf stretches, heel/toe raises. Continue PT per POC with combination land and aquatic- based PT.
--- NOTE | 2019-08-24 16:51 | PT.OTN ---
Current Diagnoses Radiculopathy, lumbar region (08/24/19) Lumbago with sciatica, right side (08/24/19) Muscle weakness (generalized) (08/24/19) Pain in right leg (08/24/19) Physical Therapy Treatment Note PT-OP-A Visit Information Start: 06/08/19 17:47 Freq: Status: Active Protocol: Document 08/24/19 12:30 SAK (Rec: 08/24/19 16:47 SAK [id number]) Out-Patient Physical Therapy Visit Information Visit Information Visit Type Aquatic Treatment Note Visit Start Time 12:30 Visit Stop Time 13:15 Total Visit Minutes 45 Visit Number 15 Number of LOTTERY CLERK Visits 0 PT-OP-B Current Condition Start: 06/08/19 17:47 Freq: Status: Active Protocol: Document 06/08/19 16:45 DCW (Rec: 06/08/19 17:58 DCW [id number]) Current Condition History of Current Condition Onset Date Three months Current Complaints Lumbar pain with right radicular symptoms History of Current Condition Pt is a 64 year old female presenting to skilled therapy with a three month history of low back pain with associated right leg pain and numbness. Pt reports that she woke up at 3 am in extreme pain three months ago, with no instigating event. Pt notes she spent the next two days just walking around my house, because I couldn't sit. Pt reports she eventually had an MRI, which noted two disc bulges. Pt experiences pain down her posterior right leg, around her lateral malleoli, and into her lateral dorsal foot. Pt has attempted acupuncture, massage, and a chiropractor with minimal relief, and has also had three cortisone injections, which have helped some. Pt also takes Gabapentin and Advil, which seem to help control the pain some. Pt struggles walking more than half a block , and has increased pain with sitting for any length of time , or bending over to pick something up or put shoes on. Prior Treatments and Tests Lumbar MRI: IMPRESSION: 1. Early multilevel degenerative changes. 2. Stenosis is most prominent at L4-5 secondary to disc bulge as well as anterolisthesis and facet/ ligamenta flavum arthropathy. 3. Disc bulge with right foraminal component and likely superimposed small protrusion/extrusion causing compromise of right lateral recess is present at L5-S1. Per: Lakesha Buckley, M.D. on 12/2018 Treatment Goals Patient/Caregiver Goals Decrease pain, avoid surgery, and obtain a good guide for aquatic activities. Prior Functional Status Baseline Function- Gait Walked independently community distances Current Functional Impairments (Reported) Functional Limitations- ADL's Pain with picking anything up off the floor or bending over to don shoes. Functional Limitations- Mobility/Gait Limited to ambulating less than 1/2 block due to pain PT-OP-C Subjective Start: 06/08/19 17:47 Freq: Status: Active Protocol: Document 08/24/19 12:30 [facility] (Rec: 08/24/19 16:47 [facility] [id number]) OP-PT Subjective Patient Comments Patient Comments Feels much better when able to do her exercises especially aquatic exercises. PT-OP-F Manual Assessment Start: 06/08/19 17:47 Freq: Status: Active Protocol: Document 06/08/19 16:45 DCW (Rec: 06/09/19 15:46 DCW [id number]) Manual Assessments Soft Tissue Assessment Soft Tissue Mobility Assessment Lumbar paraspinals: Moderate tone and tenderness to palpation 2/4 - pain with wincing Right Piriformis: Severe tone and tenderness to palpation 3/ 4 - wincing and withdraw PT-OP-K Range of Motion Start: 06/08/19 17:47 Freq: Status: Active Protocol: Document 08/16/19 09:14 SAK (Rec: 08/16/19 09:44 [facility] [id number]) Lumbar Spine Range of Motion Lumbar Spine Active Degrees Testing Position Standing Flexion 35 Extension 15 Lateral Flexion Left 50 Lateral Flexion Right 50 ROM Limitations Bony Restriction,Muscle Tone, Pain Comments Lateral flexion measured in cm , distance from finger tips to floor PT-OP-L Special Tests Start: 06/08/19 17:47 Freq: Status: Active Protocol: Document 06/08/19 16:45 DCW (Rec: 06/09/19 15:46 DCW [id number]) Special Tests Lumbar Spine Special Tests Prone Knee Flexion Test Results Hip flexor tightness HARRIETT Test Results Negative Straight Leg Raise Test Results HS tightness Comments 35? R, 50? L Standing Flexion Test Results R LE pain Slump Test Results B HS tightness Compression Test Results Positive R radicular PT-OP-M Strength Start: 06/08/19 17:47 Freq: Status: Active Protocol: Document 06/08/19 16:45 DCW (Rec: 06/09/19 15:46 DCW [id number]) Trunk Strength Trunk Manual Muscle Testing Core Stabilization Pt demonstrates difficulty with TrA contraction, -3/5 Hip Strength Hip Manual Muscle Testing Right Flexion (L2) 5 Normal Abduction 4 Good Adduction 4- Good- External Rotation 4- Good- Internal Rotation 4 Good Left Flexion (L2) 5 Normal Abduction 4 Good Adduction 4- Good- External Rotation 4+ Good+ Internal Rotation 4+ Good+ Knee Strength Knee Manual Muscle Testing Right Flexion (S2) 4+ Good+ Extension (L3) 4 Good Left Flexion (S2) 4+ Good+ Extension (L3) 4+ Good+ PT-OP-Q Treatments Start: 06/08/19 17:47 Freq: Status: Active Protocol: Document 08/22/19 10:37 SP (Rec: 08/22/19 11:31 SP [id number]) Cardio Equipment Recumbent Stepper (Sci-Fit) Duration (Minutes) 5 Resistance 1 Seat Position 10 Therapeutic Exercises Supine Exercises TrA with hip ab/ER Resistance L2 TB Reps/Minutes 10x SKTC Supine Exercise Name SKTC, DKTC Reps/Minutes 2x 30 1 Supine Exercise Name Piriformis stretch Reps/Minutes 2x 30 Standing Exercises heel/toe raises Equipment Used rail contact Reps/Minutes x10 calf stretch Equipment Used ELMA Reps/Minutes 30 x3 Comments discussed of step too an option PT-OP-S Aquatic Treatment Start: 06/08/19 17:48 Freq: Status: Active Protocol: Document 08/24/19 12:30 SAK (Rec: 08/24/19 16:47 SAK [id number]) Aquatics Treatment Pool Entry/Exit Pool Entry/Exit Method Stairs Assistance Independent Water Walking Marching Water Level Chest Level Level of Assistance Standby Assistance,Verbal Cues forward with large noodle submerged Water Level Chest Level Walking Equipment Large Noodle Level of Assistance Standby Assistance,Verbal Cues Sideways Water Level Chest Level Level of Assistance Standby Assistance Backwards Water Level Chest Level Level of Assistance Standby Assistance,Verbal Cues Lower Extremity Exercises Hiip CCW, CW Details hh on wall Body Position Standing Water Level Chest Level Reps/Duration 15x Comments small ROM and gentle Lower Extremity Stretches HC Comments jovana at pool wall HS Equipment small ankle floats Upper Extremity Exercises hor ab/ad, flex/ext Details jovana and unil Reps/Duration 10x Comments emphasis on core stab Spinal Exercises deep water hang Details edge of pool Body Position Standing Water Level [place] Equipment sm blue float, #5 Reps/Duration 15 min Balance wonder board Body Position Sitting Water Level Chest Level Reps/Duration 8 min Comments static and dynamic [place] Activities [place] Activities Bicycle,Cross Country,Running Equipment XL belt, med barbells PT-OP-T Assessment and Plan Start: 06/08/19 17:47 Freq: Status: Active Protocol: Document 08/24/19 16:47 [facility] (Rec: 08/24/19 16:50 [facility] [id number]) Physical Therapy Assessment Goals Four Impairment Pt unable to bend forward without radicular symptoms Control Clerk Goal (LTG) Pt to improve her lumbar flexion in order for her to bend over and don her sneakers without increased pain. 08/16/19: goal progress LTG Duration 09/27/19 Three Impairment Pt unable to sit for more than 5 minutes without increased pain Short Term Goal (STG) Pt to tolerate sitting for 30 minutes without an increase in back pain STG Duration goal met Intermediate Goal (LTG) Pt to tolerate sitting 60 minutes without increase back pain, to enable her to drive to [place] 08/16/19: goal progress LTG Duration 09/27/19 Two Impairment Pt's walking is limited to 1/2 block Control Clerk Goal (LTG) Pt to return to walking 1+ miles in the community to return to her hobby of walking down to and around [place]. 08/16/19: goal progress LTG Duration 09/27/19 One Impairment Pt does not have an appropriate home aquatic exercise program Short Term Goal (STG) Pt to be independent and compliant with an appropriate aquatic HEP 08/16/19: good goal progress Intermediate Goal (LTG) Independent and compliant with land-based HEP 08/15/19: some goal progress LTG Duration 09/27/19 Progress Towards Goals Progress Towards Goals Progressing Toward Goals Assessment Summary Assessment Patient continues to progress well with HEP and aquatic therapy program. Good potential for further improvement with further therapy. Physical Therapy Plan Frequency and Duration Frequency of Treatment 2x/Week Duration of Treatment 6 wks Plan of Care Start Date 08/16/19 Plan of Care End Date 09/27/19 Therapeutic Interventions Therapeutic Interventions Aquatic Therapy,Home Exercise Program,Joint Mobilizations, Manual Therapy,Patient/ Caregiver Education,Self-Care/ Home Management,Soft Tissue Mobilization,Therapeutic Activities,Therapeutic Exercises Modalities Cold Pack/Ice Massage,Electric Stimulation,Hot Packs, Traction- Mechanical, Ultrasound Next Visit Focus/Plan Next Note Type Treatment Note Next Visit Plan Continue PT per POC to decrease pain, improve strength and core stabilization to allow her to be more active in the home and community.
--- NOTE | 2019-08-30 11:15 | PT.OTN ---
Current Diagnoses Radiculopathy, lumbar region (08/30/19) Lumbago with sciatica, right side (08/30/19) Muscle weakness (generalized) (08/30/19) Pain in right leg (08/30/19) Physical Therapy Treatment Note PT-OP-A Visit Information Start: 06/08/19 17:47 Freq: Status: Active Protocol: Document 08/30/19 10:32 SP (Rec: 08/30/19 11:33 SP [id number]) Out-Patient Physical Therapy Visit Information Visit Information Visit Type Treatment Note Visit Start Time 10:32 Visit Stop Time 11:15 Total Visit Minutes 43 Visit Number 16 Number of LOAN SPECIALIST Visits 1 PT-OP-B Current Condition Start: 06/08/19 17:47 Freq: Status: Active Protocol: Document 06/08/19 16:45 DCW (Rec: 06/08/19 17:58 DCW [id number]) Current Condition History of Current Condition Onset Date Three months Current Complaints Lumbar pain with right radicular symptoms History of Current Condition Pt is a 64 year old female presenting to skilled therapy with a three month history of low back pain with associated right leg pain and numbness. Pt reports that she woke up at 3 am in extreme pain three months ago, with no instigating event. Pt notes she spent the next two days just walking around my house, because I couldn't sit. Pt reports she eventually had an MRI, which noted two disc bulges. Pt experiences pain down her posterior right leg, around her lateral malleoli, and into her lateral dorsal foot. Pt has attempted acupuncture, massage, and a chiropractor with minimal relief, and has also had three cortisone injections, which have helped some. Pt also takes Gabapentin and Advil, which seem to help control the pain some. Pt struggles walking more than half a block , and has increased pain with sitting for any length of time , or bending over to pick something up or put shoes on. Prior Treatments and Tests Lumbar MRI: IMPRESSION: 1. Early multilevel degenerative changes. 2. Stenosis is most prominent at L4-5 secondary to disc bulge as well as anterolisthesis and facet/ ligamenta flavum arthropathy. 3. Disc bulge with right foraminal component and likely superimposed small protrusion/extrusion causing compromise of right lateral recess is present at L5-S1. Per: Lakesha Buckley M.D. on 12/2018 Treatment Goals Patient/Caregiver Goals Decrease pain, avoid surgery, and obtain a good guide for aquatic activities. Prior Functional Status Baseline Function- Gait Walked independently community distances Current Functional Impairments (Reported) Functional Limitations- ADL's Pain with picking anything up off the floor or bending over to don shoes. Functional Limitations- Mobility/Gait Limited to ambulating less than 1/2 block due to pain PT-OP-C Subjective Start: 06/08/19 17:47 Freq: Status: Active Protocol: Document 08/30/19 10:32 SP (Rec: 08/30/19 11:33 SP [id number]) OP-PT Subjective Patient Comments Patient Comments Pt stated B calves and achilles hurting 01/03 pre PT, alot more today. She stated taking Letrozole and thinks affecting her muscles and thus walking hurts more. Still having dizziness more with position changes and unsure if need a PT to help with crystal realignment or its a side affect of medication taking, Letrozole. Pt stated will discuss with oncologist this Th and see his perspective and then Tiffany PT next week. PT-OP-F Manual Assessment Start: 06/08/19 17:47 Freq: Status: Active Protocol: Document 06/08/19 16:45 DCW (Rec: 06/09/19 15:46 DCW [id number]) Manual Assessments Soft Tissue Assessment Soft Tissue Mobility Assessment Lumbar paraspinals: Moderate tone and tenderness to palpation 2/4 - pain with wincing Right Piriformis: Severe tone and tenderness to palpation 3/ 4 - wincing and withdraw PT-OP-K Range of Motion Start: 06/08/19 17:47 Freq: Status: Active Protocol: Document 08/16/19 09:14 SAK (Rec: 08/16/19 09:44 SAK [id number]) Lumbar Spine Range of Motion Lumbar Spine Active Degrees Testing Position Standing Flexion 35 Extension 15 Lateral Flexion Left 50 Lateral Flexion Right 50 ROM Limitations Bony Restriction,Muscle Tone, Pain Comments Lateral flexion measured in cm , distance from finger tips to floor PT-OP-L Special Tests Start: 06/08/19 17:47 Freq: Status: Active Protocol: Document 06/08/19 16:45 DCW (Rec: 06/09/19 15:46 DCW [id number]) Special Tests Lumbar Spine Special Tests Prone Knee Flexion Test Results Hip flexor tightness HARRIETT Test Results Negative Straight Leg Raise Test Results HS tightness Comments 35? R, 50? L Standing Flexion Test Results R LE pain Slump Test Results B HS tightness Compression Test Results Positive R radicular PT-OP-M Strength Start: 06/08/19 17:47 Freq: Status: Active Protocol: Document 06/08/19 16:45 DCW (Rec: 06/09/19 15:46 DCW [id number]) Trunk Strength Trunk Manual Muscle Testing Core Stabilization Pt demonstrates difficulty with TrA contraction, -3/5 Hip Strength Hip Manual Muscle Testing Right Flexion (L2) 5 Normal Abduction 4 Good Adduction 4- Good- External Rotation 4- Good- Internal Rotation 4 Good Left Flexion (L2) 5 Normal Abduction 4 Good Adduction 4- Good- External Rotation 4+ Good+ Internal Rotation 4+ Good+ Knee Strength Knee Manual Muscle Testing Right Flexion (S2) 4+ Good+ Extension (L3) 4 Good Left Flexion (S2) 4+ Good+ Extension (L3) 4+ Good+ PT-OP-Q Treatments Start: 06/08/19 17:47 Freq: Status: Active Protocol: Document 08/30/19 10:32 SP (Rec: 08/30/19 11:33 SP [id number]) Therapeutic Exercises Standing Exercises SLS Equipment Used at table Reps/Minutes 10 x3 each foot tandem Equipment Used table contact as needed Reps/Minutes 30 x3 each foot position Comments cued upright posture, glut squeeze calf stretch Equipment Used ELMA Reps/Minutes 30 x3 Comments discussed of step too an option Manual Therapy Treatment Soft Tissue Mobilization achilles, gastroc Body Location B Mobilization Type Cross-Friction,Other Intensity/Depth Moderate Body Position Prone Comments manual and instruction seated manual with (foot over opposite knee) ankle pump and IV/EV small range movement and rolling pin to calf Taping B achilles Body Location post heel pad to mid gastroc Treatment Focus assist achilles Type of Tape Kinesio Tape Skin Inspection normal color/ texture PT-OP-S Aquatic Treatment Start: 06/08/19 17:48 Freq: Status: Active Protocol: Document 08/24/19 12:30 SAK (Rec: 08/24/19 16:47 SAK [id number]) Aquatics Treatment Pool Entry/Exit Pool Entry/Exit Method Stairs Assistance Independent Water Walking Marching Water Level Chest Level Level of Assistance Standby Assistance,Verbal Cues forward with large noodle submerged Water Level Chest Level Walking Equipment Large Noodle Level of Assistance Standby Assistance,Verbal Cues Sideways Water Level Chest Level Level of Assistance Standby Assistance Backwards Water Level Chest Level Level of Assistance Standby Assistance,Verbal Cues Lower Extremity Exercises Hiip CCW, CW Details hh on wall Body Position Standing Water Level Chest Level Reps/Duration 15x Comments small ROM and gentle Lower Extremity Stretches HC Comments jovana at pool wall HS Equipment small ankle floats Upper Extremity Exercises hor ab/ad, flex/ext Details jovana and unil Reps/Duration 10x Comments emphasis on core stab Spinal Exercises deep water hang Details edge of pool Body Position Standing Water Level [place] Equipment sm blue float, #5 Reps/Duration 15 min Balance wonder board Body Position Sitting Water Level Chest Level Reps/Duration 8 min Comments static and dynamic [place] Activities [place] Activities Bicycle,Cross Country,Running Equipment XL belt, med barbells PT-OP-T Assessment and Plan Start: 06/08/19 17:47 Freq: Status: Active Protocol: Document 08/30/19 10:32 SP (Rec: 08/30/19 11:33 SP [id number]) Physical Therapy Assessment Goals Four Impairment Pt unable to bend forward without radicular symptoms Acid Mixer Goal (LTG) Pt to improve her lumbar flexion in order for her to bend over and don her sneakers without increased pain. 08/16/19: goal progress LTG Duration 09/27/19 Three Impairment Pt unable to sit for more than 5 minutes without increased pain Short Term Goal (STG) Pt to tolerate sitting for 30 minutes without an increase in back pain STG Duration goal met Senior Living Goal (LTG) Pt to tolerate sitting 60 minutes without increase back pain, to enable her to drive to [place] 08/16/19: goal progress LTG Duration 09/27/19 Two Impairment Pt's walking is limited to 1/2 block Acid Mixer Goal (LTG) Pt to return to walking 1+ miles in the community to return to her hobby of walking down to and around [facility]. 08/16/19: goal progress LTG Duration 09/27/19 One Impairment Pt does not have an appropriate home aquatic exercise program Short Term Goal (STG) Pt to be independent and compliant with an appropriate aquatic HEP 08/16/19: good goal progress Acid Mixer Goal (LTG) Independent and compliant with land-based HEP 08/15/19: some goal progress LTG Duration 09/27/19 Assessment Summary Assessment Pt reported dizziness post laying down prone and sidelying during STMs of calf/ achilles, needed to sit for improvement with + feedback but not fully go away end of tx but stated doable. Tx focused on manual STMs and K taping to support achilles and decompression over distal attachment then when up in sitting instructed self rolling pin to calves and pinch with ROM ankle for self application with + feedback. Pt did not tolerate calf raises but able to work on tandem and SLS for core and glut facilitation. Able to move ankles and achilles feels better. Physical Therapy Plan Frequency and Duration Frequency of Treatment 2x/Week Duration of Treatment 6 wks Plan of Care Start Date 08/16/19 Plan of Care End Date 09/27/19 Therapeutic Interventions Therapeutic Interventions Aquatic Therapy,Home Exercise Program,Joint Mobilizations, Manual Therapy,Patient/ Caregiver Education,Self-Care/ Home Management,Soft Tissue Mobilization,Therapeutic Activities,Therapeutic Exercises Modalities Cold Pack/Ice Massage,Electric Stimulation,Hot Packs, Traction- Mechanical, Ultrasound Next Visit Focus/Plan Next Note Type Treatment Note Next Visit Plan PT assessment next visit: dizziness unsure if medication or needed crystal realigment, see Assess/Subjective comments. Continue PT per POC to decrease pain, improve strength and core stabilization to allow her to be more active in the home and community.
--- NOTE | 2019-08-31 18:21 | PT.OTN ---
Current Diagnoses Radiculopathy, lumbar region (08/31/19) Lumbago with sciatica, right side (08/31/19) Muscle weakness (generalized) (08/31/19) Pain in right leg (08/31/19) Physical Therapy Treatment Note PT-OP-A Visit Information Start: 06/08/19 17:47 Freq: Status: Active Protocol: Document 08/31/19 11:45 LJ (Rec: 08/31/19 18:21 LJ [email or web address]) Out-Patient Physical Therapy Visit Information Visit Information Visit Type Aquatic Treatment Note Visit Start Time 11:45 Visit Stop Time 12:30 Total Visit Minutes 45 Visit Number 17 Number of ASSOCIATE MANAGER Visits 2 PT-OP-B Current Condition Start: 06/08/19 17:47 Freq: Status: Active Protocol: Document 06/08/19 16:45 DCW (Rec: 06/08/19 17:58 DCW [id number]) Current Condition History of Current Condition Onset Date Three months Current Complaints Lumbar pain with right radicular symptoms History of Current Condition Pt is a 64 year old female presenting to skilled therapy with a three month history of low back pain with associated right leg pain and numbness. Pt reports that she woke up at 3 am in extreme pain three months ago, with no instigating event. Pt notes she spent the next two days just walking around my house, because I couldn't sit. Pt reports she eventually had an MRI, which noted two disc bulges. Pt experiences pain down her posterior right leg, around her lateral malleoli, and into her lateral dorsal foot. Pt has attempted acupuncture, massage, and a chiropractor with minimal relief, and has also had three cortisone injections, which have helped some. Pt also takes Gabapentin and Advil, which seem to help control the pain some. Pt struggles walking more than half a block , and has increased pain with sitting for any length of time , or bending over to pick something up or put shoes on. Prior Treatments and Tests Lumbar MRI: IMPRESSION: 1. Early multilevel degenerative changes. 2. Stenosis is most prominent at L4-5 secondary to disc bulge as well as anterolisthesis and facet/ ligamenta flavum arthropathy. 3. Disc bulge with right foraminal component and likely superimposed small protrusion/extrusion causing compromise of right lateral recess is present at L5-S1. Per: Lakesha Buckley M.D. on 12/2018 Treatment Goals Patient/Caregiver Goals Decrease pain, avoid surgery, and obtain a good guide for aquatic activities. Prior Functional Status Baseline Function- Gait Walked independently community distances Current Functional Impairments (Reported) Functional Limitations- ADL's Pain with picking anything up off the floor or bending over to don shoes. Functional Limitations- Mobility/Gait Limited to ambulating less than 1/2 block due to pain PT-OP-C Subjective Start: 06/08/19 17:47 Freq: Status: Active Protocol: Document 08/31/19 11:45 LJ (Rec: 08/31/19 18:21 LJ [email or web address]) OP-PT Subjective Patient Comments Patient Comments Pt stated the treatment and taping she received the previous treatment session relieved the pain in her calf muscles. She believes the medication she is taking is affecting her body in adverse ways. PT-OP-F Manual Assessment Start: 06/08/19 17:47 Freq: Status: Active Protocol: Document 06/08/19 16:45 DCW (Rec: 06/09/19 15:46 DCW [id number]) Manual Assessments Soft Tissue Assessment Soft Tissue Mobility Assessment Lumbar paraspinals: Moderate tone and tenderness to palpation 2/4 - pain with wincing Right Piriformis: Severe tone and tenderness to palpation 3/ 4 - wincing and withdraw PT-OP-K Range of Motion Start: 06/08/19 17:47 Freq: Status: Active Protocol: Document 08/16/19 09:14 SAK (Rec: 08/16/19 09:44 SAK [id number]) Lumbar Spine Range of Motion Lumbar Spine Active Degrees Testing Position Standing Flexion 35 Extension 15 Lateral Flexion Left 50 Lateral Flexion Right 50 ROM Limitations Bony Restriction,Muscle Tone, Pain Comments Lateral flexion measured in cm , distance from finger tips to floor PT-OP-L Special Tests Start: 06/08/19 17:47 Freq: Status: Active Protocol: Document 06/08/19 16:45 DCW (Rec: 06/09/19 15:46 DCW [id number]) Special Tests Lumbar Spine Special Tests Prone Knee Flexion Test Results Hip flexor tightness HARRIETT Test Results Negative Straight Leg Raise Test Results HS tightness Comments 35? R, 50? L Standing Flexion Test Results R LE pain Slump Test Results B HS tightness Compression Test Results Positive R radicular PT-OP-M Strength Start: 06/08/19 17:47 Freq: Status: Active Protocol: Document 06/08/19 16:45 DCW (Rec: 06/09/19 15:46 DCW [id number]) Trunk Strength Trunk Manual Muscle Testing Core Stabilization Pt demonstrates difficulty with TrA contraction, -3/5 Hip Strength Hip Manual Muscle Testing Right Flexion (L2) 5 Normal Abduction 4 Good Adduction 4- Good- External Rotation 4- Good- Internal Rotation 4 Good Left Flexion (L2) 5 Normal Abduction 4 Good Adduction 4- Good- External Rotation 4+ Good+ Internal Rotation 4+ Good+ Knee Strength Knee Manual Muscle Testing Right Flexion (S2) 4+ Good+ Extension (L3) 4 Good Left Flexion (S2) 4+ Good+ Extension (L3) 4+ Good+ PT-OP-Q Treatments Start: 06/08/19 17:47 Freq: Status: Active Protocol: Document 08/30/19 10:32 SP (Rec: 08/30/19 11:33 SP [id number]) Therapeutic Exercises Standing Exercises SLS Equipment Used at table Reps/Minutes 10 x3 each foot tandem Equipment Used table contact as needed Reps/Minutes 30 x3 each foot position Comments cued upright posture, glut squeeze calf stretch Equipment Used ELMA Reps/Minutes 30 x3 Comments discussed of step too an option Manual Therapy Treatment Soft Tissue Mobilization achilles, gastroc Body Location B Mobilization Type Cross-Friction,Other Intensity/Depth Moderate Body Position Prone Comments manual and instruction seated manual with (foot over opposite knee) ankle pump and IV/EV small range movement and rolling pin to calf Taping B achilles Body Location post heel pad to mid gastroc Treatment Focus assist achilles Type of Tape Kinesio Tape Skin Inspection normal color/ texture PT-OP-S Aquatic Treatment Start: 06/08/19 17:48 Freq: Status: Active Protocol: Document 08/31/19 11:45 LJ (Rec: 08/31/19 18:21 LJ [email or web address]) Aquatics Treatment Pool Entry/Exit Pool Entry/Exit Method Stairs Assistance Independent Water Walking Marching Water Level Chest Level Level of Assistance Independent Comments UEs for lateral support Lunge Walk Level of Assistance Standby Assistance,Verbal Cues Sideways Water Level Chest Level Level of Assistance Independent Backwards Water Level Chest Level Level of Assistance Independent Forwards Water Level Chest Level Level of Assistance Standby Assistance,Verbal Cues Comments tactile cueing, UE cueing Lower Extremity Stretches HC Comments jovana at pool wall HS Equipment lg noodle Reps/Duration 2x45 piriformis Details back against wall Body Position Standing Water Level Neck Level Reps/Duration 2x45 Comments figure 4 Upper Extremity Exercises hor ab/ad, flex/ext Details jovana and unil Reps/Duration 10x Comments emphasis on core stab Balance wonder board Body Position Sitting Water Level Chest Level Reps/Duration 7 min Comments static and dynamic [place] Activities [place] Activities Bicycle,Cross Country,Running Other Activities pendulum plank Equipment XL belt, med barbells PT-OP-T Assessment and Plan Start: 06/08/19 17:47 Freq: Status: Active Protocol: Document 08/31/19 11:45 MILLY (Rec: 08/31/19 18:21 LJ [email or web address]) Physical Therapy Assessment Rehab Potential Rehabilitation Potential Good Evaluation Complexity Number of Personal Factors/Comorbidities 3 or More Number of Body Systems Impaired 3 Clinical Presentation at Evaluation Evolving Impairments Impairments Functional Activities, Functional Mobility,Pain, Posture,ROM,Strength,Tone Other Concerns Barriers to Rehabilitation Pt's history is complicated by HTN, DM II, multiple disc bulges in her neck and back, and a large amount of medications, including Gabapentin, Oxycodine, and Meclizine. Goals Four Impairment Pt unable to bend forward without radicular symptoms Nursing Home Goal (LTG) Pt to improve her lumbar flexion in order for her to bend over and don her sneakers without increased pain. 08/16/19: goal progress LTG Duration 09/27/19 Three Impairment Pt unable to sit for more than 5 minutes without increased pain Short Term Goal (STG) Pt to tolerate sitting for 30 minutes without an increase in back pain STG Duration goal met Ager Tender Goal (LTG) Pt to tolerate sitting 60 minutes without increase back pain, to enable her to drive to [place] 08/16/19: goal progress LTG Duration 09/27/19 Two Impairment Pt's walking is limited to 1/2 block Ager Tender Goal (LTG) Pt to return to walking 1+ miles in the community to return to her hobby of walking down to and around [place]. 08/16/19: goal progress LTG Duration 09/27/19 One Impairment Pt does not have an appropriate home aquatic exercise program Short Term Goal (STG) Pt to be independent and compliant with an appropriate aquatic HEP 08/16/19: good goal progress Ager Tender Goal (LTG) Independent and compliant with land-based HEP 08/15/19: some goal progress LTG Duration 09/27/19 Progress Towards Goals Progress Towards Goals Progressing Toward Goals Assessment Summary Assessment Pt is improving with core strength and stability evidenced by her ability to better stabilize on the wonderboard and hold a plank position with less rotational deviations. No c/o pain this session. Physical Therapy Plan Frequency and Duration Frequency of Treatment 2x/Week Duration of Treatment 6 wks Plan of Care Start Date 08/16/19 Plan of Care End Date 09/27/19 Therapeutic Interventions Therapeutic Interventions Aquatic Therapy,Home Exercise Program,Joint Mobilizations, Manual Therapy,Patient/ Caregiver Education,Self-Care/ Home Management,Soft Tissue Mobilization,Therapeutic Activities,Therapeutic Exercises Modalities Cold Pack/Ice Massage,Electric Stimulation,Hot Packs, Traction- Mechanical, Ultrasound Next Visit Focus/Plan Next Note Type Treatment Note Next Visit Plan Continue PT per POC to decrease pain, improve strength and core stabilization to allow her to be more active in the home and community.
--- NOTE | 2019-09-06 16:22 | PT.OTN ---
Current Diagnoses Radiculopathy, lumbar region (09/06/19) Lumbago with sciatica, right side (09/06/19) Muscle weakness (generalized) (09/06/19) Pain in right leg (09/06/19) Physical Therapy Treatment Note PT-OP-A Visit Information Start: 06/08/19 17:47 Freq: Status: Active Protocol: Document 09/06/19 10:29 SAK (Rec: 09/06/19 11:16 SAK [id number]) Out-Patient Physical Therapy Visit Information Visit Information Visit Type Treatment Note Visit Start Time 10:30 Visit Stop Time 11:15 Total Visit Minutes 45 Visit Number 18 Number of ENGINEER STEAM Visits 0 PT-OP-B Current Condition Start: 06/08/19 17:47 Freq: Status: Active Protocol: Document 06/08/19 16:45 DCW (Rec: 06/08/19 17:58 DCW [id number]) Current Condition History of Current Condition Onset Date Three months Current Complaints Lumbar pain with right radicular symptoms History of Current Condition Pt is a 64 year old female presenting to skilled therapy with a three month history of low back pain with associated right leg pain and numbness. Pt reports that she woke up at 3 am in extreme pain three months ago, with no instigating event. Pt notes she spent the next two days just walking around my house, because I couldn't sit. Pt reports she eventually had an MRI, which noted two disc bulges. Pt experiences pain down her posterior right leg, around her lateral malleoli, and into her lateral dorsal foot. Pt has attempted acupuncture, massage, and a chiropractor with minimal relief, and has also had three cortisone injections, which have helped some. Pt also takes Gabapentin and Advil, which seem to help control the pain some. Pt struggles walking more than half a block , and has increased pain with sitting for any length of time , or bending over to pick something up or put shoes on. Prior Treatments and Tests Lumbar MRI: IMPRESSION: 1. Early multilevel degenerative changes. 2. Stenosis is most prominent at L4-5 secondary to disc bulge as well as anterolisthesis and facet/ ligamenta flavum arthropathy. 3. Disc bulge with right foraminal component and likely superimposed small protrusion/extrusion causing compromise of right lateral recess is present at L5-S1. Per: Lakesha Buckley M.D. on 12/2018 Treatment Goals Patient/Caregiver Goals Decrease pain, avoid surgery, and obtain a good guide for aquatic activities. Prior Functional Status Baseline Function- Gait Walked independently community distances Current Functional Impairments (Reported) Functional Limitations- ADL's Pain with picking anything up off the floor or bending over to don shoes. Functional Limitations- Mobility/Gait Limited to ambulating less than 1/2 block due to pain PT-OP-C Subjective Start: 06/08/19 17:47 Freq: Status: Active Protocol: Document 09/06/19 10:29 [facility] (Rec: 09/06/19 11:16 [facility] [id number]) OP-PT Subjective Patient Comments Patient Comments Has had some dizziness still, mostly when sitting still, not during transitional movements . Blood pressure checks have been normal at home, blood sugars also. Calf pain better but still sore. PT-OP-F Manual Assessment Start: 06/08/19 17:47 Freq: Status: Active Protocol: Document 06/08/19 16:45 DCW (Rec: 06/09/19 15:46 DCW [id number]) Manual Assessments Soft Tissue Assessment Soft Tissue Mobility Assessment Lumbar paraspinals: Moderate tone and tenderness to palpation 2/4 - pain with wincing Right Piriformis: Severe tone and tenderness to palpation 3/ 4 - wincing and withdraw PT-OP-K Range of Motion Start: 06/08/19 17:47 Freq: Status: Active Protocol: Document 08/16/19 09:14 [facility] (Rec: 08/16/19 09:44 [facility] [id number]) Lumbar Spine Range of Motion Lumbar Spine Active Degrees Testing Position Standing Flexion 35 Extension 15 Lateral Flexion Left 50 Lateral Flexion Right 50 ROM Limitations Bony Restriction,Muscle Tone, Pain Comments Lateral flexion measured in cm , distance from finger tips to floor PT-OP-L Special Tests Start: 06/08/19 17:47 Freq: Status: Active Protocol: Document 06/08/19 16:45 DCW (Rec: 06/09/19 15:46 DCW [id number]) Special Tests Lumbar Spine Special Tests Prone Knee Flexion Test Results Hip flexor tightness HARRIETT Test Results Negative Straight Leg Raise Test Results HS tightness Comments 35? R, 50? L Standing Flexion Test Results R LE pain Slump Test Results B HS tightness Compression Test Results Positive R radicular PT-OP-M Strength Start: 06/08/19 17:47 Freq: Status: Active Protocol: Document 06/08/19 16:45 DCW (Rec: 06/09/19 15:46 DCW [id number]) Trunk Strength Trunk Manual Muscle Testing Core Stabilization Pt demonstrates difficulty with TrA contraction, -3/5 Hip Strength Hip Manual Muscle Testing Right Flexion (L2) 5 Normal Abduction 4 Good Adduction 4- Good- External Rotation 4- Good- Internal Rotation 4 Good Left Flexion (L2) 5 Normal Abduction 4 Good Adduction 4- Good- External Rotation 4+ Good+ Internal Rotation 4+ Good+ Knee Strength Knee Manual Muscle Testing Right Flexion (S2) 4+ Good+ Extension (L3) 4 Good Left Flexion (S2) 4+ Good+ Extension (L3) 4+ Good+ PT-OP-Q Treatments Start: 06/08/19 17:47 Freq: Status: Active Protocol: Document 09/06/19 10:29 SAK (Rec: 09/06/19 16:22 SAK [id number]) Cardio Equipment Recumbent Stepper (Sci-Fit) Duration (Minutes) 5 Resistance 1.5 Seat Position 10 Therapeutic Exercises Supine Exercises SKTC Supine Exercise Name SKTC, DKTC Reps/Minutes 2x 30 hamstring stretch Reps/Minutes 2x 30 Standing Exercises row, shld ext Equipment Used L1 TB Reps/Minutes 10x Comments verbal and tactile cues for postural alignment and core stabilization. shallow wall slide Reps/Minutes 10x SLS Equipment Used at table Reps/Minutes 10 x3 each foot tandem Equipment Used table contact as needed Reps/Minutes 30 x3 each foot position Comments cued upright posture, glut squeeze calf stretch Equipment Used ELMA Reps/Minutes 30 x3 Comments discussed of step too an option Manual Therapy Treatment Taping B achilles Body Location post heel pad to mid gastroc Treatment Focus assist achilles Type of Tape Kinesio Tape Skin Inspection normal color/ texture Comments 1 I strip each LE PT-OP-S Aquatic Treatment Start: 06/08/19 17:48 Freq: Status: Active Protocol: Document 08/31/19 11:45 LJ (Rec: 08/31/19 18:21 LJ [id number]) Aquatics Treatment Pool Entry/Exit Pool Entry/Exit Method Stairs Assistance Independent Water Walking Marching Water Level Chest Level Level of Assistance Independent Comments UEs for lateral support Lunge Walk Level of Assistance Standby Assistance,Verbal Cues Sideways Water Level Chest Level Level of Assistance Independent Backwards Water Level Chest Level Level of Assistance Independent Forwards Water Level Chest Level Level of Assistance Standby Assistance,Verbal Cues Comments tactile cueing, UE cueing Lower Extremity Stretches HC Comments jovana at pool wall HS Equipment lg noodle Reps/Duration 2x45 piriformis Details back against wall Body Position Standing Water Level Neck Level Reps/Duration 2x45 Comments figure 4 Upper Extremity Exercises hor ab/ad, flex/ext Details jovana and unil Reps/Duration 10x Comments emphasis on core stab Balance wonder board Body Position Sitting Water Level Chest Level Reps/Duration 7 min Comments static and dynamic [place] Activities [place] Activities Bicycle,Cross Country,Running Other Activities pendulum plank Equipment XL belt, med barbells PT-OP-T Assessment and Plan Start: 06/08/19 17:47 Freq: Status: Active Protocol: Document 09/06/19 10:29 SAK (Rec: 09/06/19 11:16 SAK [id number]) Physical Therapy Assessment Impairments Impairments Functional Activities, Functional Mobility,Pain, Posture,ROM,Strength,Tone Other Concerns Barriers to Rehabilitation Pt's history is complicated by HTN, DM II, multiple disc bulges in her neck and back, and a large amount of medications, including Gabapentin, Oxycodine, and Meclizine. Goals Four Impairment Pt unable to bend forward without radicular symptoms Prison Goal (LTG) Pt to improve her lumbar flexion in order for her to bend over and don her sneakers without increased pain. 08/16/19: goal progress LTG Duration 09/27/19 Three Impairment Pt unable to sit for more than 5 minutes without increased pain Short Term Goal (STG) Pt to tolerate sitting for 30 minutes without an increase in back pain STG Duration goal met Prison Goal (LTG) Pt to tolerate sitting 60 minutes without increase back pain, to enable her to drive to [place] 08/16/19: goal progress LTG Duration 09/27/19 Two Impairment Pt's walking is limited to 1/2 block [place] Frame Builder Goal (LTG) Pt to return to walking 1+ miles in the community to return to her hobby of walking down to and around [employer]. 08/16/19: goal progress LTG Duration 09/27/19 One Impairment Pt does not have an appropriate home aquatic exercise program Short Term Goal (STG) Pt to be independent and compliant with an appropriate aquatic HEP 08/16/19: good goal progress Prison Goal (LTG) Independent and compliant with land-based HEP 08/15/19: some goal progress LTG Duration 09/27/19 Assessment Summary Assessment Improved exercise tolerance today, with verbalized increased understanding of neutral postural alignment and correction. Was verbalizing tightness in her left shoulder with concern over edema ( prior mastectomy), encouraged to request order from physician for PT consult to address this with concern for lymphedema. Physical Therapy Plan Frequency and Duration Frequency of Treatment 2x/Week Duration of Treatment 6 wks Plan of Care Start Date 08/16/19 Plan of Care End Date 09/27/19 Therapeutic Interventions Therapeutic Interventions Aquatic Therapy,Home Exercise Program,Joint Mobilizations, Manual Therapy,Patient/ Caregiver Education,Self-Care/ Home Management,Soft Tissue Mobilization,Therapeutic Activities,Therapeutic Exercises Modalities Cold Pack/Ice Massage,Electric Stimulation,Hot Packs, Traction- Mechanical, Ultrasound Next Visit Focus/Plan Next Note Type Treatment Note Next Visit Plan Progress with core stabilization, postural correction, strengthening.
--- NOTE | 2019-09-07 16:51 | PT.OTN ---
Current Diagnoses Radiculopathy, lumbar region (09/07/19) Lumbago with sciatica, right side (09/07/19) Muscle weakness (generalized) (09/07/19) Pain in right leg (09/07/19) Physical Therapy Treatment Note PT-OP-A Visit Information Start: 06/08/19 17:47 Freq: Status: Active Protocol: Document 09/07/19 11:45 SAK (Rec: 09/07/19 16:51 SAK [id number]) Out-Patient Physical Therapy Visit Information Visit Information Visit Type Treatment Note Visit Start Time 11:45 Visit Stop Time 12:30 Total Visit Minutes 45 Visit Number 19 Number of LIFE ENRICHMENT MANAGER Visits 0 PT-OP-B Current Condition Start: 06/08/19 17:47 Freq: Status: Active Protocol: Document 06/08/19 16:45 DCW (Rec: 06/08/19 17:58 DCW [id number]) Current Condition History of Current Condition Onset Date Three months Current Complaints Lumbar pain with right radicular symptoms History of Current Condition Pt is a 64 year old female presenting to skilled therapy with a three month history of low back pain with associated right leg pain and numbness. Pt reports that she woke up at 3 am in extreme pain three months ago, with no instigating event. Pt notes she spent the next two days just walking around my house, because I couldn't sit. Pt reports she eventually had an MRI, which noted two disc bulges. Pt experiences pain down her posterior right leg, around her lateral malleoli, and into her lateral dorsal foot. Pt has attempted acupuncture, massage, and a chiropractor with minimal relief, and has also had three cortisone injections, which have helped some. Pt also takes Gabapentin and Advil, which seem to help control the pain some. Pt struggles walking more than half a block , and has increased pain with sitting for any length of time , or bending over to pick something up or put shoes on. Prior Treatments and Tests Lumbar MRI: IMPRESSION: 1. Early multilevel degenerative changes. 2. Stenosis is most prominent at L4-5 secondary to disc bulge as well as anterolisthesis and facet/ ligamenta flavum arthropathy. 3. Disc bulge with right foraminal component and likely superimposed small protrusion/extrusion causing compromise of right lateral recess is present at L5-S1. Per: Lakesha Buckley M.D. on 12/2018 Treatment Goals Patient/Caregiver Goals Decrease pain, avoid surgery, and obtain a good guide for aquatic activities. Prior Functional Status Baseline Function- Gait Walked independently community distances Current Functional Impairments (Reported) Functional Limitations- ADL's Pain with picking anything up off the floor or bending over to don shoes. Functional Limitations- Mobility/Gait Limited to ambulating less than 1/2 block due to pain PT-OP-C Subjective Start: 06/08/19 17:47 Freq: Status: Active Protocol: Document 09/07/19 11:45 SAK (Rec: 09/07/19 16:51 SAK [id number]) OP-PT Subjective Patient Comments Patient Comments No new c/o, kinesiotape helpful for calf pain. PT-OP-F Manual Assessment Start: 06/08/19 17:47 Freq: Status: Active Protocol: Document 06/08/19 16:45 DCW (Rec: 06/09/19 15:46 DCW [id number]) Manual Assessments Soft Tissue Assessment Soft Tissue Mobility Assessment Lumbar paraspinals: Moderate tone and tenderness to palpation 2/4 - pain with wincing Right Piriformis: Severe tone and tenderness to palpation 3/ 4 - wincing and withdraw PT-OP-K Range of Motion Start: 06/08/19 17:47 Freq: Status: Active Protocol: Document 08/16/19 09:14 SAK (Rec: 08/16/19 09:44 SAK [id number]) Lumbar Spine Range of Motion Lumbar Spine Active Degrees Testing Position Standing Flexion 35 Extension 15 Lateral Flexion Left 50 Lateral Flexion Right 50 ROM Limitations Bony Restriction,Muscle Tone, Pain Comments Lateral flexion measured in cm , distance from finger tips to floor PT-OP-L Special Tests Start: 06/08/19 17:47 Freq: Status: Active Protocol: Document 06/08/19 16:45 DCW (Rec: 06/09/19 15:46 DCW [id number]) Special Tests Lumbar Spine Special Tests Prone Knee Flexion Test Results Hip flexor tightness HARRIETT Test Results Negative Straight Leg Raise Test Results HS tightness Comments 35? R, 50? L Standing Flexion Test Results R LE pain Slump Test Results B HS tightness Compression Test Results Positive R radicular PT-OP-M Strength Start: 06/08/19 17:47 Freq: Status: Active Protocol: Document 06/08/19 16:45 DCW (Rec: 06/09/19 15:46 DCW [id number]) Trunk Strength Trunk Manual Muscle Testing Core Stabilization Pt demonstrates difficulty with TrA contraction, -3/5 Hip Strength Hip Manual Muscle Testing Right Flexion (L2) 5 Normal Abduction 4 Good Adduction 4- Good- External Rotation 4- Good- Internal Rotation 4 Good Left Flexion (L2) 5 Normal Abduction 4 Good Adduction 4- Good- External Rotation 4+ Good+ Internal Rotation 4+ Good+ Knee Strength Knee Manual Muscle Testing Right Flexion (S2) 4+ Good+ Extension (L3) 4 Good Left Flexion (S2) 4+ Good+ Extension (L3) 4+ Good+ PT-OP-Q Treatments Start: 06/08/19 17:47 Freq: Status: Active Protocol: Document 09/06/19 10:29 SAK (Rec: 09/06/19 16:22 SAK [id number]) Cardio Equipment Recumbent Stepper (Sci-Fit) Duration (Minutes) 5 Resistance 1.5 Seat Position 10 Therapeutic Exercises Supine Exercises SKTC Supine Exercise Name SKTC, DKTC Reps/Minutes 2x 30 hamstring stretch Reps/Minutes 2x 30 Standing Exercises row, shld ext Equipment Used L1 TB Reps/Minutes 10x Comments verbal and tactile cues for postural alignment and core stabilization. shallow wall slide Reps/Minutes 10x SLS Equipment Used at table Reps/Minutes 10 x3 each foot tandem Equipment Used table contact as needed Reps/Minutes 30 x3 each foot position Comments cued upright posture, glut squeeze calf stretch Equipment Used ELMA Reps/Minutes 30 x3 Comments discussed of step too an option Manual Therapy Treatment Taping B achilles Body Location post heel pad to mid gastroc Treatment Focus assist achilles Type of Tape Kinesio Tape Skin Inspection normal color/ texture Comments 1 I strip each LE PT-OP-S Aquatic Treatment Start: 06/08/19 17:48 Freq: Status: Active Protocol: Document 09/07/19 11:45 SAK (Rec: 09/07/19 16:51 SAK [id number]) Aquatics Treatment Pool Entry/Exit Pool Entry/Exit Method Stairs Assistance Independent Water Walking Marching Water Level Chest Level Level of Assistance Independent Comments UEs for lateral support Lunge Walk Level of Assistance Standby Assistance,Verbal Cues Sideways Water Level Chest Level Level of Assistance Independent Backwards Water Level Chest Level Level of Assistance Independent Forwards Water Level Chest Level Level of Assistance Standby Assistance,Verbal Cues Comments tactile cueing, UE cueing Lower Extremity Stretches HC Comments jovana at pool wall HS Equipment lg noodle Reps/Duration 2x45 piriformis Details back against wall Body Position Standing Water Level Neck Level Reps/Duration 2x45 Comments figure 4 Upper Extremity Exercises hor ab/ad, flex/ext Details jovana and unil Reps/Duration 10x Comments emphasis on core stab Balance wonder board Body Position Sitting Water Level Chest Level Reps/Duration 7 min Comments static and dynamic [place] Activities [place] Activities Bicycle,Cross Country,Running Other Activities pendulum plank Equipment XL belt, med barbells PT-OP-T Assessment and Plan Start: 06/08/19 17:47 Freq: Status: Active Protocol: Document 09/06/19 10:29 SAK (Rec: 09/06/19 11:16 SAK [id number]) Physical Therapy Assessment Impairments Impairments Functional Activities, Functional Mobility,Pain, Posture,ROM,Strength,Tone Other Concerns Barriers to Rehabilitation Pt's history is complicated by HTN, DM II, multiple disc bulges in her neck and back, and a large amount of medications, including Gabapentin, Oxycodine, and Meclizine. Goals Four Impairment Pt unable to bend forward without radicular symptoms Pet Store Merchandiser Goal (LTG) Pt to improve her lumbar flexion in order for her to bend over and don her sneakers without increased pain. 08/16/19: goal progress LTG Duration 09/27/19 Three Impairment Pt unable to sit for more than 5 minutes without increased pain Short Term Goal (STG) Pt to tolerate sitting for 30 minutes without an increase in back pain STG Duration goal met Prison Goal (LTG) Pt to tolerate sitting 60 minutes without increase back pain, to enable her to drive to [place] 08/16/19: goal progress LTG Duration 09/27/19 Two Impairment Pt's walking is limited to 1/2 block Prison Goal (LTG) Pt to return to walking 1+ miles in the community to return to her hobby of walking down to and around [place]. 08/16/19: goal progress LTG Duration 09/27/19 One Impairment Pt does not have an appropriate home aquatic exercise program Short Term Goal (STG) Pt to be independent and compliant with an appropriate aquatic HEP 08/16/19: good goal progress Pet Store Merchandiser Goal (LTG) Independent and compliant with land-based HEP 08/15/19: some goal progress LTG Duration 09/27/19 Assessment Summary Assessment Improved exercise tolerance today, with verbalized increased understanding of neutral postural alignment and correction. Was verbalizing tightness in her left shoulder with concern over edema ( prior mastectomy), encouraged to request order from physician for PT consult to address this with concern for lymphedema. Physical Therapy Plan Frequency and Duration Frequency of Treatment 2x/Week Duration of Treatment 6 wks Plan of Care Start Date 08/16/19 Plan of Care End Date 09/27/19 Therapeutic Interventions Therapeutic Interventions Aquatic Therapy,Home Exercise Program,Joint Mobilizations, Manual Therapy,Patient/ Caregiver Education,Self-Care/ Home Management,Soft Tissue Mobilization,Therapeutic Activities,Therapeutic Exercises Modalities Cold Pack/Ice Massage,Electric Stimulation,Hot Packs, Traction- Mechanical, Ultrasound Next Visit Focus/Plan Next Note Type Treatment Note Next Visit Plan Progress with core stabilization, postural correction, strengthening.
--- NOTE | 2019-09-30 08:30 | PT-OP ANOTE ---
Pt cancelled appt today 09/30/19 with [facility] when called to educated POC on 09/27/19 and patient wanted to see her PT (Tiffany), hasn't seen on land or pool since mid Aug. Further appts already scheduled readjusted with PTAs in pool/land to give rest day after seeing PT, did no recommend back to back appts).
--- NOTE | 2019-10-06 10:53 | PT.OTN ---
Current Diagnoses Radiculopathy, lumbar region (10/06/19) Lumbago with sciatica, right side (10/06/19) Muscle weakness (generalized) (10/06/19) Pain in right leg (10/06/19) Physical Therapy Treatment Note PT-OP-A Visit Information Start: 06/08/19 17:47 Freq: Status: Active Protocol: Document 10/06/19 09:54 SAK (Rec: 10/06/19 10:53 SAK [id number]) Out-Patient Physical Therapy Visit Information Visit Information Visit Type Treatment Note Visit Start Time 11:45 Visit Stop Time 12:30 Total Visit Minutes 45 Visit Number 20 Number of LIMOUSINE RENTAL CLERK Visits 0 PT-OP-B Current Condition Start: 06/08/19 17:47 Freq: Status: Active Protocol: Document 06/08/19 16:45 DCW (Rec: 06/08/19 17:58 DCW [id number]) Current Condition History of Current Condition Onset Date Three months Current Complaints Lumbar pain with right radicular symptoms History of Current Condition Pt is a 64 year old female presenting to skilled therapy with a three month history of low back pain with associated right leg pain and numbness. Pt reports that she woke up at 3 am in extreme pain three months ago, with no instigating event. Pt notes she spent the next two days just walking around my house, because I couldn't sit. Pt reports she eventually had an MRI, which noted two disc bulges. Pt experiences pain down her posterior right leg, around her lateral malleoli, and into her lateral dorsal foot. Pt has attempted acupuncture, massage, and a chiropractor with minimal relief, and has also had three cortisone injections, which have helped some. Pt also takes Gabapentin and Advil, which seem to help control the pain some. Pt struggles walking more than half a block , and has increased pain with sitting for any length of time , or bending over to pick something up or put shoes on. Prior Treatments and Tests Lumbar MRI: IMPRESSION: 1. Early multilevel degenerative changes. 2. Stenosis is most prominent at L4-5 secondary to disc bulge as well as anterolisthesis and facet/ ligamenta flavum arthropathy. 3. Disc bulge with right foraminal component and likely superimposed small protrusion/extrusion causing compromise of right lateral recess is present at L5-S1. Per: Lakesha Buckley M.D. on 12/2018 Treatment Goals Patient/Caregiver Goals Decrease pain, avoid surgery, and obtain a good guide for aquatic activities. Prior Functional Status Baseline Function- Gait Walked independently community distances Current Functional Impairments (Reported) Functional Limitations- ADL's Pain with picking anything up off the floor or bending over to don shoes. Functional Limitations- Mobility/Gait Limited to ambulating less than 1/2 block due to pain PT-OP-C Subjective Start: 06/08/19 17:47 Freq: Status: Active Protocol: Document 10/06/19 09:54 SAK (Rec: 10/06/19 10:53 SAK [id number]) OP-PT Subjective Patient Comments Patient Comments Walking aggravated her pain, hasn't been to pool for aquatic exercise PT-OP-F Manual Assessment Start: 06/08/19 17:47 Freq: Status: Active Protocol: Document 06/08/19 16:45 DCW (Rec: 06/09/19 15:46 DCW [id number]) Manual Assessments Soft Tissue Assessment Soft Tissue Mobility Assessment Lumbar paraspinals: Moderate tone and tenderness to palpation 2/4 - pain with wincing Right Piriformis: Severe tone and tenderness to palpation 3/ 4 - wincing and withdraw PT-OP-K Range of Motion Start: 06/08/19 17:47 Freq: Status: Active Protocol: Document 08/16/19 09:14 SAK (Rec: 08/16/19 09:44 SAK [id number]) Lumbar Spine Range of Motion Lumbar Spine Active Degrees Testing Position Standing Flexion 35 Extension 15 Lateral Flexion Left 50 Lateral Flexion Right 50 ROM Limitations Bony Restriction,Muscle Tone, Pain Comments Lateral flexion measured in cm , distance from finger tips to floor PT-OP-L Special Tests Start: 06/08/19 17:47 Freq: Status: Active Protocol: Document 06/08/19 16:45 DCW (Rec: 06/09/19 15:46 DCW [id number]) Special Tests Lumbar Spine Special Tests Prone Knee Flexion Test Results Hip flexor tightness HARRIETT Test Results Negative Straight Leg Raise Test Results HS tightness Comments 35? R, 50? L Standing Flexion Test Results R LE pain Slump Test Results B HS tightness Compression Test Results Positive R radicular PT-OP-M Strength Start: 06/08/19 17:47 Freq: Status: Active Protocol: Document 06/08/19 16:45 DCW (Rec: 06/09/19 15:46 DCW [id number]) Trunk Strength Trunk Manual Muscle Testing Core Stabilization Pt demonstrates difficulty with TrA contraction, -3/5 Hip Strength Hip Manual Muscle Testing Right Flexion (L2) 5 Normal Abduction 4 Good Adduction 4- Good- External Rotation 4- Good- Internal Rotation 4 Good Left Flexion (L2) 5 Normal Abduction 4 Good Adduction 4- Good- External Rotation 4+ Good+ Internal Rotation 4+ Good+ Knee Strength Knee Manual Muscle Testing Right Flexion (S2) 4+ Good+ Extension (L3) 4 Good Left Flexion (S2) 4+ Good+ Extension (L3) 4+ Good+ PT-OP-Q Treatments Start: 06/08/19 17:47 Freq: Status: Active Protocol: Document 10/06/19 09:54 SAK (Rec: 10/06/19 10:53 SAK [id number]) Cardio Equipment Recumbent Stepper (Sci-Fit) Duration (Minutes) 5 Resistance 1.5 Seat Position 10 Therapeutic Exercises Supine Exercises SKTC Supine Exercise Name SKTC, DKTC Reps/Minutes 2x 30 hamstring stretch Reps/Minutes 2x 30 Manual Therapy Treatment Manual Traction Lumbar Details strap Body Position Hooklying Reps/Duration 10 min Comments 30 hold, 10 sec release Manual Techniques 1 Type STM Body Location right l/s, piriformis Reps/Duration 12 Self-Care/Home Management Treatment Education Other Education Instructed in proper body mechanics for vacuuming. PT-OP-S Aquatic Treatment Start: 06/08/19 17:48 Freq: Status: Active Protocol: Document 09/07/19 11:45 SAK (Rec: 09/07/19 16:51 SAK [id number]) Aquatics Treatment Pool Entry/Exit Pool Entry/Exit Method Stairs Assistance Independent Water Walking Marching Water Level Chest Level Level of Assistance Independent Comments UEs for lateral support Lunge Walk Level of Assistance Standby Assistance,Verbal Cues Sideways Water Level Chest Level Level of Assistance Independent Backwards Water Level Chest Level Level of Assistance Independent Forwards Water Level Chest Level Level of Assistance Standby Assistance,Verbal Cues Comments tactile cueing, UE cueing Lower Extremity Stretches HC Comments jovana at pool wall HS Equipment lg noodle Reps/Duration 2x45 piriformis Details back against wall Body Position Standing Water Level Neck Level Reps/Duration 2x45 Comments figure 4 Upper Extremity Exercises hor ab/ad, flex/ext Details jovana and unil Reps/Duration 10x Comments emphasis on core stab Balance wonder board Body Position Sitting Water Level Chest Level Reps/Duration 7 min Comments static and dynamic [place] Activities [place] Activities Bicycle,Cross Country,Running Other Activities pendulum plank Equipment XL belt, med barbells PT-OP-T Assessment and Plan Start: 06/08/19 17:47 Freq: Status: Active Protocol: Document 10/06/19 09:54 [facility] (Rec: 10/06/19 10:53 [facility] [id number]) Physical Therapy Assessment Other Concerns Barriers to Rehabilitation Pt's history is complicated by HTN, DM II, multiple disc bulges in her neck and back, and a large amount of medications, including Gabapentin, Oxycodine, and Meclizine. Goals Four Impairment Pt unable to bend forward without radicular symptoms Shelter Goal (LTG) Pt to improve her lumbar flexion in order for her to bend over and don her sneakers without increased pain. 08/16/19: goal progress 10/24/19: remains painful LTG Duration 10/24/19 Three Impairment Pt unable to sit for more than 5 minutes without increased pain Short Term Goal (STG) Pt to tolerate sitting for 30 minutes without an increase in back pain STG Duration goal met Motor Analyst Goal (LTG) Pt to tolerate sitting 60 minutes without increase back pain, to enable her to drive to [place] 08/16/19: goal progress 10/06/19: pain exacerbated today LTG Duration 10/24/19 Two Impairment Pt's walking is limited to 1/2 block Shelter Goal (LTG) Pt to return to walking 1+ miles in the community to return to her hobby of walking down to and around [place]. 08/16/19: goal progress LTG Duration 10/24/19 One Impairment Pt does not have an appropriate home aquatic exercise program Short Term Goal (STG) Pt to be independent and compliant with an appropriate aquatic HEP 08/16/19: good goal progress 10/06/19: goal met, though not compliant last couple weeks. Shelter Goal (LTG) Independent and compliant with land-based HEP 08/15/19: some goal progress 10/06/19: good goal progress LTG Duration 10/24/19 Assessment Summary Assessment Patient having difficult day today with increase in pain, emotionally labile due to concerns about her daughter. At start of session patient presented with increase in muscle tension throughout her right peraspinals and buttocks ; decreased pain and tissue tension at end of session. Demonstrated good understanding of proper body mechanics for vacuuming as shown today for back protection. Would benefit from further PT to help her fully achieve her goals. Physical Therapy Plan Frequency and Duration Frequency of Treatment 2x/Week Duration of Treatment 3wks Plan of Care Start Date 10/06/19 Plan of Care End Date 10/24/19 Therapeutic Interventions Therapeutic Interventions Aquatic Therapy,Home Exercise Program,Joint Mobilizations, Manual Therapy,Patient/ Caregiver Education,Self-Care/ Home Management,Soft Tissue Mobilization,Therapeutic Activities,Therapeutic Exercises Modalities Cold Pack/Ice Massage,Electric Stimulation,Hot Packs, Traction- Mechanical, Ultrasound Next Visit Focus/Plan Next Note Type Treatment Note Next Visit Plan Assess response to last treatment. Update HEP and aquatic exercise programs as indicated for core stabilization, strengthening, and flexibility.
--- NOTE | 2020-01-25 15:53 | PT.OTN ---
Current Diagnoses Radiculopathy, lumbar region (01/25/20) Lumbago with sciatica, right side (01/25/20) Muscle weakness (generalized) (01/25/20) Pain in right leg (01/25/20) Physical Therapy Treatment Note PT-OP-A Visit Information Start: 06/08/19 17:47 Freq: Status: Active Protocol: Document 01/25/20 10:19 SAK (Rec: 01/25/20 10:55 SAK [id number]) Out-Patient Physical Therapy Visit Information Visit Information Visit Type Treatment Note Visit Start Time 10:15 Visit Stop Time 11:00 Total Visit Minutes 50 Visit Number 21 Number of MOLDER BENCH Visits 0 PT-OP-B Current Condition Start: 06/08/19 17:47 Freq: Status: Active Protocol: Document 06/08/19 16:45 DCW (Rec: 06/08/19 17:58 DCW [id number]) Current Condition History of Current Condition Onset Date Three months Current Complaints Lumbar pain with right radicular symptoms History of Current Condition Pt is a 64 year old female presenting to skilled therapy with a three month history of low back pain with associated right leg pain and numbness. Pt reports that she woke up at 3 am in extreme pain three months ago, with no instigating event. Pt notes she spent the next two days just walking around my house, because I couldn't sit. Pt reports she eventually had an MRI, which noted two disc bulges. Pt experiences pain down her posterior right leg, around her lateral malleoli, and into her lateral dorsal foot. Pt has attempted acupuncture, massage, and a chiropractor with minimal relief, and has also had three cortisone injections, which have helped some. Pt also takes Gabapentin and Advil, which seem to help control the pain some. Pt struggles walking more than half a block , and has increased pain with sitting for any length of time , or bending over to pick something up or put shoes on. Prior Treatments and Tests Lumbar MRI: IMPRESSION: 1. Early multilevel degenerative changes. 2. Stenosis is most prominent at L4-5 secondary to disc bulge as well as anterolisthesis and facet/ ligamenta flavum arthropathy. 3. Disc bulge with right foraminal component and likely superimposed small protrusion/extrusion causing compromise of right lateral recess is present at L5-S1. Per: Lakesha Buckley M.D. on 12/2018 Treatment Goals Patient/Caregiver Goals Decrease pain, avoid surgery, and obtain a good guide for aquatic activities. Prior Functional Status Baseline Function- Gait Walked independently community distances Current Functional Impairments (Reported) Functional Limitations- ADL's Pain with picking anything up off the floor or bending over to don shoes. Functional Limitations- Mobility/Gait Limited to ambulating less than 1/2 block due to pain PT-OP-C Subjective Start: 06/08/19 17:47 Freq: Status: Active Protocol: Document 01/25/20 10:19 [facility] (Rec: 01/25/20 10:55 [facility] [id number]) OP-PT Subjective Patient Comments Patient Comments States since last seen in PT has gained 12 pounds, not able to be as active, right LB,hip , and LE pain. Going to chiropractor every other week, initially off 1, now just 1/ 2. Continues with posterior LB, hip and LE pain right LE which includes cramping and spasm. States she has started back doing HEP and trying to walk but due to some dizziness has been fearful to go to far . Also c/o persistent dizziness, would like to be screened by vestibular PT. Wants to also progress with her exercise program to further decrease her pain. Trying not to take pain medications. PT-OP-F Manual Assessment Start: 06/08/19 17:47 Freq: Status: Active Protocol: Document 06/08/19 16:45 DCW (Rec: 06/09/19 15:46 DCW [id number]) Manual Assessments Soft Tissue Assessment Soft Tissue Mobility Assessment Lumbar paraspinals: Moderate tone and tenderness to palpation 2/4 - pain with wincing Right Piriformis: Severe tone and tenderness to palpation 3/ 4 - wincing and withdraw PT-OP-K Range of Motion Start: 06/08/19 17:47 Freq: Status: Active Protocol: Document 08/16/19 09:14 SAK (Rec: 08/16/19 09:44 SAK [id number]) Lumbar Spine Range of Motion Lumbar Spine Active Degrees Testing Position Standing Flexion 35 Extension 15 Lateral Flexion Left 50 Lateral Flexion Right 50 ROM Limitations Bony Restriction,Muscle Tone, Pain Comments Lateral flexion measured in cm , distance from finger tips to floor PT-OP-L Special Tests Start: 06/08/19 17:47 Freq: Status: Active Protocol: Document 06/08/19 16:45 DCW (Rec: 06/09/19 15:46 DCW [id number]) Special Tests Lumbar Spine Special Tests Prone Knee Flexion Test Results Hip flexor tightness HARRIETT Test Results Negative Straight Leg Raise Test Results HS tightness Comments 35? R, 50? L Standing Flexion Test Results R LE pain Slump Test Results B HS tightness Compression Test Results Positive R radicular PT-OP-M Strength Start: 06/08/19 17:47 Freq: Status: Active Protocol: Document 06/08/19 16:45 DCW (Rec: 06/09/19 15:46 DCW [id number]) Trunk Strength Trunk Manual Muscle Testing Core Stabilization Pt demonstrates difficulty with TrA contraction, -3/5 Hip Strength Hip Manual Muscle Testing Right Flexion (L2) 5 Normal Abduction 4 Good Adduction 4- Good- External Rotation 4- Good- Internal Rotation 4 Good Left Flexion (L2) 5 Normal Abduction 4 Good Adduction 4- Good- External Rotation 4+ Good+ Internal Rotation 4+ Good+ Knee Strength Knee Manual Muscle Testing Right Flexion (S2) 4+ Good+ Extension (L3) 4 Good Left Flexion (S2) 4+ Good+ Extension (L3) 4+ Good+ PT-OP-Q Treatments Start: 06/08/19 17:47 Freq: Status: Active Protocol: Document 01/25/20 10:19 SAK (Rec: 01/25/20 10:55 SAK [id number]) Cardio Equipment Recumbent Stepper (Sci-Fit) Duration (Minutes) 5 Resistance 1 Seat Position 10 Therapeutic Exercises Supine Exercises SKTC Supine Exercise Name SKTC, DKTC Reps/Minutes 2x 30 hamstring stretch Reps/Minutes 2x 30 Manual Therapy Treatment Joint Mobilizations 1 Joint SI right Direction to correct ant rotation Body Position Supine Manual Techniques 1 Type STM Body Location right l/s, piriformis Reps/Duration 12 Self-Care/Home Management Treatment Education Patient Education Body Mechanics,Home Exercise Program PT-OP-S Aquatic Treatment Start: 06/08/19 17:48 Freq: Status: Active Protocol: Document 09/07/19 11:45 SAK (Rec: 09/07/19 16:51 SAK [id number]) Aquatics Treatment Pool Entry/Exit Pool Entry/Exit Method Stairs Assistance Independent Water Walking Marching Water Level Chest Level Level of Assistance Independent Comments UEs for lateral support Lunge Walk Level of Assistance Standby Assistance,Verbal Cues Sideways Water Level Chest Level Level of Assistance Independent Backwards Water Level Chest Level Level of Assistance Independent Forwards Water Level Chest Level Level of Assistance Standby Assistance,Verbal Cues Comments tactile cueing, UE cueing Lower Extremity Stretches HC Comments jovana at pool wall HS Equipment lg noodle Reps/Duration 2x45 piriformis Details back against wall Body Position Standing Water Level Neck Level Reps/Duration 2x45 Comments figure 4 Upper Extremity Exercises hor ab/ad, flex/ext Details jovana and unil Reps/Duration 10x Comments emphasis on core stab Balance wonder board Body Position Sitting Water Level Chest Level Reps/Duration 7 min Comments static and dynamic [place] Activities [place] Activities Bicycle,Cross Country,Running Other Activities pendulum plank Equipment XL belt, med barbells PT-OP-T Assessment and Plan Start: 06/08/19 17:47 Freq: Status: Active Protocol: Document 01/25/20 10:19 [facility] (Rec: 01/25/20 10:55 [facility] [id number]) Physical Therapy Assessment Other Concerns Barriers to Rehabilitation Pt's history is complicated by HTN, DM II, multiple disc bulges in her neck and back, and a large amount of medications, including Gabapentin, Oxycodine, and Meclizine. Goals Six Impairment pain right LB, buttock, and posterior LE Intermediate Goal (LTG) Decrease pain to no greater than 1-2/10 with all usual activities. LTG Duration 03/10/20 Five Impairment dizziness Short Term Goal (STG) evaluate and treat as indicated Recreation Worker Goal (LTG) Patient to report at least 75% reduction in dizziness with all usual activities. LTG Duration 03/10/20 Four Impairment Pt unable to bend forward without radicular symptoms Recreation Worker Goal (LTG) Pt to improve her lumbar flexion in order for her to bend over and don her sneakers without increased pain. 08/16/19: goal progress 10/24/19: remains painful 01/25/20: improved but still present LTG Duration 03/10/20 Three Impairment Pt unable to sit for more than 5 minutes without increased pain Short Term Goal (STG) Pt to tolerate sitting for 30 minutes without an increase in back pain STG Duration goal met Recreation Worker Goal (LTG) Pt to tolerate sitting 60 minutes without increase back pain, to enable her to drive to [place] 08/16/19: goal progress 10/06/19: pain exacerbated today 01/25/20: hasn't gone on any long-term car trips LTG Duration 03/10/20 Two Impairment Pt's walking is limited to 1/2 block Recreation Worker Goal (LTG) Pt to return to walking 1+ miles in the community to return to her hobby of walking down to and around [employer]. 08/16/19: goal progress 01/25/20: goal met LTG Duration MET One Impairment Pt does not have an appropriate home aquatic exercise program Recreation Worker Goal (LTG) Independent and compliant with land-based HEP 08/15/19: some goal progress 10/06/19: good goal progress 01/25/20: needs progression, pool hasn't opened back up for aquatic PT again LTG Duration 03/10/20 Assessment Summary Assessment Patient has been fairly compliant with HEP during Covid 19, pain not as bad as when started PT but has persistent pain, needs further progression of her HEP for long-term pain management and fitness. Would benefit from further PT to help her reach all PT goals. Additionally experiencing frequent dizziness and feel she would benefit from evaluation and potential treatment by one of our vestibular therapists; would like to add this to POC. Physical Therapy Plan Frequency and Duration Frequency of Treatment 2x/Week Duration of Treatment 3wks Plan of Care Start Date 01/25/20 Plan of Care End Date 03/10/20 Therapeutic Interventions Therapeutic Interventions Aquatic Therapy,Home Exercise Program,Joint Mobilizations, Manual Therapy,Patient/ Caregiver Education,Self-Care/ Home Management,Soft Tissue Mobilization,Therapeutic Activities,Therapeutic Exercises Modalities Cold Pack/Ice Massage,Electric Stimulation,Hot Packs, Traction- Mechanical, Ultrasound Next Visit Focus/Plan Next Note Type Treatment Note Next Visit Plan Continue progression of ther ex with emphasis on core stabilization, flexibility. Manual therapy and modalities as needed for pain management. Aquatic therapy when available.
--- NOTE | 2020-01-25 15:53 | PT.OPPOC ---
Physical, Occupational & Speech Therapy At [facility] Current Diagnoses Radiculopathy, lumbar region (01/25/20) Lumbago with sciatica, right side (01/25/20) Muscle weakness (generalized) (01/25/20) Pain in right leg (01/25/20) Visit Care Team Role Provider Type Josephine Montoya MD Attending Provider Physician Primary Care Provider Specialty: Family Practice Address: [address] [place] [address], [facility] [place], [address] Email: Plan Of Care PT-OP-T Assessment and Plan Start: 06/08/19 17:47 Freq: Status: Active Protocol: Document 01/25/20 10:19 NELSY (Rec: 01/25/20 10:55 [facility] [id number]) Physical Therapy Assessment Other Concerns Barriers to Rehabilitation Pt's history is complicated by HTN, DM II, multiple disc bulges in her neck and back, and a large amount of medications, including Gabapentin, Oxycodine, and Meclizine. Goals Six Impairment pain right LB, buttock, and posterior LE Long-Term Goal (LTG) Decrease pain to no greater than 1-2/10 with all usual activities. LTG Duration 03/10/20 Five Impairment dizziness Short Term Goal (STG) evaluate and treat as indicated Manager Environmental Health Goal (LTG) Patient to report at least 75% reduction in dizziness with all usual activities. LTG Duration 03/10/20 Four Impairment Pt unable to bend forward without radicular symptoms Manager Environmental Health Goal (LTG) Pt to improve her lumbar flexion in order for her to bend over and don her sneakers without increased pain. 08/16/19: goal progress 10/24/19: remains painful 01/25/20: improved but still present LTG Duration 03/10/20 Three Impairment Pt unable to sit for more than 5 minutes without increased pain Short Term Goal (STG) Pt to tolerate sitting for 30 minutes without an increase in back pain STG Duration goal met Long-Term Goal (LTG) Pt to tolerate sitting 60 minutes without increase back pain, to enable her to drive to [place] 08/16/19: goal progress 10/06/19: pain exacerbated today 01/25/20: hasn't gone on any long-term car trips LTG Duration 03/10/20 Two Impairment Pt's walking is limited to 1/2 block Long-Term Goal (LTG) Pt to return to walking 1+ miles in the community to return to her hobby of walking down to and around [employer]. 08/16/19: goal progress 01/25/20: goal met LTG Duration MET One Impairment Pt does not have an appropriate home aquatic exercise program Manager Environmental Health Goal (LTG) Independent and compliant with land-based HEP 08/15/19: some goal progress 10/06/19: good goal progress 01/25/20: needs progression, pool hasn't opened back up for aquatic PT again LTG Duration 03/10/20 Assessment Summary Assessment Patient has been fairly compliant with HEP during Covid 19, pain not as bad as when started PT but has persistent pain, needs further progression of her HEP for long-term pain management and fitness. Would benefit from further PT to help her reach all PT goals. Additionally experiencing frequent dizziness and feel she would benefit from evaluation and potential treatment by one of our vestibular therapists; would like to add this to POC. Physical Therapy Plan Frequency and Duration Frequency of Treatment 2x/Week Duration of Treatment 3wks Plan of Care Start Date 01/25/20 Plan of Care End Date 03/10/20 Therapeutic Interventions Therapeutic Interventions Aquatic Therapy,Home Exercise Program,Joint Mobilizations, Manual Therapy,Patient/ Caregiver Education,Self-Care/ Home Management,Soft Tissue Mobilization,Therapeutic Activities,Therapeutic Exercises Modalities Cold Pack/Ice Massage,Electric Stimulation,Hot Packs, Traction- Mechanical, Ultrasound Next Visit Focus/Plan Next Note Type Treatment Note Next Visit Plan Continue progression of ther ex with emphasis on core stabilization, flexibility. Manual therapy and modalities as needed for pain management. Aquatic therapy when available. Plan of Care Dates Plan of Care Start Date 01/25/20 Plan of Care End Date 03/10/20 Electronically Signed by: Tiffany Manley, PT 01/25/20 [id number] Please Sign and Return: I have reviewed this Plan of Care and certify that the skilled therapy services above are required to meet the patient?s needs. Physician Signature Date Printed Name and Credentials Clinical Instructor Signature Printed Name and Credentials
--- NOTE | 2020-02-16 09:50 | PT.OTN ---
Current Diagnoses Radiculopathy, lumbar region (02/16/20) Lumbago with sciatica, right side (02/16/20) Muscle weakness (generalized) (02/16/20) Pain in right leg (02/16/20) Physical Therapy Treatment Note PT-OP-A Visit Information Start: 06/08/19 17:47 Freq: Status: Active Protocol: Document 02/16/20 09:07 SP (Rec: 02/16/20 10:04 SP [id number]) Out-Patient Physical Therapy Visit Information Visit Information Visit Type Treatment Note Visit Note Pt stated hasn't been in a while due [place] weather and [place]. Visit Start Time 09:07 Visit Stop Time 09:50 Total Visit Minutes 43 Visit Number 45 Number of HEALTH PLAN MANAGER Visits 1 PT-OP-B Current Condition Start: 06/08/19 17:47 Freq: Status: Active Protocol: Document 06/08/19 16:45 DCW (Rec: 06/08/19 17:58 DCW [id number]) Current Condition History of Current Condition Onset Date Three months Current Complaints Lumbar pain with right radicular symptoms History of Current Condition Pt is a 64 year old female presenting to skilled therapy with a three month history of low back pain with associated right leg pain and numbness. Pt reports that she woke up at 3 am in extreme pain three months ago, with no instigating event. Pt notes she spent the next two days just walking around my house, because I couldn't sit. Pt reports she eventually had an MRI, which noted two disc bulges. Pt experiences pain down her posterior right leg, around her lateral malleoli, and into her lateral dorsal foot. Pt has attempted acupuncture, massage, and a chiropractor with minimal relief, and has also had three cortisone injections, which have helped some. Pt also takes Gabapentin and Advil, which seem to help control the pain some. Pt struggles walking more than half a block , and has increased pain with sitting for any length of time , or bending over to pick something up or put shoes on. Prior Treatments and Tests Lumbar MRI: IMPRESSION: 1. Early multilevel degenerative changes. 2. Stenosis is most prominent at L4-5 secondary to disc bulge as well as anterolisthesis and facet/ ligamenta flavum arthropathy. 3. Disc bulge with right foraminal component and likely superimposed small protrusion/extrusion causing compromise of right lateral recess is present at L5-S1. Per: Lakesha Buckley M.D. on 12/2018 Treatment Goals Patient/Caregiver Goals Decrease pain, avoid surgery, and obtain a good guide for aquatic activities. Prior Functional Status Baseline Function- Gait Walked independently community distances Current Functional Impairments (Reported) Functional Limitations- ADL's Pain with picking anything up off the floor or bending over to don shoes. Functional Limitations- Mobility/Gait Limited to ambulating less than 1/2 block due to pain PT-OP-C Subjective Start: 06/08/19 17:47 Freq: Status: Active Protocol: Document 02/16/20 09:07 SP (Rec: 02/16/20 10:04 SP [id number]) OP-PT Subjective Patient Comments Patient Comments Pt stated LBP more achy but not preventing do activity, supine position most discomfort if in to long with activity. Pt stated did have some dizziness yesterday and assessed BP approx 124/68 but didn't check HR or SaO2. Pt still interested in seeing vestibular therapist for furhter assessment. PT-OP-F Manual Assessment Start: 06/08/19 17:47 Freq: Status: Active Protocol: Document 06/08/19 16:45 DCW (Rec: 06/09/19 15:46 DCW [id number]) Manual Assessments Soft Tissue Assessment Soft Tissue Mobility Assessment Lumbar paraspinals: Moderate tone and tenderness to palpation 2/4 - pain with wincing Right Piriformis: Severe tone and tenderness to palpation 3/ 4 - wincing and withdraw PT-OP-K Range of Motion Start: 06/08/19 17:47 Freq: Status: Active Protocol: Document 08/16/19 09:14 SAK (Rec: 08/16/19 09:44 SAK [id number]) Lumbar Spine Range of Motion Lumbar Spine Active Degrees Testing Position Standing Flexion 35 Extension 15 Lateral Flexion Left 50 Lateral Flexion Right 50 ROM Limitations Bony Restriction,Muscle Tone, Pain Comments Lateral flexion measured in cm , distance from finger tips to floor PT-OP-L Special Tests Start: 06/08/19 17:47 Freq: Status: Active Protocol: Document 06/08/19 16:45 DCW (Rec: 06/09/19 15:46 DCW [id number]) Special Tests Lumbar Spine Special Tests Prone Knee Flexion Test Results Hip flexor tightness HARRIETT Test Results Negative Straight Leg Raise Test Results HS tightness Comments 35? R, 50? L Standing Flexion Test Results R LE pain Slump Test Results B HS tightness Compression Test Results Positive R radicular PT-OP-M Strength Start: 06/08/19 17:47 Freq: Status: Active Protocol: Document 06/08/19 16:45 DCW (Rec: 06/09/19 15:46 DCW [id number]) Trunk Strength Trunk Manual Muscle Testing Core Stabilization Pt demonstrates difficulty with TrA contraction, -3/5 Hip Strength Hip Manual Muscle Testing Right Flexion (L2) 5 Normal Abduction 4 Good Adduction 4- Good- External Rotation 4- Good- Internal Rotation 4 Good Left Flexion (L2) 5 Normal Abduction 4 Good Adduction 4- Good- External Rotation 4+ Good+ Internal Rotation 4+ Good+ Knee Strength Knee Manual Muscle Testing Right Flexion (S2) 4+ Good+ Extension (L3) 4 Good Left Flexion (S2) 4+ Good+ Extension (L3) 4+ Good+ PT-OP-Q Treatments Start: 06/08/19 17:47 Freq: Status: Active Protocol: Document 02/16/20 09:07 SP (Rec: 02/16/20 10:04 SP [id number]) Cardio Equipment Recumbent Bicycle Duration (Minutes) 6 Resistance 4 Seat Position 4 Therapeutic Exercises Supine Exercises supine clam band Resistance L1 band Reps/Minutes 2x10 Comments cued PPT and slow pacing for stabilization PPT tailbone lift Reps/Minutes 5 sec hold x12 SKTC Supine Exercise Name SKTC, DKTC Reps/Minutes 2x 30 Standing Exercises row, shld ext Equipment Used L1 TB Reps/Minutes 10x each direction Comments verbal and tactile cues for postural alignment and core stabilization. Manual Therapy Treatment Soft Tissue Mobilization L ES, QL, Glut med, PF Body Location R Mobilization Type Cross-Friction,Strumming,Other Intensity/Depth Moderate Body Position Prone PT-OP-S Aquatic Treatment Start: 06/08/19 17:48 Freq: Status: Active Protocol: Document 09/07/19 11:45 SAK (Rec: 09/07/19 16:51 SAK [id number]) Aquatics Treatment Pool Entry/Exit Pool Entry/Exit Method Stairs Assistance Independent Water Walking Marching Water Level Chest Level Level of Assistance Independent Comments UEs for lateral support Lunge Walk Level of Assistance Standby Assistance,Verbal Cues Sideways Water Level Chest Level Level of Assistance Independent Backwards Water Level Chest Level Level of Assistance Independent Forwards Water Level Chest Level Level of Assistance Standby Assistance,Verbal Cues Comments tactile cueing, UE cueing Lower Extremity Stretches HC Comments jovana at pool wall HS Equipment lg noodle Reps/Duration 2x45 piriformis Details back against wall Body Position Standing Water Level Neck Level Reps/Duration 2x45 Comments figure 4 Upper Extremity Exercises hor ab/ad, flex/ext Details jovana and unil Reps/Duration 10x Comments emphasis on core stab Balance wonder board Body Position Sitting Water Level Chest Level Reps/Duration 7 min Comments static and dynamic [place] Activities [place] Activities Bicycle,Cross Country,Running Other Activities pendulum plank Equipment XL belt, med barbells PT-OP-T Assessment and Plan Start: 06/08/19 17:47 Freq: Status: Active Protocol: Document 02/16/20 09:07 SP (Rec: 02/16/20 10:04 SP [id number]) Physical Therapy Assessment Goals Six Impairment pain right LB, buttock, and posterior LE J2Ee Architect Goal (LTG) Decrease pain to no greater than 1-2/10 with all usual activities. LTG Duration 03/10/20 Five Impairment dizziness Short Term Goal (STG) evaluate and treat as indicated J2Ee Architect Goal (LTG) Patient to report at least 75% reduction in dizziness with all usual activities. LTG Duration 03/10/20 Four Impairment Pt unable to bend forward without radicular symptoms Group Home Goal (LTG) Pt to improve her lumbar flexion in order for her to bend over and don her sneakers without increased pain. 08/16/19: goal progress 10/24/19: remains painful 01/25/20: improved but still present LTG Duration 03/10/20 Three Impairment Pt unable to sit for more than 5 minutes without increased pain Short Term Goal (STG) Pt to tolerate sitting for 30 minutes without an increase in back pain STG Duration goal met J2Ee Architect Goal (LTG) Pt to tolerate sitting 60 minutes without increase back pain, to enable her to drive to [place] 08/16/19: goal progress 10/06/19: pain exacerbated today 01/25/20: hasn't gone on any long-term car trips LTG Duration 03/10/20 Two Impairment Pt's walking is limited to 1/2 block Group Home Goal (LTG) Pt to return to walking 1+ miles in the community to return to her hobby of walking down to and around [employer]. 08/16/19: goal progress 01/25/20: goal met LTG Duration MET One Impairment Pt does not have an appropriate home aquatic exercise program J2Ee Architect Goal (LTG) Independent and compliant with land-based HEP 08/15/19: some goal progress 10/06/19: good goal progress 01/25/20: needs progression, pool hasn't opened back up for aquatic PT again LTG Duration 03/10/20 Assessment Summary Assessment Pt responded well to standing core/ scapular stabilization exercise review of past HEP, supine difficulty maintaining PPT spinal stabilization without cuing. Pt required cuing focus to task at hand with conversation. Pt is seeing her chiropractor at noon today for assist with alignment to compliment PT tx, feels is off. Physical Therapy Plan Frequency and Duration Frequency of Treatment 2x/Week Duration of Treatment 3wks Plan of Care Start Date 01/25/20 Plan of Care End Date 03/10/20 Therapeutic Interventions Therapeutic Interventions Aquatic Therapy,Home Exercise Program,Joint Mobilizations, Manual Therapy,Patient/ Caregiver Education,Self-Care/ Home Management,Soft Tissue Mobilization,Therapeutic Activities,Therapeutic Exercises Modalities Cold Pack/Ice Massage,Electric Stimulation,Hot Packs, Traction- Mechanical, Ultrasound Next Visit Focus/Plan Next Note Type Treatment Note Next Visit Plan Assess response to last tx: review HEP supine, standing shld ext/row initiated again today. Next tx try resisted core side stepping. Continue progression of ther ex with emphasis on core stabilization, flexibility. Manual therapy and modalities as needed for pain management. Aquatic therapy when available.
--- NOTE | 2020-02-21 12:20 | PT-OP ANOTE ---
Pt called this morning cancelling same day appt due to not feeling well, little dizzy when woke up but improved. I feel like have water in my ears but nothing is draining, has experienced in the past and seen by physician with no such findings. I am going to wait and see how it feels and if improves before contacting physician this time. HOME MORTGAGE DISCLOSURE ACT SPECIALIST reminded of next appt 02/27, 03/01 with primary PT with verbal confirmation.
--- NOTE | 2020-02-23 13:11 | PT-OP ANOTE ---
cancelled PT appt due to schedule conflict
--- NOTE | 2020-02-28 16:48 | PT.OTN ---
Current Diagnoses Radiculopathy, lumbar region (02/28/20) Lumbago with sciatica, right side (02/28/20) Muscle weakness (generalized) (02/28/20) Pain in right leg (02/28/20) Physical Therapy Treatment Note PT-OP-A Visit Information Start: 06/08/19 17:47 Freq: Status: Active Protocol: Document 02/28/20 13:47 SAK (Rec: 02/28/20 16:47 SAK [id number]) Out-Patient Physical Therapy Visit Information Visit Information Visit Type Treatment Note Visit Start Time 13:45 Visit Stop Time 14:40 Total Visit Minutes 55 Visit Number 23 PT-OP-B Current Condition Start: 06/08/19 17:47 Freq: Status: Active Protocol: Document 06/08/19 16:45 DCW (Rec: 06/08/19 17:58 DCW [id number]) Current Condition History of Current Condition Onset Date Three months Current Complaints Lumbar pain with right radicular symptoms History of Current Condition Pt is a 64 year old female presenting to skilled therapy with a three month history of low back pain with associated right leg pain and numbness. Pt reports that she woke up at 3 am in extreme pain three months ago, with no instigating event. Pt notes she spent the next two days just walking around my house, because I couldn't sit. Pt reports she eventually had an MRI, which noted two disc bulges. Pt experiences pain down her posterior right leg, around her lateral malleoli, and into her lateral dorsal foot. Pt has attempted acupuncture, massage, and a chiropractor with minimal relief, and has also had three cortisone injections, which have helped some. Pt also takes Gabapentin and Advil, which seem to help control the pain some. Pt struggles walking more than half a block , and has increased pain with sitting for any length of time , or bending over to pick something up or put shoes on. Prior Treatments and Tests Lumbar MRI: IMPRESSION: 1. Early multilevel degenerative changes. 2. Stenosis is most prominent at L4-5 secondary to disc bulge as well as anterolisthesis and facet/ ligamenta flavum arthropathy. 3. Disc bulge with right foraminal component and likely superimposed small protrusion/extrusion causing compromise of right lateral recess is present at L5-S1. Per: Lakesha Buckley M.D. on 12/2018 Treatment Goals Patient/Caregiver Goals Decrease pain, avoid surgery, and obtain a good guide for aquatic activities. Prior Functional Status Baseline Function- Gait Walked independently community distances Current Functional Impairments (Reported) Functional Limitations- ADL's Pain with picking anything up off the floor or bending over to don shoes. Functional Limitations- Mobility/Gait Limited to ambulating less than 1/2 block due to pain PT-OP-C Subjective Start: 06/08/19 17:47 Freq: Status: Active Protocol: Document 02/28/20 13:47 [facility] (Rec: 02/28/20 14:13 [facility] [id number]) OP-PT Subjective Patient Comments Patient Comments Has gone to the pool to do aquatic exercises on her own due to no aquatic PT right now . Reports back pain, needs pictures of aquatic exercises and instruction for safe aquatic exercise. Seeing chiropractor 1x/wk PT-OP-F Manual Assessment Start: 06/08/19 17:47 Freq: Status: Active Protocol: Document 06/08/19 16:45 DCW (Rec: 06/09/19 15:46 DCW [id number]) Manual Assessments Soft Tissue Assessment Soft Tissue Mobility Assessment Lumbar paraspinals: Moderate tone and tenderness to palpation 2/4 - pain with wincing Right Piriformis: Severe tone and tenderness to palpation 3/ 4 - wincing and withdraw PT-OP-K Range of Motion Start: 06/08/19 17:47 Freq: Status: Active Protocol: Document 08/16/19 09:14 [facility] (Rec: 08/16/19 09:44 [facility] [id number]) Lumbar Spine Range of Motion Lumbar Spine Active Degrees Testing Position Standing Flexion 35 Extension 15 Lateral Flexion Left 50 Lateral Flexion Right 50 ROM Limitations Bony Restriction,Muscle Tone, Pain Comments Lateral flexion measured in cm , distance from finger tips to floor PT-OP-L Special Tests Start: 06/08/19 17:47 Freq: Status: Active Protocol: Document 06/08/19 16:45 DCW (Rec: 06/09/19 15:46 DCW [id number]) Special Tests Lumbar Spine Special Tests Prone Knee Flexion Test Results Hip flexor tightness HARRIETT Test Results Negative Straight Leg Raise Test Results HS tightness Comments 35? R, 50? L Standing Flexion Test Results R LE pain Slump Test Results B HS tightness Compression Test Results Positive R radicular PT-OP-M Strength Start: 06/08/19 17:47 Freq: Status: Active Protocol: Document 06/08/19 16:45 DCW (Rec: 06/09/19 15:46 DCW [id number]) Trunk Strength Trunk Manual Muscle Testing Core Stabilization Pt demonstrates difficulty with TrA contraction, -3/5 Hip Strength Hip Manual Muscle Testing Right Flexion (L2) 5 Normal Abduction 4 Good Adduction 4- Good- External Rotation 4- Good- Internal Rotation 4 Good Left Flexion (L2) 5 Normal Abduction 4 Good Adduction 4- Good- External Rotation 4+ Good+ Internal Rotation 4+ Good+ Knee Strength Knee Manual Muscle Testing Right Flexion (S2) 4+ Good+ Extension (L3) 4 Good Left Flexion (S2) 4+ Good+ Extension (L3) 4+ Good+ PT-OP-Q Treatments Start: 06/08/19 17:47 Freq: Status: Active Protocol: Document 02/28/20 13:47 SAK (Rec: 02/28/20 14:13 [facility] [id number]) Cardio Equipment Recumbent Stepper (Sci-Fit) Duration (Minutes) 7 Resistance 1 Seat Position 10 Therapeutic Exercises Supine Exercises supine clam band Resistance L2 band Reps/Minutes 2x10 Comments cued PPT and slow pacing for stabilization PPT tailbone lift Reps/Minutes 5 sec hold x12 TrA with ball squeeze Reps/Minutes 10x SKTC Supine Exercise Name SKTC, DKTC Reps/Minutes 2x 30 Sidelying Exercises shoulder abduction Reps/Minutes 5x reach and roll Reps/Minutes 5x Standing Exercises wall posture Comments start next session row, shld ext Equipment Used L1 TB Reps/Minutes 10x each direction Comments verbal and tactile cues for postural alignment and core stabilization. Self-Care/Home Management Treatment Education Other Education aquatic exercise program reviewed using handouts with pictures as well as demonstration and verbal instruction. Patient demonstrated good understanding. PT-OP-S Aquatic Treatment Start: 06/08/19 17:48 Freq: Status: Active Protocol: Document 09/07/19 11:45 SAK (Rec: 09/07/19 16:51 SAK [id number]) Aquatics Treatment Pool Entry/Exit Pool Entry/Exit Method Stairs Assistance Independent Water Walking Marching Water Level Chest Level Level of Assistance Independent Comments UEs for lateral support Lunge Walk Level of Assistance Standby Assistance,Verbal Cues Sideways Water Level Chest Level Level of Assistance Independent Backwards Water Level Chest Level Level of Assistance Independent Forwards Water Level Chest Level Level of Assistance Standby Assistance,Verbal Cues Comments tactile cueing, UE cueing Lower Extremity Stretches HC Comments jovana at pool wall HS Equipment lg noodle Reps/Duration 2x45 piriformis Details back against wall Body Position Standing Water Level Neck Level Reps/Duration 2x45 Comments figure 4 Upper Extremity Exercises hor ab/ad, flex/ext Details jovana and unil Reps/Duration 10x Comments emphasis on core stab Balance wonder board Body Position Sitting Water Level Chest Level Reps/Duration 7 min Comments static and dynamic [place] Activities [place] Activities Bicycle,Cross Country,Running Other Activities pendulum plank Equipment XL belt, med barbells PT-OP-T Assessment and Plan Start: 06/08/19 17:47 Freq: Status: Active Protocol: Document 02/28/20 13:47 SAK (Rec: 02/28/20 14:13 SAK [id number]) Physical Therapy Assessment Goals Six Impairment pain right LB, buttock, and posterior LE [facility] Goal (LTG) Decrease pain to no greater than 1-2/10 with all usual activities. LTG Duration 03/10/20 Five Impairment dizziness Short Term Goal (STG) evaluate and treat as indicated School Bus Inspector Goal (LTG) Patient to report at least 75% reduction in dizziness with all usual activities. LTG Duration 03/10/20 Four Impairment Pt unable to bend forward without radicular symptoms School Bus Inspector Goal (LTG) Pt to improve her lumbar flexion in order for her to bend over and don her sneakers without increased pain. 08/16/19: goal progress 10/24/19: remains painful 01/25/20: improved but still present LTG Duration 03/10/20 Three Impairment Pt unable to sit for more than 5 minutes without increased pain Short Term Goal (STG) Pt to tolerate sitting for 30 minutes without an increase in back pain STG Duration goal met School Bus Inspector Goal (LTG) Pt to tolerate sitting 60 minutes without increase back pain, to enable her to drive to [place] 08/16/19: goal progress 10/06/19: pain exacerbated today 01/25/20: hasn't gone on any long-term car trips LTG Duration 03/10/20 Two Impairment Pt's walking is limited to 1/2 block [facility] Goal (LTG) Pt to return to walking 1+ miles in the community to return to her hobby of walking down to and around [employer]. 08/16/19: goal progress 01/25/20: goal met LTG Duration MET One Impairment Pt does not have an appropriate home aquatic exercise program School Bus Inspector Goal (LTG) Independent and compliant with land-based HEP 08/15/19: some goal progress 10/06/19: good goal progress 01/25/20: needs progression, pool hasn't opened back up for aquatic PT again LTG Duration 03/10/20 Assessment Summary Assessment Patient demonstrated good understanding of instruction in aquatic exercise program ( patient previously seen in aquatic PT) and she plans to use for independent aquatic exercise. Added sidelying reach and roll and shoulder abduction for improvement of mobility throughout thoracic and lumbar spines. Needs cues for core activation with ther ex, poor dynamic lumbar stabilization Physical Therapy Plan Frequency and Duration Frequency of Treatment 2x/Week Duration of Treatment 3wks Plan of Care Start Date 01/25/20 Plan of Care End Date 03/10/20 Therapeutic Interventions Therapeutic Interventions Aquatic Therapy,Home Exercise Program,Joint Mobilizations, Manual Therapy,Patient/ Caregiver Education,Self-Care/ Home Management,Soft Tissue Mobilization,Therapeutic Activities,Therapeutic Exercises Modalities Cold Pack/Ice Massage,Electric Stimulation,Hot Packs, Traction- Mechanical, Ultrasound Next Visit Focus/Plan Next Note Type Treatment Note Next Visit Plan Assess tolerance to aquatic therapy. Continue therapeutic exercise progression with cocus on core stabilization. Add resisted sidestepping.
--- NOTE | 2020-03-05 14:30 | PT.OTN ---
Current Diagnoses Radiculopathy, lumbar region (03/05/20) Lumbago with sciatica, right side (03/05/20) Muscle weakness (generalized) (03/05/20) Pain in right leg (03/05/20) Physical Therapy Treatment Note PT-OP-A Visit Information Start: 06/08/19 17:47 Freq: Status: Active Protocol: Document 03/05/20 13:50 SP (Rec: 03/05/20 15:49 SP [id number]) Out-Patient Physical Therapy Visit Information Visit Information Visit Type Treatment Note Visit Start Time 13:50 Visit Stop Time 14:30 Total Visit Minutes 40 Visit Number 24 Number of ASSET PROTECTION ASSISTANT Visits 1 PT-OP-B Current Condition Start: 06/08/19 17:47 Freq: Status: Active Protocol: Document 06/08/19 16:45 DCW (Rec: 06/08/19 17:58 DCW [id number]) Current Condition History of Current Condition Onset Date Three months Current Complaints Lumbar pain with right radicular symptoms History of Current Condition Pt is a 64 year old female presenting to skilled therapy with a three month history of low back pain with associated right leg pain and numbness. Pt reports that she woke up at 3 am in extreme pain three months ago, with no instigating event. Pt notes she spent the next two days just walking around my house, because I couldn't sit. Pt reports she eventually had an MRI, which noted two disc bulges. Pt experiences pain down her posterior right leg, around her lateral malleoli, and into her lateral dorsal foot. Pt has attempted acupuncture, massage, and a chiropractor with minimal relief, and has also had three cortisone injections, which have helped some. Pt also takes Gabapentin and Advil, which seem to help control the pain some. Pt struggles walking more than half a block , and has increased pain with sitting for any length of time , or bending over to pick something up or put shoes on. Prior Treatments and Tests Lumbar MRI: IMPRESSION: 1. Early multilevel degenerative changes. 2. Stenosis is most prominent at L4-5 secondary to disc bulge as well as anterolisthesis and facet/ ligamenta flavum arthropathy. 3. Disc bulge with right foraminal component and likely superimposed small protrusion/extrusion causing compromise of right lateral recess is present at L5-S1. Per: Lakesha Buckley M.D. on 12/2018 Treatment Goals Patient/Caregiver Goals Decrease pain, avoid surgery, and obtain a good guide for aquatic activities. Prior Functional Status Baseline Function- Gait Walked independently community distances Current Functional Impairments (Reported) Functional Limitations- ADL's Pain with picking anything up off the floor or bending over to don shoes. Functional Limitations- Mobility/Gait Limited to ambulating less than 1/2 block due to pain PT-OP-C Subjective Start: 06/08/19 17:47 Freq: Status: Active Protocol: Document 03/05/20 13:50 SP (Rec: 03/05/20 15:49 SP [id number]) OP-PT Subjective Patient Comments Patient Comments Pt reported has been to the pool 2x since last tx wanting to incrase to 4x/wk and doing well with HEP provided. Trying to be more conscious of posture. PT-OP-F Manual Assessment Start: 06/08/19 17:47 Freq: Status: Active Protocol: Document 06/08/19 16:45 DCW (Rec: 06/09/19 15:46 DCW [id number]) Manual Assessments Soft Tissue Assessment Soft Tissue Mobility Assessment Lumbar paraspinals: Moderate tone and tenderness to palpation 2/4 - pain with wincing Right Piriformis: Severe tone and tenderness to palpation 3/ 4 - wincing and withdraw PT-OP-K Range of Motion Start: 06/08/19 17:47 Freq: Status: Active Protocol: Document 08/16/19 09:14 SAK (Rec: 08/16/19 09:44 SAK [id number]) Lumbar Spine Range of Motion Lumbar Spine Active Degrees Testing Position Standing Flexion 35 Extension 15 Lateral Flexion Left 50 Lateral Flexion Right 50 ROM Limitations Bony Restriction,Muscle Tone, Pain Comments Lateral flexion measured in cm , distance from finger tips to floor PT-OP-L Special Tests Start: 06/08/19 17:47 Freq: Status: Active Protocol: Document 06/08/19 16:45 DCW (Rec: 06/09/19 15:46 DCW [id number]) Special Tests Lumbar Spine Special Tests Prone Knee Flexion Test Results Hip flexor tightness HARRIETT Test Results Negative Straight Leg Raise Test Results HS tightness Comments 35? R, 50? L Standing Flexion Test Results R LE pain Slump Test Results B HS tightness Compression Test Results Positive R radicular PT-OP-M Strength Start: 06/08/19 17:47 Freq: Status: Active Protocol: Document 06/08/19 16:45 DCW (Rec: 06/09/19 15:46 DCW [id number]) Trunk Strength Trunk Manual Muscle Testing Core Stabilization Pt demonstrates difficulty with TrA contraction, -3/5 Hip Strength Hip Manual Muscle Testing Right Flexion (L2) 5 Normal Abduction 4 Good Adduction 4- Good- External Rotation 4- Good- Internal Rotation 4 Good Left Flexion (L2) 5 Normal Abduction 4 Good Adduction 4- Good- External Rotation 4+ Good+ Internal Rotation 4+ Good+ Knee Strength Knee Manual Muscle Testing Right Flexion (S2) 4+ Good+ Extension (L3) 4 Good Left Flexion (S2) 4+ Good+ Extension (L3) 4+ Good+ PT-OP-Q Treatments Start: 06/08/19 17:47 Freq: Status: Active Protocol: Document 03/05/20 13:50 SP (Rec: 03/05/20 15:49 SP [id number]) Therapeutic Exercises Supine Exercises supine clam band Resistance L3 band Reps/Minutes 2x10 Comments cued PPT and slow pacing for stabilization PPT tailbone lift Reps/Minutes 5 sec hold x12 Sitting Exercises glut/piriformis stretch Side bilateral Reps/Minutes 30 sec x3 Standing Exercises resisted side stepping Side bilateral Resistance L2 side stepping Reps/Minutes 2x5 Comments cued elevated ribcage and PPT awareness wall posture Standing Exercise Name towel behind head to decrease/ stop dizziness head to wall Reps/Minutes 2 min Comments cued pelvis, shld, head on wall- tried chin tuck stopped 2* to dizziness. row, shld ext Equipment Used L2 TB shld ext, L3 TB rows Reps/Minutes 10x each direction Comments verbal and tactile cues for postural alignment and core stabilization. PT-OP-S Aquatic Treatment Start: 06/08/19 17:48 Freq: Status: Active Protocol: Document 09/07/19 11:45 SAK (Rec: 09/07/19 16:51 SAK [id number]) Aquatics Treatment Pool Entry/Exit Pool Entry/Exit Method Stairs Assistance Independent Water Walking Marching Water Level Chest Level Level of Assistance Independent Comments UEs for lateral support Lunge Walk Level of Assistance Standby Assistance,Verbal Cues Sideways Water Level Chest Level Level of Assistance Independent Backwards Water Level Chest Level Level of Assistance Independent Forwards Water Level Chest Level Level of Assistance Standby Assistance,Verbal Cues Comments tactile cueing, UE cueing Lower Extremity Stretches HC Comments jovana at pool wall HS Equipment lg noodle Reps/Duration 2x45 piriformis Details back against wall Body Position Standing Water Level Neck Level Reps/Duration 2x45 Comments figure 4 Upper Extremity Exercises hor ab/ad, flex/ext Details jovana and unil Reps/Duration 10x Comments emphasis on core stab Balance wonder board Body Position Sitting Water Level Chest Level Reps/Duration 7 min Comments static and dynamic [place] Activities [place] Activities Bicycle,Cross Country,Running Other Activities pendulum plank Equipment XL belt, med barbells PT-OP-T Assessment and Plan Start: 06/08/19 17:47 Freq: Status: Active Protocol: Document 03/05/20 13:50 SP (Rec: 03/05/20 15:49 SP [id number]) Physical Therapy Assessment Goals Six Impairment pain right LB, buttock, and posterior LE [employer] Goal (LTG) Decrease pain to no greater than 1-2/10 with all usual activities. LTG Duration 03/10/20 Five Impairment dizziness Short Term Goal (STG) evaluate and treat as indicated Intermediate Goal (LTG) Patient to report at least 75% reduction in dizziness with all usual activities. LTG Duration 03/10/20 Four Impairment Pt unable to bend forward without radicular symptoms [employer] Goal (LTG) Pt to improve her lumbar flexion in order for her to bend over and don her sneakers without increased pain. 08/16/19: goal progress 10/24/19: remains painful 01/25/20: improved but still present LTG Duration 03/10/20 Three Impairment Pt unable to sit for more than 5 minutes without increased pain Short Term Goal (STG) Pt to tolerate sitting for 30 minutes without an increase in back pain STG Duration goal met [employer] Goal (LTG) Pt to tolerate sitting 60 minutes without increase back pain, to enable her to drive to [place] 08/16/19: goal progress 10/06/19: pain exacerbated today 01/25/20: hasn't gone on any long-term car trips LTG Duration 03/10/20 Two Impairment Pt's walking is limited to 1/2 block Intermediate Goal (LTG) Pt to return to walking 1+ miles in the community to return to her hobby of walking down to and around [employer]. 08/16/19: goal progress 01/25/20: goal met LTG Duration MET One Impairment Pt does not have an appropriate home aquatic exercise program Intermediate Goal (LTG) Independent and compliant with land-based HEP 08/15/19: some goal progress 10/06/19: good goal progress 01/25/20: needs progression, pool hasn't opened back up for aquatic PT again LTG Duration 03/10/20 Assessment Summary Assessment Pt responded/doing well with added self guided aquatic HEP give by PT last tx. Pt stated trying to be more conscious of posture while in pool at at home. Pt required occasional cuing for PPT and scap stabilization during standing rows,shld ext and added resisted side stepping with L 2-3 TB today, improved self corrections. Add wall posture good carryover from PPT lift supine but cue of chin tuck caused dizziness, improved with rolled towel behind head for c/s/ spinal alignment tolerance. Physical Therapy Plan Frequency and Duration Frequency of Treatment 2x/Week Duration of Treatment 3wks Plan of Care Start Date 01/25/20 Plan of Care End Date 03/10/20 Therapeutic Interventions Therapeutic Interventions Aquatic Therapy,Home Exercise Program,Joint Mobilizations, Manual Therapy,Patient/ Caregiver Education,Self-Care/ Home Management,Soft Tissue Mobilization,Therapeutic Activities,Therapeutic Exercises Modalities Cold Pack/Ice Massage,Electric Stimulation,Hot Packs, Traction- Mechanical, Ultrasound Next Visit Focus/Plan Next Note Type Treatment Note Next Visit Plan Assess tolerance of wall posture, resisted side stepping and seated glut stretch added last tx. Add stretching to HEP for Continue per PT POC: therapeutic exercise progression with focus on core stabilization.
--- NOTE | 2020-03-19 15:56 | PT-OP ANOTE ---
DNS for PT appointment
--- NOTE | 2020-03-19 16:05 | PT.OPDS ---
Current Diagnoses Radiculopathy, lumbar region (03/05/20) Lumbago with sciatica, right side (03/05/20) Muscle weakness (generalized) (03/05/20) Pain in right leg (03/05/20) Visit Care Team Role Provider Type Josephine Montoya MD Attending Provider Physician Primary Care Provider Specialty: [facility] Practice Address: [address] [place] [address], [place], [place], [facility] Email: [email or web address] Number Visit Number 24 Discharge Summary PT-OP-B Current Condition Start: 06/08/19 17:47 Freq: Status: Active Protocol: Document 06/08/19 16:45 DCW (Rec: 06/08/19 17:58 DCW [id number]) Current Condition History of Current Condition Onset Date Three months Current Complaints Lumbar pain with right radicular symptoms History of Current Condition Pt is a 64 year old female presenting to skilled therapy with a three month history of low back pain with associated right leg pain and numbness. Pt reports that she woke up at 3 am in extreme pain three months ago, with no instigating event. Pt notes she spent the next two days just walking around my house, because I couldn't sit. Pt reports she eventually had an MRI, which noted two disc bulges. Pt experiences pain down her posterior right leg, around her lateral malleoli, and into her lateral dorsal foot. Pt has attempted acupuncture, massage, and a chiropractor with minimal relief, and has also had three cortisone injections, which have helped some. Pt also takes Gabapentin and Advil, which seem to help control the pain some. Pt struggles walking more than half a block , and has increased pain with sitting for any length of time , or bending over to pick something up or put shoes on. Prior Treatments and Tests Lumbar MRI: IMPRESSION: 1. Early multilevel degenerative changes. 2. Stenosis is most prominent at L4-5 secondary to disc bulge as well as anterolisthesis and facet/ ligamenta flavum arthropathy. 3. Disc bulge with right foraminal component and likely superimposed small protrusion/extrusion causing compromise of right lateral recess is present at L5-S1. Per: Lakesha Buckley M.D. on 12/2018 Treatment Goals Patient/Caregiver Goals Decrease pain, avoid surgery, and obtain a good guide for aquatic activities. Prior Functional Status Baseline Function- Gait Walked independently community distances Current Functional Impairments (Reported) Functional Limitations- ADL's Pain with picking anything up off the floor or bending over to don shoes. Functional Limitations- Mobility/Gait Limited to ambulating less than 1/2 block due to pain PT-OP-C Subjective Start: 06/08/19 17:47 Freq: Status: Active Protocol: Document 03/05/20 13:50 SP (Rec: 03/05/20 15:49 SP [id number]) OP-PT Subjective Patient Comments Patient Comments Pt reported has been to the pool 2x since last tx wanting to incrase to 4x/wk and doing well with HEP provided. Trying to be more conscious of posture. PT-OP-F Manual Assessment Start: 06/08/19 17:47 Freq: Status: Active Protocol: Document 06/08/19 16:45 DCW (Rec: 06/09/19 15:46 DCW [id number]) Manual Assessments Soft Tissue Assessment Soft Tissue Mobility Assessment Lumbar paraspinals: Moderate tone and tenderness to palpation 2/4 - pain with wincing Right Piriformis: Severe tone and tenderness to palpation 3/ 4 - wincing and withdraw PT-OP-K Range of Motion Start: 06/08/19 17:47 Freq: Status: Active Protocol: Document 08/16/19 09:14 SAK (Rec: 08/16/19 09:44 SAK [id number]) Lumbar Spine Range of Motion Lumbar Spine Active Degrees Testing Position Standing Flexion 35 Extension 15 Lateral Flexion Left 50 Lateral Flexion Right 50 ROM Limitations Bony Restriction,Muscle Tone, Pain Comments Lateral flexion measured in cm , distance from finger tips to floor PT-OP-L Special Tests Start: 06/08/19 17:47 Freq: Status: Active Protocol: Document 06/08/19 16:45 DCW (Rec: 06/09/19 15:46 DCW [id number]) Special Tests Lumbar Spine Special Tests Prone Knee Flexion Test Results Hip flexor tightness HARRIETT Test Results Negative Straight Leg Raise Test Results HS tightness Comments 35? R, 50? L Standing Flexion Test Results R LE pain Slump Test Results B HS tightness Compression Test Results Positive R radicular PT-OP-M Strength Start: 06/08/19 17:47 Freq: Status: Active Protocol: Document 06/08/19 16:45 DCW (Rec: 06/09/19 15:46 DCW [id number]) Trunk Strength Trunk Manual Muscle Testing Core Stabilization Pt demonstrates difficulty with TrA contraction, -3/5 Hip Strength Hip Manual Muscle Testing Right Flexion (L2) 5 Normal Abduction 4 Good Adduction 4- Good- External Rotation 4- Good- Internal Rotation 4 Good Left Flexion (L2) 5 Normal Abduction 4 Good Adduction 4- Good- External Rotation 4+ Good+ Internal Rotation 4+ Good+ Knee Strength Knee Manual Muscle Testing Right Flexion (S2) 4+ Good+ Extension (L3) 4 Good Left Flexion (S2) 4+ Good+ Extension (L3) 4+ Good+ PT-OP-T Assessment and Plan Start: 06/08/19 17:47 Freq: Status: Active Protocol: Document 03/19/20 15:55 SAK (Rec: 03/19/20 16:05 SAK [id number]) Physical Therapy Plan Discharge Physical Therapy Discharge Reasons Patient Request
== END 2020-06-22 08:05 ==
LOC: PHYS 13:45
PROVIDERS: PCP Student in an Organized Health Care Education/Training Program; Visit Provider Student in an Organized Health Care Education/Training Program
DX: M54.16 Radiculopathy, lumbar region (principal); M79.604 Pain in right leg; M54.41 Lumbago with sciatica, right side; M62.81 Muscle weakness (generalized)
CPT/HCPCS: 97010; 97110; 97113; 97140; 97162; 97535

== ENCOUNTER → 2020-07-02 10:04 | Outpatient (CLI) | payer MEDICARE, OTHER, SELFPAY ==
[2019-05-12 00:35] VITALS: BMI 31.1
[2020-07-02 10:56] LABS: COVID19 -Nasal RAPID Negative (Negative)
[2020-07-02 11:33] LABS: Add Manual Diff / Slide Review NO; Basophils Absolute Auto 0 /uL (0-100); Basophils Percent Auto 0.8 % (0-2); Eosinophils Absolute Auto 100 /uL (0-450); Eosinophils Percent Auto 2.9 % (2-4); Hematocrit 37.7 % (36-46); Hemoglobin 12.6 g/dL (12.0-16.0); Lymphocytes Absolute Auto 1800 /uL (1100-4500); Lymphocytes Percent Auto 37.5 % (25-40); Mean Corpuscular HGB Conc 33.5 % (30-36); Mean Corpuscular Hemoglobin 28.9 PG (26-34); Mean Corpuscular Volume 86.3 fL (80-100); Monocytes Absolute Auto 400 /uL (0-900); Monocytes Percent Auto 7.8 % (3-14); Neutrophils Absolute Auto 2500 /uL (1500-7000); Platelet Count 240 X10^3/uL (150-400); Red Blood Cell Count 4.37 X10^6/uL (4.0-5.2); Red Cell Distribution Width 13.8 % (11.6-14.8); White Blood Cell Count 4.9 X10^3/uL (4.5-11.0)
[2020-07-02 12:04] LABS: Alanine Aminotransferase 39 IU/L (<35); Albumin 4.2 g/dL (3.5-5.0); Albumin Globulin Ratio 1.5 (1.0-2.8); Alkaline Phosphatase 77 U/L (38-126); Aspartate Aminotransferase 27 IU/L (14-36); Bilirubin Total 0.5 mg/dL (0.2-1.3); Blood Urea Nitrogen 17 mg/dL (7-17); Calcium 9.7 mg/dL (8.4-10.2); Carbon Dioxide 31 mmol/L (22-32); Chloride 103 mmol/L (98-107); Estimated Glomerular Filt Rate > 60.0 mL/min (>60); Globulin 2.8 g/dL (1.7-4.1); Glucose 219 mg/dL (80-110); HEMOLYSIS < 15 (0-50); Potassium 4.4 mmol/L (3.4-5.1); Sodium 137 mmol/L (137-145)
[2020-07-03 04:53] LABS: Cancer Antigen 27.29 21.4 U/mL (0.0-38.6)
== END ==
PROVIDERS: Internal Medicine Hematology & Oncology; PCP Student in an Organized Health Care Education/Training Program; Visit Provider Physician Assistant
DX: Z11.59 Encounter for screening for other viral diseases (principal); Z85.3 Personal history of malignant neoplasm of breast
CPT/HCPCS: 80053; 85025; 86300; 87635

== ENCOUNTER 2020-07-04 07:29 | Day surgery (SDC) | payer MEDICARE, OTHER, SELFPAY ==
[2019-05-12 00:35] VITALS: BMI 31.1
--- NOTE | 2020-07-03 18:25 | PM.PREOP ---
Pre-operative Note COVID-19 COVID-19 status: Negative Interval Note History & Physical reviewed/Exam performed by Physician: Yes Changes to H&P: No H&P completed within 30 days and has changed as indicated here:: Fasting glucose AM of surgery is 193. She will continue her usual treatment after surgery.
--- NOTE | 2020-07-04 07:10 | P.OP_ITS ---
Operative Date/Time/Diagnoses Date of procedure: 07/04/20 Time of procedure: 08:45 Procedure & Clinicians Procedure: Preoperative diagnoses: 1. 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 2. 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 3. Poorly controlled diabetes without retinopathy 4. Intolerance to multiple anesthetic agents Postoperative diagnoses: 1. Complex Cataract removed by phacoemulsification with placement of posterior chamber intraocular lens and need for capsular dye. Procedure: Complex Phacoemulsification with posterior chamber intraocular lens implant and use of capsular dye due to poor visibility from lack of red reflex. Surgeon: Ewelina Mark MD Complications: None Specimen: None Implant: ZCBOO +18.0 Blood loss: None Anesthesia: Retrobulbar with monitored standby Description of procedure: Patient presents with a complaint of decreased vision due to cataract which is affecting activities of daily living. She has a rapidly progressing posterior subcapsular cataract presents completely obscuring her central visual axis. She also has significant pseudoexfoliation syndrome which can weaken the zonules. Though she is in fairly poor diabetic control with an elevated HbA1c is felt best to continue with surgery and manage her glucose intra and pre and postoperatively. The patient wants surgery to improve vision. Anesthesia reviewed her anesthetic intolerance is before surgery. She understands the extra risk during the COVID-19 epidemic and tested negative for virus before surgery. She wishes to proceed as planned. Preoperative glucose was 193 and she will continue with her normal treatment at home. The patient was taken to the operating room and given IV sedation. A retrobulbar block consisting of 6 cc of 2% xylocaine without epinephrine mixed half and half with 0.5% Marcaine with 1 cc of hyaluronidase added is placed between the medial and lateral 1/3 of the inferior orbital rim. The eye is manually massaged for 30 sec, prepped using Betadine solution, and draped in the usual sterile fashion. The patient still has some sensitivity to light and lidocaine 1% topical gel was also placed on the cornea. Temporal approach was made, a 1 mm side-port incision was made 90? from the proposed clear corneal incision position. Phenylephrine 1.5% mixed with 1% xylocaine 0.2 cc was placed into the anterior chamber. An air bubble was placed and Visudyne capsular dye was placed in the anterior chamber. BSS was used to irrigate out the extra dye. Viscoat followed by Healon was then placed. A 2.6 mm clear incision with a 2.6 mm blade was placed. A 360 degree capsulorrhexis style capsulotomy was then performed with a cystitome needle on a Healon greatly aided by the capsular dye. The pupil only dilated to 5 mm due to the pseudoexfoliation syndrome. The capsulorrhexis was maximized pupil size. Hydrodelineation and hydrodissection were performed. The phacoemulsification unit is introduced, and sculpting notice used to groove the central lens. It is then removed in chopping mode with hamate a section in the iris plane to remove stress from the zonules. They held intact during the procedure although the iris somewhat floppy. There was dense pseudoexfoliation material on the anterior lens capsule. Epi nucleus is removed with epinuclear mode and irrigation aspiration was used to remove the peripheral cortex. The posterior capsule is polished extensively of the posterior subcapsular plaque. It was totally removed and the zonules held intact. The intraocular lens is selected, inspected, power confirmed, and placed in the posterior chamber. The wound was stromally hydrated and tested for leaks, there was none and it was left sutureless. Vigamox 0.1 cc was placed into the anterior chamber. Kenalog 0.15 cc was placed in the superior subconjunctival space, reduced dose due to the risk of glaucoma postoperatively. A drop of antibiotic and was placed and the eye was patched and shielded. The patient was stable and returned to the recovery room in excellent condition. Dictated by: Ewelina Mark MD Copy to: [facility] Same procedure as scheduled: Yes
[2020-07-04] MEDS: PROPARACAINE 0.5% OPHTH SOL 2 DROPS EYE-OP (08:04)
[2020-07-04 08:06] VITALS: BP 158/77; PULSE 82; RESP 16; TEMP 36.3; O2SAT 98; BMI 34.5
[2020-07-04] MEDS: CATARACT EYE COMPOUND (10 DROPS/SYRINGE) 3 DROPS EYE-OP (08:13)
[2020-07-04] MEDS: LACTATED RINGERS 1,000 ML 42 ML IV (08:24)
--- NOTE | 2020-07-04 09:13 | SUR.OPER ---
Supine on eye stretcher, head on extension cradle secured with tape. Arms tucked at sides with blanket. Pillow under knees.
[2020-07-04] MEDS: LIDOCAINE JELLY 2% 5 ML 1 APPLIC TOP (09:50)
[2020-07-04] MEDS: TRYPAN BLUE 0.5 ML SYRINGE INJ (09:51)
[2020-07-04] MEDS: PHENYLEPHRINE/LIDOCAINE VIAL (OR) 0.2 ML EYE-OP (09:52)
[2020-07-04] MEDS: LIDOCAINE 2% 4 ML, BUPIVACAINE 0.5% (PF) 4 ML, HYALURONIDASE 150 UNIT INJ (09:52)
[2020-07-04] MEDS: TRIAMCINOLONE 50 MG/5 ML VIAL INJ (09:53)
[2020-07-04] MEDS: MOXIFLOXACIN INJ 5 MG/ML VIAL EYE-OP (09:54)
[2020-07-04] MEDS: HYALURONATE SODIUM 10 MG/ML SYRINGE INJ (09:54)
[2020-07-04] MEDS: CHONDROIDTIN/SOD HYALURONATE 1.05 ML SYRINGE INTRAOCULA (09:54)
[2020-07-04] MEDS: BALANCED SALT IRRIG SOLN NO.2 500 ML, EPINEPHrine 1 MG IRR (09:55)
[2020-07-04] MEDS: ERYTHROMYCIN OPHTH 1 GM OINT 1 APPLIC EYE-RIGHT (09:57)
[2020-07-04 10:22] VITALS: BP 170/77; PULSE 78; RESP 16; TEMP 36.3; O2SAT 99
--- NOTE | 2020-07-04 10:51 | SUR.PHASEII ---
Stable on feet, stated that she sometimes has vertigo, denies any presently. Denies pain/nausea. Pleasant and appreciative.
== END 2020-07-04 10:39 | disposition home or self-care (01) ==
LOC: OR 07:31
PROVIDERS: PCP Student in an Organized Health Care Education/Training Program; Referring Provider Student in an Organized Health Care Education/Training Program; Visit Provider Ophthalmology
PROC: (CPT 66982; principal; 2020-07-04 08:45)
DX: H25.811 Combined forms of age-related cataract, right eye (principal); H26.8 Other specified cataract; E11.9 Type 2 diabetes mellitus without complications; Z79.4 Long term (current) use of insulin
CPT/HCPCS: 66982; 82962; J0171; J2704; J3301; J3470

== ENCOUNTER → 2020-09-17 14:08 | Outpatient (CLI) | payer MEDICARE, OTHER, SELFPAY ==
[2019-05-12 00:35] VITALS: BMI 31.1
[2020-09-17 16:58] LABS: COVID19 -Nasal RAPID Negative (Negative)
== END ==
PROVIDERS: PCP Student in an Organized Health Care Education/Training Program; Visit Provider Physician Assistant
DX: Z01.812 Encounter for preprocedural laboratory examination (principal); Z20.822 Contact with and (suspected) exposure to COVID-19
CPT/HCPCS: 87635; C9803

== ENCOUNTER 2020-09-19 06:40 | Day surgery (SDC) | payer MEDICARE, OTHER, SELFPAY ==
[2019-05-12 00:35] VITALS: BMI 31.1
--- NOTE | 2020-09-18 19:04 | PM.PREOP ---
Pre-operative Note COVID-19 COVID-19 status: Negative Interval Note History & Physical reviewed/Exam performed by Physician: Yes Changes to H&P: No H&P completed within 30 days and has changed as indicated here:: FASTING GLUCOSE AM OF SURGERY Elevated at 263. This will be managed by the patient and anesthesia as per protocol and patient desire.
[2020-09-19] MEDS: PROPARACAINE 0.5% OPHTH SOL 2 DROPS EYE-OP (07:06)
[2020-09-19] MEDS: CATARACT EYE COMPOUND (10 DROPS/SYRINGE) 3 DROPS EYE-OP (07:10)
[2020-09-19 07:20] VITALS: BP 151/76; PULSE 84; RESP 18; TEMP 36.4; O2SAT 96; BMI 34.2
--- NOTE | 2020-09-19 07:31 | P.OP_ITS ---
Operative Date/Time/Diagnoses Date of procedure: 09/19/20 Time of procedure: 07:45 Procedure & Clinicians Procedure: Preoperative diagnoses: 1. Left nuclear sclerotic and cortical cataract. 2. Poorly controlled diabetes. 3. Previous breast cancer 4. 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 Postoperative diagnoses: 1. Complex Cataract removed by phacoemulsification with placement of posterior chamber intraocular lens and use of capsular dye. Procedure: Phacoemulsification with posterior chamber intraocular lens implant Surgeon: Ewelina Mark MD Complications: None Specimen: None Implant: ZCBOO+19.0 Blood loss: None Anesthesia: Retrobulbar with monitored standby Description of procedure: Patient presents with a complaint of decreased vision due to cataract which is affecting activities of daily living distance and near especially for night driving. She has high risk of pseudoexfoliation syndrome which can make her zonules and stable. She has successfully recovered from right cataract surgery with complex as use of dye and a distance target. She has poorly controlled diabetes with fasting blood glucose of 263 but she states she has brittle and does not want insulin pre prior to surgery. She says she will manage at home. The patient wants surgery to improve vision. The patient was taken to the operating room and given IV sedation. A retrobulbar block consisting of 6 cc of 2% xylocaine without epinephrine mixed half and half with 0.5% Marcaine with 1 cc of hyaluronidase added is placed between the medial and lateral 1/3 of the inferior orbital rim. The eye is manually massaged for 30 sec, prepped using Betadine solution, and draped in the usual sterile fashion. Temporal approach was made, a 1 mm side-port incision was made 90? from the proposed clear corneal incision position. Phenylephrine 1.5% mixed with 1% xylocaine 0.2 cc was placed into the anterior chamber. Due to the dense pseudoexfoliation rings and lack of red reflex capsular dye was felt to be needed. An air bubble was placed into the anterior chamber and Visudyne capsular dye was placed into the anterior chamber. BSS was then used to irrigate out the air bubble. Viscoat followed by Healon was then placed. A 2.6 mm clear incision with a 2.6 mm blade was placed. A 360 degree capsulorrhexis style capsulotomy was then performed with a cystitome needle on a Healon greatly aided by the capsular dye. Gentle hydrodissection and hydrodelineation were performed. The zonules held intact throughout. The phacoemulsification unit is introduced, and sculpting notice used to groove the central lens. It is then removed in chopping mode elevated to the iris plane for extra safety. Epi nucleus is removed with epinuclear mode and irrigation aspiration was used to remove the peripheral cortex. The posterior capsule is polished. The intraocular lens is selected, inspected, power confirmed, and placed in the posterior chamber. The wound was stromally hydrated and tested for leaks, there was none and it was left sutureless. Vigamox 0.1 cc was placed into the anterior chamber. Kenalog 0.2 cc was placed in the superior subconjunctival space. A drop of antibiotic and was placed and the eye was patched and shielded. The patient was stable and returned to the recovery room in excellent condition. She will treat her blood glucose when she arrives home. Dictated by: Ewelina Mark MD Copy to: [facility] Same procedure as scheduled: Yes
--- NOTE | 2020-09-19 07:57 | SUR.OPER ---
Supine on eye stretcher, head on extension cradle secured with tape. Arms tucked at sides with blanket. Pillow under knees.
[2020-09-19] MEDS: PHENYLEPHRINE/LIDOCAINE VIAL (OR) 0.2 ML EYE-OP (08:06)
[2020-09-19] MEDS: LIDOCAINE 2% 4 ML, BUPIVACAINE 0.5% (PF) 4 ML, HYALURONIDASE 150 UNIT INJ (08:07)
[2020-09-19] MEDS: MOXIFLOXACIN INJ 5 MG/ML VIAL EYE-OP (08:09)
[2020-09-19] MEDS: TRIAMCINOLONE 50 MG/5 ML VIAL INJ (08:10)
[2020-09-19] MEDS: HYALURONATE SODIUM 10 MG/ML SYRINGE INJ (08:10)
[2020-09-19] MEDS: CHONDROIDTIN/SOD HYALURONATE 1.05 ML SYRINGE INTRAOCULA (08:10)
[2020-09-19] MEDS: BALANCED SALT IRRIG SOLN NO.2 500 ML, EPINEPHrine 1 MG IRR (08:11)
[2020-09-19] MEDS: TRYPAN BLUE 0.5 ML SYRINGE INJ (08:11)
[2020-09-19] MEDS: ERYTHROMYCIN OPHTH 1 GM OINT 1 APPLIC EYE-LEFT (08:12)
[2020-09-19 08:41] VITALS: BP 167/68; PULSE 74; RESP 20; TEMP 36.6; O2SAT 98
== END 2020-09-19 08:42 | disposition home or self-care (01) ==
PROVIDERS: PCP Student in an Organized Health Care Education/Training Program; Referring Provider Ophthalmology; Visit Provider Ophthalmology
PROC: (CPT 66984; principal; 2020-09-19 07:45)
DX: H25.812 Combined forms of age-related cataract, left eye (principal); E11.9 Type 2 diabetes mellitus without complications; I10 Essential (primary) hypertension; E66.9 Obesity, unspecified
CPT/HCPCS: 66984; J0171; J2704; J3301; J3470

== ENCOUNTER → 2020-11-28 10:01 | Outpatient (CLI) | payer MEDICARE, OTHER, SELFPAY ==
[2019-05-12 00:35] VITALS: BMI 31.1
[2020-11-28 11:03] LABS: Hemoglobin A1C% w Est Avg Glu 8.7 % (4.0-6.0)
[2020-11-28 11:58] LABS: Vitamin B12 507 pg/mL (239-931)
[2020-11-28 12:14] LABS: Free T3, Triiodothyronine Free 3.05 pg/mL (2.77-5.27); Free T4, Direct Thyroxine 1.32 ng/dL (0.78-2.19)
[2020-11-28 12:27] LABS: Thyroid Stimulating Hormone 1.08 uIU/mL (0.47-4.68)
== END ==
PROVIDERS: PCP Student in an Organized Health Care Education/Training Program; Referring Provider Naturopath; Visit Provider Naturopath
DX: E11.9 Type 2 diabetes mellitus without complications (principal); E03.9 Hypothyroidism, unspecified; E53.8 Deficiency of other specified B group vitamins
CPT/HCPCS: 36415; 82607; 83036; 84439; 84443; 84481

== ENCOUNTER → 2020-11-30 12:35 | Outpatient (CLI) | payer MEDICARE, OTHER, SELFPAY ==
[2019-05-12 00:35] VITALS: BMI 31.1
--- NOTE | 2020-11-30 12:41 | DI.RAD.S_ITS ---
PROCEDURE: XR LUMBAR SPINE 2-3V INDICATIONS: LOW BACK PAIN TECHNIQUE: 3 views of the lumbar spine were acquired. COMPARISON: [facility], CR, XR LUMBAR SPINE 2-3V, 03/23/2019, 17:59. FINDINGS: Bones: No fracture. Grade 1 anterolisthesis of L4 on L5. Multilevel spondylosis/endplate changes. Diffuse facet arthropathy. Moderate narrowing of the L4-L5 disc space. There is mild to moderate narrowing of the L5-S1 disc space. This is slightly progressed at L4-L5 since the prior study from 03/23/19. Soft tissues: Overlying bowel gas pattern is normal. No suspicious soft tissue calcifications. IMPRESSION: Slight interval progression of L4-L5 spondylosis since 03/23/19 as above Dictated by: Emiliano David M.D. on 11/30/2020 at 13:30 Approved by: Emiliano David M.D. on 11/30/2020 at 13:32
== END ==
PROVIDERS: PCP Student in an Organized Health Care Education/Training Program; Referring Provider Family Medicine; Visit Provider Family Medicine
DX: M54.5 Low back pain (principal); M47.816 Spondylosis without myelopathy or radiculopathy, lumbar region
CPT/HCPCS: 72100

== ENCOUNTER → 2021-03-06 09:53 | Outpatient (CLI) | payer MEDICARE, OTHER, SELFPAY ==
[2019-05-12 00:35] VITALS: BMI 31.1
[2021-03-06 11:33] LABS: COVID19 -Nasal RAPID Negative (Negative)
== END ==
PROVIDERS: PCP Student in an Organized Health Care Education/Training Program; Referring Provider Student in an Organized Health Care Education/Training Program; Visit Provider Student in an Organized Health Care Education/Training Program
DX: Z01.812 Encounter for preprocedural laboratory examination (principal); Z20.822 Contact with and (suspected) exposure to COVID-19
CPT/HCPCS: 87635; C9803

== ENCOUNTER 2021-03-08 14:18 | Day surgery (SDC) | payer MEDICARE, OTHER, SELFPAY ==
[2019-05-12 00:35] VITALS: BMI 31.1
--- NOTE | 2021-03-08 | PATH_ITS ---
[facility] Accession Number: [id number] . 01 Material submitted: . PART A: colon - TRANSVERSE 2MM PART B: sigmoid colon - SIGMOID COLON 4MM . 02 Diagnosis: A. Transverse, 2 mm, Biopsy: Tubular adenoma. . B. Sigmoid Colon, 4 mm, Biopsy: Hyperplastic polyp. MRV 03/12/2021 1023 Local . 02 Electronically signed: . Marleny Dye MD, Pathologist NPI- [id number] . 01 Gross description: . Part A: TRANSVERSE 2MM: Received in formalin is 1 fragment(s) of garcia, soft tissue measuring 0.7 x 0.3 x 0.1 cm submitted entirely in 1 cassette(s) Part B: SIGMOID COLON 4MM: Received in formalin are 2 fragment(s) of garcia, soft tissue measuring 0.4 x 0.4 x 0.2 cm to 0.4 x 0.4 x 0.2 cm submitted entirely in 1 cassette(s) /LM 03/09/2021 0510 Local . 02 Pathologist provided ICD-10: D12.3 . 02 CPT . 498862, [id number] Performed at: 01 [facility] [address], [place], [place] [id number] MD Mickey Tony MD Phone: [phone] Performed at: 02 [facility] [address] [place], [place] [id number] MD Marleny Dye MD Phone: [phone]
--- NOTE | 2021-03-08 12:13 | P.HP_ITS ---
History of Present Illness History of Present Illness Date Patient Seen: 03/08/21 Chief complaint: SDC Narrative: 66 year old female comes in today for consideration of a screening colonoscopy. History of positive FIT test on 01/02/21. She has never had a colonoscopy. There have been no lower GI symptoms suggesting disease such as change in bowel habits, bleeding, abdominal pain or anemia. There's been no family history of colon cancer or colon polyps. Overall health issues have been stable, including no major cardiac events for at least 6 weeks. PCP: Dr. Montoya Past Medical History: Pregnancies: 4 Live Births: 4 Miscarriages: 0 Living Children: 4 Invasive ductal carcinoma - Bilateral Mastectomy, 2 lumpectomies Hypothyroidism Hyperlipidemia Type 2 Diabetes Kidney Stones Past Surgical History: Mastectomy - Bilateral Tonsillectomy Bilateral Cataracts 09/19/20 & 06/2020 Family History: Family Hx Breast Cancer, daughter, who was treated but still developed metastatic. Father: Wedolyn - age 80 - Stroke, heart disease, diabetes, hypertension, hyperlipidemia Mother: Cotelle - age 92 - Stroke, heart disease, hypertension, hyperlipidemia Siblings: Hero - Stroke, cancer Jose Carlos - Myocardialinfarction Qi - living Social History: Marital Status: yes Children: Kat (1971) - Stage 4 breast cancer, Sravani (1979), Howard (1981), Benton (1984) Patient History Medical History (Updated 02/07/21 @ 13:46 by Tee Vogt MD) Diabetes History of chemotherapy History of malignant neoplasm of breast (12/13/15) HTN (hypertension) Hypothyroidism Lumbar back pain with radiculopathy affecting right lower extremity Renal colic on left side Ureterolithiasis Surgical History History of lithotripsy History of tonsillectomy History of total mastectomy Family & Social History Family History Father Diabetes mellitus Hypertension Stroke Mother Hypertension Stroke Brother No problems noted. Sister Stroke Myocardial infarction Daughter Cancer Social History: household members spouse Tobacco & Substance use: Smoking Status Never smoker alcohol intake frequency holiday/special occasion Substance Use Type does not use Meds Home Medications and Allergies Home Medications Medication Instructions Recorded Confirmed Type metformin 1,000 mg tablet 1,000 mg PO BID 12/02/17 03/08/21 History insulin glargine 100 unit/mL 50 units SUBCUT BID 01/24/19 03/08/21 History subcutaneous solution (Lantus U-100 Insulin) levothyroxine 100 mcg tablet 100 mcg PO DAILY 03/23/19 03/08/21 History (Synthroid) irbesartan 75 mg tablet 150 mg PO DAILY 09/01/19 03/08/21 History cholecalciferol (vitamin D3) 50 75 mcg PO DAILY 08/09/20 03/08/21 History mcg (2,000 unit) tablet (Vitamin D3) cyanocobalamin (vitamin B-12) 2,500 mcg PO DAILY 08/09/20 03/08/21 History 1,000 mcg/mL oral drops (Vitamin B-12) krill oil 500 mg capsule 500 mg PO DAILY 08/09/20 03/08/21 History magnesium 500 mg tablet 500 mg PO DAILY 08/09/20 03/08/21 History clobetasol 0.05 % topical ointment 1 applic TOPICAL DAILY #30 g 10/23/20 03/08/21 Rx clotrimazole-betamethasone 1 1 applic TOPICAL BID #15 g 12/14/20 03/08/21 Rx %-0.05 % topical cream fluconazole 150 mg tablet 150 mg PO Q3D #2 tab 12/14/20 03/08/21 Rx Allergies Allergy/AdvReac Type Severity Reaction Status Date / Time fluoxetine Allergy Severe UNKNOWN Verified 10/16/20 10:27 lovastatin Allergy Severe UNKNOWN Verified 10/16/20 10:27 pravastatin Allergy Severe UNKNOWN Verified 10/16/20 10:27 empagliflozin Allergy Intermediate Nausea Verified 10/16/20 10:27 [From Jardiance] insulin glargine Allergy Intermediate Nausea Verified 10/16/20 10:27 [From Soliqua 100/33] lixisenatide Allergy Intermediate Nausea Verified 10/16/20 10:27 [From Soliqua 100/33] morphine Allergy Unknown Verified 10/16/20 10:27 promethazine [From PHENERGAN] Allergy Unknown Verified 10/16/20 10:27 scopolamine [SCOPOLAMINE] Allergy Unknown Nausea Verified 10/16/20 10:27 TUJEO Allergy Severe UNKNOWN Uncoded 10/16/20 10:27 NO USE OF LEFT ARM FOR IV/BP Allergy Unknown Uncoded 10/16/20 10:27 Review of Systems Review of Systems Narrative: See HPI. Exam Narrative Exam Narrative: GENERAL: Alert and oriented, appearing stated age and in no acute distress. HEENT: Head normocephalic/atraumatic. Pupils equal, round, and reactive to light and accomodation. Extraocular muscles intact. Tympanic membranes clear. Nasal mucosa moist, septum midline. Oral mucosa moist, no lesions. Neck soft and supple, no lymphadenopathy. LUNGS: Clear to ausculation bilaterally, no wheezes, rhonchi or rales. CV: Normal S1 and S2 with regular rate and rhythm, no audible murmurs, rubs or gallops. ABDOMEN: Soft, non-tender, non-distended, no organomegaly. Positive bowel sounds. EXTREMITIES: No clubbing, cyanosis, or edema. NEURO: Cranial nerves II through XII grossly intact, no focal deficits. PSYCH: Alert and oriented x 3. SKIN: No concerning lesions. Assessment & Plan Assessment & Plan narrative: 1. Screening for colon cancer 2. Positive FIT Test Plan for colonoscopy. The nature and character of the procedure as well as anticipated results were discussed. The possibility of not completing the procedure was also discussed. Possible complications including aspiration pneumonia, bleeding, perforation and reaction to medications either for sedation or preparation and missed lesions were discussed. Questions were answered and proceeding to the colonoscopy was elected. Informed consent signed. Due to history of nausea / vomiting on Versed/ fentanyl, patient will be pre- treated with Zofran. I sincerely appreciate the referral allowing me to participate in this patient's care. Please contact me with any questions or concerns.
--- NOTE | 2021-03-08 12:17 | PM.OP.ENDO ---
Operative Date/Time/Diagnoses Date of procedure: 03/08/21 Procedure Notes SCOAP/Timeout: 3:29 p.m. Procedure in detail: ENDOSCOPIST: Josephine Montoya MD Anesthesiologist: Dr. Rose Sedation start time: 3:32 p.m. Sedation end time: 4:00 p.m. PROCEDURE: Colonoscopy with biopsy, cold INDICATIONS: 1. Positive FIT test 2. Screening for colon cancer MEDICATION: Levsin 0.125 mg sublingual, incremental doses of Versed and fentanyl until appropriate level sedation achieved. ASA CLASS: 2 CECAL WITHDRAWAL TIME: 14 minutes COMPLICATIONS: None. EXTENT OF PROCEDURE: Cecum. QUALITY OF PREP: Good with portions of liquid stool. PROCEDURE: Prior to insertion of the colonoscope, a digital rectal examination was accomplished with circumferential palpation of the distal rectal mucosa without significant findings being noted. The high-definition colonoscope was passed into the rectum in the usual fashion and advanced over to the cecum without difficulty. The ileocecal valve, appendiceal stoma, and medial wall all could be inspected and no abnormalities were seen. ASCENDING COLON: As the colonoscope was withdrawn, care was taken to expose and inspect the haustral folds and no abnormalities were seen. HEPATIC FLEXURE: Normal, no polyps, diverticula or other abnormalities. TRANSVERSE COLON: A 2 mm polyp was seen and removed with cold biopsy forceps. Otherwise, normal, no, diverticula or other abnormalities. DESCENDING COLON: Normal, no polyps, diverticula or other abnormalities. SIGMOID COLON: 2 polyps seen, 4 mm each, removed with cold biopsy forceps. Otherwise, no diverticula or other abnormalities. RECTUM: Normal. J maneuver was produced. There was no significant perianal disease. The J maneuver was broken. The remainder of the rectum was inspected and there was no external hemorrhoid disease. The scope was withdrawn. IMPRESSION: 1. Transverse polyp x1, 2 mm, removed with cold biopsy forceps 2. Sigmoid polyp x2, 4 mm, removed with cold biopsy forceps PLAN: 1. Follow-up in clinic status post pathology results. The possibility of a missed lesion including a malignancy has been discussed with the patient previously. Potential alarm symptoms have been discussed and should be reported immediately.
[2021-03-08] MEDS: LACTATED RINGERS 1,000 ML 200 ML IV (14:24)
[2021-03-08] MEDS: HYOSCYAMINE 0.125 MG TABLET PO (14:24)
[2021-03-08 14:34] VITALS: BP 143/78; PULSE 72; RESP 18; TEMP 36.7; O2SAT 99; BMI 34.2
[2021-03-08] MEDS: ONDANSETRON 4 MG/2 ML INJ IV (14:56)
[2021-03-08 16:05] VITALS: BP 102/37; PULSE 71; RESP 13; TEMP 36.1; O2SAT 96
[2021-03-08 16:10] VITALS: BP 108/44; PULSE 69; RESP 14; O2SAT 96
[2021-03-08 16:15] VITALS: BP 108/45; PULSE 70; RESP 13; O2SAT 99
[2021-03-08 16:20] VITALS: BP 128/62; PULSE 70; RESP 11; O2SAT 99
[2021-03-08 16:30] VITALS: BP 128/62; PULSE 70; RESP 13; TEMP 36.4; O2SAT 99
== END 2021-03-08 16:59 | disposition home or self-care (01) ==
PROVIDERS: PCP Student in an Organized Health Care Education/Training Program; Referring Provider Student in an Organized Health Care Education/Training Program; Visit Provider Student in an Organized Health Care Education/Training Program
PROC: 0DJD8ZZ Inspection of Lower Intestinal Tract, Via Natural or Artificial Opening Endoscopic (ICD-10-PCS; CPT 45378; principal; 2021-03-08 15:15)
DX: R19.5 Other fecal abnormalities (principal); I10 Essential (primary) hypertension; E11.9 Type 2 diabetes mellitus without complications; E03.9 Hypothyroidism, unspecified; E78.5 Hyperlipidemia, unspecified; Z79.4 Long term (current) use of insulin; D12.3 Benign neoplasm of transverse colon
CPT/HCPCS: 45380; 82962; J2405

== ENCOUNTER → 2021-03-19 09:32 | Outpatient (CLI) | payer MEDICARE, OTHER, SELFPAY ==
[2019-05-12 00:35] VITALS: BMI 31.1
[2021-03-19 11:34] LABS: Hemoglobin A1C% w Est Avg Glu 8.7 % (4.0-6.0)
[2021-03-19 11:52] LABS: Cholesterol 257 mg/dL (140-199); HDL Cholesterol 79 mg/dL (40-60); LDL Cholesterol Calculated 152 mg/dL (<100); Triglycerides 131 mg/dL (35-150)
[2021-03-19 12:02] LABS: Free T3, Triiodothyronine Free 3.25 pg/mL (2.77-5.27); Free T4, Direct Thyroxine 1.26 ng/dL (0.78-2.19)
[2021-03-19 12:16] LABS: Thyroid Stimulating Hormone 1.72 uIU/mL (0.47-4.68)
[2021-03-19 12:36] LABS: Vitamin B12 250 pg/mL (239-931)
== END ==
PROVIDERS: PCP Student in an Organized Health Care Education/Training Program; Referring Provider Naturopath; Visit Provider Naturopath
DX: E11.9 Type 2 diabetes mellitus without complications (principal); E03.9 Hypothyroidism, unspecified; E53.8 Deficiency of other specified B group vitamins
CPT/HCPCS: 36415; 80061; 82607; 83036; 84439; 84443; 84481

== ENCOUNTER → 2021-08-09 08:51 | Outpatient (CLI) | payer MEDICARE, OTHER, SELFPAY ==
[2019-05-12 00:35] VITALS: BMI 31.1
[2021-08-09 10:22] LABS: Hemoglobin A1C% w Est Avg Glu 10.5 % (4.0-6.0)
[2021-08-09 10:37] LABS: Alanine Aminotransferase 56 IU/L (<35); Albumin 4.6 g/dL (3.5-5.0); Albumin Globulin Ratio 1.6 (1.0-2.8); Alkaline Phosphatase 75 U/L (38-126); Aspartate Aminotransferase 40 IU/L (14-36); BUN Creatinine Ratio 23.4 (6-22); Bilirubin Total 0.7 mg/dL (0.2-1.3); Blood Urea Nitrogen 18 mg/dL (7-17); Calcium 10.4 mg/dL (8.4-10.2); Carbon Dioxide 28 mmol/L (22-32); Chloride 103 mmol/L (98-107); Cholesterol 274 mg/dL (140-199); Estimated Glomerular Filt Rate > 60.0 mL/min (>60); Globulin 2.9 g/dL (1.7-4.1); Glucose 138 mg/dL (80-110); HDL Cholesterol 56 mg/dL (40-60); HEMOLYSIS < 15 (0-50); LDL Cholesterol Calculated 181 mg/dL (<100); Sodium 140 mmol/L (137-145); Total Protein 7.5 g/dL (6.3-8.2); Triglycerides 187 mg/dL (35-150)
[2021-08-09 11:04] LABS: Thyroid Stimulating Hormone 0.909 uIU/mL (0.47-4.68)
[2021-08-09 11:22] LABS: Vitamin B12 288 pg/mL (239-931)
== END ==
PROVIDERS: PCP Student in an Organized Health Care Education/Training Program; Referring Provider Naturopath; Visit Provider Naturopath
DX: E11.9 Type 2 diabetes mellitus without complications (principal); E03.9 Hypothyroidism, unspecified; E55.9 Vitamin D deficiency, unspecified; E53.8 Deficiency of other specified B group vitamins; R94.5 Abnormal results of liver function studies
CPT/HCPCS: 36415; 80053; 80061; 82306; 82607; 83036; 84443

== ENCOUNTER → 2021-09-04 09:16 | Outpatient (CLI) | payer MEDICARE, OTHER, SELFPAY ==
[2019-05-12 00:35] VITALS: BMI 31.1
[2021-09-04 11:05] LABS: Hemoglobin A1C% w Est Avg Glu 9.9 % (4.0-6.0)
[2021-09-04 11:19] LABS: Free T3, Triiodothyronine Free 3.18 pg/mL (2.77-5.27); Free T4, Direct Thyroxine 1.32 ng/dL (0.78-2.19)
[2021-09-05 20:45] LABS: Anti Thyroglobulin Antibody 9.6 IU/mL (0.0-0.9); Thyroid Peroxidase Antibodies <8 IU/mL (0-34)
[2021-09-06 09:01] LABS: Thyroid Stimulating Immunoglob < 0.10 IU/L (0.00-0.55)
== END ==
PROVIDERS: PCP Student in an Organized Health Care Education/Training Program; Referring Provider Naturopath; Visit Provider Naturopath
DX: E11.9 Type 2 diabetes mellitus without complications (principal); E03.9 Hypothyroidism, unspecified
CPT/HCPCS: 36415; 83036; 84439; 84443; 84445; 84481; 86376; 86800

== ENCOUNTER → 2021-11-29 12:45 | Outpatient (ROUT) | payer MEDICARE, OTHER, SELFPAY ==
[2019-05-12 00:35] VITALS: BMI 31.1
[2021-11-29 14:12] LABS: COVID-19 CEPHEID PCR (VTM/NP) POSITIVE (Negative)
== END ==
PROVIDERS: PCP Student in an Organized Health Care Education/Training Program; Visit Provider Family Medicine
DX: U07.1 COVID-19 (principal); J02.9 Acute pharyngitis, unspecified
CPT/HCPCS: U0003; U0005

== ENCOUNTER → 2022-01-28 12:16 | Outpatient (ROUT) | payer MEDICARE, OTHER, SELFPAY ==
[2019-05-12 00:35] VITALS: BMI 31.1
[2022-01-28 13:19] LABS: COVID-19 CEPHEID PCR (VTM/NP) Negative (Negative)
== END ==
PROVIDERS: PCP Student in an Organized Health Care Education/Training Program; Visit Provider Family Medicine
DX: Z20.822 Contact with and (suspected) exposure to COVID-19 (principal); R50.9 Fever, unspecified
CPT/HCPCS: U0003; U0005

== ENCOUNTER → 2022-03-04 14:22 | Outpatient (CLI) | payer MEDICARE, OTHER, SELFPAY ==
[2019-05-12 00:35] VITALS: BMI 31.1
[2022-03-04 15:53] LABS: Creatinine Urine Random 53.8 mg/dL
[2022-03-04 15:59] LABS: Microalbumi Creatinin Ratio Ur 18.5 ug/mg CR (<30)
[2022-03-04 17:00] LABS: BUN Creatinine Ratio 20.9 (6-22); Blood Urea Nitrogen 14 mg/dL (7-17); Carbon Dioxide 26 mmol/L (22-32); Chloride 104 mmol/L (98-107); Estimated Glomerular Filt Rate > 60 mL/min (>60); Glucose 222 mg/dL (80-110); HEMOLYSIS < 15 (0-50); Potassium 5.1 mmol/L (3.4-5.1); Sodium 140 mmol/L (137-145)
== END ==
PROVIDERS: PCP Student in an Organized Health Care Education/Training Program; Referring Provider Internal Medicine Nephrology; Visit Provider Internal Medicine Nephrology
DX: E11.9 Type 2 diabetes mellitus without complications (principal); Z79.4 Long term (current) use of insulin
CPT/HCPCS: 36415; 80048; 82043; 82570

== ENCOUNTER → 2022-03-20 09:51 | Outpatient (CLI) | payer MEDICARE, OTHER, SELFPAY ==
[2022-03-18 09:54] VITALS: BMI 31.1
--- NOTE | 2022-03-20 09:53 | DI.US.S_ITS ---
PROCEDURE: US RENAL COMPLETE INDICATIONS: RECURRENT NEPHROLITHIASIS TECHNIQUE: Real-time scanning was performed of the kidneys and bladder, with image documentation. COMPARISON: [facility], CT, CT ABDOMEN PELVIS WO CON, 11/21/2019, 13:41. [facility], US, US RENAL COMPLETE, 11/29/2019, 11:40. FINDINGS: Kidneys: Kidneys are normal in size. Right kidney measures 12.1 cm long; left kidney measures 1.1 cm long. Right renal cortical thickness is 11.9 cm; left renal cortical thickness is 1.6 cm. In the right kidney, several renal nonobstructing calculi measure up to 5 mm. There is a cyst measuring 2.6 x 2.9 cm, similar prior exam. Eight in the left kidney, is a focal masslike region measuring 3.2 x 2.9 x 2.2 cm which appears solid. Bladder: Pre-void bladder volume is 303 mL. Post-void residual is 23 mL. Pre-void images demonstrate no intraluminal masses or stones. On pre-void images, bilateral ureteral jets are noted with color Doppler interrogation. (Of note, ureteral jets may not be detectable in up to 25% of cases due to insufficient differences in specific gravity between ureteral and bladder urine). Miscellaneous: No free pelvic fluid. IMPRESSION: 1. Possible left renal mass measuring 3.2 cm. Area of concern is isoechoic, differential would be lobulation. Recommend follow-up contrast CT or MRI 2. Nonobstructive right renal calculi, stable Approved by: Ricardo De Leon M.D. on 03/20/2022 at 13:41
== END ==
PROVIDERS: PCP Student in an Organized Health Care Education/Training Program; Referring Provider Internal Medicine Nephrology; Visit Provider Internal Medicine Nephrology
DX: N20.0 Calculus of kidney (principal); N28.1 Cyst of kidney, acquired; B37.2 Candidiasis of skin and nail; N89.8 Other specified noninflammatory disorders of vagina
CPT/HCPCS: 76770; 87480; 87510; 87660

== ENCOUNTER → 2022-03-20 11:25 | Outpatient (CLI) | payer MEDICARE, OTHER, SELFPAY ==
[2022-03-18 09:54] VITALS: BMI 31.1
[2022-03-21 11:55] LABS: Candida species Negative (Negative); Gardnerella vaginalis Negative (Negative); Trichomoas vaginalis Negative (Negative)
== END ==
PROVIDERS: PCP Student in an Organized Health Care Education/Training Program; Visit Provider Physician Assistant Medical
DX: B37.2 Candidiasis of skin and nail (principal); N89.8 Other specified noninflammatory disorders of vagina
CPT/HCPCS: 87480; 87510; 87660

== ENCOUNTER → 2022-03-27 13:43 | Outpatient (CLI) | payer MEDICARE, OTHER, SELFPAY ==
[2022-03-18 09:54] VITALS: BMI 31.1
--- NOTE | 2022-03-27 | DI.CT.S_ITS ---
PROCEDURE: CT IVP A/P W/WO INDICATIONS: Disorders of kidney and ureter; Abdominal bloating TECHNIQUE: Optional 5 mm thick noncontrast images acquired from the diaphragm to the symphysis pubis. After the administration of intravenous contrast, 5 mm thick images acquired from the diaphragm to the symphysis pubis after a 10-minute delay. 2 mm thick coronal and sagittal reformats were then performed of the kidneys and ureters. For radiation dose reduction, the following was used: automated exposure control, adjustment of mA and/or kV according to patient size. COMPARISON: [facility], CT, CT ABDOMEN PELVIS WO CON, 11/21/2019, 13:41. [facility], CT, KIDNEY/ URETER/BLADDER, 06/16/2015, 8:19. [facility], US, US RENAL COMPLETE, 03/20/2022, 10:07. [facility], US, US PELVIC COMPLETE, 03/27/2022, 14:01. FINDINGS: Image quality: Excellent. Lung bases: Lung bases are clear. Heart size is normal. Urinary system: Both kidneys are normal in size, without hydronephrosis. On precontrast imaging, there are nonobstructing kidney stones seen, which measure up to 5 mm and 350 Hounsfield units on the left side and measure up to 4 mm on the right. No perinephric fat stranding. Along the mid aspect of the left kidney, there is a lesion seen that measures 45 Hounsfield units on precontrast imaging and 66 Hounsfield units on postcontrast imaging. This mass measures 3.3 x 3 x 3 cm. Renal calyces appear normal in morphology when filled with contrast. Opacified portions of both ureters demonstrate normal caliber. Bladder wall thickness is normal. No calcified bladder stones. Other solid organs: Diffuse fatty liver infiltration is noted. The liver is normal in size and demonstrates no suspicious lesions. Gallbladder wall is not thickened. Biliary system is non dilated. Pancreas enhances normally. Spleen is normal in size and enhancement. No adrenal nodules. Peritoneum and bowel: Bowel loops demonstrate normal wall thickness and caliber. No free fluid or air. Nodes and vessels: No retroperitoneal or mesenteric adenopathy by size criteria. Aorta and inferior vena cava are normal in size. Abdominal wall: No ventral hernias. Pelvis: No pathologic free pelvic fluid. No inguinal hernias or adenopathy. The uterus appears normal for age. No adnexal masses are seen. Bones: No suspicious bony lesions. No vertebral body compression fractures. Age-appropriate bony degenerative changes are seen. IMPRESSION: Left renal mass, which is highly suspicious for renal cell carcinoma, which has increased in size compared to 2020. No zenia findings of metastatic disease are seen. Bilateral nonobstructing kidney stones are seen. No hydronephrosis. Dictated by: Marcelo Collins M.D. on 03/28/2022 at 9:07 Approved by: Marcelo Collins M.D. on 03/28/2022 at 9:13
--- NOTE | 2022-03-27 13:45 | DI.US.S_ITS ---
PROCEDURE: US PELVIC COMPLETE INDICATIONS: Abdominal bloating with hx of breast cancer r/o ovarian ca TECHNIQUE: Real-time scanning was performed of the pelvic organs, with image documentation. Additional endovaginal scanning was necessary due to incomplete visualization of the adnexal and endometrial structures by transabdominal scanning. COMPARISON: [facility], CT, CT IVP A/P W/WO, 03/27/2022, 14:21. [facility], US, PELVIC COMPLETE, 04/23/2015, 14:15. FINDINGS: Uterus: Uterus is anteverted and normal in size at 7.5 x 3.2 x 5.3 cm. The myometrium is heterogenous. The endometrium measures 11.5 mm combined thickness. Endometrium appears heterogenous as well. Ovaries: The right ovary measures 2.5 x 1.8 x 1.7 cm, with a calculated ovarian volume of 3.9 cc. Left ovary is not visualized. Less than 12 follicles can be seen in right ovary. No adnexal masses are seen. Other: No pathologic free abdominal or pelvic fluid. IMPRESSION: 1. Heterogenous myometrium may reflect fibroid or adenomyosis 2. Heterogenous endometrial thickening at 11.5 cm. Consider endometrial biopsy 3. Nonvisualized left ovary. Consider follow-up MRI with contrast, given patient history Approved by: Ricardo De Leon M.D. on 03/27/2022 at 16:33
== END ==
PROVIDERS: PCP Student in an Organized Health Care Education/Training Program; Referring Provider Physician Assistant Medical; Visit Provider Physician Assistant Medical
DX: N28.89 Other specified disorders of kidney and ureter (principal); N20.0 Calculus of kidney; R14.0 Abdominal distension (gaseous); R93.89 Abnormal findings on diagnostic imaging of other specified body structures; Z85.3 Personal history of malignant neoplasm of breast
CPT/HCPCS: 74178; 76830; 76856; Q9967

== ENCOUNTER 2022-04-06 17:49 | Emergency (ER) | payer MEDICARE, OTHER, SELFPAY ==
[2022-03-18 09:54] VITALS: BMI 31.1
[2022-04-06] VITALS (11 sets, daily range): BP systolic 176–194; BP diastolic 74–82; PULSE 69–76; RESP 20; TEMP 36.7; O2SAT 94–100; BMI 34.5
--- NOTE | 2022-04-06 18:23 | DI.RAD.S_ITS ---
PROCEDURE: XR LUMBAR SPINE 2-3V INDICATIONS: back pain TECHNIQUE: 3 views of the lumbar spine were acquired. COMPARISON: [facility], , XR LUMBAR SPINE 2-3V, 11/30/2020, 12:40. FINDINGS: Bones: 5 [id number] vertebrae are present. There is redemonstration of grade 1 anterolisthesis of L4 on L5.. No acute vertebral body compression fractures. No suspicious bony lesions. Multilevel lumbar spondylosis with disc space narrowing at L4-5 and L5-S1. Diffuse facet arthropathy most pronounced in the mid and lower lumbar spine. Soft tissues: Overlying bowel gas pattern is normal. No suspicious soft tissue calcifications. There are vascular calcifications. IMPRESSION: Stable radiographic evaluation of the lumbar spine with multilevel lumbar spondylosis most pronounced at L4-5 and L5-S1. No acute osseous abnormality seen. Dictated by: Fausto Anglin M.D. on 04/06/2022 at 19:09 Approved by: Fausto Anglin M.D. on 04/06/2022 at 19:16
--- NOTE | 2022-04-06 20:51 | ED_ITS ---
HPI - Back Pain/Injury General Chief Complaint: Back Pain/Injury Stated Complaint: Back is out no trauma Time Seen by Provider: 04/06/22 20:39 Source: patient Mode of arrival: Wheelchair Limitations: no limitations History of Present Illness HPI Narrative: Patient is a 67-year-old female. Has a history of low back pain with herniated lumbar spine discs and history of radiculopathy. Has had injections in the past secondary to this. This was several years ago. Has never had surgery. She states that yesterday she woke up it throughout the day started to develop lower back pain. She states she is having radiation down her right leg. There was no one specific incident that caused the discomfort. She had some pain medication left over from her last incident where she is been taking. No fevers. No urin mary symptoms. No change in bowel habits. No abdominal pain. Related Data Home Medications Medication Instructions Recorded Confirmed metformin 1,000 mg tablet 1,000 mg PO BID DIABETES 12/02/17 03/24/22 insulin glargine 100 unit/mL 50 units SUBCUT BID 01/24/19 03/24/22 subcutaneous solution (Lantus U-100 Insulin) irbesartan 75 mg tablet 150 mg PO DAILY 09/01/19 03/24/22 cholecalciferol (vitamin D3) 50 75 mcg PO DAILY 08/09/20 03/24/22 mcg (2,000 unit) tablet (Vitamin D3) cyanocobalamin (vitamin B-12) 2,500 mcg PO DAILY 08/09/20 03/24/22 1,000 mcg/mL oral drops (Vitamin B-12) krill oil 500 mg capsule 500 mg PO DAILY 08/09/20 03/24/22 magnesium 500 mg tablet 500 mg PO DAILY 08/09/20 03/24/22 levothyroxine 100 mcg tablet 112 mcg PO DAILY 03/20/22 03/24/22 (Synthroid) Previous Rx's Medication Instructions Recorded clotrimazole-betamethasone 1 1 applic topical BID Topical yeast 12/14/20 %-0.05 % topical cream infection #15 grams clobetasol 0.05 % topical ointment 1 applic topical DAILY Vulvar 03/20/22 itching #30 grams fluconazole 150 mg tablet 150 mg PO Q3D Yeast infection 2 03/20/22 doses #2 tabs cyclobenzaprine 10 mg tablet 10 mg PO TID PRN muscle spasm #25 04/06/22 tabs ondansetron 4 mg disintegrating 4 mg PO Q6H PRN nausea and 04/06/22 tablet vomiting #10 tabs oxycodone 5 mg tablet 5 mg PO Q6H PRN pain #30 tabs 04/06/22 Allergies Allergy/AdvReac Type Severity Reaction Status Date / Time fluoxetine Allergy Severe UNKNOWN Verified 04/06/22 18:12 lovastatin Allergy Severe UNKNOWN Verified 04/06/22 18:12 pravastatin Allergy Severe UNKNOWN Verified 04/06/22 18:12 empagliflozin Allergy Intermediate Nausea Verified 04/06/22 18:12 [From Jardiance] insulin glargine Allergy Intermediate Nausea Verified 04/06/22 18:12 [From Soliqua 100/33] lixisenatide Allergy Intermediate Nausea Verified 04/06/22 18:12 [From Soliqua 100/33] morphine Allergy Unknown Verified 04/06/22 18:12 promethazine [From PHENERGAN] Allergy Unknown Verified 04/06/22 18:12 scopolamine [SCOPOLAMINE] Allergy Unknown Nausea Verified 04/06/22 18:12 TUJEO Allergy Severe UNKNOWN Uncoded 04/06/22 18:12 NO USE OF LEFT ARM FOR IV/BP Allergy Unknown Uncoded 03/20/22 11:11 Review of Systems Constitutional Constitutional: Reports system reviewed and no additional complaints, except as documented Musculoskeletal Musculoskeletal: Reports system reviewed and no additional complaints, except as documented Integumentary/Breasts Skin/Breast: Reports system reviewed and no additional complaints, except as documented Neurologic Neurologic: Reports system reviewed and no additional complaints, except as documented Patient History Medical History Diabetes History of chemotherapy History of malignant neoplasm of breast (12/13/15) HTN (hypertension) Hypothyroidism Lumbar back pain with radiculopathy affecting right lower extremity Renal colic on left side Ureterolithiasis Surgical History History of lithotripsy History of tonsillectomy History of total mastectomy Family History Father Diabetes mellitus Hypertension Stroke Mother Hypertension Stroke Brother No problems noted. Sister Stroke Myocardial infarction Daughter Cancer Social History household members: spouse Smoking Status: Never smoker Smoking Status: Never smoker alcohol intake frequency: holidays/special occasions only Substance Use Type: does not use Exam Initial Vital Signs Initial Vital Signs: Vital Signs Temperature 98.1 F 04/06/22 18:12 Pulse Rate 74 04/06/22 18:12 Respiratory Rate 20 04/06/22 18:12 Blood Pressure 177/74 H 04/06/22 18:12 Pulse Oximetry 99 04/06/22 18:12 Oxygen Delivery Method 04/06/22 18:12 Const General: cooperative and other (Uncomfortable.) HENMT Head: normal to inspection and normocephalic Resp Effort & Inspection: normal respiratory effort Cardio Rate: regular rate GI Inspection: normal to inspection Back/Spine/Pelvis Thoracic/Lumbar Spine: No paraspinal tenderness and No lumbar spinal tenderness Neuro General: patient alert, patient awake and moves all extremities Extrem General: normal to inspection and capillary refill normal Course Orders Ordered: Discontinued Medications Cyclobenzaprine HCl (Cyclobenzaprine 10 Mg Prepack) 1 bottle MISC SEEINSTR ONE Stop: 04/06/22 22:03 Last Admin: 04/06/22 22:13 Dose: 1 bottle Documented By: KLAUS Hydromorphone HCl (Hydromorphone 1 Mg Inj) 1 mg IM NOW ONE Stop: 04/06/22 20:57 Last Admin: 04/06/22 21:03 Dose: 1 mg Documented By: KLAUS Ondansetron HCl (Ondansetron 4 Mg Odt) 4 mg SL NOW ONE Stop: 04/06/22 22:03 Last Admin: 04/06/22 22:13 Dose: 4 mg Documented By: KLAUS Ondansetron HCl (Ondansetron 4 Mg Odt Prepack) 1 bottle MISC SEEINSTR ONE Stop: 04/06/22 22:03 Last Admin: 04/06/22 22:13 Dose: 1 bottle Documented By: KLAUS Ondansetron HCl (Ondansetron 4 Mg Odt) 4 mg SL NOW ONE Stop: 04/07/22 00:24 Last Admin: 04/07/22 00:48 Dose: Not Given Documented By: KLAUS Ondansetron HCl (Ondansetron 4 Mg/2 Ml Inj) 4 mg IV NOW ONE Stop: 04/07/22 00:49 Last Admin: 04/07/22 00:51 Dose: 4 mg Documented By: KLAUS Oxycodone/Acetaminophen (Oxycodone/Apap 5/325 Prepack) 1 bottle MISC SEEINSTR ONE Stop: 04/06/22 22:03 Last Admin: 04/06/22 22:13 Dose: 1 bottle Documented By: KLAUS Vital Signs Vital signs: Vital Signs - 8 hr 04/06/22 20:30 04/06/22 21:00 04/06/22 21:08 Pulse Rate 70 73 Blood Pressure 189/77 H Pulse Oximetry 100 98 Oxygen Delivery Method 04/06/22 21:08 04/06/22 21:30 04/06/22 21:30 Pulse Rate 75 69 Blood Pressure 181/74 H Pulse Oximetry 99 94 Oxygen Delivery Method 04/06/22 22:00 04/06/22 22:00 04/06/22 22:17 Pulse Rate 71 76 Blood Pressure 176/76 H Pulse Oximetry 97 97 Oxygen Delivery Method Room Air 04/06/22 22:30 04/06/22 23:00 04/06/22 23:31 Pulse Rate Blood Pressure 191/80 H 187/76 H 186/79 H Pulse Oximetry Oxygen Delivery Method 04/07/22 01:36 Pulse Rate Blood Pressure 173/74 H Pulse Oximetry Oxygen Delivery Method MDM - Back Pain/Injury Imaging Data lumbar spine X-ray: Radiologist's Impression: [address] [address] XRay Report Signed Patient: Lesa Hitchcock MR#: [id number] : 1955 Acct:[id number] Age/Sex: 67 / F Date of Service: 04/06/22 Loc: ED Accession Number: [id number] ?? Procedure: XR lumbar spine 2-3V Ordering Provider: Lexis Segura D.O. PROCEDURE:? XR LUMBAR SPINE 2-3V ? INDICATIONS:? back pain ? TECHNIQUE:? 3 views of the lumbar spine were acquired.? ? COMPARISON:? [facility], CR, XR LUMBAR SPINE 2-3V, 11/30/2020, 12:40. ? FINDINGS:? ? Bones:? 5 [id number] vertebrae are present.? There is redemonstration of grade 1 anterolisthesis of L4 on L5..? No acute vertebral body compression fractures.? No suspicious bony lesions.? Multilevel lumbar spondylosis with disc space narrowing at L4-5 and L5-S1.? Diffuse facet arthropathy most pronounced in the mid and lower lumbar spine.? ? ? Soft tissues:? Overlying bowel gas pattern is normal.? No suspicious soft tissue calcifications.? There are vascular calcifications.? ? ? IMPRESSION:? Stable radiographic evaluation of the lumbar spine with multilevel lumbar spondylosis most pronounced at L4-5 and L5-S1.? No acute osseous abnormality seen. ? ? Dictated by: Fausto Anglin M.D. on 04/06/2022 at 19:09 ? ? Approved by: Fausto Agnlin M.D. on 04/06/2022 at 19:16?? [facility] Narrative Medical decision making narrative: Afebrile. X-ray shows no acute bony pathology. No specific injury that caused her symptoms. Is having radicular symptoms down her right leg. Low concern for cauda equina. Will try to provide some symptom treatment at the emergency department. Will discharge home with medications with instructions to contact her primary doctor she will most likely need further evaluation by either physical therapy or orthopedic surgery. No indication for an emergent MRI. She was given return precautions. She expressed understanding and agreement. Discharge Plan Departure Patient Disposition: Home Clinical Impression: Low back pain potentially associated with radiculopathy Instructions: DI for Back Pain With Sciatica Activity Restrictions/Additional Instructions: I do recommend tomorrow you contact your primary doctor to discuss further evaluation and treatment to include potential referrals to see physical therapy or orthopedic surgery and to discuss the indications for any advanced radiologic studies such as an MRI. It is important that you try to stay as active as possible. Take the medications as directed knowing that the pain medication and the muscle relaxers can make you drowsy. It is also important that if you take anti-inflammatories such as Motrin/Naprosyn/Aleve/ibuprofen that your taking it with food. Return to the emergency department for any new symptoms. Prescriptions: New cyclobenzaprine 10 mg tablet 10 mg PO TID PRN (Reason: muscle spasm) Qty: 25 0RF oxycodone 5 mg tablet 5 mg PO Q6H PRN (Reason: pain) Qty: 30 0RF ondansetron 4 mg tablet,disintegrating 4 mg PO Q6H PRN (Reason: nausea and vomiting) Qty: 10 0RF No Action clotrimazole-betamethasone 1-0.05 % cream 1 applic topical BID Qty: 15 2RF metformin 1,000 mg tablet 1,000 mg PO BID clobetasol 0.05 % ointment 1 applic topical DAILY Qty: 30 1RF Rx Instructions: Apply thinly twice a day until improved than once a week may increase to twice a day as needed fluconazole 150 mg tablet 150 mg PO Q3D Qty: 2 3RF insulin glargine [Lantus U-100 Insulin] 100 unit/mL Solution 50 units subcut BID irbesartan 75 mg Tablet 150 mg PO DAILY magnesium 500 mg Tablet 500 mg PO DAILY cholecalciferol (vitamin D3) [Vitamin D3] 50 mcg (2,000 unit) Tablet 75 mcg PO DAILY krill oil 500 mg Capsule 500 mg PO DAILY Vitamin B-12 1,000 mcg/mL Drops 2,500 mcg PO DAILY levothyroxine [Synthroid] 100 mcg tablet 112 mcg PO DAILY Referrals: Josephine Montoya MD [Primary Care Provider] - Visit Report Forms: Patient Portal/API
[2022-04-06] MEDS: HYDROMORPHONE 1 MG INJ IM (21:03)
[2022-04-06] MEDS: OXYCODONE/APAP 5/325 PREPACK 1 BOTTLE MISC (22:13)
[2022-04-06] MEDS: ONDANSETRON 4 MG ODT SL (22:13)
[2022-04-06] MEDS: ONDANSETRON 4 MG ODT PREPACK 1 BOTTLE MISC (22:13)
[2022-04-06] MEDS: CYCLOBENZAPRINE 10 MG PREPACK 1 BOTTLE MISC (22:13)
[2022-04-07] MEDS: ONDANSETRON 4 MG/2 ML INJ IV (00:51)
[2022-04-07 01:36] VITALS: BP 173/74
== END 2022-04-07 01:47 | disposition home or self-care (01) ==
PROVIDERS: Emergency Provider Emergency Medicine; PCP Student in an Organized Health Care Education/Training Program
DX: M54.16 Radiculopathy, lumbar region (principal)
CPT/HCPCS: 36415; 72100; 96372; 96374; 99284; J1170; J2405

== ENCOUNTER → 2022-06-02 11:43 | Outpatient (CLI) | payer MEDICARE, OTHER, SELFPAY ==
[2022-03-18 09:54] VITALS: BMI 31.1
[2022-06-02 12:50] LABS: Hemoglobin A1C% w Est Avg Glu 8.4 % (4.0-6.0)
[2022-06-02 12:55] LABS: Alanine Aminotransferase 45 IU/L (<35); Albumin 4.9 g/dL (3.5-5.0); Albumin Globulin Ratio 1.4 (1.0-2.8); Alkaline Phosphatase 77 U/L (38-126); Aspartate Aminotransferase 32 IU/L (14-36); BUN Creatinine Ratio 21.2 (6-22); Bilirubin Total 0.7 mg/dL (0.2-1.3); Blood Urea Nitrogen 21 mg/dL (7-17); Calcium 10.7 mg/dL (8.4-10.2); Carbon Dioxide 28 mmol/L (22-32); Chloride 97 mmol/L (98-107); Cholesterol 280 mg/dL (140-199); Estimated Glomerular Filt Rate > 60 mL/min (>60); Globulin 3.6 g/dL (1.7-4.1); Glucose 226 mg/dL (80-110); HDL Cholesterol 53 mg/dL (40-60); HEMOLYSIS < 15 (0-50); LDL Cholesterol Calculated 187 mg/dL (<100); Potassium 4.2 mmol/L (3.4-5.1); Sodium 138 mmol/L (137-145); Total Protein 8.5 g/dL (6.3-8.2); Triglycerides 202 mg/dL (35-150)
[2022-06-02 14:12] LABS: Free T3, Triiodothyronine Free 3.67 pg/mL (2.77-5.27); Free T4, Direct Thyroxine 2.11 ng/dL (0.78-2.19)
[2022-06-02 14:25] LABS: Thyroid Stimulating Hormone 1.41 uIU/mL (0.47-4.68)
[2022-06-03 21:59] LABS: Anti Thyroglobulin Antibody 17.8 IU/mL (0.0-0.9)
== END ==
PROVIDERS: PCP Student in an Organized Health Care Education/Training Program; Referring Provider Naturopath; Visit Provider Naturopath
DX: E11.9 Type 2 diabetes mellitus without complications (principal); E03.9 Hypothyroidism, unspecified; R74.8 Abnormal levels of other serum enzymes
CPT/HCPCS: 36415; 80053; 80061; 83036; 84439; 84443; 84481; 86800

== ENCOUNTER → 2022-06-05 14:53 | Outpatient (CLI) | payer MEDICARE, OTHER, SELFPAY ==
[2022-03-18 09:54] VITALS: BMI 31.1
--- NOTE | 2022-06-05 14:55 | DI.CT.S_ITS ---
PROCEDURE: CT ABDOMEN RENAL PROTOCOL INDICATIONS: Other specified disorders of kidney and ureter TECHNIQUE: Optional 5 mm thick noncontrast images acquired from the diaphragm to the iliac crests. After the administration of intravenous contrast, 5 mm thick images again acquired from the diaphragm to the iliac crests in the arterial and urographic phases. 5 mm thick coronal and sagittal reformats were then acquired. For radiation dose reduction, the following was used: automated exposure control, adjustment of mA and/or kV according to patient size. COMPARISON: [facility], CT, CT IVP A/P W/WO, 03/27/2022, 14:21. FINDINGS: Image quality: Excellent Lower chest: Basal atelectasis. Solid organs: Suspected hepatic steatosis. Gallbladder is unremarkable. Prominent biliary tree without pathologic dilation. The pancreatic duct is nondilated. No splenomegaly. No adrenal nodules. Bosniak 1 and 2 renal lesions are present, for which no dedicated followup is necessary per 2019 proposed guidelines. In the upper pole of the left kidney, there is a 11 millimeter hypoattenuating lesion that is probably nonenhancing (2/18, /20). Change from pre contrast to postcontrast images is less than 20 Hounsfield units. This is Bosniak 2. In the interpolar region of the left kidney, there is an enhancing mass with possible hemorrhagic components on precontrast imaging measuring 30 x 26 millimeters. 3/35. The left renal vein is patent. The medial portion of the mass is in close proximity to the calyx. No hydronephrosis. There are tiny bilateral renal nonobstructing calculi. Vessels and lymph nodes: No abdominal aortic aneurysm or pathologic adenopathy by size criteria. Bowel and peritoneum: No pathologic ascites or bowel obstruction. Body wall: Unremarkable. Tiny fat containing umbilical hernia. Bones: No acute or suspicious osseous abnormality. Scattered degenerative changes. IMPRESSION: Left renal enhancing mass possibly with internal hemorrhagic components is probably a renal cell carcinoma, possibly of the papillary subtype. Consider urologic consultation. The medial portion of the mass is in close proximity to the lower pole calyx. The left renal vein is patent at this time. Other findings as above. Dictated by: Alejandro Leigh M.D. on 06/06/2022 at 8:22 Approved by: Alejandro Leigh M.D. on 06/06/2022 at 8:32
== END ==
PROVIDERS: PCP Student in an Organized Health Care Education/Training Program; Referring Provider Internal Medicine Nephrology; Visit Provider Internal Medicine Nephrology
DX: N28.89 Other specified disorders of kidney and ureter (principal)
CPT/HCPCS: 74170; Q9967

== ENCOUNTER → 2022-06-09 12:16 | Outpatient (CLI) | payer MEDICARE, OTHER, SELFPAY ==
[2022-03-18 09:54] VITALS: BMI 31.1
[2022-06-11 09:08] LABS: Parathyroid Hormone Int 25 pg/mL (15-65)
[2022-06-11 16:40] LABS: Thyroid Stimulating Immunoglob < 0.10 IU/L (0.00-0.55)
== END ==
PROVIDERS: PCP Student in an Organized Health Care Education/Training Program; Referring Provider Naturopath; Visit Provider Naturopath
DX: E83.52 Hypercalcemia (principal); R94.6 Abnormal results of thyroid function studies
CPT/HCPCS: 36415; 83970; 84445

== ENCOUNTER → 2022-09-24 09:15 | Outpatient (CLI) | payer MEDICARE, OTHER, SELFPAY ==
[2022-03-18 09:54] VITALS: BMI 31.1
[2022-09-24 09:32] LABS: Add Manual Diff / Slide Review NO; Basophils Absolute Auto 0 /uL (0-100); Basophils Percent Auto 0.9 % (0-2); Eosinophils Absolute Auto 200 /uL (0-450); Eosinophils Percent Auto 4.7 % (2-4); Hematocrit 36.8 % (36-46); Hemoglobin 12.5 g/dL (12.0-16.0); Lymphocytes Absolute Auto 1500 /uL (1100-4500); Lymphocytes Percent Auto 28.7 % (25-40); Mean Corpuscular HGB Conc 33.8 % (30-36); Mean Corpuscular Hemoglobin 28.9 PG (26-34); Mean Corpuscular Volume 85.5 fL (80-100); Monocytes Absolute Auto 400 /uL (0-900); Monocytes Percent Auto 8.2 % (3-14); Neutrophils Absolute Auto 3000 /uL (1500-7000); Neutrophils Percent Auto 57.5 % (50-75); Platelet Count 243 X10^3/uL (150-400); Red Blood Cell Count 4.31 X10^6/uL (4.0-5.2); Red Cell Distribution Width 12.7 % (11.6-14.8); White Blood Cell Count 5.3 X10^3/uL (4.5-11.0)
[2022-09-24 09:58] LABS: Alanine Aminotransferase 33 IU/L (<35); Albumin 4.1 g/dL (3.5-5.0); Albumin Globulin Ratio 1.5 (1.0-2.8); Alkaline Phosphatase 116 U/L (38-126); Aspartate Aminotransferase 26 IU/L (14-36); BUN Creatinine Ratio 28.6 (6-22); Bilirubin Total 0.1 mg/dL (0.2-1.3); Blood Urea Nitrogen 22 mg/dL (7-17); Calcium 9.9 mg/dL (8.4-10.2); Carbon Dioxide 28 mmol/L (22-32); Chloride 99 mmol/L (98-107); Estimated Glomerular Filt Rate > 60 mL/min (>60); Globulin 2.8 g/dL (1.7-4.1); Glucose 287 mg/dL (80-110); HEMOLYSIS < 15 (0-50); Potassium 4.6 mmol/L (3.4-5.1); Sodium 136 mmol/L (137-145); Total Protein 6.9 g/dL (6.3-8.2)
[2022-09-24 13:12] LABS: Cholesterol 256 mg/dL (140-199); HDL Cholesterol 60 mg/dL (40-60); LDL Cholesterol Calculated 160 mg/dL (<100); Triglycerides 178 mg/dL (35-150)
[2022-09-24 14:19] LABS: Folate 6.2 ng/mL (2.76-20.0); Vitamin B12 200 pg/mL (239-931)
[2022-09-24 18:46] LABS: Vitamin D 25 Hydroxy (D3) 38.8 ng/mL (30.0-100.0)
== END ==
PROVIDERS: Internal Medicine Hematology & Oncology; PCP Family Medicine; Referring Provider Naturopath; Visit Provider Naturopath
DX: E11.9 Type 2 diabetes mellitus without complications (principal); E83.52 Hypercalcemia; L98.9 Disorder of the skin and subcutaneous tissue, unspecified; E53.8 Deficiency of other specified B group vitamins; E55.9 Vitamin D deficiency, unspecified; C50.912 Malignant neoplasm of unspecified site of left female breast
CPT/HCPCS: 36415; 80053; 80061; 82306; 82607; 82746; 83036; 85025

== ENCOUNTER → 2022-10-27 14:52 | Outpatient (CLI) | payer MEDICARE, OTHER, SELFPAY ==
[2022-03-18 09:54] VITALS: BMI 31.1
[2022-10-27 16:01] LABS: Add Manual Diff / Slide Review NO; Basophils Absolute Auto 100 /uL (0-100); Basophils Percent Auto 0.8 % (0-2); Eosinophils Absolute Auto 200 /uL (0-450); Hematocrit 37.4 % (36-46); Hemoglobin 12.5 g/dL (12.0-16.0); Lymphocytes Absolute Auto 1800 /uL (1100-4500); Lymphocytes Percent Auto 28.7 % (25-40); Mean Corpuscular HGB Conc 33.4 % (30-36); Mean Corpuscular Hemoglobin 28.8 PG (26-34); Mean Corpuscular Volume 86.2 fL (80-100); Monocytes Absolute Auto 400 /uL (0-900); Monocytes Percent Auto 6.8 % (3-14); Neutrophils Absolute Auto 3900 /uL (1500-7000); Neutrophils Percent Auto 60.7 % (50-75); Platelet Count 295 X10^3/uL (150-400); Red Blood Cell Count 4.34 X10^6/uL (4.0-5.2); Red Cell Distribution Width 13.6 % (11.6-14.8); White Blood Cell Count 6.4 X10^3/uL (4.5-11.0)
[2022-10-27 16:34] LABS: BUN Creatinine Ratio 24.7 (6-22); Blood Urea Nitrogen 20 mg/dL (7-17); Carbon Dioxide 29 mmol/L (22-32); Chloride 97 mmol/L (98-107); Estimated Glomerular Filt Rate > 60 mL/min (>60); Glucose 294 mg/dL (80-110); HEMOLYSIS < 15 (0-50); Potassium 5.2 mmol/L (3.4-5.1); Sodium 136 mmol/L (137-145)
[2022-10-27 18:06] LABS: Creatinine Urine Random 55.2 mg/dL
[2022-10-27 18:16] LABS: Microalbumin Urine Random < 0.6 mg/dL (0-1.6)
== END ==
PROVIDERS: PCP Family Medicine; Referring Provider Internal Medicine Nephrology; Visit Provider Internal Medicine Nephrology
DX: N20.0 Calculus of kidney (principal); N28.89 Other specified disorders of kidney and ureter
CPT/HCPCS: 36415; 80048; 82043; 82570; 85025

== ENCOUNTER → 2022-10-30 11:18 | Outpatient (CLI) | payer MEDICARE, OTHER, SELFPAY ==
[2022-03-18 09:54] VITALS: BMI 31.1
--- NOTE | 2022-10-30 | DI.CT.S_ITS ---
PROCEDURE: CT ABDOMEN RENAL PROTOCOL INDICATIONS: RENAL MASS TECHNIQUE: Optional 5 mm thick noncontrast images acquired from the diaphragm to the iliac crests. After the administration of intravenous contrast, 5 mm thick images again acquired from the diaphragm to the iliac crests in the arterial and urographic phases. 5 mm thick coronal and sagittal reformats were then acquired. For radiation dose reduction, the following was used: automated exposure control, adjustment of mA and/or kV according to patient size. COMPARISON: [facility], CT, CT ABDOMEN PELVIS WO CON, 11/21/2019, 13:41. [facility], CT, CT ABDOMEN RENAL PROTOCOL, 06/05/2022, 15:06. FINDINGS: Image quality: Good Lower chest: Basal scarring/atelectasis. Tiny hiatal hernia and patulous appearance of the distal esophagus. Solid organs: Suspected hepatic steatosis. No suspicious hepatic lesions. Gallbladder is unremarkable. No pathologic dilation of the biliary tree or pancreatic duct. No splenomegaly. No adrenal nodules. Bosniak 1 and 2 renal lesions are present, for which no dedicated followup is necessary per 2019 proposed guidelines. No hydronephrosis. Left lower pole renal mass is again seen, with intrinsic hyperdensities indicating hemorrhagic components. On today's measurement, , this mass measures 3.6 x 3 cm, similar to prior when it measured 3.7 x 2.8 cm. Craniocaudal dimension is 3.3 cm, previously 3.3 cm. Reference image /37, . As before, there is close association of this mass with the left lower pole calyx. The left renal vein is patent. This is larger and more prominent than imaging (noncontrast) from October of 2019. Vessels and lymph nodes: No abdominal aortic aneurysm. Patent portal vein. No pathologic adenopathy by size criteria. Bowel and peritoneum: No bowel obstruction or ascites. Body wall: Unremarkable Bones: Degenerative changes without acute or suspicious osseous abnormality. IMPRESSION: Compared to May 2022, stable size of left lower pole enhancing renal mass. This is however slightly enlarged compared to 2019 imaging. Findings remain concerning for an indolent renal cell carcinoma, possibly of the papillary subtype, given internal hemorrhagic density. This is in close proximity to the left lower pole calyx, renal vein is patent. Other findings as above. Dictated by: Alejandro Leigh M.D. on 10/30/2022 at 13:55 Approved by: Alejandro Leigh M.D. on 10/30/2022 at 14:02
== END ==
PROVIDERS: PCP Family Medicine; Referring Provider Urology; Visit Provider Urology
DX: N28.9 Disorder of kidney and ureter, unspecified (principal)
CPT/HCPCS: 74170

== ENCOUNTER → 2023-04-06 12:53 | Outpatient (CLI) | payer MEDICARE, OTHER, SELFPAY ==
[2022-03-18 09:54] VITALS: BMI 31.1
--- NOTE | 2023-04-06 12:54 | DI.CT.S_ITS ---
PROCEDURE: CT ABDOMEN RENAL PROTOCOL INDICATIONS: LEFT RENAL MASS TECHNIQUE: 5 mm thick noncontrast images acquired from the diaphragm to the iliac crests. After the administration of intravenous contrast, 5 mm thick images again acquired from the diaphragm to the iliac crests in the arterial and urographic phases. 5 mm thick coronal and sagittal reformats were then acquired. For radiation dose reduction, the following was used: automated exposure control, adjustment of mA and/or kV according to patient size. COMPARISON: [facility], CT, CT ABDOMEN RENAL PROTOCOL, 10/30/2022, 11:30. FINDINGS: Lung bases: No pleural effusion. Genitourinary: Redemonstrated solid enhancing mass left inferior kidney, 3.8 x 2.9 x 3.4 cm previously 3.6 x 3.0 x 3.3 cm not significantly changed. The mass encroaches on the renal sinus fat. No hydronephrosis. Redemonstrated cortical cyst right upper kidney without suspicious features identified. Small nonobstructing stones present within both kidneys. Other solid organs: Liver is normal in size and enhancement. Gallbladder is unremarkable . Biliary system is non dilated. Pancreas enhances normally. Spleen is normal in size and enhancement. No adrenal nodules. Peritoneum and bowel: Visualized large and small bowel is non-dilated. No free air or substantial free fluid. Nodes and vessels: No retroperitoneal or mesenteric adenopathy by size criteria. Aorta and inferior vena cava are normal in caliber. Bones: Multilevel degenerative change of the visualized spine. IMPRESSION: No significant interval change in size of the previously demonstrated solid enhancing mass at the left inferior kidney. Dictated by: Sergio Fontaine M.D. on 04/07/2023 at 11:13 Approved by: Sergio Fontaine M.D. on 04/07/2023 at 11:32
--- NOTE | 2023-04-06 12:54 | DI.CT.S_ITS ---
PROCEDURE: CT CHEST W CON INDICATIONS: LEFT RENAL MASS TECHNIQUE: After the administration of intravenous contrast, 5 mm thick sections acquired from the pulmonary apices to the posterior costophrenic angles. 1 mm axial lung, 5 mm thick coronal and sagittal reformats and 7 mm axial MIP were acquired. For radiation dose reduction, the following was used: automated exposure control, adjustment of mA and/or kV according to patient size. COMPARISON: [facility], CT, CT ABDOMEN RENAL PROTOCOL, 04/06/2023, 13:01. [facility], CT, CT ABDOMEN RENAL PROTOCOL, 10/30/2022, 11:30. [facility], CT, CT ABDOMEN RENAL PROTOCOL, 06/05/2022, 15:06. FINDINGS: Image quality: Excellent. Lungs and pleura: No acute air space opacities. No pleural effusions or pneumothorax. Central and peripheral airways are patent and normal in caliber. Mediastinum: Heart size is normal. No pericardial effusion. No mediastinal or hilar adenopathy by size criteria. Thoracic aorta and central pulmonary arteries are normal in size. Esophagus is normal in caliber. No hiatal hernia. There is thickening still at the gastroesophageal junction and gastric cardia. Bones and chest wall: There are bilateral mastectomies. Surgical clips are seen in the left axilla. No suspicious bony lesions. No vertebral body compression fractures. No axillary or supraclavicular adenopathy by size criteria. Thyroid gland is normal. Abdomen: There is thickening still at the gastroesophageal junction and gastric cardia. There is hepatic steatosis. A 2.4 cm cyst is seen in the superior pole of the right kidney. Visualized upper abdominal solid organs appear normal. Upper abdominal bowel loops are normal in caliber. IMPRESSION: 1. No metastatic disease identified in thorax. 2. Thickening at the gastroesophageal junction/gastric cardia. Recommend upper endoscopy for further evaluation. Dictated by: Michael Sifuentes M.D. on 04/06/2023 at 14:34 Approved by: Michael Sifuentes M.D. on 04/06/2023 at 14:42
== END ==
PROVIDERS: PCP Family Medicine; Referring Provider Urology; Visit Provider Urology
DX: N28.89 Other specified disorders of kidney and ureter (principal); N28.1 Cyst of kidney, acquired; K76.0 Fatty (change of) liver, not elsewhere classified
CPT/HCPCS: 71260; 74170; Q9967

== ENCOUNTER → 2023-04-27 09:44 | Outpatient (CLI) | payer MEDICARE, OTHER, SELFPAY ==
[2022-03-18 09:54] VITALS: BMI 31.1
[2023-04-27 11:12] LABS: Add Manual Diff / Slide Review NO; Basophils Absolute Auto 0 /uL (0-100); Basophils Percent Auto 0.7 % (0-2); Eosinophils Absolute Auto 200 /uL (0-450); Eosinophils Percent Auto 3.2 % (2-4); Hematocrit 36.8 % (36-46); Hemoglobin 12.4 g/dL (12.0-16.0); Lymphocytes Absolute Auto 1500 /uL (1100-4500); Lymphocytes Percent Auto 31.2 % (25-40); Mean Corpuscular HGB Conc 33.6 % (30-36); Mean Corpuscular Hemoglobin 28.8 PG (26-34); Mean Corpuscular Volume 85.7 fL (80-100); Monocytes Absolute Auto 500 /uL (0-900); Monocytes Percent Auto 9.5 % (3-14); Neutrophils Absolute Auto 2700 /uL (1500-7000); Neutrophils Percent Auto 55.4 % (50-75); Platelet Count 269 X10^3/uL (150-400); Red Blood Cell Count 4.29 X10^6/uL (4.0-5.2); White Blood Cell Count 4.9 X10^3/uL (4.5-11.0)
[2023-04-27 11:34] LABS: Creatinine Urine Random 120.7 mg/dL
[2023-04-27 11:34] LABS: BUN Creatinine Ratio 16.3 (6-22); Blood Urea Nitrogen 15 mg/dL (7-17); Calcium 10.1 mg/dL (8.4-10.2); Carbon Dioxide 28 mmol/L (22-32); Chloride 101 mmol/L (98-107); Estimated Glomerular Filt Rate > 60 mL/min (>60); Glucose 257 mg/dL (80-110); HEMOLYSIS < 15 (0-50); Potassium 4.3 mmol/L (3.4-5.1); Sodium 135 mmol/L (137-145)
[2023-04-27 11:40] LABS: Microalbumi Creatinin Ratio Ur 6.6 ug/mg CR (<30); Microalbumin Urine Random 0.8 mg/dL (0-1.6)
== END ==
PROVIDERS: PCP Family Medicine; Referring Provider Internal Medicine Nephrology; Visit Provider Internal Medicine Nephrology
DX: N20.0 Calculus of kidney (principal)
CPT/HCPCS: 36415; 80048; 82043; 82570; 85025

== ENCOUNTER → 2023-10-30 12:49 | Outpatient (CLI) | payer MEDICARE, OTHER, SELFPAY ==
[2022-03-18 09:54] VITALS: BMI 31.1
--- NOTE | 2023-10-30 12:53 | DI.CT.S_ITS ---
PROCEDURE: CT ABDOMEN RENAL PROTOCOL INDICATIONS: RENAL MASS TECHNIQUE: Optional 5 mm thick noncontrast images acquired from the diaphragm to the iliac crests. After the administration of intravenous contrast, 5 mm thick images again acquired from the diaphragm to the iliac crests in the arterial and urographic phases. 5 mm thick coronal and sagittal reformats were then acquired. For radiation dose reduction, the following was used: automated exposure control, adjustment of mA and/or kV according to patient size. COMPARISON: [facility], CT, CT ABDOMEN RENAL PROTOCOL, 06/05/2022, 15:06. [facility], CT, CT ABDOMEN RENAL PROTOCOL, 04/06/2023, 13:01. FINDINGS: Image quality: Diagnostic. Kidneys and Ureters: Enhancing, partially endophytic mass along the inferior, lateral margin of the left kidney measures 2.9 x 3.9 x 3.4 centimeters, previously 2.9 x 3.8 x 3.4 centimeters. The mass does not extend beyond the perirenal fascia. Renal vein is widely patent. Small burden of sub 5 millimeter bilateral nephrolithiasis. No complex renal cystic lesions which require follow-up. OTHER: Lower chest: Unremarkable. Liver: No solid mass. Hepatic steatosis. Gallbladder: No radiopaque gallstones or wall thickening. Biliary ducts: No biliary dilation. Pancreas: No ductal dilation. Spleen: Size is within normal limits. Adrenal Glands: No adrenal nodules. Stomach and Bowel: Normal colonic caliber, without significant wall thickening. Normal appendix. Peritoneum: No abnormal intraperitoneal fluid. No free air. Ventral Wall: No hernia. Abdominal Nodes: No retroperitoneal or mesenteric adenopathy by size criteria. Vessels: Aorta and inferior vena cava are normal in size. Bones: No aggressive osseous abnormality. IMPRESSION: Similar size of the enhancing mass on the inferior margin of the left kidney, which represents renal cell carcinoma until proven otherwise. No extension beyond the perirenal fascia. Patent renal vein. No retroperitoneal adenopathy. Small burden of bilateral, nonobstructing nephrolithiasis. Dictated by: Zaire Richardson M.D. on 10/30/2023 at 13:55 Approved by: Zaire Richardson M.D. on 10/30/2023 at 14:00
== END ==
LOC: CT 12:51
PROVIDERS: PCP Family Medicine; Referring Provider Family Medicine; Visit Provider Family Medicine
DX: N28.89 Other specified disorders of kidney and ureter (principal); N20.0 Calculus of kidney; E11.22 Type 2 diabetes mellitus with diabetic chronic kidney disease; C64.2 Malignant neoplasm of left kidney, except renal pelvis; E11.65 Type 2 diabetes mellitus with hyperglycemia; N18.31 Chronic kidney disease, stage 3a; Z79.4 Long term (current) use of insulin
CPT/HCPCS: 74170; Q9967

== ENCOUNTER → 2024-06-01 12:42 | Outpatient (CLI) | payer MEDICARE, OTHER, SELFPAY ==
[2022-03-18 09:54] VITALS: BMI 31.1
[2024-06-01 13:16] LABS: Add Manual Diff / Slide Review NO; Basophils Absolute Auto 0 /uL (0-100); Basophils Percent Auto 0.4 % (0-2); Eosinophils Absolute Auto 500 /uL (0-450); Eosinophils Percent Auto 6.9 % (2-4); Hematocrit 38.1 % (36-46); Hemoglobin 12.8 g/dL (12.0-16.0); Lymphocytes Absolute Auto 1700 /uL (1100-4500); Lymphocytes Percent Auto 21.8 % (25-40); Mean Corpuscular HGB Conc 33.6 % (30-36); Mean Corpuscular Hemoglobin 29.2 PG (26-34); Mean Corpuscular Volume 86.9 fL (80-100); Monocytes Absolute Auto 500 /uL (0-900); Neutrophils Absolute Auto 4900 /uL (1500-7000); Neutrophils Percent Auto 63.9 % (50-75); Platelet Count 250 X10^3/uL (150-400); Red Blood Cell Count 4.38 X10^6/uL (4.0-5.2); Red Cell Distribution Width 13.6 % (11.6-14.8); White Blood Cell Count 7.6 X10^3/uL (4.5-11.0)
[2024-06-01 13:35] LABS: BUN Creatinine Ratio 21.7 (6-22); Blood Urea Nitrogen 18 mg/dL (7-17); Calcium 9.8 mg/dL (8.4-10.2); Carbon Dioxide 24 mmol/L (22-32); Chloride 103 mmol/L (98-107); Estimated Glomerular Filt Rate > 60 mL/min (>60); Glucose 254 mg/dL (80-110); HEMOLYSIS < 15 (0-50); Potassium 4.7 mmol/L (3.4-5.1); Sodium 135 mmol/L (137-145)
[2024-06-01 15:04] LABS: Appearance Urine UA CLEAR; Bilirubin Urine UA NEGATIVE (NEGATIVE); Color Urine UA YELLOW; Glucose Urine UA 3+ g/dL (Negative); Ketones Urine UA NEGATIVE (NEGATIVE); Leukocyte Esterase Urine UA NEGATIVE (NEGATIVE); Nitrite Urine UA NEGATIVE (Negative); Occult Blood Urine UA NEGATIVE (Negative); Protein Urine UA NEGATIVE (Negative); Urobilinogen Urine UA 0.2 E.U./dL (0.2)
[2024-06-01 15:28] LABS: Bacteria Urine Occasional (0-1); Culture Indicated Urine Specimen Cultured; RBC Urine None Seen (0-5/HPF); Squamous Epithelial Cell Urine 10-30 /HPF (0-5/HPF); Urine Volume 10mL (spun); WBC Urine 1-5/HPF (0-5/HPF)
[2024-06-01 15:48] LABS: Hemoglobin A1C% w Est Avg Glu 9.3 % (4.0-6.0)
[2024-06-01 16:03] LABS: Creatinine Urine Random 32.65 mg/dL; Protein (Total) Urine Random 9 mg/dL (0-12); Protein Creatinine Ratio Urine 0.27 GRAM/24H
[2024-06-01 16:10] LABS: Microalbumin Urine Random 0.7 mg/dL (0-1.6)
[2024-06-01 16:22] LABS: Vitamin B12 387 pg/mL (239-931)
[2024-06-03 07:11] LABS: Parathyroid Hormone Int 36 pg/mL (15-65)
== END ==
PROVIDERS: PCP Family Medicine; Referring Provider Internal Medicine Nephrology; Visit Provider Internal Medicine Nephrology
DX: E11.9 Type 2 diabetes mellitus without complications (principal); E83.52 Hypercalcemia; N28.89 Other specified disorders of kidney and ureter; N20.0 Calculus of kidney; Z79.4 Long term (current) use of insulin
CPT/HCPCS: 36415; 80048; 81001; 82043; 82306; 82570; 82607; 83036; 83970; 84156; 85025; 87086

== ENCOUNTER → 2024-08-02 11:59 | Outpatient (CLI) | payer MEDICARE, OTHER, SELFPAY ==
[2022-03-18 09:54] VITALS: BMI 31.1
[2024-08-02 12:37] LABS: Estimated Glomerular Filt Rate > 60 mL/min (>60)
--- NOTE | 2024-08-02 13:30 | DI.CT.S_ITS ---
PROCEDURE: CT ABDOMEN RENAL PROTOCOL INDICATIONS: left renal mass TECHNIQUE: Optional 5 mm thick noncontrast images acquired from the diaphragm to the iliac crests. After the administration of intravenous contrast, 5 mm thick images again acquired from the diaphragm to the iliac crests in the arterial and urographic phases. 5 mm thick coronal and sagittal reformats were then acquired. For radiation dose reduction, the following was used: automated exposure control, adjustment of mA and/or kV according to patient size. COMPARISON: [facility], CT, CT ABDOMEN RENAL PROTOCOL, 10/30/2023, 13:10. FINDINGS: Image quality: Diagnostic Lower chest: Basal atelectasis. Annular calcifications of the heart. Possible small hiatal hernia. Liver: Mild patent steatosis. Subtle subcentimeter lesions are present, too small to characterize, but appears stable. Gallbladder and biliary system: Unremarkable, nondilated Pancreas: No ductal dilation Spleen: Nonenlarged Adrenals: No discrete nodules Kidneys: Nonobstructing renal calculi are present mass in the left lower pole again seen measuring 4 x 3.8 cm (5/64) previously 4 x 3.7 cm on 10/30/2023 and 4 x 3.6 cm on 06/05/2022. Prior measurements were remeasured. Other scattered cysts are present. Subcentimeter lesions are too small to characterize, usually also cysts. This mass contacts the left lower pole collecting system as before. This is in close proximity without definite contact of the anterior pararenal fascia. No macroscopic thrombus in the left renal vein. No hydronephrosis. Vessels and lymph nodes: The main portal vein is patent. No abdominal aortic aneurysm. No pathologic lymph nodes by size criteria Bowel and peritoneum: No evidence of small bowel obstruction. No pathologic ascites Body wall: Unremarkable Bones: Degenerative changes. No acute or suspicious osseous finding. IMPRESSION: Dating back to 06/05/2022, similar appearance and size of the left lower pole renal mass representing an indolent neoplasm. No enlarged lymph nodes by size criteria. No definite metastases or left renal vein invasion Nonobstructing bilateral renal calculi. Dictated by: Alejandro Leigh M.D. on 08/03/2024 at 9:11 Approved by: Alejandro Leigh M.D. on 08/03/2024 at 9:18
== END ==
PROVIDERS: Radiology Diagnostic Radiology; PCP Family Medicine; Referring Provider Urology; Visit Provider Urology
DX: N28.89 Other specified disorders of kidney and ureter (principal); N20.0 Calculus of kidney; N28.1 Cyst of kidney, acquired; R14.0 Abdominal distension (gaseous); K76.0 Fatty (change of) liver, not elsewhere classified
CPT/HCPCS: 36415; 74170; 82565; Q9967

== ENCOUNTER 2024-08-11 09:14 | Emergency (ER) | payer MEDICARE, OTHER, SELFPAY ==
[2022-03-18 09:54] VITALS: BMI 31.1
[2024-08-11] VITALS (18 sets, daily range): BP systolic 150–195; BP diastolic 67–81; PULSE 66–81; RESP 13–22; TEMP 36.3; O2SAT 95–99; BMI 35.4
--- NOTE | 2024-08-11 09:33 | DI.RAD.S_ITS ---
PROCEDURE: XR CHEST 1V INDICATIONS: chest pain TECHNIQUE: One view of the chest was acquired. COMPARISON: [facility], CR, XR CHEST 1V, 07/23/2019, 22:59. [facility], CR, XR CHEST 1V, 06/11/2018, 13:01. FINDINGS: Surgical changes and devices: Surgical clips project over the left breast/axilla. Lungs and pleura: Lungs are clear. No pleural effusions or pneumothorax. Mediastinum: Mediastinal contours appear normal. Heart size is normal. Bones and chest wall: No suspicious bony lesions. Overlying soft tissues appear unremarkable. IMPRESSION: No acute cardiopulmonary abnormality is seen. Approved by: Sergio Bourne M.D. on 08/11/2024 at 9:57
--- NOTE | 2024-08-11 09:33 | EKG_ITS ---
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
[2024-08-11 09:46] LABS: Add Manual Diff / Slide Review NO; Basophils Absolute Auto 0 /uL (0-100); Basophils Percent Auto 0.9 % (0-2); Eosinophils Absolute Auto 300 /uL (0-450); Eosinophils Percent Auto 6.2 % (2-4); Hematocrit 39.2 % (36-46); Hemoglobin 13.2 g/dL (12.0-16.0); Lymphocytes Absolute Auto 1600 /uL (1100-4500); Lymphocytes Percent Auto 32.4 % (25-40); Mean Corpuscular HGB Conc 33.7 % (30-36); Mean Corpuscular Hemoglobin 28.7 PG (26-34); Mean Corpuscular Volume 85.4 fL (80-100); Monocytes Absolute Auto 400 /uL (0-900); Monocytes Percent Auto 9.2 % (3-14); Neutrophils Absolute Auto 2500 /uL (1500-7000); Neutrophils Percent Auto 51.3 % (50-75); Platelet Count 247 X10^3/uL (150-400); Red Cell Distribution Width 13.9 % (11.6-14.8); White Blood Cell Count 4.8 X10^3/uL (4.5-11.0)
[2024-08-11 10:01] LABS: Alanine Aminotransferase 37 IU/L (<35); Albumin 4.5 g/dL (3.5-5.0); Albumin Globulin Ratio 1.6 (1.0-2.8); Alkaline Phosphatase 88 U/L (38-126); Aspartate Aminotransferase 33 IU/L (14-36); BUN Creatinine Ratio 21.7 (6-22); Bilirubin Total 0.5 mg/dL (0.2-1.3); Blood Urea Nitrogen 20 mg/dL (7-17); Carbon Dioxide 23 mmol/L (22-32); Chloride 105 mmol/L (98-107); Creatine Kinase 64 U/L (30-135); Estimated Glomerular Filt Rate > 60 mL/min (>60); Globulin 2.8 g/dL (1.7-4.1); Glucose 243 mg/dL (80-110); HEMOLYSIS < 15 (0-50); Lipase 298 U/L (23-300); Potassium 4.3 mmol/L (3.4-5.1); Sodium 137 mmol/L (137-145); Total Protein 7.3 g/dL (6.3-8.2)
[2024-08-11 10:12] LABS: Troponin I < 0.012 ng/mL (0.01-0.034)
--- NOTE | 2024-08-11 11:11 | ED.NEUROSD ---
HPI - Neuro Symptoms/Deficit General Chief Complaint: Neuro Symptoms/Deficit Stated Complaint: Vertigo Time Seen by Provider: 08/11/24 10:36 Source: patient and EMS Mode of arrival: EMS History of Present Illness HPI Narrative: Patient 69-year-old female history of insulin-dependent diabetes breast cancer 12 years ago presenting today with sudden onset dizziness. She says she woke up little before 9:00 a.m. and was feeling fine she went to get out of bed and suddenly felt like the room was spinning. EMS was called she was given Zofran and Phenergan. She no longer feels like she is dizzy but now feels a little ?woozy she thinks her medication. She also is reporting some right-sided facial numbness. She also had dental procedure done yesterday on her right face. She thought that the medicine wore off and was feeling back to normal by bedtime now just feels like her face is numb. She has no weakness or balance issues. She has no longer nauseous no fever or chills she has not had upper respiratory issues. She does feel like her right ear is maybe filled with fluids On Anticoagulants: No Related Data Home Medications Medication Instructions Recorded Confirmed metformin 1,000 mg tablet 1,000 mg PO BID DIABETES 12/02/17 06/05/23 insulin glargine 100 unit/mL 50 units SUBCUT BID 01/24/19 06/05/23 subcutaneous solution (Lantus U-100 Insulin) irbesartan 75 mg tablet 150 mg PO DAILY 09/01/19 06/05/23 cholecalciferol (vitamin D3) 50 75 mcg PO DAILY 08/09/20 06/05/23 mcg (2,000 unit) tablet (Vitamin D3) cyanocobalamin (vitamin B-12) 2,500 mcg PO DAILY 08/09/20 06/05/23 1,000 mcg/mL oral drops (Vitamin B-12) krill oil 500 mg capsule 500 mg PO DAILY 08/09/20 06/05/23 magnesium 500 mg tablet 500 mg PO DAILY 08/09/20 06/05/23 levothyroxine 100 mcg tablet 112 mcg PO DAILY 03/20/22 06/05/23 (Synthroid) Previous Rx's Medication Instructions Recorded clotrimazole-betamethasone 1 1 applic topical BID Topical yeast 12/14/20 %-0.05 % topical cream infection #15 grams clobetasol 0.05 % topical ointment 1 applic topical DAILY [place] 03/20/22 itching #30 grams oxycodone 5 mg tablet 5 mg PO Q6H PRN pain #30 tabs 04/06/22 chlorzoxazone 500 mg tablet 250 - 500 mg (0.5 - 1 x 500 mg) PO 06/16/22 BEDTIME low back pain #30 tabs nortriptyline 10 mg capsule 10 mg PO BEDTIME #30 caps 06/16/22 fluconazole 150 mg tablet 150 mg PO ONCE Yeast infection #1 08/13/22 tab Allergies Allergy/AdvReac Type Severity Reaction Status Date / Time fluoxetine Allergy Severe UNKNOWN Verified 08/11/24 09:34 lovastatin Allergy Severe UNKNOWN Verified 08/11/24 09:34 pravastatin Allergy Severe UNKNOWN Verified 08/11/24 09:34 empagliflozin Allergy Intermediate Nausea Verified 08/11/24 09:34 [From Jardiance] insulin glargine Allergy Intermediate Nausea Verified 08/11/24 09:34 [From Soliqua 100/33] lixisenatide Allergy Intermediate Nausea Verified 08/11/24 09:34 [From Soliqua 100/33] morphine Allergy Unknown Verified 08/11/24 09:34 promethazine [From PHENERGAN] Allergy Unknown Verified 06/16/22 07:33 scopolamine [SCOPOLAMINE] Allergy Unknown Nausea Verified 08/11/24 09:34 TUJEO Allergy Severe UNKNOWN Uncoded 08/11/24 09:34 NO USE OF LEFT ARM FOR IV/BP Allergy Unknown Uncoded 08/11/24 09:34 Review of Systems Hematologic/Lymphatic On Anticoagulants: No Patient History Medical History History of UTI Postmenopausal atrophic vaginitis Hematuria Chronic low back pain with right-sided sciatica Type 2 diabetes mellitus with hyperglycemia, without long-term current use of insulin Lumbar back pain with radiculopathy affecting right lower extremity History of chemotherapy Hypothyroidism HTN (hypertension) Diabetes History of malignant neoplasm of breast (12/13/15) Renal colic on left side Ureterolithiasis Surgical History History of total mastectomy History of lithotripsy History of tonsillectomy Family History Father Diabetes mellitus Hypertension Stroke Mother Hypertension Stroke Brother No problems noted. Sister Stroke Myocardial infarction Daughter Cancer Social History household members: spouse Smoking Status: Never smoker Smoking Status: Never smoker alcohol intake frequency: holidays/special occasions only Exam Initial Vital Signs Initial Vital Signs: Vital Signs Temperature 97.4 F L 08/11/24 09:18 Pulse Rate 67 08/11/24 09:18 Respiratory Rate 16 08/11/24 09:18 Blood Pressure 186/81 H 08/11/24 09:18 Pulse Oximetry 99 08/11/24 09:18 Oxygen Delivery Method Room Air 08/11/24 09:18 GENERAL: Alert well-appearing and in no acute distress. HEENT: Head atraumatic,EOMI, pupils reactive, no nystagmus face symmetric, moist mucous membranes CARDIOVASCULAR: Regular rate and rhythm without murmurs, rubs or gallops. RESPIRATORY: Breath sounds equal bilaterally, no wheezes rales or rhonchi. ABDOMEN: Soft, nontender. Normoactive bowel sounds all 4 quadrants. No guarding or rebound. EXTREMITIES: Normal range of motion, no clubbing or edema. Neurovascularly intact NEUROLOGICAL: Alert and oriented x4.Normal gait and speech. Cranial nerves II through XII grossly intact. [employer] In[employer] strength equal bilaterally no ataxia no facial droop no aphasia or dysarthria SKIN: Warm, dry, no laceration, no petechiae, no rashes or lesions. Scores NIH Stroke Scale Level of Conciousness: Alert, keenly responsive Ask month/age: Answers both questions correctly. Open/close eyes, close hand: Performs both tasks correctly Best gaze horizontal: Normal Visual garibay: No visual loss Facial palsy: Normal symetrical movement Left arm drift: No drift for full 10 sec Right arm drift: No drift for full 10 sec Left leg drift: No drift for full 5 sec Right leg drift: No drift for full 5 sec Limb ataxia: Absent Sensory on face/arms/legs: Normal, no sensory loss Best language: No aphasia, normal Dysarthria: Normal Extinction or inattention: No abnormality Total NIH Stroke scale score: 0 Course Orders Ordered: ED Orders 08/11/24 11:28 CT angio head and neck Stat CT head/brain wo con Stat Discontinued Medications Meclizine HCl (Meclizine Hcl 12.5 Mg Tablet) 25 mg PO NOW ONE Stop: 08/11/24 11:29 Last Admin: 08/11/24 11:36 Dose: 25 mg Documented By: MAMADOU Vital Signs Vital signs: Vital Signs - 8 hr 08/11/24 11:00 08/11/24 11:00 08/11/24 11:30 Pulse Rate 75 81 Respiratory Rate 15 22 Blood Pressure 150/67 H Pulse Oximetry 97 99 08/11/24 11:55 08/11/24 11:55 08/11/24 12:00 Pulse Rate 76 76 Respiratory Rate 19 18 Blood Pressure 157/78 H Pulse Oximetry 99 99 08/11/24 12:00 08/11/24 12:30 08/11/24 12:30 Pulse Rate 79 Respiratory Rate 15 Blood Pressure 153/75 H 163/68 H Pulse Oximetry 95 08/11/24 13:00 08/11/24 13:00 08/11/24 13:14 Pulse Rate 78 79 Respiratory Rate 14 16 Blood Pressure 166/71 H Pulse Oximetry 99 98 08/11/24 13:14 08/11/24 13:21 08/11/24 13:21 Pulse Rate 80 Respiratory Rate 18 Blood Pressure 179/75 H 179/79 H Pulse Oximetry 98 08/11/24 13:30 08/11/24 13:30 08/11/24 14:00 Pulse Rate 80 Respiratory Rate 22 Blood Pressure 173/75 H 179/77 H Pulse Oximetry 97 08/11/24 14:00 08/11/24 15:40 Pulse Rate 76 Respiratory Rate 13 17 Blood Pressure Pulse Oximetry 98 MDM - Neuro Symptoms/Deficit Lab Data 08/11/24 09:39 08/11/24 09:39 Labs: Lab Results 08/11/24 Range/Units 09:39 WBC 4.8 (4.5-11.0) X10^3/uL RBC 4.60 (4.0-5.2) X10^6/uL Hgb 13.2 (12.0-16.0) g/dL Hct 39.2 (36-46) % MCV 85.4 (80-100) fL MCH 28.7 (26-34) PG MCHC 33.7 (30-36) % RDW 13.9 (11.6-14.8) % Plt Count 247 (150-400) X10^3/uL Neut % (Auto) 51.3 (50-75) % Lymph % (Auto) 32.4 (25-40) % [place] % (Auto) 9.2 (3-14) % Eos % (Auto) 6.2 H (2-4) % Baso % (Auto) 0.9 (0-2) % Neut # (Auto) 2500 (1554-0784) /uL Lymph # (Auto) 1600 (3517-9173) /uL [place] # (Auto) 400 (0-900) /uL Eos # (Auto) 300 (0-450) /uL Baso # (Auto) 0 (0-100) /uL Sodium 137 (137-145) mmol/L Potassium 4.3 (3.4-5.1) mmol/L Chloride 105 (98-107) mmol/L Carbon Dioxide 23 (22-32) mmol/L BUN 20 H (7-17) mg/dL Creatinine 0.92 (0.52-1.04) mg/dL Estimated GFR > 60 (>60) mL/min BUN/Creatinine Ratio 21.7 (6-22) Glucose 243 H (80-110) mg/dL Calcium 10.0 (8.4-10.2) mg/dL Total Bilirubin 0.5 (0.2-1.3) mg/dL AST 33 (14-36) IU/L ALT 37 H (<35) IU/L Alkaline Phosphatase 88 (38-126) U/L Total Creatine Kinase 64 (30-135) U/L Troponin I < 0.012 (0.01-0.034) ng/mL Total Protein 7.3 (6.3-8.2) g/dL Albumin 4.5 (3.5-5.0) g/dL Globulin 2.8 (1.7-4.1) g/dL Albumin/Globulin Ratio 1.6 (1.0-2.8) Lipase 298 (23-300) U/L Urine Dip Bedside Urine Glucose 1000 mg/dl Bedside Urine Bilirubin - Negative Bedside Urine Ketone - Negative Urine Specific [place] 1.015 Bedside Urine Occult Blood - Negative Bedside Urine pH 6.0 Bedside Urine Protein - Negative Bedside Urine Urobilinogen - Negative Bedside Urine Nitrite - Negative Bedside Urine Leukocytes - Negative Esterase Imaging Data Chest x-ray: Radiologist's Impression: PROCEDURE: XR CHEST 1V INDICATIONS: chest pain TECHNIQUE: One view of the chest was acquired. COMPARISON: [facility], CR, XR CHEST 1V, 07/23/2019, 22:59. [facility], CR, XR CHEST 1V, 06/11/2018, 13:01. FINDINGS: Surgical changes and devices: Surgical clips project over the left breast/axilla. Lungs and pleura: Lungs are clear. No pleural effusions or pneumothorax. Mediastinum: Mediastinal contours appear normal. Heart size is normal. Bones and chest wall: No suspicious bony lesions. Overlying soft tissues appear unremarkable. IMPRESSION: No acute cardiopulmonary abnormality is seen. Approved by: Sergio Bourne M.D. on 08/11/2024 at 9:57 CTA - brain/neck: Radiologist's Impression: PROCEDURE: CT ANGIO HEAD AND NECK INDICATIONS: right facial numbness and dizzy TECHNIQUE: After the administration of intravenous contrast, 1 mm thick sections acquired from the aortic arch through the [place] of [place]. 3-dimensional gasthum-iczkysqgm-xolkinlmie (MIP) and/or volume rendering reformats were acquired of the central intracranial vasculature and neck separately. For radiation dose reduction, the following was used: automated exposure control, adjustment of mA and/or kV according to patient size. COMPARISON: [facility], CT, CT HEAD/BRAIN WO CON, 08/11/2024, 11:33. FINDINGS: Image quality: Diagnostic. BRAIN: Noncontrast CT of the brain dictated separately. No abnormal intracranial enhancement. HEAD CT ANGIOGRAPHY: Anterior circulation: Intracranial internal carotid arteries demonstrate mild atherosclerotic calcifications without hemodynamically significant stenosis.. The flow within the paired anterior cerebral arteries is normal and symmetric. The flow within the middle cerebral arteries is normal and symmetric. The anterior communicating artery is seen. No aneurysms are seen. Posterior circulation: Visualized portions of the vertebral arteries demonstrate normal caliber, and join to form a normal appearing basilar artery. Flow within the posterior cerebral arteries is normal and symmetric. No aneurysms are seen. NECK CT ANGIOGRAPHY: Carotid system: The great vessels demonstrate a conventional anatomy as they arise from the aortic arch. The origins of the common carotid arteries appear patent. The common carotid arteries demonstrate normal caliber and courses. Atherosclerotic calcifications are seen at the carotid bifurcations bilaterally resulting in less than 50% narrowing of the proximal internal carotid arteries, worse on the left than on the right. The internal carotid arteries demonstrate normal calibers and courses. Posterior circulation: The origins of the vertebral arteries both appear widely patent. The more superior extracranial portions of both vertebral arteries also demonstrate normal courses and calibers. They join to form a normal appearing basilar artery. Soft tissues: Visualized neck soft tissues demonstrate no suspicious abnormalities. Bones: No suspicious bony lesions. Multilevel degenerative changes in the included spine. IMPRESSION: No significant intracranial arterial abnormality is seen. Less than 50% narrowing of the proximal internal carotid arteries bilaterally, slightly worse on the left. Any quantitative measurements of stenosis were performed using NASCET criteria. Approved by: Sergio Bourne M.D. on 08/11/2024 at 12:11 CT scan - head: Radiologist's Impression: PROCEDURE: CT HEAD/BRAIN WO CON INDICATIONS: right face numbness TECHNIQUE: Noncontrast 4.5 mm thick angled axial sections acquired from the foramen magnum to the vertex, with coronal and sagittal reformats. For radiation dose reduction, the following was used: automated exposure control, adjustment of mA and/or kV according to patient size. COMPARISON: [facility], CT, CT HEAD/BRAIN WO CON, 05/11/2019, 20:26. [facility], CT, CT HEAD/BRAIN WO CON, 06/11/2018, 12:50. FINDINGS: Image quality: Diagnostic. CSF spaces: Basal cisterns are patent. No extra-axial fluid collections. The ventricles are symmetric in size and shape. Brain: No acute intracranial hemorrhage or mass effect. There is cerebral volume loss for age, with resultant ventricular and sulcal prominence. There are periventricular and deep white matter chronic small vessel ischemic changes. There is intracranial internal carotid artery atherosclerosis. Skull and face: Calvarium and visualized facial bones appear intact, without suspicious lesions. Sinuses: Visualized sinuses and mastoids are clear. IMPRESSION: No acute intracranial pathology. Approved by: Sergio Bourne M.D. on 08/11/2024 at 12:06 ECG Data Attestation: I personally reviewed and interpreted this ECG as follows: Interpretation: Sinus rhythm rate 61 NM interval 164 QRS [address] changes Q-wave noted in lead 3 MDM Narrative Medical decision making narrative: MDM CC: Dizziness Complicating co-morbidities: Recent dental procedure on the right side of her jaw, previous history of vertigo, remote history of breast cancer with bilateral mastectomy diabetes Medical records reviewed: Last records or from 2021 Differential considered: TIA, CVA, posterior CVA vertigo Exam documented above, pertinent findings include: 69-year-old female feel well no focal deficits little numb on the right side, however this seems to come and go, but no facial droop or aphasia Lab Test results independently reviewed as above. Pertinent findings: No leukocytosis no anemia Electrolytes within normal limits no significant dehydration creatinine 0.9 Glucose 243 no evidence of DKA Troponin negative Independently reviewed EKG as above Sinus rhythm no ischemia Q-wave noted in lead 3 and V3 Imaging studies independently reviewed: Noncontrast head CT no acute hemorrhage CT angio does not show any large vessel occlusion or significant stenosis no intracranial hemorrhage Chest x-ray no acute cardiopulmonary process Consultations: None Treatments: Meclizine Re-evaluations: Lovely maneuver performed. Able to ambulate to restroom with minimal assist Discussion: Patient has a history of vertigo presenting today with vertigo-like symptoms. She initially was having some reaction to the Phenergan most likely but was some numbness on the right side of her face numbness kind of comes and goes. CT angio is negative. Difficult to tell if this numbness is left over from her dental procedure versus new. At this time I do not think she has having a posterior stroke she improved with the Lovely maneuver. Blood work is overall reassuring has a history of vertigo. I think most likely to be vertigo. After the Lovely maneuver she really did start to feel better she was able to sit upright. She was tolerating fluids she ultimately ambulated to the bathroom. Discharge Plan Departure Patient Disposition: Home Clinical Impression: Vertigo Instructions: Vertigo Activity Restrictions/Additional Instructions: *You have been diagnosed with vertigo *What to do: At this time I hope that you feel better. Please feel free to use Lovely maneuver home whenever you feel the need *Continue to take medications as directed Zofran 4 mg every 8 hours if needed for nausea or vomiting Meclizine 25 mg every 8 hours if needed for dizziness *Follow up with your primary care provider in 2-3 days or call [phone] *Return to ER if you should have increased dizziness weakness persistent vomiting or any new, worsening or concerning symptoms Prescriptions: No Action clotrimazole-betamethasone 1-0.05 % cream 1 applic topical BID Qty: 15 2RF fluconazole 150 mg tablet 150 mg PO ONCE Qty: 1 0RF metformin 1,000 mg tablet 1,000 mg PO BID clobetasol 0.05 % ointment 1 applic topical DAILY Qty: 30 1RF Rx Instructions: Apply thinly twice a day until improved than once a week may increase to twice a day as needed nortriptyline 10 mg capsule 10 mg PO BEDTIME Qty: 30 5RF chlorzoxazone 500 mg tablet 250 - 500 mg PO BEDTIME Qty: 30 5RF insulin glargine [Lantus U-100 Insulin] 100 unit/mL Solution 50 units subcut BID irbesartan 75 mg Tablet 150 mg PO DAILY magnesium 500 mg Tablet 500 mg PO DAILY cholecalciferol (vitamin D3) [Vitamin D3] 50 mcg (2,000 unit) Tablet 75 mcg PO DAILY krill oil 500 mg Capsule 500 mg PO DAILY Vitamin B-12 1,000 mcg/mL Drops 2,500 mcg PO DAILY levothyroxine [Synthroid] 100 mcg tablet 112 mcg PO DAILY oxycodone 5 mg tablet 5 mg PO Q6H PRN (Reason: pain) Qty: 30 0RF Referrals: Max Wise MD [Primary Care Provider] - Stand Alone Forms: Patient Portal/API/Survey
--- NOTE | 2024-08-11 11:28 | DI.CT.S_ITS ---
PROCEDURE: CT ANGIO HEAD AND NECK INDICATIONS: right facial numbness and dizzy TECHNIQUE: After the administration of intravenous contrast, 1 mm thick sections acquired from the aortic arch through the [place] of [place]. 3-dimensional pnmntew-vlcifymhw-gavgfurrsv (MIP) and/or volume rendering reformats were acquired of the central intracranial vasculature and neck separately. For radiation dose reduction, the following was used: automated exposure control, adjustment of mA and/or kV according to patient size. COMPARISON: [facility], CT, CT HEAD/BRAIN WO [facility], 08/11/2024, 11:33. FINDINGS: Image quality: Diagnostic. BRAIN: Noncontrast CT of the brain dictated separately. No abnormal intracranial enhancement. HEAD CT ANGIOGRAPHY: Anterior circulation: Intracranial internal carotid arteries demonstrate mild atherosclerotic calcifications without hemodynamically significant stenosis.. The flow within the paired anterior cerebral arteries is normal and symmetric. The flow within the middle cerebral arteries is normal and symmetric. The anterior communicating artery is seen. No aneurysms are seen. Posterior circulation: Visualized portions of the vertebral arteries demonstrate normal caliber, and join to form a normal appearing basilar artery. Flow within the posterior cerebral arteries is normal and symmetric. No aneurysms are seen. NECK CT ANGIOGRAPHY: Carotid system: The great vessels demonstrate a conventional anatomy as they arise from the aortic arch. The origins of the common carotid arteries appear patent. The common carotid arteries demonstrate normal caliber and courses. Atherosclerotic calcifications are seen at the carotid bifurcations bilaterally resulting in less than 50% narrowing of the proximal internal carotid arteries, worse on the left than on the right. The internal carotid arteries demonstrate normal calibers and courses. Posterior circulation: The origins of the vertebral arteries both appear widely patent. The more superior extracranial portions of both vertebral arteries also demonstrate normal courses and calibers. They join to form a normal appearing basilar artery. Soft tissues: Visualized neck soft tissues demonstrate no suspicious abnormalities. Bones: No suspicious bony lesions. Multilevel degenerative changes in the included spine. IMPRESSION: No significant intracranial arterial abnormality is seen. Less than 50% narrowing of the proximal internal carotid arteries bilaterally, slightly worse on the left. Any quantitative measurements of stenosis were performed using NASCET criteria. Approved by: Sregio Bourne M.D. on 08/11/2024 at 12:11
--- NOTE | 2024-08-11 11:28 | DI.CT.S_ITS ---
PROCEDURE: CT HEAD/BRAIN WO CON INDICATIONS: right face numbness TECHNIQUE: Noncontrast 4.5 mm thick angled axial sections acquired from the foramen magnum to the vertex, with coronal and sagittal reformats. For radiation dose reduction, the following was used: automated exposure control, adjustment of mA and/or kV according to patient size. COMPARISON: [facility], CT, CT HEAD/BRAIN WO CON, 05/11/2019, 20:26. [facility], CT, CT HEAD/BRAIN WO CON, 06/11/2018, 12:50. FINDINGS: Image quality: Diagnostic. CSF spaces: Basal cisterns are patent. No extra-axial fluid collections. The ventricles are symmetric in size and shape. Brain: No acute intracranial hemorrhage or mass effect. There is cerebral volume loss for age, with resultant ventricular and sulcal prominence. There are periventricular and deep white matter chronic small vessel ischemic changes. There is intracranial internal carotid artery atherosclerosis. Skull and face: Calvarium and visualized facial bones appear intact, without suspicious lesions. Sinuses: Visualized sinuses and mastoids are clear. IMPRESSION: No acute intracranial pathology. Approved by: Sergio Bourne M.D. on 08/11/2024 at 12:06
[2024-08-11] MEDS: MECLIZINE HCL 12.5 MG TABLET 25 MG PO (11:36)
--- NOTE | 2024-08-11 11:40 | PC.NURSE ---
efra set up per pt request.
--- NOTE | 2024-08-11 13:24 | PC.NURSE ---
Pt attempted to sit up in bed; pt became dizzy and had to stop movement. Pt states she would like Lovely maneuver to be performed--MD notified.
--- NOTE | 2024-08-11 15:10 | PC.NURSE ---
Pt reports improvement in symptoms post Lovely maneuver.
== END 2024-08-11 15:40 | disposition home or self-care (01) ==
PROVIDERS: Emergency Provider Emergency Medicine; PCP Family Medicine
DX: R42 Dizziness and giddiness (principal); R07.9 Chest pain, unspecified; R20.2 Paresthesia of skin; R29.700 NIHSS score 0
CPT/HCPCS: 36415; 70450; 70496; 70498; 71045; 80053; 81003; 82550; 83690; 84484; 85025; 93005; 93010; 99284; Q9967

== ENCOUNTER → 2024-11-22 15:14 | Outpatient (CLI) | payer MEDICARE, OTHER, SELFPAY ==
[2022-03-18 09:54] VITALS: BMI 31.1
[2024-11-22 16:06] LABS: Hematocrit 36.2 % (36-46); Hemoglobin 12.4 g/dL (12.0-16.0); Mean Corpuscular HGB Conc 34.2 % (30-36); Mean Corpuscular Hemoglobin 29.5 PG (26-34); Mean Corpuscular Volume 86.2 fL (80-100); Platelet Count 270 X10^3/uL (150-400); Red Cell Distribution Width 14.5 % (11.6-14.8); White Blood Cell Count 7.3 X10^3/uL (4.5-11.0)
[2024-11-22 16:29] LABS: Alanine Aminotransferase 38 IU/L (<35); Albumin 4.5 g/dL (3.5-5.0); Albumin Globulin Ratio 1.8 (1.0-2.8); Alkaline Phosphatase 80 U/L (38-126); Aspartate Aminotransferase 31 IU/L (14-36); BUN Creatinine Ratio 28.3 (6-22); Bilirubin Total 0.5 mg/dL (0.2-1.3); Blood Urea Nitrogen 28 mg/dL (7-17); Calcium 10.2 mg/dL (8.4-10.2); Carbon Dioxide 29 mmol/L (22-32); Chloride 98 mmol/L (98-107); Estimated Glomerular Filt Rate > 60 mL/min (>60); Globulin 2.5 g/dL (1.7-4.1); Glucose 278 mg/dL (70-99); HEMOLYSIS < 15 (0-50); Potassium 4.3 mmol/L (3.4-5.1); Sodium 136 mmol/L (137-145)
[2024-11-22 16:30] LABS: Appearance Urine UA CLEAR; Bilirubin Urine UA NEGATIVE (NEGATIVE); Color Urine UA YELLOW; Glucose Urine UA 3+ g/dL (Negative); Ketones Urine UA TRACE (NEGATIVE); Leukocyte Esterase Urine UA NEGATIVE (NEGATIVE); Nitrite Urine UA NEGATIVE (Negative); Occult Blood Urine UA NEGATIVE (Negative); Protein Urine UA NEGATIVE (Negative); Specific Gravity Urine UA 1.015 (1.000-1.035); Urobilinogen Urine UA 0.2 E.U./dL (0.2)
[2024-11-22 16:31] LABS: Bacteria Urine Occasional (0-1); Culture Indicated Urine Cult Not Indicated; RBC Urine 0-1/HPF (0-5/HPF); Squamous Epithelial Cell Urine 1-5 /HPF (0-5/HPF); Urine Volume 10mL (spun); WBC Urine 0-1/HPF (0-5/HPF)
[2024-11-22 16:48] LABS: Creatinine Urine Random 41.89 mg/dL; Protein (Total) Urine Random 7 mg/dL (0-12); Protein Creatinine Ratio Urine 0.16 GRAM/24H
[2024-11-22 16:52] LABS: Microalbumin Urine Random 0.7 mg/dL (0-1.6)
== END ==
PROVIDERS: Family Provider Family Medicine; PCP Family Medicine; Referring Provider Internal Medicine Nephrology; Visit Provider Internal Medicine Nephrology
DX: N28.89 Other specified disorders of kidney and ureter (principal); N20.0 Calculus of kidney; E11.9 Type 2 diabetes mellitus without complications; Z79.4 Long term (current) use of insulin; I10 Essential (primary) hypertension; Z85.3 Personal history of malignant neoplasm of breast
CPT/HCPCS: 36415; 80053; 81001; 82043; 82570; 84156; 85027

== ENCOUNTER → 2024-11-23 14:23 | Outpatient (CLI) | payer MEDICARE, OTHER, SELFPAY ==
[2022-03-18 09:54] VITALS: BMI 31.1
--- NOTE | 2024-11-23 14:24 | DI.US.S_ITS ---
PROCEDURE: US RENAL COMPLETE INDICATIONS: RECURRENT NEPHROLITHIASIS TECHNIQUE: Real-time scanning was performed of the kidneys and bladder, with image documentation. COMPARISON: [facility], CT, CT ABDOMEN RENAL PROTOCOL, 08/02/2024, 12:43. [facility], US, US RENAL COMPLETE, 03/20/2022, 10:07. FINDINGS: Kidneys: Kidneys are normal in size. Right kidney measures 12 cm long; left kidney measures 11.2 cm long. Right renal cortex measures 1.3 cm in thickness. Left renal cortex measures 1.7 cm in thickness. Simple appearing bilateral renal cysts are seen measures up to 2.4 x 2.3 x 2.1 cm in size in upper pole right kidney and up to 1 x 0.9 x 0.8 cm in size in lower pole left kidney. Nonobstructing stones are seen in bilateral kidneys measures up to 1.2 x 0.6 cm in size in midpole right kidney. There is a solid mass seen in lower pole left kidney measures 4.2 x 3.5 x 3.1 cm in size and show internal calcification and vascularity. This was seen on previous CT study and measured 4 x 3.8 cm in size. Bladder: Pre-void bladder volume is 373 mL. Post-void residual is 26 mL. Pre-void images demonstrate no intraluminal masses or stones. On pre-void images, bilateral ureteral jets are noted with color Doppler interrogation. (Of note, ureteral jets may not be detectable in up to 25% of cases due to insufficient differences in specific gravity between ureteral and bladder urine). Miscellaneous: No free pelvic fluid. Hepatic steatosis is seen. IMPRESSION: 1. 4.2 x 3.5 x 3.1 cm solid mass with internal vascularity and small areas of a calcifications seen in lower pole of left kidney slightly increased in size compared to 08/02/2024 CT study and is concerning for renal cell carcinoma. 2. Bilateral nonobstructing renal calculi and bilateral renal cysts as above. No hydronephrosis. 3. Normal appearing urinary bladder with small amount of postvoid residual. Dictated by: Luis Antonio Perkins M.D. on 11/23/2024 at 18:55 Approved by: Luis Antonio Perkins M.D. on 11/23/2024 at 18:59
== END ==
PROVIDERS: Family Provider Family Medicine; PCP Family Medicine; Referring Provider Internal Medicine Nephrology; Visit Provider Internal Medicine Nephrology
DX: N28.89 Other specified disorders of kidney and ureter (principal); N28.1 Cyst of kidney, acquired; N20.0 Calculus of kidney; K76.0 Fatty (change of) liver, not elsewhere classified
CPT/HCPCS: 76770

== ENCOUNTER → 2024-12-28 08:36 | Outpatient (CLI) | payer MEDICARE, OTHER, SELFPAY ==
[2022-03-18 09:54] VITALS: BMI 31.1
[2024-12-28 09:52] LABS: Add Manual Diff / Slide Review NO; Basophils Absolute Auto 100 /uL (0-100); Basophils Percent Auto 1.1 % (0-2); Eosinophils Absolute Auto 300 /uL (0-450); Eosinophils Percent Auto 5.4 % (2-4); Hematocrit 38.3 % (36-46); Lymphocytes Absolute Auto 1600 /uL (1100-4500); Lymphocytes Percent Auto 29.9 % (25-40); Mean Corpuscular HGB Conc 33.9 % (30-36); Mean Corpuscular Hemoglobin 29.2 PG (26-34); Mean Corpuscular Volume 86.1 fL (80-100); Monocytes Absolute Auto 500 /uL (0-900); Monocytes Percent Auto 8.7 % (3-14); Neutrophils Absolute Auto 2900 /uL (1500-7000); Neutrophils Percent Auto 54.9 % (50-75); Platelet Count 267 X10^3/uL (150-400); Red Blood Cell Count 4.45 X10^6/uL (4.0-5.2); Red Cell Distribution Width 13.8 % (11.6-14.8); White Blood Cell Count 5.3 X10^3/uL (4.5-11.0)
[2024-12-28 10:18] LABS: Alanine Aminotransferase 38 IU/L (<35); Albumin 4.6 g/dL (3.5-5.0); Albumin Globulin Ratio 1.9 (1.0-2.8); Alkaline Phosphatase 91 U/L (38-126); Aspartate Aminotransferase 27 IU/L (14-36); BUN Creatinine Ratio 20.7 (6-22); Bilirubin Total 0.6 mg/dL (0.2-1.3); Blood Urea Nitrogen 19 mg/dL (7-17); Calcium 10.4 mg/dL (8.4-10.2); Carbon Dioxide 27 mmol/L (22-32); Chloride 102 mmol/L (98-107); Estimated Glomerular Filt Rate > 60 mL/min (>60); Globulin 2.4 g/dL (1.7-4.1); Glucose 195 mg/dL (70-99); HEMOLYSIS < 15 (0-50); Potassium 4.5 mmol/L (3.4-5.1); Sodium 137 mmol/L (137-145)
== END ==
PROVIDERS: Family Provider Family Medicine; PCP Family Medicine; Referring Provider Nurse Practitioner; Visit Provider Nurse Practitioner
DX: Z85.3 Personal history of malignant neoplasm of breast (principal)
CPT/HCPCS: 36415; 80053; 85025

== ENCOUNTER 2025-01-17 09:45 | Outpatient (RCR) | payer MEDICARE, OTHER, SELFPAY ==
[2022-03-18 09:54] VITALS: BMI 31.1
--- NOTE | 2024-08-25 17:05 | PT.OIE ---
Current Diagnoses Dizziness and giddiness (08/25/24) Past Medical History (Last Reviewed 08/11/24 @ 11:34 by Samreen Kuhn DO) Chronic low back pain with right-sided sciatica Diabetes Hematuria History of chemotherapy History of malignant neoplasm of breast (12/13/15) History of UTI HTN (hypertension) Hypothyroidism Lumbar back pain with radiculopathy affecting right lower extremity Postmenopausal atrophic vaginitis Renal colic on left side Type 2 diabetes mellitus with hyperglycemia, without long-term current use of insulin Ureterolithiasis Past Surgical History (Last Reviewed 08/11/24 @ 11:34 by Samreen Kuhn DO) History of lithotripsy History of tonsillectomy History of total mastectomy Visit Care Team Role Provider Type Max Wise MD Attending Provider Physician Family Provider Primary Care Provider Referring Provider Specialty: [facility] Address: [facility] [place], [facility] Email: [email or web address] Physical Therapy Initial Evaluation PT-OP-A Visit Information Start: 08/21/24 08:42 Freq: Status: Active Protocol: Document 08/25/24 16:15 DCW (Rec: 08/25/24 17:46 DCW [id number]) Out-Patient Physical Therapy Visit Information Visit Information Visit Type Initial Evaluation Visit Start Time 16:15 Visit Stop Time 17:05 Visit Number 1 Number of COORDINATOR MINING PRODUCTS Visits 0 Evaluation Information Evaluation Date 08/25/24 PT-OP-B Current Condition Start: 08/21/24 08:42 Freq: Status: Active Protocol: Document 08/25/24 16:15 DCW (Rec: 08/26/24 08:55 DCW [id number]) Current Condition History of Current Condition Onset Date 15 day history Current Complaints Positional vertigo History of Current Condition Pt is a 69 year old female complaining of a 15 day history of motion-induced vertigo. Pt reports episodes last about a minute. Pt was treated for BPPV at this clinic approximately five years ago, and pt notes symptoms are exactly the same, but not as severe. Symptoms are provoked by laying down or rolling to her right side. Pt reports it hasn't been as bad recently, but notes that she knows what bothers her most, so she just avoids those motions. Prior Treatments and Tests Previously treated for BPPV at this clinic 05/2019 Treatment Goals Patient/Caregiver Goals Eliminate dizziness PT-OP-C Subjective Start: 08/21/24 08:42 Freq: Status: Active Protocol: Document 08/25/24 16:15 DCW (Rec: 08/26/24 08:55 DCW [id number]) OP-PT Subjective Patient Comments Patient Comments Pt notes she feels a little woozy just sitting on the treatment table. Pt noted her BPs have been high recently, prior to assessment, resting BP was measured at 168/80. PT-OP-O Vestibular Start: 08/21/24 08:42 Freq: Status: Active Protocol: Document 08/25/24 16:15 DCW (Rec: 08/26/24 08:55 DCW [id number]) Vestibular Assessment Visual Testing Heave Test Positive Bilateral Thrust Head Positive Bilateral Positional Testing Jaxon-Hallpike Positive Right,Upbeating,< 60 Seconds Comments Vestibular Comments Left Jaxon-Hallpike was testing first, pt noted some mild symptoms, however no notable nystagmus. PT-OP-Q Treatments Start: 08/21/24 08:42 Freq: Status: Active Protocol: Document 08/25/24 16:15 DCW (Rec: 08/26/24 08:55 DCW [id number]) Canalithic Repositioning BPPV Treatment Lovely Affected Canal(s) Posterior R Reps x1 Comments Modified Lovely PT-OP-T Assessment and Plan Start: 08/21/24 08:42 Freq: Status: Active Protocol: Document 08/25/24 16:15 DCW (Rec: 08/26/24 08:55 DCW [id number]) Physical Therapy Assessment Rehab Potential Rehabilitation Potential Fair Evaluation Complexity Number of Personal Factors/Comorbidities 3 or More Number of Body Systems Impaired 4 or More Clinical Presentation at Evaluation Unstable Goals Two Impairment Positive right [place]-Hallpike test Post Acute Care Nurse Goal (LTG) Pt to test negatively bilaterally with all positional testing in order to demonstrate successful treatment of BPPV. LTG Duration 10/23/24 One Impairment Pt experiences vertigo with rolling to right side when in bed Short Term Goal (STG) Pt to report no vertigo with bed mobility for a full week STG Duration 09/23/24 Assessment Summary Assessment During right Jaxon-Hallpike test, pt complained of vertigo and demonstrated strong up- beating, torsional nystagmus lasting approximately 20 seconds, consistent with diagnosis of right-sided posterior canal BPPV, canalithiasis-type. During testing, pt was very fearful and tearful, had very strong emotional reaction, but was able to remain lying down. Pt was treated with a right-sided modified Lovely maneuver. Upon returning to sitting, pt once again had a very strong emotional reaction, had very high anxiety about attempting to move her head at all. Unable to describe how she felt, other than it felt like a whoosh, and that she wasn' t spinning, but more that she felt like she might spin. Pt noted she just doesn't feel very good, noted she might pass out. Pt was offered water , but was unwilling to attempt to drink. BP was measured at 150/80. Sitting with pt, she was finally willing to start moving her head [id number] and up/down, increasing ROM more and more as she realized it was not making her dizzy. Pt continued to feel less anxious and less whooshy. At time of 1704, PT needed to start next patient, so pt was left sitting with PT aide until she felt like she could get up. Pt's came back shortly afterward, pt was feeling well enough that they were able to walk out of the clinic and return home. Due to extreme emotional and physical response to Lovely maneuver, re-testing was not performed, and therapist was unable to provide pt with the usual post-Lovely education. Would strongly recommend pt follow-up in the next week for retesting and further CRM as indicated. Physical Therapy Plan Frequency and Duration Frequency of Treatment 2x/Week Plan of Care Start Date 08/25/24 Plan of Care End Date 10/23/24 Therapeutic Interventions Therapeutic Interventions Balance Training,Canalithic Repositioning,Home Exercise Program,Manual Therapy, Neuromuscular Re-education, Patient/Caregiver Education, Self-Care/Home Management, Therapeutic Activities, Therapeutic Exercises, Vestibular Rehabilitation Next Visit Focus/Plan Next Note Type Treatment Note Next Visit Plan Positional testing, CRM as indicated
--- NOTE | 2024-08-26 13:42 | PT-OP ANOTE ---
Spoke with pt by phone today (08/26/24) to touch base and hope to schedule follow-up. Pt notes she still feeling a little woozy, but much better than yesterday. Was able to get her scheduled for a follow-up on 09/13, but pt placed on waitlist to try to get in earlier if possible.
--- NOTE | 2024-09-06 08:20 | PT.OTN ---
Current Diagnoses Dizziness and giddiness (09/06/24) Physical Therapy Treatment Note PT-OP-A Visit Information Start: 08/21/24 08:42 Freq: Status: Active Protocol: Document 09/06/24 07:26 MB (Rec: 09/06/24 08:08 MB [id number]) Out-Patient Physical Therapy Visit Information Visit Information Visit Type Treatment Note Visit Start Time 07:26 Visit Stop Time 08:06 Visit Number 2 Number of BOOMBOAT OPERATOR Visits 0 Evaluation Information Evaluation Date 08/25/24 PT-OP-B Current Condition Start: 08/21/24 08:42 Freq: Status: Active Protocol: Document 08/25/24 16:15 DCW (Rec: 08/26/24 08:55 DCW [id number]) Current Condition History of Current Condition Onset Date 15 day history Current Complaints Positional vertigo History of Current Condition Pt is a 69 year old female complaining of a 15 day history of motion-induced vertigo. Pt reports episodes last about a minute. Pt was treated for BPPV at this clinic approximately five years ago, and pt notes symptoms are exactly the same, but not as severe. Symptoms are provoked by laying down or rolling to her right side. Pt reports it hasn't been as bad recently, but notes that she knows what bothers her most, so she just avoids those motions. Prior Treatments and Tests Previously treated for BPPV at this clinic 05/2019 Treatment Goals Patient/Caregiver Goals Eliminate dizziness PT-OP-C Subjective Start: 08/21/24 08:42 Freq: Status: Active Protocol: Document 09/06/24 07:26 MB (Rec: 09/06/24 08:08 MB [id number]) OP-PT Subjective Patient Comments Patient Comments Pt states that she felt worse after the treatment and since then. She is walking and trying to turn her head. She is sleeping upright in the recliner. Pt recalls this PT from a previous adm/treatment. PT-OP-O Vestibular Start: 08/21/24 08:42 Freq: Status: Active Protocol: Document 08/25/24 16:15 DCW (Rec: 08/26/24 08:55 DCW [id number]) Vestibular Assessment Visual Testing Heave Test Positive Bilateral Thrust Head Positive Bilateral Positional Testing Jaxon-Hallpike Positive Right,Upbeating,< 60 Seconds Comments Vestibular Comments Left [place]-Hallpike was testing first, pt noted some mild symptoms, however no notable nystagmus. PT-OP-Q Treatments Start: 08/21/24 08:42 Freq: Status: Active Protocol: Document 09/06/24 07:26 MB (Rec: 09/06/24 08:08 MB [id number]) Therapeutic Activity Therapeutic Activity Bed mobility, rolling Comments +2 person assistance, min A, for B Hallett-Hallpike and Roll Test that are negative for nystagmus and BPPV, log rolling and getting up to EOB several times Self-Care/Home Management Treatment Education Patient Education Body Mechanics,Home Exercise Program,Posture,Safety Other Education BP check and long discussion before BPPV treatment to discuss timing, what will happen, expectations for treatment, benefits of quiet room and tech assessment. Discussed anatomy and physiology of BPPV, otoconia, how treatment works and keeping neck loose and working on non-caffeinated hydration after treatment. Pt con't to complain of dizziness and imbalance after treatment and ed pt that she can have other vestibular issues, she reports feeling draining in right ear . Ed pt in benefits of returning to Dr. Wise and possible ENT referral to check hearing and further assessment. Pt wishes to keep next and final appointment with primary PT, Chet. PT-OP-T Assessment and Plan Start: 08/21/24 08:42 Freq: Status: Active Protocol: Document 09/06/24 07:26 MB (Rec: 09/06/24 08:08 [id number]) Physical Therapy Assessment Rehab Potential Rehabilitation Potential Fair Evaluation Complexity Number of Personal Factors/Comorbidities 3 or More Number of Body Systems Impaired 4 or More Clinical Presentation at Evaluation Unstable Goals Two Impairment Positive right Hallett-Hallpike test Assisted Goal (LTG) Pt to test negatively bilaterally with all positional testing in order to demonstrate successful treatment of BPPV. LTG Duration 10/23/24 One Impairment Pt experiences vertigo with rolling to right side when in bed Short Term Goal (STG) Pt to report no vertigo with bed mobility for a full week STG Duration 09/23/24 Assessment Summary Assessment Pt con't with high anxiety about vertigo and possible treatment and she took Xanax before coming to the clinic. BP and HR RUE sitting before treatment: 180/84, 83. BPPV testing is negative. PT provides extensive encouragement including positive self-talk during treatment. She c/o feeling right ear drainage. Since BPPV is clear today and she con't to c/o dizziness, she may have another vestibular issue. Recommend one more PT treatment and ENT referral for hearing and other vestibular testing. Physical Therapy Plan Frequency and Duration Frequency of Treatment 2x/Week Plan of Care Start Date 08/25/24 Plan of Care End Date 10/23/24 Therapeutic Interventions Therapeutic Interventions Balance Training,Canalithic Repositioning,Home Exercise Program,Manual Therapy, Neuromuscular Re-education, Patient/Caregiver Education, Self-Care/Home Management, Therapeutic Activities, Therapeutic Exercises, Vestibular Rehabilitation Other Referrals/Consults Referrals/Consults Recommended ENT referral for hearing test and other vestibular testing Next Visit Focus/Plan Next Note Type Treatment Note Next Visit Plan Positional testing, CRM as indicated
--- NOTE | 2024-09-13 12:11 | PT.OTN ---
Current Diagnoses Dizziness and giddiness (09/13/24) Physical Therapy Treatment Note PT-OP-A Visit Information Start: 08/21/24 08:42 Freq: Status: Active Protocol: Document 09/13/24 11:35 DCW (Rec: 09/13/24 12:11 DCW [id number]) Out-Patient Physical Therapy Visit Information Visit Information Visit Type Treatment Note Visit Start Time 11:35 Visit Stop Time 12:15 Visit Number 3 Number of LOGISTICS TECH Visits 0 Evaluation Information Evaluation Date 08/25/24 PT-OP-B Current Condition Start: 08/21/24 08:42 Freq: Status: Active Protocol: Document 08/25/24 16:15 DCW (Rec: 08/26/24 08:55 DCW [id number]) Current Condition History of Current Condition Onset Date 15 day history Current Complaints Positional vertigo History of Current Condition Pt is a 69 year old female complaining of a 15 day history of motion-induced vertigo. Pt reports episodes last about a minute. Pt was treated for BPPV at this clinic approximately five years ago, and pt notes symptoms are exactly the same, but not as severe. Symptoms are provoked by laying down or rolling to her right side. Pt reports it hasn't been as bad recently, but notes that she knows what bothers her most, so she just avoids those motions. Prior Treatments and Tests Previously treated for BPPV at this clinic 05/2019 Treatment Goals Patient/Caregiver Goals Eliminate dizziness PT-OP-C Subjective Start: 08/21/24 08:42 Freq: Status: Active Protocol: Document 09/13/24 11:35 DCW (Rec: 09/13/24 12:10 DCW [id number]) OP-PT Subjective Patient Comments Patient Comments t notes the world is still spinning, gets anxious when trying to lie down in bed. Does have upcoming appointment with ENT. PT-OP-O Vestibular Start: 08/21/24 08:42 Freq: Status: Active Protocol: Document 08/25/24 16:15 DCW (Rec: 08/26/24 08:55 DCW [id number]) Vestibular Assessment Visual Testing Heave Test Positive Bilateral Thrust Head Positive Bilateral Positional Testing [place]-Hallpike Positive Right,Upbeating,< 60 Seconds Comments Vestibular Comments Left [place]-Hallpike was testing first, pt noted some mild symptoms, however no notable nystagmus. PT-OP-Q Treatments Start: 08/21/24 08:42 Freq: Status: Active Protocol: Document 09/13/24 11:35 DCW (Rec: 09/13/24 12:10 DCW [id number]) Manual Therapy Treatment Other Other Manual Treatments Positional testing Neuro Re-Education Treatment Vestibular Rehabilitation Corrective Saccades Details Eyes, then head turns to target Distance From Target Arm's length Speed as tolerated Position Seated X2 Viewing Details Target and head moving in opposite direction Distance From Target Arm's length Speed as tolerated Position Seated X1 Viewing Details Static Target with head turns Distance From Target Arm's length Speed as tolerated Position Seated VOR Retraining Details VOR - Head, target, and eyes move together Distance From Target Arm's length Speed as tolerated Position Seated PT-OP-T Assessment and Plan Start: 08/21/24 08:42 Freq: Status: Active Protocol: Document 09/13/24 11:35 DCW (Rec: 09/13/24 12:10 DCW [id number]) Physical Therapy Assessment Impairments Impairments Activity Tolerance,Balance, Vestibular,Visual Motor Goals Two Impairment Positive right Jaxon-Hallpike test Alf Goal (LTG) Pt to test negatively bilaterally with all positional testing in order to demonstrate successful treatment of BPPV. LTG Duration 10/23/24 One Impairment Pt experiences vertigo with rolling to right side when in bed Short Term Goal (STG) Pt to report no vertigo with bed mobility for a full week STG Duration 09/23/24 Assessment Summary Assessment Positional testing negative again today, but pt continues to complain of fairly consistent sensations of vague dizziness, imbalance, and instability. Pt anxious with any lying back, despite no increase in symptoms. Provided with some VOR/oculomotor Physical Therapy Plan Frequency and Duration Frequency of Treatment 2x/Week Plan of Care Start Date 08/25/24 Plan of Care End Date 10/23/24 Therapeutic Interventions Therapeutic Interventions Balance Training,Canalithic Repositioning,Home Exercise Program,Manual Therapy, Neuromuscular Re-education, Patient/Caregiver Education, Self-Care/Home Management, Therapeutic Activities, Therapeutic Exercises, Vestibular Rehabilitation Other Referrals/Consults Referrals/Consults Recommended ENT referral for hearing test and other vestibular testing Next Visit Focus/Plan Next Note Type Treatment Note Next Visit Plan Positional testing, CRM as indicated
--- NOTE | 2024-09-16 10:24 | PT.OTN ---
Current Diagnoses Dizziness and giddiness (09/16/24) Physical Therapy Treatment Note PT-OP-A Visit Information Start: 08/21/24 08:42 Freq: Status: Active Protocol: Document 09/16/24 09:46 DCW (Rec: 09/16/24 10:24 DCW [id number]) Out-Patient Physical Therapy Visit Information Visit Information Visit Type Treatment Note Visit Start Time 09:46 Visit Stop Time 10:15 Visit Number [address] VENDOR Visits 0 Evaluation Information Evaluation Date 08/25/24 PT-OP-B Current Condition Start: 08/21/24 08:42 Freq: Status: Active Protocol: Document 08/25/24 16:15 DCW (Rec: 08/26/24 08:55 DCW [id number]) Current Condition History of Current Condition Onset Date 15 day history Current Complaints Positional vertigo History of Current Condition Pt is a 69 year old female complaining of a 15 day history of motion-induced vertigo. Pt reports episodes last about a minute. Pt was treated for BPPV at this clinic approximately five years ago, and pt notes symptoms are exactly the same, but not as severe. Symptoms are provoked by laying down or rolling to her right side. Pt reports it hasn't been as bad recently, but notes that she knows what bothers her most, so she just avoids those motions. Prior Treatments and Tests Previously treated for BPPV at this clinic 05/2019 Treatment Goals Patient/Caregiver Goals Eliminate dizziness PT-OP-C Subjective Start: 08/21/24 08:42 Freq: Status: Active Protocol: Document 09/16/24 09:46 DCW (Rec: 09/16/24 10:24 DCW [id number]) OP-PT Subjective Patient Comments Patient Comments The eye exercises helped a lot. Notes she is feeling quite a bit better. Also tried a Neti pot, thought that seemed to help too. PT-OP-O Vestibular Start: 08/21/24 08:42 Freq: Status: Active Protocol: Document 08/25/24 16:15 DCW (Rec: 08/26/24 08:55 DCW [id number]) Vestibular Assessment Visual Testing Heave Test Positive Bilateral Thrust Head Positive Bilateral Positional Testing Jaxon-Hallpike Positive Right,Upbeating,< 60 Seconds Comments Vestibular Comments Left [place]-Hallpike was testing first, pt noted some mild symptoms, however no notable nystagmus. PT-OP-Q Treatments Start: 08/21/24 08:42 Freq: Status: Active Protocol: Document 09/16/24 09:46 DCW (Rec: 09/16/24 10:24 DCW [id number]) Manual Therapy Treatment Other Other Manual Treatments Positional testing Canalithic Repositioning BPPV Treatment Lovely Affected Canal(s) Posterior L Reps x1 Comments Modified Lovely PT-OP-T Assessment and Plan Start: 08/21/24 08:42 Freq: Status: Active Protocol: Document 09/16/24 09:46 DCW (Rec: 09/16/24 10:24 DCW [id number]) Physical Therapy Assessment Impairments Impairments Activity Tolerance,Balance, Vestibular,Visual Motor Goals Two Impairment Positive right Jaxon-Hallpike test Nursing Home Goal (LTG) Pt to test negatively bilaterally with all positional testing in order to demonstrate successful treatment of BPPV. LTG Duration 10/23/24 One Impairment Pt experiences vertigo with rolling to right side when in bed Short Term Goal (STG) Pt to report no vertigo with bed mobility for a full week STG Duration 09/23/24 Assessment Summary Assessment Jaxon-Hallpike mildly positive bilaterally today. Performed left Lovely, pt appeared to respond fairly well, much less post-maneuver unsteadiness and no emotional response today. Pt is noting continuing improvement in subjective symptoms, but continues to also describe fairly atypical BPPV complaints, like dizziness when opening her refrigerator. Continue to work on VOR retraining and positional testing, will be good to follow-up with ENT at scheduled appointment next month. Physical Therapy Plan Frequency and Duration Frequency of Treatment 2x/Week Plan of Care Start Date 08/25/24 Plan of Care End Date 10/23/24 Therapeutic Interventions Therapeutic Interventions Balance Training,Canalithic Repositioning,Home Exercise Program,Manual Therapy, Neuromuscular Re-education, Patient/Caregiver Education, Self-Care/Home Management, Therapeutic Activities, Therapeutic Exercises, Vestibular Rehabilitation Other Referrals/Consults Referrals/Consults Recommended ENT referral for hearing test and other vestibular testing Next Visit Focus/Plan Next Note Type Treatment Note Next Visit Plan Positional testing, CRM as indicated
--- NOTE | 2024-09-20 14:25 | PT.OTN ---
Current Diagnoses Dizziness and giddiness (09/20/24) Physical Therapy Treatment Note PT-OP-A Visit Information Start: 08/21/24 08:42 Freq: Status: Active Protocol: Document 09/20/24 13:50 DCW (Rec: 09/20/24 14:24 DCW [id number]) Out-Patient Physical Therapy Visit Information Visit Information Visit Type Treatment Note Visit Start Time 13:50 Visit Stop Time 14:20 Visit Number 5 Number of AERONAUTICAL DRAFTER Visits 0 Evaluation Information Evaluation Date 08/25/24 PT-OP-B Current Condition Start: 08/21/24 08:42 Freq: Status: Active Protocol: Document 08/25/24 16:15 DCW (Rec: 08/26/24 08:55 DCW [id number]) Current Condition History of Current Condition Onset Date 15 day history Current Complaints Positional vertigo History of Current Condition Pt is a 69 year old female complaining of a 15 day history of motion-induced vertigo. Pt reports episodes last about a minute. Pt was treated for BPPV at this clinic approximately five years ago, and pt notes symptoms are exactly the same, but not as severe. Symptoms are provoked by laying down or rolling to her right side. Pt reports it hasn't been as bad recently, but notes that she knows what bothers her most, so she just avoids those motions. Prior Treatments and Tests Previously treated for BPPV at this clinic 05/2019 Treatment Goals Patient/Caregiver Goals Eliminate dizziness PT-OP-C Subjective Start: 08/21/24 08:42 Freq: Status: Active Protocol: Document 09/20/24 13:50 DCW (Rec: 09/20/24 14:24 DCW [id number]) OP-PT Subjective Patient Comments Patient Comments Pt notes a bad episode on Thursday, just felt like a whoosh PT-OP-O Vestibular Start: 08/21/24 08:42 Freq: Status: Active Protocol: Document 09/20/24 13:50 DCW (Rec: 09/20/24 14:25 DCW [id number]) Vestibular Assessment Positional Testing Jaxon-Hallpike Positive Right,Upbeating,< 60 Seconds PT-OP-Q Treatments Start: 08/21/24 08:42 Freq: Status: Active Protocol: Document 09/20/24 13:50 DCW (Rec: 09/20/24 14:25 DCW [id number]) Canalithic Repositioning BPPV Treatment Lovely Affected Canal(s) Posterior L Reps x1 Comments Modified Lovely PT-OP-T Assessment and Plan Start: 08/21/24 08:42 Freq: Status: Active Protocol: Document 09/20/24 13:50 DCW (Rec: 09/20/24 14:24 DCW [id number]) Physical Therapy Assessment Impairments Impairments Activity Tolerance,Balance, Vestibular,Visual Motor Goals Two Impairment Positive right [place]-Hallpike test Fpc Goal (LTG) Pt to test negatively bilaterally with all positional testing in order to demonstrate successful treatment of BPPV. LTG Duration 10/23/24 One Impairment Pt experiences vertigo with rolling to right side when in bed Short Term Goal (STG) Pt to report no vertigo with bed mobility for a full week STG Duration 09/23/24 Assessment Summary Assessment Very mildly positive right [place] -hallpike today, left was negative. Performed right modified Lovely maneuver. Pt tolerated much better than recent attempts. Almost immediately felt like she could be up and moving around. Reviewed post-Lovely restrictions. Physical Therapy Plan Frequency and Duration Frequency of Treatment 2x/Week Plan of Care Start Date 08/25/24 Plan of Care End Date 10/23/24 Therapeutic Interventions Therapeutic Interventions Balance Training,Canalithic Repositioning,Home Exercise Program,Manual Therapy, Neuromuscular Re-education, Patient/Caregiver Education, Self-Care/Home Management, Therapeutic Activities, Therapeutic Exercises, Vestibular Rehabilitation Next Visit Focus/Plan Next Note Type Treatment Note Next Visit Plan Positional testing, CRM as indicated
--- NOTE | 2024-09-23 12:10 | PT.OTN ---
Current Diagnoses Dizziness and giddiness (09/23/24) Physical Therapy Treatment Note PT-OP-A Visit Information Start: 08/21/24 08:42 Freq: Status: Active Protocol: Document 09/23/24 11:35 DCW (Rec: 09/23/24 12:10 DCW [id number]) Out-Patient Physical Therapy Visit Information Visit Information Visit Type Treatment Note Visit Start Time 11:35 Visit Stop Time 12:00 Visit Number 6 Number of TESTER COMPRESSED GASES Visits 0 Evaluation Information Evaluation Date 08/25/24 PT-OP-B Current Condition Start: 08/21/24 08:42 Freq: Status: Active Protocol: Document 08/25/24 16:15 DCW (Rec: 08/26/24 08:55 DCW [id number]) Current Condition History of Current Condition Onset Date 15 day history Current Complaints Positional vertigo History of Current Condition Pt is a 69 year old female complaining of a 15 day history of motion-induced vertigo. Pt reports episodes last about a minute. Pt was treated for BPPV at this clinic approximately five years ago, and pt notes symptoms are exactly the same, but not as severe. Symptoms are provoked by laying down or rolling to her right side. Pt reports it hasn't been as bad recently, but notes that she knows what bothers her most, so she just avoids those motions. Prior Treatments and Tests Previously treated for BPPV at this clinic 05/2019 Treatment Goals Patient/Caregiver Goals Eliminate dizziness PT-OP-C Subjective Start: 08/21/24 08:42 Freq: Status: Active Protocol: Document 09/23/24 11:35 DCW (Rec: 09/23/24 12:10 DCW [id number]) OP-PT Subjective Patient Comments Patient Comments It's just kind of there. PT-OP-O Vestibular Start: 08/21/24 08:42 Freq: Status: Active Protocol: Document 09/23/24 11:35 DCW (Rec: 09/23/24 12:10 DCW [id number]) Vestibular Assessment Positional Testing Jaxon-Hallpike Negative Left,Negative Right PT-OP-Q Treatments Start: 08/21/24 08:42 Freq: Status: Active Protocol: Document 09/23/24 11:35 DCW (Rec: 09/23/24 12:10 DCW [id number]) Manual Therapy Treatment Other Other Manual Treatments Positional testing Self-Care/Home Management Treatment Education Other Education Review of treatment options, follow-up with ENT, eye doctor . PT-OP-T Assessment and Plan Start: 08/21/24 08:42 Freq: Status: Active Protocol: Document 09/23/24 11:35 DCW (Rec: 09/23/24 12:10 DCW [id number]) Physical Therapy Assessment Impairments Impairments Activity Tolerance,Balance, Vestibular,Visual Motor Goals Two Impairment Positive right Jaxon-Hallpike test Usp Goal (LTG) Pt to test negatively bilaterally with all positional testing in order to demonstrate successful treatment of BPPV. LTG Duration 10/23/24 One Impairment Pt experiences vertigo with rolling to right side when in bed Short Term Goal (STG) Pt to report no vertigo with bed mobility for a full week STG Duration 09/23/24 Assessment Summary Assessment Positional testing negative today. Pt continues to exhibit fairly high anxiety in relation to balance/dizziness. Has upcoming appointment with ENT, also wants to see eye doctor to determine if one of her lenses has slipped. Will plan to follow-up next week to ensure positional testing is negative and potentially progress with balance exercises to improve pt confidence. Physical Therapy Plan Frequency and Duration Frequency of Treatment 2x/Week Plan of Care Start Date 08/25/24 Plan of Care End Date 10/23/24 Therapeutic Interventions Therapeutic Interventions Balance Training,Canalithic Repositioning,Home Exercise Program,Manual Therapy, Neuromuscular Re-education, Patient/Caregiver Education, Self-Care/Home Management, Therapeutic Activities, Therapeutic Exercises, Vestibular Rehabilitation Next Visit Focus/Plan Next Note Type Treatment Note Next Visit Plan Positional testing, CRM as indicated
--- NOTE | 2024-09-26 14:21 | PT.OTN ---
Current Diagnoses Dizziness and giddiness (09/26/24) Physical Therapy Treatment Note PT-OP-A Visit Information Start: 08/21/24 08:42 Freq: Status: Active Protocol: Document 09/26/24 13:45 DCW (Rec: 09/26/24 14:20 DCW [id number]) Out-Patient Physical Therapy Visit Information Visit Information Visit Type Treatment Note Visit Start Time 13:45 Visit Stop Time 14:00 Visit Number 7 Number of DISEASE CASE MANAGER Visits 0 Evaluation Information Evaluation Date 08/25/24 PT-OP-B Current Condition Start: 08/21/24 08:42 Freq: Status: Active Protocol: Document 08/25/24 16:15 DCW (Rec: 08/26/24 08:55 DCW [id number]) Current Condition History of Current Condition Onset Date 15 day history Current Complaints Positional vertigo History of Current Condition Pt is a 69 year old female complaining of a 15 day history of motion-induced vertigo. Pt reports episodes last about a minute. Pt was treated for BPPV at this clinic approximately five years ago, and pt notes symptoms are exactly the same, but not as severe. Symptoms are provoked by laying down or rolling to her right side. Pt reports it hasn't been as bad recently, but notes that she knows what bothers her most, so she just avoids those motions. Prior Treatments and Tests Previously treated for BPPV at this clinic 05/2019 Treatment Goals Patient/Caregiver Goals Eliminate dizziness PT-OP-C Subjective Start: 08/21/24 08:42 Freq: Status: Active Protocol: Document 09/26/24 13:45 DCW (Rec: 09/26/24 14:20 DCW [id number]) OP-PT Subjective Patient Comments Patient Comments I'm a lot better. I feel like that last time really did something. I'm here without Xanax, I'm laying down in bed. I did great in [employer]. PT-OP-O Vestibular Start: 08/21/24 08:42 Freq: Status: Active Protocol: Document 09/23/24 11:35 DCW (Rec: 09/23/24 12:10 DCW [id number]) Vestibular Assessment Positional Testing Jaxon-Hallpike Negative Left,Negative Right PT-OP-Q Treatments Start: 08/21/24 08:42 Freq: Status: Active Protocol: Document 09/26/24 13:45 DCW (Rec: 09/26/24 14:20 DCW [id number]) Manual Therapy Treatment Other Other Manual Treatments Positional testing Canalithic Repositioning BPPV Treatment Lovely Affected Canal(s) Posterior R Reps x1 Comments Modified Lovely PT-OP-T Assessment and Plan Start: 08/21/24 08:42 Freq: Status: Active Protocol: Document 09/26/24 13:45 DCW (Rec: 09/26/24 14:20 DCW [id number]) Physical Therapy Assessment Impairments Impairments Activity Tolerance,Balance, Vestibular,Visual Motor Goals Two Impairment Positive right Jaxon-Hallpike test Multimedia Specialist Goal (LTG) Pt to test negatively bilaterally with all positional testing in order to demonstrate successful treatment of BPPV. LTG Duration 10/23/24 One Impairment Pt experiences vertigo with rolling to right side when in bed Short Term Goal (STG) Pt to report no vertigo with bed mobility for a full week STG Duration 09/23/24 Assessment Summary Assessment Pt appears to be significantly less symptomatic at the moment, feels she is nearing normal functional mobility and return to PLOF. Not scheduled to return to vestibular therapy for two weeks, good to give her time to see how things are feeling without frequent CRM. Physical Therapy Plan Frequency and Duration Frequency of Treatment 2x/Week Plan of Care Start Date 08/25/24 Plan of Care End Date 10/23/24 Therapeutic Interventions Therapeutic Interventions Balance Training,Canalithic Repositioning,Home Exercise Program,Manual Therapy, Neuromuscular Re-education, Patient/Caregiver Education, Self-Care/Home Management, Therapeutic Activities, Therapeutic Exercises, Vestibular Rehabilitation Next Visit Focus/Plan Next Note Type Treatment Note Next Visit Plan Positional testing, CRM as indicated
--- NOTE | 2024-10-04 16:36 | PT.OTN ---
Current Diagnoses Dizziness and giddiness (10/04/24) Physical Therapy Treatment Note PT-OP-A Visit Information Start: 08/21/24 08:42 Freq: Status: Active Protocol: Document 10/04/24 16:20 DCW (Rec: 10/04/24 16:36 DCW [id number]) Out-Patient Physical Therapy Visit Information Visit Information Visit Type Treatment Note Visit Start Time 16:20 Visit Stop Time 16:36 Visit Number 8 Number of SOLDERER TORCH Visits 0 Evaluation Information Evaluation Date 08/25/24 PT-OP-B Current Condition Start: 08/21/24 08:42 Freq: Status: Active Protocol: Document 08/25/24 16:15 DCW (Rec: 08/26/24 08:55 DCW [id number]) Current Condition History of Current Condition Onset Date 15 day history Current Complaints Positional vertigo History of Current Condition Pt is a 69 year old female complaining of a 15 day history of motion-induced vertigo. Pt reports episodes last about a minute. Pt was treated for BPPV at this clinic approximately five years ago, and pt notes symptoms are exactly the same, but not as severe. Symptoms are provoked by laying down or rolling to her right side. Pt reports it hasn't been as bad recently, but notes that she knows what bothers her most, so she just avoids those motions. Prior Treatments and Tests Previously treated for BPPV at this clinic 05/2019 Treatment Goals Patient/Caregiver Goals Eliminate dizziness PT-OP-C Subjective Start: 08/21/24 08:42 Freq: Status: Active Protocol: Document 10/04/24 16:20 DCW (Rec: 10/04/24 16:36 DCW [id number]) OP-PT Subjective Patient Comments Patient Comments Just a little dizzy. Not bad. Maybe a little worse than yesterday, but not really noticeable. Started an exercise program yesterday, was not dizzy. PT-OP-O Vestibular Start: 08/21/24 08:42 Freq: Status: Active Protocol: Document 10/04/24 16:20 DCW (Rec: 10/04/24 16:36 DCW [id number]) Vestibular Assessment Positional Testing [place]-Hallpike Negative Left,Negative Right PT-OP-Q Treatments Start: 08/21/24 08:42 Freq: Status: Active Protocol: Document 10/04/24 16:20 DCW (Rec: 10/04/24 16:36 DCW [id number]) Canalithic Repositioning BPPV Treatment Lovely Affected Canal(s) Posterior L Reps x1 Comments Modified Lovely PT-OP-T Assessment and Plan Start: 08/21/24 08:42 Freq: Status: Active Protocol: Document 10/04/24 16:20 DCW (Rec: 10/04/24 16:36 DCW [id number]) Physical Therapy Assessment Impairments Impairments Activity Tolerance,Balance, Vestibular,Visual Motor Goals Two Impairment Positive right Jaxon-Hallpike test Home Aid Goal (LTG) Pt to test negatively bilaterally with all positional testing in order to demonstrate successful treatment of BPPV. LTG Duration 10/23/24 One Impairment Pt experiences vertigo with rolling to right side when in bed Short Term Goal (STG) Pt to report no vertigo with bed mobility for a full week STG Duration 09/23/24 Assessment Summary Assessment Pt positional testing largely negative, however continues to complain of mild subjective symptoms with Left Jaxon- Hallpike, and then again upon returning to sit. Performed left-sided modified Lovely, pt felt a little wooshy afterward, but improved with short rest. Continue to retest positional testing and CRM as needed. Physical Therapy Plan Frequency and Duration Frequency of Treatment 2x/Week Plan of Care Start Date 08/25/24 Plan of Care End Date 10/23/24 Therapeutic Interventions Therapeutic Interventions Balance Training,Canalithic Repositioning,Home Exercise Program,Manual Therapy, Neuromuscular Re-education, Patient/Caregiver Education, Self-Care/Home Management, Therapeutic Activities, Therapeutic Exercises, Vestibular Rehabilitation Next Visit Focus/Plan Next Note Type Treatment Note Next Visit Plan Positional testing, CRM as indicated
--- NOTE | 2024-10-13 11:16 | PT.OTN ---
Current Diagnoses Dizziness and giddiness (10/13/24) Physical Therapy Treatment Note PT-OP-A Visit Information Start: 08/21/24 08:42 Freq: Status: Active Protocol: Document 10/13/24 10:48 DCW (Rec: 10/13/24 11:16 DCW [id number]) Out-Patient Physical Therapy Visit Information Visit Information Visit Type Treatment Note Visit Start Time 10:48 Visit Stop Time 11:06 Visit Number 9 Number of FLEXO OPERATOR Visits 0 Evaluation Information Evaluation Date 08/25/24 PT-OP-B Current Condition Start: 08/21/24 08:42 Freq: Status: Active Protocol: Document 08/25/24 16:15 DCW (Rec: 08/26/24 08:55 DCW [id number]) Current Condition History of Current Condition Onset Date 15 day history Current Complaints Positional vertigo History of Current Condition Pt is a 69 year old female complaining of a 15 day history of motion-induced vertigo. Pt reports episodes last about a minute. Pt was treated for BPPV at this clinic approximately five years ago, and pt notes symptoms are exactly the same, but not as severe. Symptoms are provoked by laying down or rolling to her right side. Pt reports it hasn't been as bad recently, but notes that she knows what bothers her most, so she just avoids those motions. Prior Treatments and Tests Previously treated for BPPV at this clinic 05/2019 Treatment Goals Patient/Caregiver Goals Eliminate dizziness PT-OP-C Subjective Start: 08/21/24 08:42 Freq: Status: Active Protocol: Document 10/13/24 10:48 DCW (Rec: 10/13/24 11:16 DCW [id number]) OP-PT Subjective Patient Comments Patient Comments Just a little wobbly. Not the woosh dizzy, just unsteady. PT-OP-O Vestibular Start: 08/21/24 08:42 Freq: Status: Active Protocol: Document 10/13/24 10:48 DCW (Rec: 10/13/24 11:16 DCW [id number]) Vestibular Assessment Positional Testing Jaxon-Hallpike Negative Left,Negative Right Comments Vestibular Comments During left [place]-Hallpike, pt c /o feeling like the floor might drop out, but wasn't really symptomatic. PT-OP-Q Treatments Start: 08/21/24 08:42 Freq: Status: Active Protocol: Document 10/13/24 10:48 DCW (Rec: 10/13/24 11:16 DCW [id number]) Manual Therapy Treatment Other Other Manual Treatments Positional testing Canalithic Repositioning BPPV Treatment Lovely Affected Canal(s) Posterior L Reps x1 Comments Modified Lovely PT-OP-T Assessment and Plan Start: 08/21/24 08:42 Freq: Status: Active Protocol: Document 10/13/24 10:48 DCW (Rec: 10/13/24 11:16 DCW [id number]) Physical Therapy Assessment Impairments Impairments Activity Tolerance,Balance, Vestibular,Visual Motor Goals Two Impairment Positive right Jaxon-Hallpike test Forming Department Supervisor Goal (LTG) Pt to test negatively bilaterally with all positional testing in order to demonstrate successful treatment of BPPV. LTG Duration 10/23/24 One Impairment Pt experiences vertigo with rolling to right side when in bed Short Term Goal (STG) Pt to report no vertigo with bed mobility for a full week STG Duration 09/23/24 Assessment Summary Assessment Pt once again displays positional testing which is largely negative, however continues to complain of mild subjective symptoms with Left Jaxon-Hallpike. Continue to retest positional testing and CRM as needed. Pt does have follow-up with ENT next week. Physical Therapy Plan Frequency and Duration Frequency of Treatment 2x/Week Plan of Care Start Date 08/25/24 Plan of Care End Date 10/23/24 Therapeutic Interventions Therapeutic Interventions Balance Training,Canalithic Repositioning,Home Exercise Program,Manual Therapy, Neuromuscular Re-education, Patient/Caregiver Education, Self-Care/Home Management, Therapeutic Activities, Therapeutic Exercises, Vestibular Rehabilitation Next Visit Focus/Plan Next Note Type Treatment Note Next Visit Plan Positional testing, CRM as indicated
--- NOTE | 2024-10-20 11:23 | PT.OTN ---
Current Diagnoses Dizziness and giddiness (10/20/24) Physical Therapy Treatment Note PT-OP-A Visit Information Start: 08/21/24 08:42 Freq: Status: Active Protocol: Document 10/20/24 10:50 DCW (Rec: 10/20/24 11:22 DCW [id number]) Out-Patient Physical Therapy Visit Information Visit Information Visit Type Progress Note Visit Start Time 10:50 Visit Stop Time 11:15 Visit Number 10 Number of DRUG AND ALCOHOL COUNSELOR Visits 0 Evaluation Information Evaluation Date 08/25/24 PT-OP-B Current Condition Start: 08/21/24 08:42 Freq: Status: Active Protocol: Document 08/25/24 16:15 DCW (Rec: 08/26/24 08:55 DCW [id number]) Current Condition History of Current Condition Onset Date 15 day history Current Complaints Positional vertigo History of Current Condition Pt is a 69 year old female complaining of a 15 day history of motion-induced vertigo. Pt reports episodes last about a minute. Pt was treated for BPPV at this clinic approximately five years ago, and pt notes symptoms are exactly the same, but not as severe. Symptoms are provoked by laying down or rolling to her right side. Pt reports it hasn't been as bad recently, but notes that she knows what bothers her most, so she just avoids those motions. Prior Treatments and Tests Previously treated for BPPV at this clinic 05/2019 Treatment Goals Patient/Caregiver Goals Eliminate dizziness PT-OP-C Subjective Start: 08/21/24 08:42 Freq: Status: Active Protocol: Document 10/20/24 10:50 DCW (Rec: 10/20/24 11:22 DCW [id number]) OP-PT Subjective Patient Comments Patient Comments Pt was seen by ENT, reports VNG is the next step, but won' t get it until the end of October. PT-OP-O Vestibular Start: 08/21/24 08:42 Freq: Status: Active Protocol: Document 10/20/24 10:50 DCW (Rec: 10/20/24 11:22 DCW [id number]) Vestibular Assessment Positional Testing Jaxon-Hallpike Negative Left,Negative Right Comments Vestibular Comments During left Jaxon-Hallpike, pt c /o feeling like the it's about to start but no objective symptoms PT-OP-Q Treatments Start: 08/21/24 08:42 Freq: Status: Active Protocol: Document 10/20/24 10:50 DCW (Rec: 10/20/24 11:22 DCW [id number]) Canalithic Repositioning BPPV Treatment Lovely Affected Canal(s) Posterior L Reps x1 Comments Modified Lovely PT-OP-T Assessment and Plan Start: 08/21/24 08:42 Freq: Status: Active Protocol: Document 10/20/24 10:50 DCW (Rec: 10/20/24 11:22 DCW [id number]) Physical Therapy Assessment Impairments Impairments Activity Tolerance,Balance, Vestibular,Visual Motor Goals Two Impairment Positive right Jaxon-Hallpike test Fdc Goal (LTG) Pt to test negatively bilaterally with all positional testing in order to demonstrate successful treatment of BPPV. LTG Duration 10/23/24 One Impairment Pt experiences vertigo with rolling to right side when in bed Short Term Goal (STG) Pt to report no vertigo with bed mobility for a full week STG Duration 09/23/24 Assessment Summary Assessment Pt subjective symptoms with positional testing remain, but not exhibiting any noticeable nystagmus. Will likely benefit from continued skilled vestibular therapy focusing on positional testing and CRM, as well as potential addition of habituation or adaptation exercises pending results from upcoming VNG testing. Physical Therapy Plan Frequency and Duration Frequency of Treatment 2x/Week Plan of Care Start Date 10/20/24 Plan of Care End Date 12/20/24 Therapeutic Interventions Therapeutic Interventions Balance Training,Canalithic Repositioning,Home Exercise Program,Manual Therapy, Neuromuscular Re-education, Patient/Caregiver Education, Self-Care/Home Management, Therapeutic Activities, Therapeutic Exercises, Vestibular Rehabilitation Next Visit Focus/Plan Next Note Type Treatment Note Next Visit Plan Positional testing, CRM as indicated
--- NOTE | 2024-10-20 11:23 | PT.OPPOC ---
Physical, Occupational & Speech Therapy At [facility] Current Diagnoses Dizziness and giddiness (10/20/24) Visit Care Team Role Provider Type Max Wise MD Attending Provider Physician Family Provider Primary Care Provider Referring Provider Specialty: Family Practice Address: [facility] [place], [address] Email: [email or web address] Plan Of Care PT-OP-B Current Condition Start: 08/21/24 08:42 Freq: Status: Active Protocol: Document 08/25/24 16:15 DCW (Rec: 08/26/24 08:55 DCW [id number]) Current Condition History of Current Condition Onset Date 15 day history Current Complaints Positional vertigo History of Current Condition Pt is a 69 year old female complaining of a 15 day history of motion-induced vertigo. Pt reports episodes last about a minute. Pt was treated for BPPV at this clinic approximately five years ago, and pt notes symptoms are exactly the same, but not as severe. Symptoms are provoked by laying down or rolling to her right side. Pt reports it hasn't been as bad recently, but notes that she knows what bothers her most, so she just avoids those motions. Prior Treatments and Tests Previously treated for BPPV at this clinic 05/2019 Treatment Goals Patient/Caregiver Goals Eliminate dizziness PT-OP-T Assessment and Plan Start: 08/21/24 08:42 Freq: Status: Active Protocol: Document 10/20/24 10:50 DCW (Rec: 10/20/24 11:22 DCW [id number]) Physical Therapy Assessment Impairments Impairments Activity Tolerance,Balance, Vestibular,Visual Motor Goals Two Impairment Positive right [place]-Hallpike test Retirement Goal (LTG) Pt to test negatively bilaterally with all positional testing in order to demonstrate successful treatment of BPPV. LTG Duration 10/23/24 One Impairment Pt experiences vertigo with rolling to right side when in bed Short Term Goal (STG) Pt to report no vertigo with bed mobility for a full week STG Duration 09/23/24 Assessment Summary Assessment Pt subjective symptoms with positional testing remain, but not exhibiting any noticeable nystagmus. Will likely benefit from continued skilled vestibular therapy focusing on positional testing and CRM, as well as potential addition of habituation or adaptation exercises pending results from upcoming VNG testing. Physical Therapy Plan Frequency and Duration Frequency of Treatment 2x/Week Plan of Care Start Date 10/20/24 Plan of Care End Date 12/20/24 Therapeutic Interventions Therapeutic Interventions Balance Training,Canalithic Repositioning,Home Exercise Program,Manual Therapy, Neuromuscular Re-education, Patient/Caregiver Education, Self-Care/Home Management, Therapeutic Activities, Therapeutic Exercises, Vestibular Rehabilitation Next Visit Focus/Plan Next Note Type Treatment Note Next Visit Plan Positional testing, CRM as indicated Plan of Care Dates Plan of Care Start Date 10/20/24 Plan of Care End Date 12/20/24 Electronically Signed by: Tima Campuzano, PT 10/20/24 2822 If you are in agreement with this Plan of Care, please return a signed and dated copy. I have reviewed this Plan of Care and certify that the skilled therapy services above are required to meet the patient?s needs. Physician Signature Date Printed Name and Credentials Clinical Instructor Signature Printed Name and Credentials
--- NOTE | 2024-11-03 12:05 | PT.OTN ---
Current Diagnoses Dizziness and giddiness (11/03/24) Physical Therapy Treatment Note PT-OP-A Visit Information Start: 08/21/24 08:42 Freq: Status: Active Protocol: Document 11/03/24 11:35 DCW (Rec: 11/03/24 12:05 DCW [id number]) Out-Patient Physical Therapy Visit Information Visit Information Visit Type Treatment Note Visit Start Time 11:35 Visit Stop Time 12:00 Visit Number 11 Number of DATA ADMINISTRATOR Visits 0 Evaluation Information Evaluation Date 08/25/24 PT-OP-B Current Condition Start: 08/21/24 08:42 Freq: Status: Active Protocol: Document 08/25/24 16:15 DCW (Rec: 08/26/24 08:55 DCW [id number]) Current Condition History of Current Condition Onset Date 15 day history Current Complaints Positional vertigo History of Current Condition Pt is a 69 year old female complaining of a 15 day history of motion-induced vertigo. Pt reports episodes last about a minute. Pt was treated for BPPV at this clinic approximately five years ago, and pt notes symptoms are exactly the same, but not as severe. Symptoms are provoked by laying down or rolling to her right side. Pt reports it hasn't been as bad recently, but notes that she knows what bothers her most, so she just avoids those motions. Prior Treatments and Tests Previously treated for BPPV at this clinic 05/2019 Treatment Goals Patient/Caregiver Goals Eliminate dizziness PT-OP-C Subjective Start: 08/21/24 08:42 Freq: Status: Active Protocol: Document 11/03/24 11:35 DCW (Rec: 11/03/24 12:05 DCW [id number]) OP-PT Subjective Patient Comments Patient Comments I haven't really been having the 'whoosh' dizziness. Not longer feels that her right ear has pressure behind it. Pt does note that she has noticed that if she leans forward with her head upright into cervical extension, she does experience some dizziness . PT-OP-O Vestibular Start: 08/21/24 08:42 Freq: Status: Active Protocol: Document 11/03/24 11:35 DCW (Rec: 11/03/24 12:05 DCW [id number]) Vestibular Assessment Positional Testing J[place]-Hallpike Negative Left,Negative Right Comments Vestibular Comments During left [place]-Hallpike, pt c /o feeling like the it's about to start but no objective symptoms PT-OP-Q Treatments Start: 08/21/24 08:42 Freq: Status: Active Protocol: Document 11/03/24 11:35 DCW (Rec: 11/03/24 12:05 [facility] [id number]) Therapeutic Exercises Sitting Exercises Chin tuck Sitting Exercise Name Seated Chin tuck Reps/Minutes 5 hold x10 Manual Therapy Treatment Other Other Manual Treatments Positional testing Canalithic Repositioning BPPV Treatment Lovely Affected Canal(s) Posterior L Reps x1 Comments Modified Lovely PT-OP-T Assessment and Plan Start: 08/21/24 08:42 Freq: Status: Active Protocol: Document 11/03/24 11:35 DCW (Rec: 11/03/24 12:05 [facility] [id number]) Physical Therapy Assessment Assessment Summary Assessment Positional testing continues to be negative, however complains of very mild subjective symptoms, so a modified Lovely was performed. With pt's new complaints of feeling symptomatic with leaning forward but without a head tilt, some component of cervical dysfunction may be resulting in symptoms. Pt provided with handout for chin tucks, continue to track subjective cervical symptoms.
--- NOTE | 2024-11-10 15:46 | PT.OTN ---
Current Diagnoses Dizziness and giddiness (11/10/24) Physical Therapy Treatment Note PT-OP-A Visit Information Start: 08/21/24 08:42 Freq: Status: Active Protocol: Document 11/10/24 15:20 DCW (Rec: 11/10/24 15:46 DCW [id number]) Out-Patient Physical Therapy Visit Information Visit Information Visit Type Treatment Note Visit Start Time 15:20 Visit Stop Time 15:45 Visit Number 12 Number of MOLECULAR BIOLOGY SCIENTIST Visits 0 Evaluation Information Evaluation Date 08/25/24 PT-OP-B Current Condition Start: 08/21/24 08:42 Freq: Status: Active Protocol: Document 08/25/24 16:15 DCW (Rec: 08/26/24 08:55 DCW [id number]) Current Condition History of Current Condition Onset Date 15 day history Current Complaints Positional vertigo History of Current Condition Pt is a 69 year old female complaining of a 15 day history of motion-induced vertigo. Pt reports episodes last about a minute. Pt was treated for BPPV at this clinic approximately five years ago, and pt notes symptoms are exactly the same, but not as severe. Symptoms are provoked by laying down or rolling to her right side. Pt reports it hasn't been as bad recently, but notes that she knows what bothers her most, so she just avoids those motions. Prior Treatments and Tests Previously treated for BPPV at this clinic 05/2019 Treatment Goals Patient/Caregiver Goals Eliminate dizziness PT-OP-C Subjective Start: 08/21/24 08:42 Freq: Status: Active Protocol: Document 11/10/24 15:20 DCW (Rec: 11/10/24 15:46 DCW [id number]) OP-PT Subjective Patient Comments Patient Comments Dizziness has been fine, still gets a little unsteady with opening her refrigerator. Worried about her upcoming VNG , doesn't want to go through any dizziness, but is still trying to decide. PT-OP-O Vestibular Start: 08/21/24 08:42 Freq: Status: Active Protocol: Document 11/10/24 15:20 DCW (Rec: 11/10/24 15:46 DCW [id number]) Vestibular Assessment Positional Testing [place]-Hallpike Negative Left,Negative Right Comments Vestibular Comments Pt notes symptoms are a 0.5/10 during Hallpike PT-OP-Q Treatments Start: 08/21/24 08:42 Freq: Status: Active Protocol: Document 11/10/24 15:20 DCW (Rec: 11/10/24 15:46 DC [id number]) Therapeutic Exercises Sitting Exercises Chin tuck Sitting Exercise Name Seated Chin tuck Reps/Minutes 5 hold x10 Manual Therapy Treatment Other Other Manual Treatments Positional testing Canalithic Repositioning BPPV Treatment Lovely Affected Canal(s) Posterior L Reps x1 Comments Modified Lovely PT-OP-T Assessment and Plan Start: 08/21/24 08:42 Freq: Status: Active Protocol: Document 11/10/24 15:20 DCW (Rec: 11/10/24 15:46 [facility] [id number]) Physical Therapy Assessment Impairments Impairments Activity Tolerance,Balance, Vestibular,Visual Motor Goals Two Impairment Positive right [place]-Hallpike test Laborer Operator Goal (LTG) Pt to test negatively bilaterally with all positional testing in order to demonstrate successful treatment of BPPV. LTG Duration 12/20/24 One Impairment Pt experiences vertigo with rolling to right side when in bed Short Term Goal (STG) Pt to report no vertigo with bed mobility for a full week STG Duration 11/20/24 Assessment Summary Assessment Reviewed Akin Torres, pt was mildly confused with HEP. Again feeling some mild subjective symptoms with left Hallpike, but no notable nystagmus. Continue to work on positional testing, vestibular rehab, and decreasing movement anxiety. Physical Therapy Plan Frequency and Duration Frequency of Treatment 2x/Week Plan of Care Start Date 10/20/24 Plan of Care End Date 12/20/24 Therapeutic Interventions Therapeutic Interventions Balance Training,Canalithic Repositioning,Home Exercise Program,Manual Therapy, Neuromuscular Re-education, Patient/Caregiver Education, Self-Care/Home Management, Therapeutic Activities, Therapeutic Exercises, Vestibular Rehabilitation Next Visit Focus/Plan Next Note Type Treatment Note Next Visit Plan Positional testing, CRM as indicated
--- NOTE | 2024-11-14 17:30 | PT.OTN ---
Current Diagnoses Dizziness and giddiness (11/14/24) Physical Therapy Treatment Note PT-OP-A Visit Information Start: 08/21/24 08:42 Freq: Status: Active Protocol: Document 11/14/24 17:05 DCW (Rec: 11/14/24 17:27 DCW [id number]) Out-Patient Physical Therapy Visit Information Visit Information Visit Type Treatment Note Visit Start Time 17:05 Visit Stop Time 17:15 Visit Number 13 Number of POOL MANAGER Visits 0 Evaluation Information Evaluation Date 08/25/24 PT-OP-B Current Condition Start: 08/21/24 08:42 Freq: Status: Active Protocol: Document 08/25/24 16:15 DCW (Rec: 08/26/24 08:55 DCW [id number]) Current Condition History of Current Condition Onset Date 15 day history Current Complaints Positional vertigo History of Current Condition Pt is a 69 year old female complaining of a 15 day history of motion-induced vertigo. Pt reports episodes last about a minute. Pt was treated for BPPV at this clinic approximately five years ago, and pt notes symptoms are exactly the same, but not as severe. Symptoms are provoked by laying down or rolling to her right side. Pt reports it hasn't been as bad recently, but notes that she knows what bothers her most, so she just avoids those motions. Prior Treatments and Tests Previously treated for BPPV at this clinic 05/2019 Treatment Goals Patient/Caregiver Goals Eliminate dizziness PT-OP-C Subjective Start: 08/21/24 08:42 Freq: Status: Active Protocol: Document 11/14/24 17:05 DCW (Rec: 11/14/24 17:27 DCW [id number]) OP-PT Subjective Patient Comments Patient Comments Pt reports she has not had any dizziness, is feeling good overall. Leaves for a quick out of state trip Thursday, so she's excited about that. PT-OP-O Vestibular Start: 08/21/24 08:42 Freq: Status: Active Protocol: Document 11/10/24 15:20 DCW (Rec: 11/10/24 15:46 DCW [id number]) Vestibular Assessment Positional Testing [place]-Hallpike Negative Left,Negative Right Comments Vestibular Comments Pt notes symptoms are a 0.5/10 during Hallpike PT-OP-Q Treatments Start: 08/21/24 08:42 Freq: Status: Active Protocol: Document 11/14/24 17:05 [facility] (Rec: 11/14/24 17:27 [facility] [id number]) Therapeutic Exercises Sitting Exercises Chin tuck Sitting Exercise Name Seated Chin tuck Reps/Minutes 5 hold x10 Self-Care/Home Management Treatment Activities Self-Care/Home Management Activities Discussion regarding ongoing treatment, expectations, and plan going forward PT-OP-T Assessment and Plan Start: 08/21/24 08:42 Freq: Status: Active Protocol: Document 11/14/24 17:05 [facility] (Rec: 11/14/24 17:27 [facility] [id number]) Physical Therapy Assessment Impairments Impairments Activity Tolerance,Balance, Vestibular,Visual Motor Goals Two Impairment Positive right J[place]-Hallpike test Record Searcher Goal (LTG) Pt to test negatively bilaterally with all positional testing in order to demonstrate successful treatment of BPPV. LTG Duration 12/20/24 One Impairment Pt experiences vertigo with rolling to right side when in bed Short Term Goal (STG) Pt to report no vertigo with bed mobility for a full week STG Duration 11/20/24 Assessment Summary Assessment Pt feeling much better overall in regards to dizziness, not experiencing any further symptoms. Would like to keep next visit following her short trip to [place], just in case there are any unexpected changes during air travel. Physical Therapy Plan Frequency and Duration Frequency of Treatment 2x/Week Plan of Care Start Date 10/20/24 Plan of Care End Date 12/20/24 Therapeutic Interventions Therapeutic Interventions Balance Training,Canalithic Repositioning,Home Exercise Program,Manual Therapy, Neuromuscular Re-education, Patient/Caregiver Education, Self-Care/Home Management, Therapeutic Activities, Therapeutic Exercises, Vestibular Rehabilitation Next Visit Focus/Plan Next Note Type Treatment Note Next Visit Plan Positional testing, CRM as indicated
--- NOTE | 2024-12-06 08:52 | PT.OTN ---
Current Diagnoses Dizziness and giddiness (12/06/24) Physical Therapy Treatment Note PT-OP-A Visit Information Start: 08/21/24 08:42 Freq: Status: Active Protocol: Document 12/06/24 08:17 MB (Rec: 12/06/24 08:51 MB Desktop) Out-Patient Physical Therapy Visit Information Visit Information Visit Type Progress Note Visit Start Time 08:17 Visit Stop Time 08:57 Visit Number 14 Number of PARAMEDIC RN Visits 0 Evaluation Information Evaluation Date 08/25/24 PT-OP-B Current Condition Start: 08/21/24 08:42 Freq: Status: Active Protocol: Document 08/25/24 16:15 DCW (Rec: 08/26/24 08:55 DCW [id number]) Current Condition History of Current Condition Onset Date 15 day history Current Complaints Positional vertigo History of Current Condition Pt is a 69 year old female complaining of a 15 day history of motion-induced vertigo. Pt reports episodes last about a minute. Pt was treated for BPPV at this clinic approximately five years ago, and pt notes symptoms are exactly the same, but not as severe. Symptoms are provoked by laying down or rolling to her right side. Pt reports it hasn't been as bad recently, but notes that she knows what bothers her most, so she just avoids those motions. Prior Treatments and Tests Previously treated for BPPV at this clinic 05/2019 Treatment Goals Patient/Caregiver Goals Eliminate dizziness PT-OP-C Subjective Start: 08/21/24 08:42 Freq: Status: Active Protocol: Document 12/06/24 08:17 MB (Rec: 12/06/24 08:51 MB Desktop) OP-PT Subjective Patient Comments Patient Comments Pt had fun in [place] and then she took a boat ride to [place] and was sitting at the counter and she felt, whoa. Pt took Xanax on the way home . Pt had dental appointment two days before boat ride and she did not let them tip her head back. Pt has had vertigo for 5 months. She has been doing walking exercises with head turns. Pt reports gaining 20 lbs and stopping medication for weight loss. PT-OP-O Vestibular Start: 08/21/24 08:42 Freq: Status: Active Protocol: Document 11/10/24 15:20 DCW (Rec: 11/10/24 15:46 DCW [id number]) Vestibular Assessment Positional Testing J[place]-Hallpike Negative Left,Negative Right Comments Vestibular Comments Pt notes symptoms are a 0.5/10 during Hallpike PT-OP-Q Treatments Start: 08/21/24 08:42 Freq: Status: Active Protocol: Document 12/06/24 08:17 MB (Rec: 12/06/24 08:51 MB Desktop) Neuro Re-Education Treatment Other Activities Assessments today Comments Jaxon-Hallpike right: negative [place]-Hallpike left: negative symptoms and perhaps two very faint and slow torsional beats Roll Test: negative to the right and left Pt denies headache and neck pain. Negative BPPV testing today. Orthostatic assessment in RUE: supine: 178/69, 80; standing 179/79, 86; standing 1' 187/77 , 83. Pt takes BP med at night . Self-Care/Home Management Treatment Education Patient Education Body Mechanics,Fall Risk,Home Exercise Program,Joint Protection,Posture Caregiver Education Encouraged pt to get back to walking, benefits of practicing rolling in the bed, performing exercises as prescribed by her primary PT, con't to work on hydration, cervical movement, possible benefits of checking for cervicogenic dizziness/ components in future treatments to see if she can get back to moving her head to help her vestibular systems, re-ed in gentle cervical rotation and flexion and extension PT-OP-T Assessment and Plan Start: 08/21/24 08:42 Freq: Status: Active Protocol: Document 12/06/24 08:17 MB (Rec: 12/06/24 08:51 MB Desktop) Physical Therapy Assessment Rehab Potential Rehabilitation Potential Fair Evaluation Complexity Number of Personal Factors/Comorbidities 3 or More Number of Body Systems Impaired 4 or More Clinical Presentation at Evaluation Unstable Impairments Impairments Activity Tolerance,Balance, Gait,Posture,ROM,Vestibular, Visual Motor Goals Two Impairment Positive right [place]-Hallpike test [facility] Goal (LTG) Pt to test negatively bilaterally with all positional testing in order to demonstrate successful treatment of BPPV. 12/06/24: LTG Duration 01/23/25 One Impairment Pt experiences vertigo with rolling to right side when in bed Short Term Goal (STG) Pt to report no vertigo with bed mobility for a full week. 12/06/24: Pt has been lying on her left side for five months and is not rolling in bed. STG Duration 01/23/25 Assessment Summary Assessment This is the second time this PT has seen pt in two months. It appears that she has had BPPV symptoms about 5 months. She reports she was doing well and had a recurrence after dentist where they did not tip her head back, boat ride and then sitting at counter. Pt presents walking stiff and with little cervical movement today. Pt may benefit from cerviocogenic dizziness and cervical assessments in future treatments. This PT encourages pt to start moving more in general including rolling in the bed. Negative BPPV testing today. Her neck is tight with positional for testing. BP is high this morning and she takes BP meds at night. She thinks she has white coat syndrome. Physical Therapy Plan Frequency and Duration Frequency of Treatment 1-2x/week Duration of treatment (weeks) 6 Plan of Care Start Date 12/06/24 Plan of Care End Date 01/23/25 Therapeutic Interventions Therapeutic Interventions Balance Training,Canalithic Repositioning,Home Exercise Program,Manual Therapy, Neuromuscular Re-education, Patient/Caregiver Education, Self-Care/Home Management, Therapeutic Activities, Therapeutic Exercises, Vestibular Rehabilitation Next Visit Focus/Plan Next Note Type Treatment Note Next Visit Plan Positional testing, CRM as indicated, cervicogenic assessment
--- NOTE | 2024-12-06 08:53 | PT.OPPOC ---
Physical, Occupational & Speech Therapy At [facility] Current Diagnoses Dizziness and giddiness (12/06/24) Visit Care Team Role Provider Type Max Wise MD Attending Provider Physician Family Provider Primary Care Provider Referring Provider Specialty: Family Practice Address: [facility] [place], [address] Email: [email or web address] Plan Of Care PT-OP-B Current Condition Start: 08/21/24 08:42 Freq: Status: Active Protocol: Document 08/25/24 16:15 DCW (Rec: 08/26/24 08:55 DCW [id number]) Current Condition History of Current Condition Onset Date 15 day history Current Complaints Positional vertigo History of Current Condition Pt is a 69 year old female complaining of a 15 day history of motion-induced vertigo. Pt reports episodes last about a minute. Pt was treated for BPPV at this clinic approximately five years ago, and pt notes symptoms are exactly the same, but not as severe. Symptoms are provoked by laying down or rolling to her right side. Pt reports it hasn't been as bad recently, but notes that she knows what bothers her most, so she just avoids those motions. Prior Treatments and Tests Previously treated for BPPV at this clinic 05/2019 Treatment Goals Patient/Caregiver Goals Eliminate dizziness PT-OP-T Assessment and Plan Start: 08/21/24 08:42 Freq: Status: Active Protocol: Document 12/06/24 08:17 MB (Rec: 12/06/24 08:51 MB Desktop) Physical Therapy Assessment Rehab Potential Rehabilitation Potential Fair Evaluation Complexity Number of Personal Factors/Comorbidities 3 or More Number of Body Systems Impaired 4 or More Clinical Presentation at Evaluation Unstable Impairments Impairments Activity Tolerance,Balance, Gait,Posture,ROM,Vestibular, Visual Motor Goals Two Impairment Positive right Jaxon-Hallpike test Machine I Coremaker Goal (LTG) Pt to test negatively bilaterally with all positional testing in order to demonstrate successful treatment of BPPV. 12/06/24: LTG Duration 01/23/25 One Impairment Pt experiences vertigo with rolling to right side when in bed Short Term Goal (STG) Pt to report no vertigo with bed mobility for a full week. 12/06/24: Pt has been lying on her left side for five months and is not rolling in bed. STG Duration 01/23/25 Assessment Summary Assessment This is the second time this PT has seen pt in two months. It appears that she has had BPPV symptoms about 5 months. She reports she was doing well and had a recurrence after dentist where they did not tip her head back, boat ride and then sitting at counter. Pt presents walking stiff and with little cervical movement today. Pt may benefit from cerviocogenic dizziness and cervical assessments in future treatments. This PT encourages pt to start moving more in general including rolling in the bed. Negative BPPV testing today. Her neck is tight with positional for testing. BP is high this morning and she takes BP meds at night. She thinks she has white coat syndrome. Physical Therapy Plan Frequency and Duration Frequency of Treatment 1-2x/week Duration of treatment (weeks) 6 Plan of Care Start Date 12/06/24 Plan of Care End Date 01/23/25 Therapeutic Interventions Therapeutic Interventions Balance Training,Canalithic Repositioning,Home Exercise Program,Manual Therapy, Neuromuscular Re-education, Patient/Caregiver Education, Self-Care/Home Management, Therapeutic Activities, Therapeutic Exercises, Vestibular Rehabilitation Next Visit Focus/Plan Next Note Type Treatment Note Next Visit Plan Positional testing, CRM as indicated, cervicogenic assessment Plan of Care Dates Plan of Care Start Date 12/06/24 Plan of Care End Date 01/23/25 Electronically Signed by: Larissa Edwards, PT 12/06/24 0853 If you are in agreement with this Plan of Care, please return a signed and dated copy. I have reviewed this Plan of Care and certify that the skilled therapy services above are required to meet the patient?s needs. Physician Signature Date Printed Name and Credentials Clinical Instructor Signature Printed Name and Credentials
--- NOTE | 2024-12-14 13:57 | PT.OTN ---
Current Diagnoses Dizziness and giddiness (12/14/24) Physical Therapy Treatment Note PT-OP-A Visit Information Start: 08/21/24 08:42 Freq: Status: Active Protocol: Document 12/14/24 13:04 MB (Rec: 12/14/24 13:56 MB Desktop) Out-Patient Physical Therapy Visit Information Visit Information Visit Type Treatment Note Visit Start Time 13:04 Visit Stop Time 13:44 Visit Number 15 Number of RECREATION AIDE Visits 0 Evaluation Information Evaluation Date 08/25/24 PT-OP-B Current Condition Start: 08/21/24 08:42 Freq: Status: Active Protocol: Document 08/25/24 16:15 DCW (Rec: 08/26/24 08:55 DCW [id number]) Current Condition History of Current Condition Onset Date 15 day history Current Complaints Positional vertigo History of Current Condition Pt is a 69 year old female complaining of a 15 day history of motion-induced vertigo. Pt reports episodes last about a minute. Pt was treated for BPPV at this clinic approximately five years ago, and pt notes symptoms are exactly the same, but not as severe. Symptoms are provoked by laying down or rolling to her right side. Pt reports it hasn't been as bad recently, but notes that she knows what bothers her most, so she just avoids those motions. Prior Treatments and Tests Previously treated for BPPV at this clinic 05/2019 Treatment Goals Patient/Caregiver Goals Eliminate dizziness PT-OP-C Subjective Start: 08/21/24 08:42 Freq: Status: Active Protocol: Document 12/14/24 13:04 MB (Rec: 12/14/24 13:56 MB Desktop) OP-PT Subjective Patient Comments Patient Comments Pt states that she feels a little woozy and that she thinks it is her neck. PT-OP-O Vestibular Start: 08/21/24 08:42 Freq: Status: Active Protocol: Document 11/10/24 15:20 DCW (Rec: 11/10/24 15:46 DCW [id number]) Vestibular Assessment Positional Testing Brownwood-Hallpike Negative Left,Negative Right Comments Vestibular Comments Pt notes symptoms are a 0.5/10 during Hallpike PT-OP-Q Treatments Start: 08/21/24 08:42 Freq: Status: Active Protocol: Document 12/14/24 13:04 MB (Rec: 12/14/24 13:56 MB Desktop) Therapeutic Exercises Supine Exercises Shoulder flexion, gentle cervical rotation, shoulder rolls and scapular retraction Supine Exercise Name Performed today and ed in benefits of performing at home to help posture Comments Also ed pt that getting more comfortable with supine will prepare for Butey Manual Therapy Treatment Consent Patient gave verbal consent for manual Yes treatment Other Other Manual Treatments Pt supine with head and legs supported: STM and positional release B SCM, pect major, upper traps, B grade II first rib mobs, positional release upper ribs B, grade II PA and upglides cervical spine, very gentle neck range, pt becomes tearful, feels better after talking about grief with PT and has less dizziness PT-OP-T Assessment and Plan Start: 08/21/24 08:42 Freq: Status: Active Protocol: Document 12/14/24 13:04 MB (Rec: 12/14/24 13:56 MB Desktop) Physical Therapy Assessment Rehab Potential Rehabilitation Potential Fair Evaluation Complexity Number of Personal Factors/Comorbidities 3 or More Number of Body Systems Impaired 4 or More Clinical Presentation at Evaluation Unstable Impairments Impairments Activity Tolerance,Balance, Gait,Posture,ROM,Vestibular, Visual Motor Goals Two Impairment Positive right Brownwood-Hallpike test Commutator Presser Goal (LTG) Pt to test negatively bilaterally with all positional testing in order to demonstrate successful treatment of BPPV. 12/06/24: LTG Duration 01/23/25 One Impairment Pt experiences vertigo with rolling to right side when in bed Short Term Goal (STG) Pt to report no vertigo with bed mobility for a full week. 12/06/24: Pt has been lying on her left side for five months and is not rolling in bed. STG Duration 01/23/25 Assessment Summary Assessment Pt presents woozy and with severe tightness in all cervical vertebra and ribs. She has history of B mastectomy, forward shoulders and reports of kidney mass that she is not working up. She is dizzy with supine today and dizziness improves with listening and manual intervention and gentle improvements in cervical mobility. Pt is tearful recalling daughter's passing last year d/t breast cancer. Cervicogenic dizziness, grief and anxiety causing fearfulness of neck movement and the subsequent treated BPPV. Will benefit from ongoing PT to work on these. Physical Therapy Plan Frequency and Duration Frequency of Treatment 1-2x/week Duration of treatment (weeks) 6 Plan of Care Start Date 12/06/24 Plan of Care End Date 01/23/25 Therapeutic Interventions Therapeutic Interventions Balance Training,Canalithic Repositioning,Home Exercise Program,Manual Therapy, Neuromuscular Re-education, Patient/Caregiver Education, Self-Care/Home Management, Therapeutic Activities, Therapeutic Exercises, Vestibular Rehabilitation Next Visit Focus/Plan Next Note Type Treatment Note Next Visit Plan Positional testing, CRM as indicated, cervicogenic treatment, postural training and ed, Butey breathing training with Larissa HOLDER
--- NOTE | 2024-12-21 14:26 | PT.OTN ---
Current Diagnoses Dizziness and giddiness (12/21/24) Physical Therapy Treatment Note PT-OP-A Visit Information Start: 08/21/24 08:42 Freq: Status: Active Protocol: Document 12/21/24 13:47 MB (Rec: 12/21/24 14:26 MB Desktop) Out-Patient Physical Therapy Visit Information Visit Information Visit Type Treatment Note Visit Start Time 13:47 Visit Stop Time 14:27 Visit Number 16 Number of AIR CARGO SPECIALIST SUPERVISOR Visits 0 Evaluation Information Evaluation Date 08/25/24 PT-OP-B Current Condition Start: 08/21/24 08:42 Freq: Status: Active Protocol: Document 08/25/24 16:15 DCW (Rec: 08/26/24 08:55 DCW [id number]) Current Condition History of Current Condition Onset Date 15 day history Current Complaints Positional vertigo History of Current Condition Pt is a 69 year old female complaining of a 15 day history of motion-induced vertigo. Pt reports episodes last about a minute. Pt was treated for BPPV at this clinic approximately five years ago, and pt notes symptoms are exactly the same, but not as severe. Symptoms are provoked by laying down or rolling to her right side. Pt reports it hasn't been as bad recently, but notes that she knows what bothers her most, so she just avoids those motions. Prior Treatments and Tests Previously treated for BPPV at this clinic 05/2019 Treatment Goals Patient/Caregiver Goals Eliminate dizziness PT-OP-C Subjective Start: 08/21/24 08:42 Freq: Status: Active Protocol: Document 12/21/24 13:47 MB (Rec: 12/21/24 14:26 MB Desktop) OP-PT Subjective Patient Comments Patient Comments Pt is feeling better after last treatment. She has been doing some neck exercises. She has been lying flat a little bit. PT-OP-O Vestibular Start: 08/21/24 08:42 Freq: Status: Active Protocol: Document 11/10/24 15:20 DCW (Rec: 11/10/24 15:46 DCW [id number]) Vestibular Assessment Positional Testing Jaxon-Hallpike Negative Left,Negative Right Comments Vestibular Comments Pt notes symptoms are a 0.5/10 during Hallpike PT-OP-Q Treatments Start: 08/21/24 08:42 Freq: Status: Active Protocol: Document 12/21/24 13:47 MB (Rec: 12/21/24 14:26 MB Desktop) Therapeutic Exercises Supine Exercises Pect stretch Supine Exercise Name HEP and handout today Equipment Used Vertical pillow bottom, horizontal pillow top, cervical towel support Comments B performance today Buteyko breathing Supine Exercise Name Ed in reasoning behind breathing, when and how to perform, see assess Shoulder flexion, gentle cervical rotation, shoulder rolls and scapular retraction Supine Exercise Name Reviewed today and pt performing well Neuro Re-Education Treatment Movement Re-Education Movement Re-education Activities Diaphragm breathing and ed in benefits of assist in parasympathetic engagement, relaxing organs, spine, lung mobility Self-Care/Home Management Treatment Education Caregiver Education Ongoing education that pt does need to try to lie flat with pillow and neck support to see if she is getting better and to help her neck, overall wellness and rest, posture and dizziness. Ed if she con't to not to be able to lie flat, may need refer out in the future for better neuro work- up PT-OP-T Assessment and Plan Start: 08/21/24 08:42 Freq: Status: Active Protocol: Document 12/21/24 13:47 MB (Rec: 12/21/24 14:26 MB Desktop) Physical Therapy Assessment Rehab Potential Rehabilitation Potential Fair Evaluation Complexity Number of Personal Factors/Comorbidities 3 or More Number of Body Systems Impaired 4 or More Clinical Presentation at Evaluation Unstable Impairments Impairments Activity Tolerance,Balance, Gait,Posture,ROM,Vestibular, Visual Motor Goals Two Impairment Positive right Fenton-Hallpike test Joiner Goal (LTG) Pt to test negatively bilaterally with all positional testing in order to demonstrate successful treatment of BPPV. 12/06/24: Negative for BPPV LTG Duration 01/23/25 One Impairment Pt experiences vertigo with rolling to right side when in bed Short Term Goal (STG) Pt to report no vertigo with bed mobility for a full week. 12/06/24: Pt has been lying on her left side for five months and is not rolling in bed. STG Duration 01/23/25 Assessment Summary Assessment Pt reports feeling better but she cannot tolerate supine for Buteyko breathing training. If pt does not con't to improve with lying flat after cervical and BPPV treatments, may need to refer out for posterior circulation assessment/neuro referral. Buteyko breathing ed and then pt in partial hook lying with two pillows and towel roll support, legs on plinth: O2 sats and HR in supine: 98% and 71 BPM. 1st rep: 4 sec and O2 sats 98%, HR 78 BPM; 2nd rep: 7 sec and O2 sats 98% and HR 78 BPM; 3rd rep: 10 sec and O2 sats 97% and HR 78 BPM; 4th rep 11 sec and O2 sats 97% and HR 71 BPM; 5th rep 11 sec and O2 sats 96% and HR 94 BPM; 6th rep 11 sec and O2 sats 96% and HR 78 BPM. Physical Therapy Plan Frequency and Duration Frequency of Treatment 1-2x/week Duration of treatment (weeks) 6 Plan of Care Start Date 12/06/24 Plan of Care End Date 01/23/25 Therapeutic Interventions Therapeutic Interventions Balance Training,Canalithic Repositioning,Home Exercise Program,Manual Therapy, Neuromuscular Re-education, Patient/Caregiver Education, Self-Care/Home Management, Therapeutic Activities, Therapeutic Exercises, Vestibular Rehabilitation Other Referrals/Consults Referrals/Consults Recommended If pt does not con't to improve with lying flat after cervical and BPPV treatments, may need to refer out for posterior circulation assessment/neuro referral Next Visit Focus/Plan Next Note Type Treatment Note Next Visit Plan Positional testing, CRM as indicated, cervicogenic treatment, postural training and ed including flexibility for cervical and thoracic spine, shoulder and intrascapular strengthening, assess pelvis to see if need to work on alignment
--- NOTE | 2024-12-26 17:49 | PT.OTN ---
Current Diagnoses Dizziness and giddiness (12/26/24) Physical Therapy Treatment Note PT-OP-A Visit Information Start: 08/21/24 08:42 Freq: Status: Active Protocol: Document 12/26/24 17:03 DCW (Rec: 12/26/24 17:49 DCW [id number]) Out-Patient Physical Therapy Visit Information Visit Information Visit Type Treatment Note Visit Start Time 17:03 Visit Stop Time 17:45 Visit Number 17 Number of STABLE HELPER Visits 0 Evaluation Information Evaluation Date 08/25/24 PT-OP-B Current Condition Start: 08/21/24 08:42 Freq: Status: Active Protocol: Document 08/25/24 16:15 DCW (Rec: 08/26/24 08:55 DCW [id number]) Current Condition History of Current Condition Onset Date 15 day history Current Complaints Positional vertigo History of Current Condition Pt is a 69 year old female complaining of a 15 day history of motion-induced vertigo. Pt reports episodes last about a minute. Pt was treated for BPPV at this clinic approximately five years ago, and pt notes symptoms are exactly the same, but not as severe. Symptoms are provoked by laying down or rolling to her right side. Pt reports it hasn't been as bad recently, but notes that she knows what bothers her most, so she just avoids those motions. Prior Treatments and Tests Previously treated for BPPV at this clinic 05/2019 Treatment Goals Patient/Caregiver Goals Eliminate dizziness PT-OP-C Subjective Start: 08/21/24 08:42 Freq: Status: Active Protocol: Document 12/26/24 17:03 DCW (Rec: 12/26/24 17:49 DCW [id number]) OP-PT Subjective Patient Comments Patient Comments Pt reports she is doing pretty well today, [place] and [place], but took an Advil and felt better. PT-OP-O Vestibular Start: 08/21/24 08:42 Freq: Status: Active Protocol: Document 11/10/24 15:20 DCW (Rec: 11/10/24 15:46 DCW [id number]) Vestibular Assessment Positional Testing Jaxon-Hallpike Negative Left,Negative Right Comments Vestibular Comments Pt notes symptoms are a 0.5/10 during Hallpike PT-OP-Q Treatments Start: 08/21/24 08:42 Freq: Status: Active Protocol: Document 12/26/24 17:03 DCW (Rec: 12/26/24 17:49 DCW [id number]) Therapeutic Exercises Sitting Exercises Isometrics Sitting Exercise Name Isometrics - Cervical Extension Manual Therapy Treatment Consent Patient gave verbal consent for manual Yes treatment Soft Tissue Mobilization Cervical Body Location B UT, Scalenes, SCM, Suboccipitals Mobilization Type Sustained Pressure,Trigger Point Release Intensity/Depth Moderate Body Position Semi-reclined PT-OP-T Assessment and Plan Start: 08/21/24 08:42 Freq: Status: Active Protocol: Document 12/26/24 17:03 DCW (Rec: 12/26/24 17:49 DC [id number]) Physical Therapy Assessment Impairments Impairments Activity Tolerance,Balance, Gait,Posture,ROM,Vestibular, Visual Motor Goals Two Impairment Positive right Jaxon-Hallpike test Prison Goal (LTG) Pt to test negatively bilaterally with all positional testing in order to demonstrate successful treatment of BPPV. 12/06/24: Negative for BPPV LTG Duration 01/23/25 One Impairment Pt experiences vertigo with rolling to right side when in bed Short Term Goal (STG) Pt to report no vertigo with bed mobility for a full week. 12/06/24: Pt has been lying on her left side for five months and is not rolling in bed. STG Duration 01/23/25 Assessment Summary Assessment Pt continues to complain of vague complaints on non- rotation dizziness, appears to be fairly sudden onset. Continuing to work on cervical function and mobility, decreasing soft tissue tone to improve ROM and mobility. Physical Therapy Plan Frequency and Duration Frequency of Treatment 1-2x/week Duration of treatment (weeks) 6 Plan of Care Start Date 12/06/24 Plan of Care End Date 01/23/25 Therapeutic Interventions Therapeutic Interventions Balance Training,Canalithic Repositioning,Home Exercise Program,Manual Therapy, Neuromuscular Re-education, Patient/Caregiver Education, Self-Care/Home Management, Therapeutic Activities, Therapeutic Exercises, Vestibular Rehabilitation Next Visit Focus/Plan Next Note Type Treatment Note Next Visit Plan Positional testing, CRM as indicated, cervicogenic treatment, postural training and ed including flexibility for cervical and thoracic spine, shoulder and intrascapular strengthening, assess pelvis to see if need to work on alignment
--- NOTE | 2025-01-03 13:00 | PT.OTN ---
Current Diagnoses Dizziness and giddiness (01/03/25) Physical Therapy Treatment Note PT-OP-A Visit Information Start: 08/21/24 08:42 Freq: Status: Active Protocol: Document 01/03/25 12:20 DCW (Rec: 01/03/25 12:58 DCW [id number]) Out-Patient Physical Therapy Visit Information Visit Information Visit Type Treatment Note Visit Start Time 12:20 Visit Stop Time 13:00 Visit Number 18 Number of IT SERVICE MANAGER Visits 0 Evaluation Information Evaluation Date 08/25/24 PT-OP-B Current Condition Start: 08/21/24 08:42 Freq: Status: Active Protocol: Document 08/25/24 16:15 DCW (Rec: 08/26/24 08:55 DCW [id number]) Current Condition History of Current Condition Onset Date 15 day history Current Complaints Positional vertigo History of Current Pt is a 69 year old female complaining of a 15 day Condition history of motion-induced vertigo. Pt reports episodes last about a minute. Pt was treated for BPPV at this clinic approximately five years ago, and pt notes symptoms are exactly the same, but not as severe. Symptoms are provoked by laying down or rolling to her right side. Pt reports it hasn't been as bad recently, but notes that she knows what bothers her most, so she just avoids those motions. Prior Treatments and Previously treated for BPPV at this clinic 05/2019 Tests Treatment Goals Patient/Caregiver Eliminate dizziness Goals PT-OP-C Subjective Start: 08/21/24 08:42 Freq: Status: Active Protocol: Document 01/03/25 12:20 DCW (Rec: 01/03/25 12:58 DCW [id number]) OP-PT Subjective Patient Comments Patient Comments Pt reports she is feeling great, her grandson is visiting [facility] for her birthday. Reports she went for a massage last week, hoping for another one this week. Has been trying to be more compliant with her exercise. PT-OP-O Vestibular Start: 08/21/24 08:42 Freq: Status: Active Protocol: Document 11/10/24 15:20 DCW (Rec: 11/10/24 15:46 DCW [id number]) Vestibular Assessment Positional Testing Jaxon-Hallpike Negative Left,Negative Right Comments Vestibular Comments Pt notes symptoms are a 0.5/10 during Hallpike PT-OP-Q Treatments Start: 08/21/24 08:42 Freq: Status: Active Protocol: Document 01/03/25 12:20 DCW (Rec: 01/03/25 12:58 DCW [id number]) Manual Therapy Treatment Consent Patient gave verbal Yes consent for manual treatment Soft Tissue Mobilization Cervical Body Location B UT, Scalenes, SCM, Suboccipitals Mobilization Type Sustained Pressure,Trigger Point Release Intensity/Depth Moderate Body Position Semi-reclined PT-OP-T Assessment and Plan Start: 08/21/24 08:42 Freq: Status: Active Protocol: Document 01/03/25 12:20 DCW (Rec: 01/03/25 12:58 DCW [id number]) Physical Therapy Assessment Impairments Impairments Activity Tolerance,Balance,Gait,Posture,ROM,Vestibular, Visual Motor Goals Two Impairment Positive right Jaxon-Hallpike test Rn Hyperbaric Goal (LTG) Pt to test negatively bilaterally with all positional testing in order to demonstrate successful treatment of BPPV. 12/06/24: Negative for BPPV LTG Duration 01/23/25 One Impairment Pt experiences vertigo with rolling to right side when in bed Short Term Goal (STG Pt to report no vertigo with bed mobility for a full ) week. 12/06/24: Pt has been lying on her left side for five months and is not rolling in bed. STG Duration 01/23/25 Assessment Summary Assessment Pt continues to respond fairly well to cervical STM, feeling like her dizziness has been improving. Continue to focus on cervical mobility, STM, and strengthening. Physical Therapy Plan Frequency and Duration Frequency of 1-2x/week Treatment Duration of 6 treatment (weeks) Plan of Care Start 12/06/24 Plan of Care End 01/23/25 Date Therapeutic Interventions Therapeutic Balance Training,Canalithic Repositioning,Home Exercise Interventions Program,Manual Therapy,Neuromuscular Re-education, Patient/Caregiver Education,Self-Care/Home Management, Therapeutic Activities,Therapeutic Exercises,Vestibular Rehabilitation Next Visit Focus/Plan Next Note Type Treatment Note Next Visit Plan Positional testing, CRM as indicated, cervicogenic treatment, postural training and ed including flexibility for cervical and thoracic spine, shoulder and intrascapular strengthening, assess pelvis to see if need to work on alignment
--- NOTE | 2025-01-10 15:11 | PT.OTN ---
Current Diagnoses Dizziness and giddiness (01/10/25) Physical Therapy Treatment Note PT-OP-A Visit Information Start: 08/21/24 08:42 Freq: Status: Active Protocol: Document 01/10/25 14:30 MB (Rec: 01/10/25 15:00 MB Desktop) Out-Patient Physical Therapy Visit Information Visit Information Visit Type Progress Note Visit Start Time 14:30 Visit Stop Time 15:10 Visit Number 19 Number of COMMUTER PILOT Visits 0 Evaluation Information Evaluation Date 08/25/24 PT-OP-B Current Condition Start: 08/21/24 08:42 Freq: Status: Active Protocol: Document 08/25/24 16:15 DCW (Rec: 08/26/24 08:55 DCW [id number]) Current Condition History of Current Condition Onset Date 15 day history Current Complaints Positional vertigo History of Current Pt is a 69 year old female complaining of a 15 day Condition history of motion-induced vertigo. Pt reports episodes last about a minute. Pt was treated for BPPV at this clinic approximately five years ago, and pt notes symptoms are exactly the same, but not as severe. Symptoms are provoked by laying down or rolling to her right side. Pt reports it hasn't been as bad recently, but notes that she knows what bothers her most, so she just avoids those motions. Prior Treatments and Previously treated for BPPV at this clinic 05/2019 Tests Treatment Goals Patient/Caregiver Eliminate dizziness Goals PT-OP-C Subjective Start: 08/21/24 08:42 Freq: Status: Active Protocol: Document 01/10/25 14:30 MB (Rec: 01/10/25 15:00 MB Desktop) OP-PT Subjective Patient Comments Patient Comments Pt went to [place] and went over on the boat and she grabbed ahold of the boat and worked on focusing on an object when having issues. She is getting massages. She got blood work and her white cell count was up. She is getting further blood work. She is doing more exercises with her neck. PT-OP-O Vestibular Start: 08/21/24 08:42 Freq: Status: Active Protocol: Document 11/10/24 15:20 DCW (Rec: 11/10/24 15:46 DCW [id number]) Vestibular Assessment Positional Testing Jaxon-Hallpike Negative Left,Negative Right Comments Vestibular Comments Pt notes symptoms are a 0.5/10 during Hallpike PT-OP-Q Treatments Start: 08/21/24 08:42 Freq: Status: Active Protocol: Document 01/10/25 14:30 MB (Rec: 01/10/25 15:00 MB Desktop) Manual Therapy Treatment Consent Patient gave verbal Yes consent for manual treatment Other Other Manual Pt hook lying with head and legs supported: STM B Treatments cervical paraspinals, upper traps, SCM, pects, gentle posterior rib positional release B, grade II-III PA mobs, B infraspinatus, suboccipital release, B first rib mobs. PT-OP-T Assessment and Plan Start: 08/21/24 08:42 Freq: Status: Active Protocol: Document 01/10/25 14:30 MB (Rec: 01/10/25 15:00 MB Desktop) Physical Therapy Assessment Impairments Impairments Activity Tolerance,Balance,Gait,Posture,ROM,Vestibular, Visual Motor Goals Two Impairment Positive right [place]-Hallpike test Mcfp Goal (LTG) Pt to test negatively bilaterally with all positional testing in order to demonstrate successful treatment of BPPV. 12/06/24: Negative for BPPV 01/10/25: Deferred testing given pt presentation and no complaints LTG Duration 01/23/25 One Impairment Pt experiences vertigo with rolling to right side when in bed Short Term Goal (STG Pt to report no vertigo with bed mobility for a full ) week. 12/06/24: Pt has been lying on her left side for five months and is not rolling in bed. 01/10/25: PT is still lying on her left side and does roll to her right side to get OOB and has had no problems. STG Duration 01/23/25 Assessment Summary Assessment 1-2 more PT treatments and d/c. Pt is rolling over to get OOB and has not been dizzy. Deferred BPPV testing given her presentation. Physical Therapy Plan Frequency and Duration Frequency of 1-2x/week Treatment Duration of 6 treatment (weeks) Plan of Care Start 12/06/24 Date Plan of Care End 01/23/25 Date Therapeutic Interventions Therapeutic Balance Training,Canalithic Repositioning,Home Exercise Interventions Program,Manual Therapy,Neuromuscular Re-education, Patient/Caregiver Education,Self-Care/Home Management, Therapeutic Activities,Therapeutic Exercises,Vestibular Rehabilitation Next Visit Focus/Plan Next Note Type Treatment Note Next Visit Plan Similar: Positional testing, CRM as indicated, cervicogenic treatment, postural training and ed including flexibility for cervical and thoracic spine, shoulder and intrascapular strengthening, assess pelvis to see if need to work on alignment
--- NOTE | 2025-01-17 10:16 | PT.OTN ---
Current Diagnoses Dizziness and giddiness (01/17/25) Physical Therapy Treatment Note PT-OP-A Visit Information Start: 08/21/24 08:42 Freq: Status: Active Protocol: Document 01/17/25 09:45 DCW (Rec: 01/17/25 10:16 DCW [id number]) Out-Patient Physical Therapy Visit Information Visit Information Visit Type Discharge Summary Visit Start Time 09:45 Visit Stop Time 10:10 Visit Number 20 Number of FIRER ELECTRIC LOCOMOTIVE Visits 0 Evaluation Information Evaluation Date 08/25/24 PT-OP-B Current Condition Start: 08/21/24 08:42 Freq: Status: Active Protocol: Document 08/25/24 16:15 DCW (Rec: 08/26/24 08:55 DCW [id number]) Current Condition History of Current Condition Onset Date 15 day history Current Complaints Positional vertigo History of Current Pt is a 69 year old female complaining of a 15 day Condition history of motion-induced vertigo. Pt reports episodes last about a minute. Pt was treated for BPPV at this clinic approximately five years ago, and pt notes symptoms are exactly the same, but not as severe. Symptoms are provoked by laying down or rolling to her right side. Pt reports it hasn't been as bad recently, but notes that she knows what bothers her most, so she just avoids those motions. Prior Treatments and Previously treated for BPPV at this clinic 05/2019 Tests Treatment Goals Patient/Caregiver Eliminate dizziness Goals PT-OP-C Subjective Start: 08/21/24 08:42 Freq: Status: Active Protocol: Document 01/17/25 09:45 DCW (Rec: 01/17/25 10:16 DCW [id number]) OP-PT Subjective Patient Comments Patient Comments Pt getting better and better and better. Regarding discharge, I know at some point I need to, I'm just nervous. PT-OP-O Vestibular Start: 08/21/24 08:42 Freq: Status: Active Protocol: Document 11/10/24 15:20 DCW (Rec: 11/10/24 15:46 DCW [id number]) Vestibular Assessment Positional Testing [place]-Hallpike Negative Left,Negative Right Comments Vestibular Comments Pt notes symptoms are a 0.5/10 during Hallpike PT-OP-Q Treatments Start: 08/21/24 08:42 Freq: Status: Active Protocol: Document 01/17/25 09:45 DCW (Rec: 01/17/25 10:16 [facility] [id number]) Manual Therapy Treatment Consent Patient gave verbal Yes consent for manual treatment Soft Tissue Mobilization Cervical Body Location B UT, Scalenes, SCM, Suboccipitals Mobilization Type Sustained Pressure,Trigger Point Release Intensity/Depth Moderate Body Position Semi-reclined PT-OP-T Assessment and Plan Start: 08/21/24 08:42 Freq: Status: Active Protocol: Document 01/17/25 09:45 DCW (Rec: 01/17/25 10:16 [facility] [id number]) Physical Therapy Assessment Impairments Impairments Activity Tolerance,Balance,Gait,Posture,ROM,Vestibular, Visual Motor Goals Two Impairment Positive right Jaxon-Hallpike test Clinical Data Programmer Goal (LTG) Pt to test negatively bilaterally with all positional testing in order to demonstrate successful treatment of BPPV. 12/06/24: Negative for BPPV 01/10/25: Deferred testing given pt presentation and no complaints LTG Duration Met One Impairment Pt experiences vertigo with rolling to right side when in bed Short Term Goal (STG Pt to report no vertigo with bed mobility for a full ) week. 12/06/24: Pt has been lying on her left side for five months and is not rolling in bed. 01/10/25: Pt is still lying on her left side and does roll to her right side to get OOB and has had no problems. STG Duration Met Progress Towards Goals Progress Towards Goals Met Goals Assessment Summary Assessment Pt overall doing much better, has met all goals. Continues to have occasional symptoms of dizziness, appears to be potentially associated with cervical dysfunction. Has been doing well with her HEP/cervical stretching. Likely appropriate for discharge at this time, pt in agreement. Understands that she will be able to return in the future with a new referral if needed. Physical Therapy Plan Frequency and Duration Frequency of 1-2x/week Treatment Duration of 6 treatment (weeks) Plan of Care Start 12/06/24 Date Plan of Care End 01/23/25 Date Therapeutic Interventions Therapeutic Balance Training,Canalithic Repositioning,Home Exercise Interventions Program,Manual Therapy,Neuromuscular Re-education, Patient/Caregiver Education,Self-Care/Home Management, Therapeutic Activities,Therapeutic Exercises,Vestibular Rehabilitation Discharge Physical Therapy Discharge Reasons Goals Met Next Visit Focus/Plan Next Note Type Discharge Summary
== END 2025-01-19 10:02 | disposition home or self-care (01) ==
LOC: PHYS 09:45
PROVIDERS: Family Provider Family Medicine; PCP Family Medicine; Referring Provider Family Medicine; Visit Provider Family Medicine
DX: R42 Dizziness and giddiness (principal)
CPT/HCPCS: 95992; 97110; 97112; 97140; 97163; 97530; 97535

== ENCOUNTER → 2025-05-05 15:55 | Outpatient (CLI) | payer MEDICARE, OTHER, SELFPAY ==
[2022-03-18 09:54] VITALS: BMI 31.1
[2025-05-05 16:48] LABS: Hematocrit 38.1 % (36-46); Hemoglobin 13.1 g/dL (12.0-16.0); Mean Corpuscular HGB Conc 34.3 % (30-36); Mean Corpuscular Hemoglobin 29.2 PG (26-34); Mean Corpuscular Volume 85.1 fL (80-100); Platelet Count 251 X10^3/uL (150-400)
[2025-05-05 17:08] LABS: Blood Urea Nitrogen 21 mg/dL (7-17); Calcium 10.1 mg/dL (8.4-10.2); Carbon Dioxide 26 mmol/L (22-32); Chloride 99 mmol/L (98-107); Estimated Glomerular Filt Rate > 60 mL/min (>60); Glucose 269 mg/dL (70-99); HEMOLYSIS < 15 (0-50); Potassium 4.5 mmol/L (3.4-5.1); Sodium 135 mmol/L (137-145)
[2025-05-05 17:22] LABS: Appearance Urine UA CLEAR; Bilirubin Urine UA NEGATIVE (NEGATIVE); Color Urine UA YELLOW; Glucose Urine UA 2+ g/dL (Negative); Ketones Urine UA NEGATIVE (NEGATIVE); Leukocyte Esterase Urine UA NEGATIVE (NEGATIVE); Nitrite Urine UA NEGATIVE (Negative); Occult Blood Urine UA NEGATIVE (Negative); Protein Urine UA NEGATIVE (Negative); Specific Gravity Urine UA 1.010 (1.000-1.035); Urobilinogen Urine UA 0.2 E.U./dL (0.2)
[2025-05-05 17:24] LABS: pH Urine UA 5.5 (4.5-8.0)
[2025-05-05 17:25] LABS: Protein (Total) Urine Random 5 mg/dL (0-12); Protein Creatinine Ratio Urine 0.07 GRAM/24H
[2025-05-05 17:31] LABS: Microalbumi Creatinin Ratio Ur 24.0 ug/mg CR (<30)
[2025-05-05 17:36] LABS: Culture Indicated Urine Cult Not Indicated
== END ==
PROVIDERS: Family Provider Family Medicine; PCP Family Medicine; Referring Provider Internal Medicine Nephrology; Visit Provider Internal Medicine Nephrology
DX: E11.9 Type 2 diabetes mellitus without complications (principal); I10 Essential (primary) hypertension; N20.0 Calculus of kidney; N28.89 Other specified disorders of kidney and ureter; Z79.4 Long term (current) use of insulin
CPT/HCPCS: 36415; 80048; 81001; 82043; 82570; 84156; 85027

== ENCOUNTER → 2025-06-05 10:51 | Outpatient (CLI) | payer MEDICARE, OTHER, SELFPAY ==
[2022-03-18 09:54] VITALS: BMI 31.1
[2025-06-05 11:47] LABS: Add Manual Diff / Slide Review NO; Hematocrit 39.2 % (36-46); Hemoglobin 13.3 g/dL (12.0-16.0); Lymphocytes Absolute Auto 1700 /uL (1100-4500); Mean Corpuscular HGB Conc 33.9 % (30-36); Mean Corpuscular Hemoglobin 29.1 PG (26-34); Mean Corpuscular Volume 85.7 fL (80-100); Platelet Count 272 X10^3/uL (150-400)
[2025-06-05 12:11] LABS: Alanine Aminotransferase 44 IU/L (<35); Albumin 4.6 g/dL (3.5-5.0); Albumin Globulin Ratio 1.6 (1.0-2.8); Alkaline Phosphatase 80 U/L (38-126); Blood Urea Nitrogen 19 mg/dL (7-17); Calcium 10.4 mg/dL (8.4-10.2); Carbon Dioxide 26 mmol/L (22-32); Chloride 99 mmol/L (98-107); Estimated Glomerular Filt Rate > 60 mL/min (>60); Globulin 2.8 g/dL (1.7-4.1); Glucose 181 mg/dL (70-99); HEMOLYSIS < 15 (0-50); Potassium 4.9 mmol/L (3.4-5.1); Sodium 138 mmol/L (137-145); Total Protein 7.4 g/dL (6.3-8.2)
== END ==
PROVIDERS: Family Provider Family Medicine; PCP Family Medicine; Referring Provider Internal Medicine Hematology & Oncology; Visit Provider Internal Medicine Hematology & Oncology
DX: Z08 Encounter for follow-up examination after completed treatment for malignant neoplasm (principal); N28.89 Other specified disorders of kidney and ureter; Z85.3 Personal history of malignant neoplasm of breast
CPT/HCPCS: 36415; 80053; 85025

== ENCOUNTER → 2025-07-18 09:47 | Outpatient (CLI) | payer MEDICARE, OTHER, SELFPAY ==
[2022-03-18 09:54] VITALS: BMI 31.1
--- NOTE | 2025-07-18 09:49 | DI.CT.S_ITS ---
PROCEDURE: CT ABDOMEN RENAL PROTOCOL INDICATIONS: Left renal mass; surveillance TECHNIQUE: Optional 5 mm thick noncontrast images acquired from the diaphragm to the iliac crests. After the administration of intravenous contrast, 5 mm thick images again acquired from the diaphragm to the iliac crests in the arterial and urographic phases. 5 mm thick coronal and sagittal reformats were then acquired. For radiation dose reduction, the following was used: automated exposure control, adjustment of mA and/or kV according to patient size. COMPARISON: [facility], CT, CT ABDOMEN RENAL PROTOCOL, 08/02/2024, 12:43. FINDINGS: Image quality: Diagnostic. Kidneys and Ureters: Accounting for differences in measuring technique, there has been no significant change in size of the mostly exophytic mass on the inferior pole of the left kidney. Maximum diameter measures 3.7 centimeters. The mass does not contact the ureter. No evidence of renal fascia invasion. The mass does contain coarse calcifications. Small burden of nonobstructing bilateral nephrolithiasis, measuring up to 7.6 centimeter on the left and 5 millimeter on the right. Renal vein is widely patent. OTHER: Lower chest: Unremarkable. Liver: No solid mass. Gallbladder: No radiopaque gallstones or wall thickening. Biliary ducts: No biliary dilation. Pancreas: No ductal dilation. Spleen: Size is within normal limits. Adrenal Glands: No adrenal nodules. Stomach and Bowel: Normal colonic caliber, without significant wall thickening. Peritoneum: No abnormal intraperitoneal fluid. No free air. Ventral Wall: No hernia. Abdominal Nodes: No retroperitoneal or mesenteric adenopathy by size criteria. Vessels: Aorta and inferior vena cava are normal in size. Bones: No aggressive osseous abnormality. IMPRESSION: Stable left renal mass measuring up to 3.7 centimeter. The mass does not demonstrate invasion beyond the renal fascia. No renal vein invasion. No retroperitoneal adenopathy. Stable small burden of bilateral nonobstructing nephrolithiasis. Dictated by: Zaire Richardson M.D. on 07/18/2025 at 13:07 Approved by: Zaire Richardson M.D. on 07/18/2025 at 13:11
[2025-07-18 10:19] LABS: Estimated Glomerular Filt Rate > 60 mL/min (>60)
== END ==
LOC: CT 09:48
PROVIDERS: Family Provider Family Medicine; PCP Family Medicine; Referring Provider Family Medicine; Visit Provider Family Medicine
DX: N28.89 Other specified disorders of kidney and ureter (principal); N20.0 Calculus of kidney
CPT/HCPCS: 36415; 74170; 82565; Q9967

== ENCOUNTER → 2025-07-25 12:00 | Outpatient (CLI) | payer MEDICARE, OTHER, SELFPAY ==
[2022-03-18 09:54] VITALS: BMI 31.1
--- NOTE | 2025-07-25 12:02 | DI.US.S_ITS ---
PROCEDURE: US CAROTID DOPPLER BI INDICATIONS: Hypertension associated w diabetes TECHNIQUE: Color and pulse Doppler interrogation was performed of both carotid systems, with image documentation and velocity measurements. COMPARISON: None. FINDINGS: Stenosis calculations are based on SRU (Society of Radiologists in Ultrasound) criteria. Right side: Common carotid artery peak systolic velocity: 70 cm/sec. Internal carotid artery peak systolic velocity: 133 cm/sec. Internal carotid artery end diastolic velocity: 25 cm/sec. External carotid artery peak systolic velocity: 125 cm/sec. ICA/CCA peak systolic ratio: 1.9 . Dang scale imaging description: Atherosclerotic plaques Percent internal carotid artery stenosis: 50-69% . Vertebral artery: Flow direction is antegrade. Left side: Common carotid artery peak systolic velocity: 75 cm/sec. Internal carotid artery peak systolic velocity: 113 cm/sec. Internal carotid artery end diastolic velocity: 27 cm/sec. External carotid artery peak systolic velocity: 105 cm/sec. ICA/CCA peak systolic ratio: 1.5 . Dang scale imaging description: Atherosclerotic plaques Percent internal carotid artery stenosis: Less than 50% . Vertebral artery: Flow direction is antegrade. IMPRESSION: 1. In the right carotid artery, there is 50-69% stenosis based on peak systolic velocity criteria. 2. In the left carotid artery, there is less than 50% stenosis based on peak systolic velocity criteria. 3. Antegrade vertebral arteries. Dictated by: Miguel Ángel Colon M.D. on 07/25/2025 at 15:59 Approved by: Miguel Ángel Colon M.D. on 07/25/2025 at 16:05
== END ==
LOC: US 12:01
PROVIDERS: PCP Family Medicine; Referring Provider Family Medicine; Visit Provider Family Medicine
DX: I65.23 Occlusion and stenosis of bilateral carotid arteries (principal); E11.59 Type 2 diabetes mellitus with other circulatory complications; I15.2 Hypertension secondary to endocrine disorders
CPT/HCPCS: 93880